=== PATIENT | female | born 1955 | race Caucasian/White ===

== ENCOUNTER 2018-07-09 02:36 | Inpatient (IN) | payer OTHER ==
[~2018-07-09] VITALS: Ht 167.6 cm; Wt 133.8 kg
[2018-07-09] VITALS (17 sets, daily range): BP systolic 134–181; BP diastolic 68–112
[2018-07-09] MEDS ORDERED: RT-ALBUTEROL SULF 2.5 MG/3 ML PRE-MIX VIAL ONE (02:48)
[2018-07-09] MEDS ORDERED: RT-ALBUTEROL SULF 2.5 MG/3 ML PRE-MIX VIAL INH STA (02:49)
[2018-07-09] MEDS ORDERED: RT-ALBUTEROL/IPRATROPIUM 3 ML (DUONEB) VIAL ONE (02:49)
[2018-07-09 02:53] LABS: BASOPHILS % (AUTO) 0 % (0-10); EOSINOPHILS % (AUTO) 0 % (0-10); HEMATOCRIT 58 % (35-52); HEMOGLOBIN 17.8 G/DL (11.5-16.0); LYMPHOCYTES # (AUTO) 1.2 X 10^3 (1.0-4.0); LYMPHOCYTES % (AUTO) 10 % (12-44); MEAN CORPUSCULAR HEMOGLOBIN 27 PG (25-34); MEAN CORPUSCULAR HGB CONC 31 G/DL (32-36); MEAN CORPUSCULAR VOLUME 87 FL (80-99); MEAN PLATELET VOLUME 11.2 FL (7.4-10.4); MONOCYTES # (AUTO) 0.6 X 10^3 (0.0-1.0); MONOCYTES % (AUTO) 5 % (0-12); NEUTROPHILS # (AUTO) 10.7 X 10^3 (1.8-7.8); NEUTROPHILS % (AUTO) 85 % (42-75); PLATELET COUNT 220 10^3/uL (130-400); RED CELL DISTRIBUTION WIDTH 18.7 % (10.0-14.5); WHITE BLOOD COUNT 12.6 10^3/uL (4.3-11.0)
[2018-07-09] MEDS ORDERED: RT-ALBUTEROL/IPRATROPIUM 3 ML (DUONEB) VIAL INH ONE (03:00)
[2018-07-09 03:15] LABS: ALANINE AMINOTRANSFERASE 22 U/L (0-55); ALBUMIN 4.2 GM/DL (3.2-4.5); ALKALINE PHOSPHATASE 71 U/L (40-136); BILIRUBIN,TOTAL 0.3 MG/DL (0.1-1.0); BUN/CREATININE RATIO 21; CALCIUM 9.4 MG/DL (8.5-10.1); CARBON DIOXIDE 26 MMOL/L (21-32); CHLORIDE 100 MMOL/L (98-107); CREATININE SERUM 0.72 MG/DL (0.60-1.30); GFR ESTIMATED > 60; GLUCOSE 191 MG/DL (70-105); POTASSIUM 4.5 MMOL/L (3.6-5.0); SODIUM 139 MMOL/L (135-145); TOTAL PROTEIN 7.9 GM/DL (6.4-8.2)
[2018-07-09] MEDS ORDERED: HOLD METFORMIN - RECEIVED CONTRAST 20 ML VIAL IV SCH (07:00)
[2018-07-09] MEDS ORDERED: IOHEXOL 350 MG/ML 150 ML (OMNIPAQUE 350) VIAL IV ONE (07:00)
--- NOTE | 2018-07-09 07:13 | Diagnostic Imaging Report ---
PATIENT HISTORY: Shortness of air. TECHNIQUE: Single frontal view of the chest COMPARISON: None FINDINGS: Lung volumes are mildly large. There is central vascular congestion with interstitial edema. The cardiac silhouette is mildly prominent. There is no pleural effusion or pneumothorax seen. IMPRESSION: 1. Central vascular congestion with mild interstitial edema. 2. Mild cardiomegaly. Dictated by: Dictated on workstation # [id number]
--- NOTE | 2018-07-09 07:24 | Diagnostic Imaging Report ---
PROCEDURE: CT angiography of the chest with contrast. TECHNIQUE: Multiple contiguous axial images were obtained through the chest after uneventful bolus administration of intravenous contrast. 2D reconstructed CTA MIP acquisitions were also performed. Auto Exposure Controls were utilized during the CT exam to meet ALARA standards for radiation dose reduction. INDICATION: Shortness of air COMPARISON: Chest x-ray from the same day FINDINGS: The pulmonary arteries are diagnostic to the proximal segmental level. No filling defects are seen to indicate a pulmonary embolus. The heart is mildly large. No pericardial effusion is seen. There is a small hiatal hernia. No significant mediastinal adenopathy is seen. There is a heterogeneous left thyroid nodule measuring approximately 3 cm in size. There are airspace opacities at the lung bases and dependent lungs bilaterally. No significant pleural effusion is seen. No acute osseous abnormality is seen. Imaged portions of the upper abdomen demonstrate no acute abnormality. There is a 2 cm right adrenal nodule which is suboptimally evaluated, but most likely represents an adenoma. IMPRESSION: 1. No pulmonary embolus seen. 2. Airspace opacities in the lower lobes bilaterally, most likely atelectasis with underlying infection not excluded. 3. Left thyroid nodule which is large enough to warrant nonemergent sonographic followup. 4. Small hiatal hernia. 5. Right adrenal nodule, most likely benign, but suboptimally evaluated on this exam. If clinically indicated, further evaluation could be performed with nonemergent MRI or pre-and postcontrast CT. Dictated by: Dictated on workstation # [id number]
[2018-07-09] MEDS ORDERED: cefTRIAXone FOR IV USE 1,000 MG in WATER (STERILE) FOR INJECTION 10 ML IV ONE (07:30)
--- NOTE | 2018-07-09 07:45 | NUR ---
1ST BLOOD CULTURE DRAWN FROM IV R HAND, UNABLE TO DRAW ABG AT THIS X RT NOTIFIED
--- NOTE | 2018-07-09 07:47 | ED Respiratory ---
General Chief Complaint: Respiratory Problems Stated Complaint: SOB Nursing Triage Note: PT ARRIVES VIA EMS, STATES THAT SHE BEGAN TO BECOME INCRESINGLY SOB AT WORK EARLIER IN THE DAY, THOUGHT SHE COULD REST AND IMPROVE, CONTACTED EMS AFTER SHE DID NOT IMPROVE Source: patient Exam Limitations: no limitations History of Present Illness Date Seen by Provider: Jul 09, 2018 Time Seen by Provider: 02:39 Initial Comments This 62-year-old woman presents to the emergency room via EMS after developing shortness of breath at work. EMS found her to be in respiratory distress with cyanosis and an oxygen saturation of 60 percent on room air. They administered Solu-Medrol 125 mg and placed her on BiPAP with a DuoNeb treatment. This resuscitated her oxygen saturations to the 90s. Patient denies any known history of COPD. However, she is a daily smoker. She has not been to a doctor in many years and claims no primary care provider. She denies any chest pain. Allergies and Home Medications Allergies Coded Allergies: No Known Drug Allergies (Unverified , 07/09/18) Patient Home Medication List Home Medication List Reviewed: Yes Review of Systems Review of Systems Constitutional: no symptoms reported EENTM: no symptoms reported Respiratory: see HPI Cardiovascular: no symptoms reported Gastrointestinal: no symptoms reported Genitourinary: no symptoms reported : No Musculoskeletal: no symptoms reported Skin: no symptoms reported Psychiatric/Neurological: No Symptoms Reported Hematologic/Lymphatic: No Symptoms Reported Immunological/Allergic: no symptoms reported Past Yduwzdy-Gnkoyv-Fhichg Hx Past Med/Social Hx: Reviewed and Corrections made Patient Social History Alcohol Use: Denies Use Recreational Drug Use: No Smoking Status: Current Everyday Smoker Type Used: Cigarettes Recent Foreign Travel: No Contact w/Someone Who Travel: No Recent Infectious Disease Expo: No Recent Hopitalizations: No Seasonal Allergies Seasonal Allergies: No Past Medical History Surgeries: Yes Section, Orthopedic, Tonsillectomy Respiratory: No Cardiac: Yes Hypertension Neurological: No : No Reproductive Disorders: Yes Female Reproductive Disorders: Endometriosis, Ovarian Cyst [employer] History: Menopausal Genitourinary: No Gastrointestinal: No Musculoskeletal: No Endocrine: No HEENT: No Cancer: No Psychosocial: No Integumentary: No Physical Exam Vital Signs - First Documented 07/09/18 07/09/18 02:36 03:30 Temp 97.7 Pulse 110 Resp 24 B/P (MAP) 169/89 (115) Pulse Ox 96 O2 Delivery Non Rebreather O2 Flow Rate 10.00 FiO2 100 Capillary Refill : Less Than 3 Seconds Height: 5'6.00" Weight: 292lbs. 1.0oz. 132.712316cm; BMI Method:Actual General Appearance: WD/WN, no apparent distress HEENT: normal ENT inspection Neck: normal inspection Respiratory: respiratory distress, decreased breath sounds; No crackles; wheezing Cardiovascular: regular rate, rhythm, no murmur Gastrointestinal: non tender, soft Extremities: pedal edema, swelling Neurologic/Psychiatric: load out supervisor II-XII nml as tested, no motor/sensory deficits, alert, normal mood/affect, oriented x 3 Skin: normal color, warm/dry Focused Exam Lactate Level 07/09/18 08:05: Lactic Acid Level 1.49 Lactic Acid Level Laboratory Tests Test 07/09/18 08:05 Lactic Acid Level 1.49 MMOL/L (0.50-2.00) Progress/Results/Core Measures Suspected Sepsis Recent Fever Within 48 Hours: No Infection Criteria Present: Suspected New Infection New/Unexplained Altered Menta: No Sepsis Screen: Possible Sepsis Risk SIRS Temperature:97.7 Pulse: 90 Respiratory Rate: 22 Laboratory Tests 07/09/18 02:40: White Blood Count 12.6H Blood Pressure 167 /89 Mean: 115 07/09/18 08:05: Lactic Acid Level 1.49 Laboratory Tests 07/09/18 02:40: Creatinine 0.72, Platelet Count 220, Total Bilirubin 0.3 Results/Orders Lab Results Laboratory Tests Test 07/09/18 02:40 07/09/18 08:05 07/09/18 08:15 Range/Units White Blood Count 12.6 H 4.3-11.0 10^3/uL Red Blood Count 6.61 H 4.35-5.85 10^6/uL Hemoglobin 17.8 H 11.5-16.0 G/DL Hematocrit 58 H 35-52 % Mean Corpuscular Volume 87 80-99 FL Mean Corpuscular Hemoglobin 27 25-34 PG Mean Corpuscular Hemoglobin Concent 31 L 32-36 G/DL Red Cell Distribution Width 18.7 H 10.0-14.5 % Platelet Count 220 130-400 10^3/uL Mean Platelet Volume 11.2 H 7.4-10.4 FL Neutrophils (%) (Auto) 85 H 42-75 % Lymphocytes (%) (Auto) 10 L 12-44 % Monocytes (%) (Auto) 5 0-12 % Eosinophils (%) (Auto) 0 0-10 % Basophils (%) (Auto) 0 0-10 % Neutrophils # (Auto) 10.7 H 1.8-7.8 X 10^3 Lymphocytes # (Auto) 1.2 1.0-4.0 X 10^3 Monocytes # (Auto) 0.6 0.0-1.0 X 10^3 Eosinophils # (Auto) 0.0 0.0-0.3 10^3/uL Basophils # (Auto) 0.0 0.0-0.1 10^3/uL D-Dimer 0.55 H 0.00-0.49 UG/ML Sodium Level 139 135-145 MMOL/L Potassium Level 4.5 3.6-5.0 MMOL/L Chloride Level 100 98-107 MMOL/L Carbon Dioxide Level 26 21-32 MMOL/L Anion Gap 13 5-14 MMOL/L Blood Urea Nitrogen 15 7-18 MG/DL Creatinine 0.72 0.60-1.30 MG/DL Estimat Glomerular Filtration Rate > 60 BUN/Creatinine Ratio 21 Glucose Level 191 H 70-105 MG/DL Calcium Level 9.4 8.5-10.1 MG/DL Corrected Calcium 9.2 8.5-10.1 MG/DL Magnesium Level 2.0 1.8-2.4 MG/DL Total Bilirubin 0.3 0.1-1.0 MG/DL Aspartate Amino Transf (AST/SGOT) 16 5-34 U/L Alanine Aminotransferase (ALT/SGPT) 22 0-55 U/L Alkaline Phosphatase 71 40-136 U/L Troponin I < 0.028 <0.028 NG/ML C-Reactive Protein High Sensitivity 2.48 H 0.00-0.50 MG/DL B-Type Natriuretic Peptide 45.1 <100.0 PG/ML Total Protein 7.9 6.4-8.2 GM/DL Albumin 4.2 3.2-4.5 GM/DL Lactic Acid Level 1.49 0.50-2.00 MMOL/L Blood Gas Puncture Site L RAD Blood Gas Patient Temperature 97.8 Arterial Blood pH 7.21 *L 7.37-7.43 Arterial Blood Partial Pressure CO2 77 *H 35-45 MMHG Arterial Blood Partial Pressure O2 92 79-93 MMHG Arterial Blood HCO3 30 H 23-27 MMOL/L Arterial Blood Total CO2 32.4 H 21.0-31.0 MMOL/L Arterial Blood Oxygen Saturation 96 94-100 % Arterial Blood Base Excess 2.8 H -2.5-2.5 MMOL/L Jaxson Test YES-POS Blood Gas Ventilator Setting NO Blood Gas Inspired Oxygen 80% Micro Results Microbiology 07/09/18 Influenza Types A,B Antigen (ANGUS) - Final, Complete My Orders Orders - ALLYN STEVENS MD BNP (07/09/18 02:45) Cbc With Automated Diff (07/09/18 02:45) Comprehensive Metabolic Panel (07/09/18 02:45) Hs C Reactive Protein (07/09/18 02:45) Fibrin Degradation Products (07/09/18 02:45) Magnesium (07/09/18 02:45) Troponin I (07/09/18 02:45) Influenza A And B Antigens (07/09/18 02:45) Chest 1 View, Ap/Pa Only (07/09/18 02:45) Ed Iv/Invasive Line Start (07/09/18 02:45) Ekg Tracing (07/09/18 02:45) Monitor-Rhythm Ecg Trace Only (07/09/18 02:45) Albuterol Pre-Mix Nebs (Rt) (Proventil (07/09/18 02:49) Albuterol/Ipra Inhalation Soln (Duoneb I (07/09/18 03:00) Svn Small Volume Nebulizer (07/09/18 02:49) Svn Small Volume Nebulizer (07/09/18 02:49) Albuterol Pre-Mix Nebs (Rt) (Proventil (07/09/18 02:48) Albuterol/Ipra Inhalation Soln (Duoneb I (07/09/18 02:49) Ct Angio Chest W (07/09/18 03:32) Iohexol Injection (Omnipaque 350 Mg/Ml 1 (07/09/18 07:00) Received Contrast (Hold Metformin- Contr (07/09/18 07:00) Arterial Blood Gas (07/09/18 08:15) Blood Culture (07/09/18 07:28) Lactic Acid Analyzer (4/30/19 07:28) Ceftriaxone For Iv Use (Rocephin For I (07/09/18 07:30) Medications Given in ED Current Medications Medications Dose Ordered Sig/Rhona Route Start Time Stop Time Status Last Admin Dose Admin Ceftriaxone Sodium 1000 mg/ Sterile Water 10 ml @ 200 mls/hr ONCE ONCE IV 07/09/18 07:30 07/09/18 07:32 DC 07/09/18 08:17 200 MLS/HR Iohexol 150 ml ONCE ONCE IV 07/09/18 07:00 07/09/18 07:01 DC 07/09/18 06:59 135 ML Vital Signs/I&O 07/09/18 07/09/18 07/09/18 07/09/18 02:36 02:45 03:30 08:31 Temp 97.7 Pulse 110 90 92 90 Resp 24 22 28 B/P (MAP) 169/89 (115) Pulse Ox 96 97 98 98 O2 Delivery Non Rebreather Vapotherm O2 Flow Rate 10.00 100.00 40.00 100.00 FiO2 100 Capillary Refill : Less Than 3 Seconds Blood Pressure Mean: 115 Progress Note #1: Time: 07:43 Progress Note Patient was transitioned from EMS CPAP to BiPAP briefly and then to Vapotherm. She did well with this therapy. An hour-long nebulizer treatment was administered. She received Solu-Medrol 125 mg by EMS. Initially labs were felt to be unimpressive. There is a mild WBC elevation. This was felt likely due to steroids as the CRP was not significantly elevated. Chest x-ray read by this provider was not felt to suggest pneumonia. Pulmonary congestion was thought to possibly be present. However, this did not correlate with BNP. D- dimer returned elevated which prompted a CT scan. On the CT scan there was question of pulmonary infection. Case was discussed with Dr. Sim who suggested starting Rocephin and azithromycin. He also suggested obtaining an ABG to help determine if the patient should be admitted to the fourth floor or to a stepdown bed in the ICU. The ABG study is pending. Blood cultures are being drawn prior to antibiotic administration. Presence of infection is rather questionable. Respiratory failures felt to be due to COPD exacerbation, not necessarily infection. Progress Note #2: Time: 08:36 Progress Note ABG revealed a significant hypercapnia with PCO2 of 77. PH was 7.21. Case was discussed again with Dr. Sim. Patient will be restarted on BiPAP therapy due to hypercarbia. Rocephin is being administered now after blood culture and lactic acid were drawn. ECG Initial ECG Impression Date: Jul 09, 2018 Initial ECG Impression Time: 03:10 Initial ECG Rate: 102 Initial ECG Rhythm: S.Tach Comment Sinus tachycardia with no ST elevation or depression. No abnormal intervals or axis deviation. Diagnostic Imaging Diagonstic Imaging: Xray Plain Films/CT/US/NM/MRI: chest Comments Chest x-ray viewed by me and report reviewed. See report below: NAME: [facility] HASSAN [facility] REC#: [id number] PT STATUS: REG ER : 1955 PHYSICIAN: ALLYN STEVENS MD ADMIT DATE: 07/09/18/ER Draft Date of Exam:07/09/18 CHEST 1 VIEW, AP/PA ONLY PATIENT HISTORY: Shortness of air. TECHNIQUE: Single frontal view of the chest COMPARISON: None FINDINGS: Lung volumes are mildly large. There is central vascular congestion with interstitial edema. The cardiac silhouette is mildly prominent. There is no pleural effusion or pneumothorax seen. IMPRESSION: 1. Central vascular congestion with mild interstitial edema. 2. Mild cardiomegaly. Dictated on workstation # [id number] Dict: 07/09/18 0711 Trans: 07/09/18 0712 [facility] [id number] Interpreted by: LONDON ALEXANDER MD Diagonstic Imaging: CT Plain Films/CT/US/NM/MRI: chest Comments CT angiogram of the chest was viewed by me and report reviewed. See report below: NAME: NORMA HASSAN [facility] REC#: [id number] PT STATUS: REG ER : 1955 PHYSICIAN: ALLYN STEVENS MD ADMIT DATE: 07/09/18/ER Draft Date of Exam:07/09/18 CHEST 1 VIEW, AP/PA ONLY PATIENT HISTORY: Shortness of air. TECHNIQUE: Single frontal view of the chest COMPARISON: None FINDINGS: Lung volumes are mildly large. There is central vascular congestion with interstitial edema. The cardiac silhouette is mildly prominent. There is no pleural effusion or pneumothorax seen. IMPRESSION: 1. Central vascular congestion with mild interstitial edema. 2. Mild cardiomegaly. Dictated on workstation # [id number] Dict: 07/09/18 0711 Trans: 07/09/18 0712 [facility] [id number] Interpreted by: LONDON ALEXANDER MD Departure Communication (Admissions) Time/Spoke to Admitting Phy: 05:50 Dr. Hogue Time/Spoke to Consulting Phy: 07:20 Dr. Sim Impression Primary Impression: Respiratory failure Qualified Codes: J96.01 - Acute respiratory failure with hypoxia; J96.02 - Acute respiratory failure with hypercapnia Additional Impressions: COPD exacerbation Pulmonary infiltrate Disposition: ADMITTED INPATIENT Condition: Improved Admissions Decision to Admit Reason: Admit from ER (General) Decision to Admit/Date: Jul 09, 2018 Time/Decision to Admit Time: 05:50 Departure-Patient Inst. Referrals: NO,LOCAL PHYSICIAN (PCP/Family) Primary Care Physician ALLYN STEVENS MD Jul 09, 2018 07:47
--- NOTE | 2018-07-09 08:18 | NUR ---
CURRENT V/S-97.8 TEMP,HR-95,B/P-149/84,SAT 95% VAPOTHERM
[2018-07-09 08:21] LABS: ABG BASE EXCESS 2.8 MMOL/L (-2.5-2.5); ABG OXYGEN SATURATION 96 % (94-100); ABG PO2 92 MMHG (79-93); ABG TCO2 32.4 MMOL/L (21.0-31.0)
[2018-07-09 08:23] LABS: ABG PH 7.21 (7.37-7.43)
[2018-07-09 08:24] LABS: ABG PCO2 77 MMHG (35-45); ALLENS TEST YES-POS; INSPIRED O2 80%; PATIENT TEMP 97.8; VENTILATOR NO
--- NOTE | 2018-07-09 08:28 | NUR ---
RT HERE TO PUT PT ON BIPAP
--- NOTE | 2018-07-09 09:26 | NUR ---
pt to be admitted.
[2018-07-09 10:09] LABS: ABG OXYGEN SATURATION 100 % (94-100); ABG PO2 294 MMHG (79-93); ABG TCO2 33.2 MMOL/L (21.0-31.0)
[2018-07-09 10:15] LABS: ABG PCO2 74 MMHG (35-45); ABG PH 7.24 (7.37-7.43)
--- NOTE | 2018-07-09 10:15 | NUR ---
DR KELLEY NOTIFIED OF LAB RESULTS ABG
[2018-07-09 10:16] LABS: ALLENS TEST YES-POS; PATIENT TEMP 98.1
[2018-07-09] MEDS ORDERED: NS IV 1000 ML 1,000 ML ONE (11:50)
--- NOTE | 2018-07-09 12:52 | Pulmonary Consultation ---
History of Present Illness History of Present Illness Date of Consultation 07/09/18 12:47 Time Seen by Provider: 12:47 Date of Admission History of Present Illness 62yo with hx of tobacco use presented to ED Via EMS after sudden worsening SOB. SP02 was 60% with EMS. PT is currently requiring noninvasive ventilation. Solumedrol was given 125mg IV X 1. She has not been diagnosed with COPD because she has not been to a doctor in years. Pt was admitted to ICU secondary to acute respiratory failure. I am consulted for pulmonary management. No prior hx like this in the past. Allergies and Home Medications Allergies Coded Allergies: No Known Drug Allergies (Unverified , 07/09/18) Past Ssnsbde-Mxgsbl-Rhhfgu Hx Past Med/Social Hx: Reviewed and Corrections made Patient Social History Alcohol Use: Denies Use Recreational Drug Use: No Smoking Status: Current Everyday Smoker Type Used: Cigarettes Recent Foreign Travel: No Contact w/Someone Who Travel: No Recent Infectious Disease Expo: No Recent Hopitalizations: No Seasonal Allergies Seasonal Allergies: No Past Medical History Surgeries: Yes Section, Orthopedic, Tonsillectomy Respiratory: No Cardiac: Yes Hypertension Neurological: No : No Reproductive Disorders: Yes Female Reproductive Disorders: Endometriosis, 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 Genitourinary: No Gastrointestinal: No Musculoskeletal: No Endocrine: No HEENT: No Cancer: No Psychosocial: No Integumentary: No Family Medical History Cardiovascular disease 19 FATHER 19 MOTHER Diabetes mellitus 19 FATHER Review of Systems Time Seen by Provider: 12:54 Constitutional: Sweats, Weakness, Malaise; No: Fever, Chills, Other Eyes: No: Pain, Vision change, Conjunctivae inflammation, Eyelid inflammation, Other, Redness ENT: Nose congestion; No: Ear pain, Ear discharge, Nose pain, Nose discharge, Mouth pain, Mouth swelling, Throat pain, Throat swelling, Other Respiratory: Cough, Dry, Shortness of breath, SOB with excertion, Wheezing; No : Hemoptysis Cardiovascular: Palpitations, Paroxysmal Noc. Dyspnea; No: Chest Pain, Orthopnea, Edema, Lt Headedness, Other Gastrointestinal: No: Nausea, Vomiting, Abdominal Pain, Diarrhea, Constipation , Melena, Hematochezia, Other Genitourinary: No Dysuria, No Frequency, No Incontinence, No Hematuria, No Retention, No Other Neurological: Weakness Sepsis Event Evaluation Height, Weight, BMI Height: 5'6.00" Weight: 292lbs. 4.0oz. 132.222888yh; 47.2 BMI Method:Actual Exam Exam Vital Signs Date Time Temp Pulse Resp B/P (MAP) Pulse Ox O2 Delivery O2 Flow Rate FiO2 07/09/18 12:11 92 07/09/18 11:50 97.1 07/09/18 11:50 96 NIV Bilevel 70 07/09/18 11:50 96.8 07/09/18 11:33 89 18 152/91 (111) 96 NIV Bilevel 07/09/18 08:31 92 28 98 100.00 07/09/18 03:30 98 Vapotherm 40.00 100 07/09/18 02:45 90 22 97 100.00 90 07/09/18 02:36 97.7 110 24 169/89 (115) 96 Non Rebreather 10.00 Height & Weight Height: 5'6.00" Weight: 292lbs. 4.0oz. 132.641816qp; 47.2 BMI Method:Actual General Appearance: Anxious, Chronically ill, Moderate Distress HEENT: PERRL/EOMI, Normal ENT Inspection, Pharynx Normal Neck: Normal Inspection, Non Tender, Supple Respiratory: Chest Non Tender, Accessory Muscle Use, Decreased Breath Sounds Cardiovascular: Regular Rate, Rhythm, No Edema, No Gallop Capillary Refill: Less Than 3 Seconds Gastrointestinal: non tender, soft Neurologic/Psychiatric: Alert Skin: Normal Color, Warm/Dry Results Lab Laboratory Tests 07/09/18 02:40 Assessment/Plan Assessment/Plan Acute respiratory failure -Noninvasive ventilation -Pt would benefit from vent to mask as out patient COPDAE -PT will probably need home 02 -Solumedrol -Duoneb Q 4 -Oxygen Secondary polycythemia - probably secondary to chronic hypoxia Atelectasis -IS -Monitor Leukocytosis - r/o PNA -Continue Rocephin and Azithromycin for now BRITTNEY KELLEY DO Jul 09, 2018 12:52
[2018-07-09] MEDS: NS IV 1000 ML 1,000 ML IV SCH ×2 (12:53→22:40)
[2018-07-09] MEDS: methylPREDNISolone 40 MG/ML (Solu-MEDROL) VIAL IV SCH ×2 (12:57→17:16)
--- NOTE | 2018-07-09 13:56 | NUR ---
PATIENT STATES SHE DOES NOT TAKE ANY MEDICATION CURRENTLY.
[2018-07-09] MEDS: AZITHROMYCIN INJECTION 500 MG in NS (IVPB) 250 ML IV SCH (14:12)
--- NOTE | 2018-07-09 15:57 | Progress Note-Hospitalist ---
Progress Note Progress Notes/Assess & Plan Date Seen 07/09/18 Time Seen by Provider: 15:56 Assessment & Plan The patient is a 62-year-old female who presented to the emergency room today with complaints of shortness of breath. She was found to be extremely hypoxic. She is a smoker and it is not at all clear how long she had had pulmonary problems as she had not seen a doctor in years. She is now deeply somnolent. Her vital signs are stable. She is not intubated but may be on the borderline. Focused Exam Lactate Level 07/09/18 08:05: Lactic Acid Level 1.49 VINNIE GRAY MD Jul 09, 2018 15:57
[2018-07-09] MEDS ORDERED: RT-ALBUTEROL/IPRATROPIUM 3 ML (DUONEB) VIAL INH PRN (16:15)
[2018-07-09] MEDS: RT-ALBUTEROL/IPRATROPIUM 3 ML (DUONEB) VIAL INH SCH ×2 (18:43→22:24)
[2018-07-09 19:59] LABS: ABG BASE EXCESS 5.3 MMOL/L (-2.5-2.5); ABG OXYGEN SATURATION 95 % (94-100); ABG PCO2 60 MMHG (35-45); ABG PO2 72 MMHG (79-93); ABG TCO2 32.9 MMOL/L (21.0-31.0)
[2018-07-09 20:02] LABS: ABG PH 7.33 (7.37-7.43); ALLENS TEST YES-POS; INSPIRED O2 55%BIPAP; PATIENT TEMP 97.4; VENTILATOR NO
[2018-07-10] VITALS (24 sets, daily range): BP systolic 118–223; BP diastolic 68–146
[2018-07-10] MEDS: methylPREDNISolone 40 MG/ML (Solu-MEDROL) VIAL IV SCH ×4 (01:23→16:46)
[2018-07-10] MEDS: RT-ALBUTEROL/IPRATROPIUM 3 ML (DUONEB) VIAL INH SCH ×6 (03:29→22:13)
[2018-07-10 04:03] LABS: BASOPHILS % (AUTO) 0 % (0-10); EOSINOPHILS % (AUTO) 0 % (0-10); HEMATOCRIT 56 % (35-52); HEMOGLOBIN 16.6 G/DL (11.5-16.0); LYMPHOCYTES # (AUTO) 0.4 X 10^3 (1.0-4.0); LYMPHOCYTES % (AUTO) 3 % (12-44); MEAN CORPUSCULAR HEMOGLOBIN 27 PG (25-34); MEAN CORPUSCULAR HGB CONC 30 G/DL (32-36); MEAN CORPUSCULAR VOLUME 91 FL (80-99); MEAN PLATELET VOLUME 11.7 FL (7.4-10.4); MONOCYTES # (AUTO) 0.6 X 10^3 (0.0-1.0); MONOCYTES % (AUTO) 5 % (0-12); NEUTROPHILS % (AUTO) 91 % (42-75); PLATELET COUNT 168 10^3/uL (130-400); RED CELL DISTRIBUTION WIDTH 18.5 % (10.0-14.5); WHITE BLOOD COUNT 10.9 10^3/uL (4.3-11.0)
[2018-07-10 04:13] LABS: ABG OXYGEN SATURATION 97 % (94-100); ABG PCO2 65 MMHG (35-45); ABG PO2 88 MMHG (79-93); ABG TCO2 33.4 MMOL/L (21.0-31.0)
[2018-07-10 04:17] LABS: ALLENS TEST YES-POS; INSPIRED O2 55% BIPAP
[2018-07-10 04:18] LABS: PATIENT TEMP 96.9; VENTILATOR NO
[2018-07-10 04:28] LABS: BUN/CREATININE RATIO 18; CALCIUM 9.4 MG/DL (8.5-10.1); CARBON DIOXIDE 25 MMOL/L (21-32); CHLORIDE 103 MMOL/L (98-107); CREATININE SERUM 0.67 MG/DL (0.60-1.30); GFR ESTIMATED > 60; GLUCOSE 135 MG/DL (70-105); MAGNESIUM 2.1 MG/DL (1.8-2.4); POTASSIUM 5.1 MMOL/L (3.6-5.0); SODIUM 139 MMOL/L (135-145)
[2018-07-10] MEDS: KCL 20 MEQ TAB (K-DUR) PO SCH (04:37)
[2018-07-10] MEDS: MAGNESIUM 1 GM/100 ML IVPB 100 ML IV SCH (04:37)
[2018-07-10] MEDS: POTASSIUM CL 10MEQ/50ML IVPB 50 ML IV SCH (04:37)
[2018-07-10 04:38] LABS: LYMPHOCYTES % (MANUAL) 7 %; MONOCYTES % (MANUAL) 8 %; NEUTROPHILS % (MANUAL) 85 %; RBC MORPH NORMAL
--- NOTE | 2018-07-10 05:53 | Pulmonary Progress Note ---
Subjective Time Seen by a Provider: 05:56 Subjective/Events-last exam Pt is still requiring vent to mask. Sepsis Event Evaluation Height, Weight, BMI Height: 5'6.00" Weight: 292lbs. 4.0oz. 132.893642yc; 47.2 BMI Method:Actual Focused Exam Lactate Level 07/09/18 08:05: Lactic Acid Level 1.49 Exam Exam Vital Signs Date Time Temp Pulse Resp B/P (MAP) Pulse Ox O2 Delivery O2 Flow Rate FiO2 07/10/18 05:00 86 17 95 NIV Bilevel 55.00 07/10/18 04:00 96 NIV Bilevel 55 07/10/18 04:00 96.9 07/10/18 04:00 73 14 97 NIV Bilevel 55.00 07/10/18 03:29 70 26 97 55.00 07/10/18 03:00 72 31 147/80 (102) 92 NIV Bilevel 55.00 07/10/18 02:00 86 13 128/73 (91) 96 NIV Bilevel 55.00 07/10/18 01:00 64 13 144/68 (93) 96 NIV Bilevel 55.00 07/10/18 01:00 94 07/10/18 00:47 98 15 96 55.00 07/10/18 00:00 97.3 07/10/18 00:00 97 16 144/68 (93) 95 NIV Bilevel 55.00 07/10/18 00:00 96 NIV Bilevel 55 07/09/18 23:00 95 15 137/74 (95) 94 NIV Bilevel 55.00 07/09/18 22:24 103 40 95 55.00 07/09/18 22:00 90 19 181/103 (129) 93 NIV Bilevel 55.00 07/09/18 21:00 96 17 147/76 (99) 93 Vapotherm 60.00 35.00 07/09/18 20:15 95 23 161/87 (111) 93 Vapotherm 60.00 35.00 07/09/18 20:13 93 Vapotherm 35.00 60 07/09/18 20:00 82 19 147/85 (105) 93 NIV Bilevel 55.00 07/09/18 20:00 97.4 07/09/18 20:00 95 NIV Bilevel 55 07/09/18 19:15 91 21 141/68 (92) 94 NIV Bilevel 55.00 07/09/18 19:00 95 07/09/18 19:00 95 21 95 NIV Bilevel 55.00 07/09/18 18:43 86 19 94 55.00 07/09/18 18:00 73 19 136/78 (97) 93 NIV Bilevel 55.00 07/09/18 17:00 81 17 139/81 (100) 94 NIV Bilevel 55.00 07/09/18 16:00 76 18 137/80 (99) 95 NIV Bilevel 55.00 07/09/18 16:00 NIV Bilevel 70 07/09/18 15:50 97.4 07/09/18 15:00 89 20 170/112 (131) 95 NIV Bilevel 55.00 07/09/18 14:00 80 19 134/75 (94) 95 NIV Bilevel 55.00 07/09/18 13:00 87 19 98 NIV Bilevel 70.00 07/09/18 12:11 92 07/09/18 12:00 89 23 147/84 (105) 97 NIV Bilevel 70.00 07/09/18 11:50 96 22 176/84 (114) 98 NIV Bilevel 70.00 07/09/18 11:50 97.1 07/09/18 11:50 96 NIV Bilevel 70 07/09/18 11:50 96.8 07/09/18 11:33 89 18 152/91 (111) 96 NIV Bilevel 07/09/18 08:31 92 28 98 100.00 I & O 07/10/18 07:00 Intake Total 1870 ml Output Total 900 ml Balance 970 ml Height & Weight Height: 5'6.00" Weight: 292lbs. 4.0oz. 132.591994pl; 47.2 BMI Method:Actual General Appearance: Anxious, Chronically ill, Moderate Distress HEENT: PERRL/EOMI, Normal ENT Inspection, Pharynx Normal Neck: Normal Inspection, Non Tender, Supple Respiratory: Chest Non Tender, Accessory Muscle Use, Decreased Breath Sounds Cardiovascular: Regular Rate, Rhythm, No Edema, No Gallop Capillary Refill: Less Than 3 Seconds Gastrointestinal: non tender, soft Neurologic/Psychiatric: Alert Skin: Normal Color, Warm/Dry Results Lab Laboratory Tests 07/09/18 02:40 07/10/18 03:20 Assessment/Plan Assessment/Plan Acute respiratory failure -Noninvasive ventilation -Pt would benefit from vent to mask as out patient -Pt is doing better with noninvasive ventilation COPDAE -PT will probably need home 02 -Solumedrol 40 Q 6 -Duoneb Q 4 -Oxygen Secondary polycythemia - probably secondary to chronic hypoxia -Will need PSG as out patient Thryoid nodule on CT scan -Will check free t3/T4 -Thyroid us Atelectasis -IS -Monitor Leukocytosis - r/o PNA -Continue Rocephin and Azithromycin for now Hyperkalemia -Will repeat later today. BRITTNEY KELLEY DO July 10, 2018 05:53
[2018-07-10 06:36] LABS: FREE T4 (FREE THYROXINE) 0.73 NG/DL (0.70-1.48)
--- NOTE | 2018-07-10 07:59 | Diagnostic Imaging Report ---
Indication: Cough and shortness of breath. Comparison made with prior examination from 07/09/2018. Findings: There is cardiomegaly. There is venous congestion. There are bibasal infiltrates. There is no pleural effusion or pneumothorax. The mediastinum is unremarkable. Impression: Bibasilar infiltrates right greater than left. Cardiomegaly and mild central pulmonary venous congestion. Dictated by: Dictated on workstation # [id number]
[2018-07-10] MEDS: cefTRIAXone FOR IV USE 1,000 MG in WATER (STERILE) FOR INJECTION 10 ML IV SCH (08:42)
[2018-07-10] MEDS: NS IV 1000 ML 1,000 ML IV SCH ×2 (08:45→16:49)
[2018-07-10] MEDS ORDERED: AZITHROMYCIN INJECTION 250 MG in NS (IVPB) 250 ML IV SCH (09:00)
[2018-07-10] MEDS: IBUPROFEN 600 MG (MOTRIN) TAB PO PRN ×3 (09:10→22:18)
--- NOTE | 2018-07-10 10:13 | NUR ---
this patient received their svn bt (Duoneb) at 0645 but it could not be scanned due to RT Angie could not log into the computer until she called IT after 1st rounds. By the time RT Angie was able to chart the SVN BT the RN had non-administered the Duoneb! RT explained to RN that she would need to undo the non-administer of the SVN BT Duoneb! RT went ahead and just charted a PRN SVN BT Duoneb instead
--- NOTE | 2018-07-10 10:30 | Diagnostic Imaging Report ---
CLINICAL INDICATION: Patient with thyroid nodule seen on CT. COMPARISONS: CT angiogram of the chest dated 07/09/2018. FINDINGS: THYROID NODULES: There is a 4.3 cm x 3.3 cm x 2.9 cm complex nodule in the mid portion of left thyroid gland which demonstrates mixed hypo-/iso echogenicity and curvilinear area of calcification within it. There is no significant central Doppler flow involving this nodule seen on the given images. THYROID GLAND: Besides the thyroid nodule, the thyroid gland has normal size, shape and echogenicity. The right lobe measures 4.4 cm x 1.6 cm x 1.0 cm and the left lobe measures 6.9 cm x 3.9 cm x 2.9 cm in their three dimensions. ISTHMUS: The isthmus is unremarkable and measures 4 mm in thickness. IMPRESSION: 1: There is a 4.3 cm heterogeneous and complex nodule in the left thyroid gland. Fine-needle aspiration is suggested for further evaluation. 2: Otherwise, the remainder of the thyroid gland is unremarkable. Dictated by: Dictated on workstation # [id number]
--- NOTE | 2018-07-10 10:54 | History & Physical-Hospitalist ---
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 Aggressive workup ensued revealing CT scan confirming bilateral pneumonia with respiratory failure. Patient was placed on BiPAP and now wheezing to Vapotherm along with IV steroid administration nebulized treatments oxygen supplementation and further workup. Appreciate Dr. Sim's expertise. Patient has significant polycythemia likely due to obstructive sleep apnea that has yet to be diagnosed. She also has elevated blood sugar I'm checking a hemoglobin A1c since I assume that we'll be very high also. She does have a thyroid nodule noted on CT scan and will need fine-needle aspirate at discharge. Overall patient feels much better and smoking cessation was counseled. Source: patient Exam Limitations: no limitations Date Seen 07/10/18 Time Seen by a Provider: 09:45 Attending Physician Fausto Hogue MD PCP No,Local Physician Referring Physician Date of Admission Jul 09, 2018 at 11:03 Home Medications & Allergies Home Medications Reviewed patient Home Medication Reconciliation performed by pharmacy medication reconciliations industrial hygiene technician and/or nursing. Patients Allergies have been reviewed. Allergies Allergies Coded Allergies No Known Drug Allergies (Unverified07/09/18) Past Nkmenxc-Serhbj-Alzizv Hx Past Med/Social Hx: Reviewed Nursing Past Med/Soc Hx, Reviewed and Corrections made Patient Social History Marrital Status: single Employed/Student: employed Alcohol Use: Denies Use Recreational Drug Use: No Smoking Status: Current Everyday Smoker Type Used: Cigarettes Recent Foreign Travel: No Contact w/other who traveled: No Recent Hopitalizations: No Recent Infectious Disease Expo: No Seasonal Allergies Seasonal Allergies: No Past Medical History Surgeries: Section, Orthopedic, Tonsillectomy Cardiac: Hypertension : No Reproductive: Yes Female Reproductive Disorders: Endometriosis, Ovarian Cyst Menopausal Family History Cardiovascular disease 19 FATHER 19 MOTHER Diabetes mellitus 19 FATHER Review of Systems Constitutional: see HPI, weakness EENTM: no symptoms reported Respiratory: cough, dyspnea on exertion, short of breath, wheezing Gastrointestinal: no symptoms reported Genitourinary: no symptoms reported Musculoskeletal: no symptoms reported Skin: no symptoms reported Psychiatric/Neurological: No Symptoms Reported All Other Systems Reviewed Negative Unless Noted: Yes Physical Exam Physical Exam Vital Signs Vital Signs - First Documented 07/09/18 07/09/18 02:36 03:30 Temp 97.7 Pulse 110 Resp 24 B/P (MAP) 169/89 (115) Pulse Ox 96 O2 Delivery Non Rebreather O2 Flow Rate 10.00 FiO2 100 Capillary Refill : Less Than 3 Seconds Height, Weight, BMI Height: 5'6.00" Weight: 292lbs. 4.0oz. 132.996033vo; 47.2 BMI Method:Actual General Appearance: WD/WN, Chronically ill, Mild Distress, Obese Eyes: Right Eye Normal Inspection, Right Eye PERRL HEENT: PERRL/EOMI, Normal ENT Inspection, Pharynx Normal, Moist Mucous Membranes Neck: Full Range of Motion, Normal Inspection, Non Tender Respiratory: Chest Non Tender, Accessory Muscle Use, Crackles, Decreased Breath Sounds, Respiratory Distress, Wheezing Cardiovascular: Regular Rate, Rhythm, No Edema, No Gallop, No JVD, No Murmur, Normal Peripheral Pulses Gastrointestinal: Normal Bowel Sounds, No Organomegaly, No Pulsatile Mass, Non Tender, Soft Back: Normal Inspection, No CVA Tenderness, No Vertebral Tenderness Extremity: Normal Capillary Refill, Normal Inspection, Normal Range of Motion, Non Tender, No Calf Tenderness, No Pedal Edema Neurologic/Psychiatric: Alert, Oriented x3, No Motor/Sensory Deficits, Normal Mood/Affect Skin: Normal Color, Warm/Dry Lymphatic: No Adenopathy Results Results/Procedures Labs Laboratory Tests 07/09/18 02:40 07/10/18 03:20 07/10/18 13:00 Patient resulted labs reviewed. Assessment/Plan Admission Diagnosis Assessment: (1) Respiratory failure s/p biPAP now on Vapotherm (2) Smoker cessation counseled (3) Obesity (4) COPD exacerbation (5) Pulmonary infiltrate (6) Hyperglycemia- suspect diabetes new dx checking hga1c (7) Polycythemia (8) KANU (obstructive sleep apnea) presumed needs formal testing (9) Leukocytosis (10) Thyroid mass left nodule need FNA as outpatient Plan: HGA1C Respiratory support Monitor closely Admission Status: Inpatient Order (span 2 midnights) Reason for Inpatient Admission: Respiratory failure will require 4 days Diagnosis/Problems Diagnosis/Problems (1) Respiratory failure Status: Acute Qualifiers: Chronicity: acute Respiratory failure complication: hypoxia and hypercapnia Qualified Codes: J96.01 - Acute respiratory failure with hypoxia; J96.02 - Acute respiratory failure with hypercapnia (2) Smoker Status: Chronic (3) Obesity Status: Chronic Qualifiers: Obesity type: due to excess calories Obesity classification: adult class 3 (BMI >= 40) Serious obesity comorbidity presence: with serious comorbidity Body mass index: BMI 45.0-49.9 Qualified Codes: E66.01 - Morbid (severe) obesity due to excess calories; Z68.42 - Body mass index (BMI) 45.0-49.9, adult (4) COPD exacerbation Status: Acute (5) Pulmonary infiltrate Status: Acute (6) Hyperglycemia Status: Acute (7) Polycythemia Status: Acute (8) KANU (obstructive sleep apnea) Status: Acute (9) Leukocytosis Status: Acute Qualifiers: Leukocytosis type: leukemoid reaction Qualified Codes: D72.823 - Leukemoid reaction (10) Thyroid mass Status: Acute Clinical Quality Measures DVT/VTE Risk/Contraindication: Risk Factor Score Per Nursin RFS Level Per Nursing on Admit: 4+=Very High MARIS SALDIVAR DO July 10, 2018 10:54
[2018-07-10 13:20] LABS: BUN/CREATININE RATIO 20; CALCIUM 9.2 MG/DL (8.5-10.1); CARBON DIOXIDE 23 MMOL/L (21-32); CHLORIDE 104 MMOL/L (98-107); CREATININE SERUM 0.69 MG/DL (0.60-1.30); GFR ESTIMATED > 60; GLUCOSE 202 MG/DL (70-105); MAGNESIUM 1.7 MG/DL (1.8-2.4); PHOSPHORUS 2.6 MG/DL (2.3-4.7); POTASSIUM 4.5 MMOL/L (3.6-5.0); SODIUM 137 MMOL/L (135-145)
[2018-07-10 13:42] LABS: ABG BASE EXCESS 3.6 MMOL/L (-2.5-2.5); ABG OXYGEN SATURATION 98 % (94-100); ABG PCO2 58 MMHG (35-45); ABG PO2 105 MMHG (79-93); ABG TCO2 31.3 MMOL/L (21.0-31.0)
[2018-07-10] MEDS: AZITHROMYCIN INJECTION 500 MG in NS (IVPB) 250 ML IV SCH (13:42)
[2018-07-10 13:43] LABS: ABG PH 7.32 (7.37-7.43); ALLENS TEST YES-POS; INSPIRED O2 60%; PATIENT TEMP 96.7; VENTILATOR NO
--- NOTE | 2018-07-10 15:10 | NUR ---
EMS at bedside to transfer pt at this time. [place] notified of pt's departure. No personal belongings with pt at this time. obtained all prior to transfer. Addendum: 07/15/18 at 0837 by MARVIN GARCIA RN Entered in error. Wrong pt.
--- NOTE | 2018-07-10 17:12 | NUR ---
RT has spoken to Patient different times today about needing to wear the Bipap; everytime Patient states she is going to eat first! Patient is non-compliant and is only worried about eating! RT explained to patient that she needs to go on the bipap when she is sleeping!
[2018-07-11] VITALS (27 sets, daily range): BP systolic 126–175; BP diastolic 76–130
[2018-07-11] MEDS: methylPREDNISolone 40 MG/ML (Solu-MEDROL) VIAL IV SCH ×4 (00:35→18:38)
[2018-07-11] MEDS: RT-ALBUTEROL/IPRATROPIUM 3 ML (DUONEB) VIAL INH SCH ×6 (02:28→22:40)
[2018-07-11 03:43] LABS: ABG BASE EXCESS 3.2 MMOL/L (-2.5-2.5); ABG OXYGEN SATURATION 97 % (94-100); ABG PCO2 59 MMHG (35-45); ABG PO2 90 MMHG (79-93); ABG TCO2 30.9 MMOL/L (21.0-31.0)
[2018-07-11 03:47] LABS: ABG PH 7.31 (7.37-7.43); ALLENS TEST YES-POS; INSPIRED O2 35% BIPAP; PATIENT TEMP 97.7; VENTILATOR NO
[2018-07-11 03:51] LABS: BASOPHILS % (AUTO) 0 % (0-10); EOSINOPHILS % (AUTO) 0 % (0-10); HEMATOCRIT 55 % (35-52); HEMOGLOBIN 16.1 G/DL (11.5-16.0); LYMPHOCYTES # (AUTO) 0.4 X 10^3 (1.0-4.0); LYMPHOCYTES % (AUTO) 4 % (12-44); MEAN CORPUSCULAR HEMOGLOBIN 26 PG (25-34); MEAN CORPUSCULAR HGB CONC 29 G/DL (32-36); MEAN CORPUSCULAR VOLUME 90 FL (80-99); MEAN PLATELET VOLUME 11.5 FL (7.4-10.4); MONOCYTES # (AUTO) 0.4 X 10^3 (0.0-1.0); MONOCYTES % (AUTO) 3 % (0-12); NEUTROPHILS # (AUTO) 9.9 X 10^3 (1.8-7.8); NEUTROPHILS % (AUTO) 93 % (42-75); PLATELET COUNT 179 10^3/uL (130-400); RED CELL DISTRIBUTION WIDTH 18.7 % (10.0-14.5); WHITE BLOOD COUNT 10.7 10^3/uL (4.3-11.0)
[2018-07-11 04:14] LABS: BUN/CREATININE RATIO 23; CALCIUM 9.4 MG/DL (8.5-10.1); CARBON DIOXIDE 25 MMOL/L (21-32); CHLORIDE 105 MMOL/L (98-107); CREATININE SERUM 0.62 MG/DL (0.60-1.30); GFR ESTIMATED > 60; GLUCOSE 139 MG/DL (70-105); PHOSPHORUS 2.5 MG/DL (2.3-4.7); POTASSIUM 5.1 MMOL/L (3.6-5.0); SODIUM 141 MMOL/L (135-145)
[2018-07-11] MEDS: MAGNESIUM 1 GM/100 ML IVPB 100 ML IV SCH (04:39)
[2018-07-11] MEDS: POTASSIUM CL 10MEQ/50ML IVPB 50 ML IV SCH (04:39)
[2018-07-11] MEDS: KCL 20 MEQ TAB (K-DUR) PO SCH (04:39)
[2018-07-11] MEDS: IBUPROFEN 600 MG (MOTRIN) TAB PO PRN ×3 (05:32→21:30)
[2018-07-11] MEDS: NS IV 1000 ML 1,000 ML IV SCH (05:44)
--- NOTE | 2018-07-11 06:56 | Diagnostic Imaging Report ---
Indication: Shortness of breath. Portable chest 3:28 AM Heart size and pulmonary vascularity are within normal limits. Lungs are clear. There are no effusions or pneumothoraces. Impression: No acute abnormalities in the chest. Dictated by: Dictated on workstation # [id number]
[2018-07-11] MEDS ORDERED: FUROSEMIDE 40 MG/4 ML INJ (LASIX) IVP NR (07:00)
--- NOTE | 2018-07-11 07:08 | Pulmonary Progress Note ---
Subjective Time Seen by a Provider: 07:07 Subjective/Events-last exam Pt still requiring vent to mask Sepsis Event Evaluation Height, Weight, BMI Height: 5'6.00" Weight: 295lbs. 5.0oz. 133.680089xc; 47.2 BMI Method:Actual Focused Exam Lactate Level 07/09/18 08:05: Lactic Acid Level 1.49 Exam Exam Vital Signs Date Time Temp Pulse Resp B/P (MAP) Pulse Ox O2 Delivery O2 Flow Rate FiO2 07/11/18 06:31 80 12 170/94 (119) 93 NIV Bilevel 35.00 07/11/18 06:08 87 20 96 NIV Bilevel 35.00 07/11/18 05:56 70 14 96 35.00 07/11/18 05:30 70 14 159/92 (114) 94 NIV Bilevel 35.00 07/11/18 04:15 71 17 160/83 (108) 94 NIV Bilevel 35.00 07/11/18 04:00 94 NIV Bilevel 35 07/11/18 04:00 97.3 07/11/18 03:00 71 14 158/94 (115) 92 NIV Bilevel 35.00 07/11/18 02:28 66 14 93 35.00 07/11/18 02:00 71 13 163/105 (124) 95 NIV Bilevel 35.00 07/11/18 01:00 86 15 160/98 (118) 93 NIV Bilevel 35.00 07/11/18 00:59 70 07/11/18 00:00 97.3 07/11/18 00:00 75 14 144/93 (110) 92 NIV Bilevel 35.00 07/11/18 00:00 94 NIV Bilevel 35 07/10/18 23:00 84 14 144/86 (105) 91 NIV Bilevel 35.00 07/10/18 22:17 168/93 (118) NIV Bilevel 35.00 07/10/18 22:17 85 25 92 35.00 07/10/18 22:00 86 16 94 Vapotherm 50.00 30.00 07/10/18 21:00 93 18 94 Vapotherm 50.00 30.00 07/10/18 20:00 96 Vapotherm 30.00 50 07/10/18 20:00 97.6 07/10/18 20:00 95 29 132/75 (94) 95 Vapotherm 50.00 30.00 07/10/18 19:00 97 07/10/18 19:00 87 27 180/118 (138) 94 Vapotherm 50.00 30.00 07/10/18 18:43 94 Vapotherm 30.00 50 07/10/18 18:00 91 15 99 Vapotherm 50.00 30.00 07/10/18 17:00 97 29 132/72 (92) 95 Vapotherm 50.00 30.00 07/10/18 16:00 96 Vapotherm 30.00 50 07/10/18 16:00 97.3 07/10/18 16:00 93 22 118/108 (111) 95 Vapotherm 50.00 30.00 07/10/18 15:30 Vapotherm 50.00 30.00 07/10/18 15:24 96 Vapotherm 35.00 60 07/10/18 15:00 90 28 149/93 (111) 96 Vapotherm 60.00 35.00 07/10/18 14:00 94 18 174/106 (128) 96 Vapotherm 60.00 35.00 07/10/18 13:04 98 07/10/18 13:00 91 18 96 Vapotherm 60.00 35.00 07/10/18 12:00 75 11 167/113 (131) 94 Vapotherm 60.00 35.00 07/10/18 12:00 96 NIV Bilevel 55 07/10/18 11:27 94 Vapotherm 35.00 60 07/10/18 11:00 93 43 145/91 (109) NIV Bilevel 45.00 07/10/18 11:00 97.6 07/10/18 10:00 93 30 140/77 (98) 94 NIV Bilevel 45.00 07/10/18 09:00 Vapotherm 35.00 60 07/10/18 09:00 81 21 137/75 (95) 96 NIV Bilevel 45.00 07/10/18 08:00 76 15 136/75 (95) 91 NIV Bilevel 45.00 07/10/18 08:00 96 NIV Bilevel 55 07/10/18 07:07 72 I & O 07/11/18 07:00 Intake Total 3610 ml Output Total 5300 ml Balance -1690 ml Height & Weight Height: 5'6.00" Weight: 295lbs. 5.0oz. 133.286797qg; 47.2 BMI Method:Actual General Appearance: Anxious, Chronically ill, Moderate Distress HEENT: PERRL/EOMI, Normal ENT Inspection, Pharynx Normal Neck: Normal Inspection, Non Tender, Supple Respiratory: Chest Non Tender, Accessory Muscle Use, Decreased Breath Sounds Cardiovascular: Regular Rate, Rhythm, No Edema, No Gallop Capillary Refill: Less Than 3 Seconds Gastrointestinal: non tender, soft Extremity: Normal Capillary Refill, Normal Inspection, Normal Range of Motion, Non Tender, No Calf Tenderness, No Pedal Edema Neurologic/Psychiatric: Alert Skin: Normal Color, Warm/Dry Lymphatic: No Adenopathy Results Lab Laboratory Tests 07/10/18 03:20 07/10/18 13:00 07/11/18 03:20 Assessment/Plan Assessment/Plan Acute respiratory failure with OHS -Noninvasive ventilation - Pt is still requiring -Will give Lasix 40mg IV x 1 -Pt would benefit from vent to mask as out patient -Will consult SW for possible home vent to mask -Pt is doing better with noninvasive ventilation COPDAE -Will titrate Fi02 for Sp02 88-90% to help improve acid base status. Pt has been chronically hypoxic probably even in the lower 80's. -PT will probably need home 02 -Solumedrol 40 Q 6 -Duoneb Q 4 -Oxygen Secondary polycythemia - secondary to chronic hypoxia -Will need home oxygen upon discharge Thryoid nodule on CT scan -Thyroid us-- is recommending thyroid needle bx -Pt needs to be more stable before this is done. Atelectasis -IS -Monitor Leukocytosis - r/o PNA -Continue Rocephin and Azithromycin for now Hyperkalemia -Will repeat later today. BRITTNEY KELLEY DO July 11, 2018 07:08
[2018-07-11] MEDS: RT-BUDESONIDE NEBS 0.5 MG/2ML (PULMICORT) AMP INH SCH ×2 (07:16→18:35)
[2018-07-11 08:04] LABS: ABG BASE EXCESS 4.7 MMOL/L (-2.5-2.5); ABG OXYGEN SATURATION 94 % (94-100); ABG PCO2 50 MMHG (35-45); ABG PH 7.39 (7.37-7.43); ABG PO2 65 MMHG (79-93); ABG TCO2 31.3 MMOL/L (21.0-31.0)
[2018-07-11 08:08] LABS: ALLENS TEST YES-POS; INSPIRED O2 30%; PATIENT TEMP 96.8; VENTILATOR NO
--- NOTE | 2018-07-11 08:49 | Physical Therapy Evaluation ---
PT Evaluation-General Medical Diagnosis Admission Date Jul 09, 2018 at 11:03 Medical Diagnosis: pneumonia Onset Date: Jul 09, 2018 Therapy Diagnosis Therapy Diagnosis: impaired mobility, strength, endurance Height/Weight Height (Feet): 5 Height (Inches): 6.00 Weight (Pounds): 295 Weight (Ounces): 5.0 Precautions Precautions/Isolations: Standard Precautions Referral Physician: Murray Sim DO Reason for Referral: Evaluation/Treatment Medical History Pertinent Medical History: COPD, HTN Additional Medical History endometriosis, ovarian cyst, surg (, orthopedic, tonsillectomy) Reviewed History: Yes Social History Home: Single Level Current Living Status: Other Family Entry Into Home: Stairs With Railing PT Steps Into Home: 6 Prior/Core FIM Prior Level of Function Therapy Code Descriptions/Definitions Functional [place] Measure: 0=Not Assessed/NA 4=Minimal Assistance 1=Total Assistance 5=Supervision or Setup 2=Maximal Assistance 6=Modified [place] 3=Moderate Assistance 7=Complete [place] Therapy Quality Codes: 6 Independent with activity with or without an assistive device 5 Patient requires set up or clean up by helper. Patient completes activity by themselves 4 Supervision or touching assist (CGA). Wallace provide cues , steadying assist 3 The helper provides less than half the effort to complete the activity 2 The helper provides more than half the effort to complete the activity 1 Dependent. The helper does all the effort to complete an activity 7 Patient refused to complete or attempt activity 9 The patient did not perform the activity before the current illness or injury 88 Not attempted due to Medical conditions or safety concerns Functional Abilities and Goals: Independent: Patient completed the activities by him/herself, with or without an assistive device, with no assistance from a helper. Needed Some Help: Patient needed partial assistance from another person to complete activities. Dependent: A helper completed the activities for the patient. Unknown: Not Applicable: Bed Mobility: 7 Transfers (B,C,W/C) (FIM): 7 Gait: 7 Stairs: 6 Indoor Mobility (Ambulation): Independent Stairs: Independent PT Evaluation-Current Subjective Patient in bed pre tx, agrees to PT, has pain of 5/10 in head and low back. Pt/Family Goals to be independent at home Objective Patient Orientation: Person, Place, Situation Attachments: IV vapotherm ROM/Strength ROM Lower Extremities limited slightly due to obesity Strength Lower Extremities right lower extremity (hip flexion 3/5, knee flexion 4/5, knee extension 4/5, dorsiflexion 5/5), left lower extremity (hip flexion 3/5, knee flexion 4/5, knee extension 4/5, dorsiflexion 5/5) Neuromuscular (Tone, Coordination, Reflexes) NT Sensory Vision: Wears Glasses Hearing: Functional Sensation Right Lower Extremit: Intact Sensation Left Lower Extremity: Intact Transfers Therapy Code Descriptions/Definitions Functional [place] Measure: 0=Not Assessed/NA 4=Minimal Assistance 1=Total Assistance 5=Supervision or Setup 2=Maximal Assistance 6=Modified [place] 3=Moderate Assistance 7=Complete [place] Transfers (B, C, W/C) (FIM): 5 Scootin Rollin Supine to/from Sit: 5 Sit to/from Stand: 5 Patient performs bed mobility and supine to sit and sit to stand with SBA. She has some difficulty with supine to sit but can do it without assist. Patient transfers to a recliner. Gait Mode of Locomotion: Walk Anticipated Mode of Locomotion: Walk Gait (FIM): 1 Distance: 5' Gait Level of Assist: 5 Gait Persons Needed: 1 Gait Assistive Device: None Comments/Gait Description Patient ambulates a few feet to a recliner without an assistive device with SBA. No LOB or unsteadiness. Balance Sitting Static: Normal Sitting Dynamic: Normal Standing Static: Good Standing Dynamic: Good Treatment seated bilateral lower extremity exercises x15 (AP, LAQ) Assessment/Needs Patient has impaired mobility, strength, endurance. She has good balance when ambulating and performing transfers. Rehab Potential: Fair PT Short Term Goals Short Term Goals Time Frame: July 18, 2018 Transfers (B,C,W/C) (FIM): 6 Gait (FIM): 2 Gait Distance Comment: 50' Gait Level of Assist: 5 Gait Assistive Device: None, FWW PT Plan Problem List Problem List: Activity Tolerance, Functional Strength, Safety, Balance, Gait, Transfer, Bed Mobility, ROM Treatment/Plan Treatment Plan: Continue Plan of Care Treatment Plan: Bed Mobility, Education, Functional Activity [place], Functional Strength, Gait, Safety, Therapeutic Exercise, Transfers Treatment Duration: July 18, 2018 Frequency: 6 times per week Estimated Hrs Per Day: .25 hour per day (15-30') Patient and/or Family Agrees t: Yes Safety Risks/Education Patient Education: Gait Training, Transfer Techniques, Correct Positioning, Safety Issues Teaching Recipient: Patient Teaching Methods: Demonstration, Discussion Response to Teaching: Reinforcement Needed Discharge Recommendations Plan Patient will perform bed mobility and transfer training, balance and endurance training, functional strengthening, stair training, gait training, and education , to improve functional mobility and independence at home. Therapy D/C Recommendations: Home w/ Family Support Time/GCodes Time In: 0825 Time Out: 0842 Total Billed Treatment Time: 17 Total Billed Treatment 1 visit ELMER HUFF PT July 11, 2018 08:49
[2018-07-11] MEDS ORDERED: amLODIPine 5 MG (NORVASC) TAB PO NR (10:15)
--- NOTE | 2018-07-11 10:22 | Progress Note-Hospitalist ---
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 Aggressive workup ensued revealing CT scan confirming bilateral pneumonia with respiratory failure. Patient was placed on BiPAP and now wheezing to Vapotherm along with IV steroid administration nebulized treatments oxygen supplementation and further workup. Appreciate Dr. Sim's expertise. Patient has significant polycythemia likely due to obstructive sleep apnea that has yet to be diagnosed. She also has elevated blood sugar I'm checking a hemoglobin A1c since I assume that we'll be very high also. She does have a thyroid nodule noted on CT scan and will need fine-needle aspirate at discharge. Overall patient feels much better and smoking cessation was counseled. Subjective/Events-last exam ABG not showing any progress We'll maintain on BiPAP throughout today and Vapotherm during meals Severe obstructive sleep apnea which has been untreated for many years has caused the profound respiratory decline Reviewed labs Reviewed meds Denies any pain Gas passed no bowel movement yet Overall stable Review of Systems General: Fatigue Pulmonary: Dyspnea Focused Exam Lactate Level 07/09/18 08:05: Lactic Acid Level 1.49 Objective Exam Vital Signs Vital Signs Date Time Temp Pulse Resp B/P (MAP) Pulse Ox O2 Delivery O2 Flow Rate FiO2 07/11/18 10:28 81 24 91 25.00 07/11/18 08:00 NIV Bilevel 07/11/18 08:00 35 07/11/18 04:00 97.3 Capillary Refill : Less Than 3 Seconds General Appearance: Anxious, Chronically ill, Mild Distress, Other (BiPAP mask on) HEENT: PERRL/EOMI, Normal ENT Inspection, Pharynx Normal Neck: Normal Inspection, Non Tender, Supple Respiratory: Normal Breath Sounds, No Accessory Muscle Use, No Respiratory Distress, Decreased Breath Sounds Cardiovascular: Regular Rate, Rhythm, No Edema, No Gallop Gastrointestinal: Normal Bowel Sounds, No Organomegaly, No Pulsatile Mass, Non Tender, Soft Back: Normal Inspection, No CVA Tenderness, No Vertebral Tenderness Extremity: Normal Capillary Refill, Normal Inspection, Normal Range of Motion, Non Tender, No Calf Tenderness, No Pedal Edema Neurologic/Psychiatric: Alert Skin: Normal Color, Warm/Dry Lymphatic: No Adenopathy Results/Procedures Lab Laboratory Tests 07/10/18 13:00 07/11/18 03:20 Patient resulted labs reviewed. Assessment/Plan Assessment and Plan Assess & Plan/Chief Complaint Assessment: (1) Respiratory failure on biPAP now with Vapotherm only during meals (2) Smoker cessation counseled (3) Obesity (4) COPD exacerbation (5) Pulmonary infiltrate (6) Hyperglycemia- suspect diabetes new dx checking hga1c- 08/13 so need counseling (7) Polycythemia (8) KANU (obstructive sleep apnea) presumed needs formal testing (9) Leukocytosis (10) Thyroid mass left nodule need FNA as outpatient Plan: HGA1C Respiratory support Monitor closely biPAP Slow progress Diagnosis/Problems Diagnosis/Problems (1) Respiratory failure Status: Acute Qualifiers: Chronicity: acute Respiratory failure complication: hypoxia and hypercapnia Qualified Codes: J96.01 - Acute respiratory failure with hypoxia; J96.02 - Acute respiratory failure with hypercapnia (2) Smoker Status: Chronic (3) Obesity Status: Chronic Qualifiers: Obesity type: due to excess calories Obesity classification: adult class 3 (BMI >= 40) Serious obesity comorbidity presence: with serious comorbidity Body mass index: BMI 45.0-49.9 Qualified Codes: E66.01 - Morbid (severe) obesity due to excess calories; Z68.42 - Body mass index (BMI) 45.0-49.9, adult (4) COPD exacerbation Status: Acute (5) Pulmonary infiltrate Status: Acute (6) Hyperglycemia Status: Acute (7) Polycythemia Status: Acute (8) KANU (obstructive sleep apnea) Status: Acute (9) Leukocytosis Status: Acute Qualifiers: Leukocytosis type: leukemoid reaction Qualified Codes: D72.823 - Leukemoid reaction (10) Thyroid mass Status: Acute Clinical Quality Measures DVT/VTE Risk/Contraindication: Risk Factor Score Per Nursin RFS Level Per Nursing on Admit: 4+=Very High MARIS SALDIVAR DO July 11, 2018 10:22
[2018-07-11] MEDS: cefTRIAXone FOR IV USE 1,000 MG in WATER (STERILE) FOR INJECTION 10 ML IV SCH (10:38)
[2018-07-11] MEDS: AZITHROMYCIN 250 MG TAB (ZITHROMAX) PO SCH (10:45)
--- NOTE | 2018-07-11 11:00 | NUR ---
Pastoral care visit.
--- NOTE | 2018-07-11 14:00 | Occupational Therapy Eval ---
OT Evaluation-General/PLF Medical Diagnosis Admission Date Jul 09, 2018 at 11:03 Medical Diagnosis: COPD exacerbation/acute respiratory failure Onset Date: Jul 09, 2018 Therapy Diagnosis Therapy Diagnosis: Weakness Height/Weight Height (Feet): 5 Height (Inches): 6.00 Weight (Pounds): 295 Weight (Ounces): 5.0 Precautions Precautions/Isolations: Standard Precautions Safety Interventions: None Weight Bear Status Weight Bearing Restriction: Weight Bearing/Tolerated Referral Physician: Murray Sim DO Referral Reason: Activity Tolerance, Self Care, Evaluation/Treatment, Strengthening/ROM Medical History Pertinent Medical History: COPD, HTN Additional Medical History Hysterectomy, Current History Pt. reports that she has not been to a physician in years because she has been healthy. Somewhat confused regarding her diagnosis. Came to ED with hypoxia and in ARF. Pt. encouraged to talk with Dr. Sim or Dr. Ahn. Reviewed History: Yes Social History Home: Single Level Current Living Status: Other Family Entry Into Home: Level Entry Pt. states that currently she lives with her son and a roommate in a home with no steps. However, states that she will be moving very soon to a home with multiple steps. ADL-Prior Level of Function Therapy Code Descriptions/Definitions Functional [place] Measure: 0=Not Assessed/NA 4=Minimal Assistance 1=Total Assistance 5=Supervision or Setup 2=Maximal Assistance 6=Modified [place] 3=Moderate Assistance 7=Complete [place] Therapy Quality Codes: 6 Independent with activity with or without an assistive device 5 Patient requires set up or clean up by helper. Patient completes activity by themselves 4 Supervision or touching assist (CGA). [place] provide cues , steadying assist 3 The helper provides less than half the effort to complete the activity 2 The helper provides more than half the effort to complete the activity 1 Dependent. The helper does all the effort to complete an activity 7 Patient refused to complete or attempt activity 9 The patient did not perform the activity before the current illness or injury 88 Not attempted due to Medical conditions or safety concerns Functional Abilities and Goals: Independent: Patient completed the activities by him/herself, with or without an assistive device, with no assistance from a helper. Needed Some Help: Patient needed partial assistance from another person to complete activities. Dependent: A helper completed the activities for the patient. 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 Self Care: Independent Functional Cognition: Independent DME/Equipment Comments Pt. states that she has a walker and a "hurry cane" because someone gave it to her. 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 does not report pain. States that she is feeling "a whole lot better." Pt. on vapotherm through nasal cannula when OT came into room. Nursing put on mask after treatment. Appearance Pt. alert and oriented. Mental Status/Objective Patient Orientation: Person, Place Attachments: IV, Oxygen Current Upper Extremity ROM WFL ADL-Treatment Therapy Code Descriptions/Definitions Functional [place] Measure: 0=Not Assessed/NA 4=Minimal Assistance 1=Total Assistance 5=Supervision or Setup 2=Maximal Assistance 6=Modified [place] 3=Moderate Assistance 7=Complete [place] Therapy Quality Codes: 6 Independent with activity with or without an assistive device 5 Patient requires set up or clean up by helper. Patient completes activity by themselves 4 Supervision or touching assist (CGA). [place] provide cues , steadying assist 3 The helper provides less than half the effort to complete the activity 2 The helper provides more than half the effort to complete the activity 1 Dependent. The helper does all the effort to complete an activity 7 Patient refused to complete or attempt activity 9 The patient did not perform the activity before the current illness or injury 88 Not attempted due to Medical conditions or safety concerns Grooming (FIM): 5 (Set up at bed level to brush teeth and wash face. ) Toileting (FIM): 5 (SBA due to multiple lines and tubes.) Transfers (B, C, W/C) (FIM): 5 Toilet/Commode Transfer (FIM): 5 Pt. states that she was able to wash her hair earlier with nursing assist. Declines sponge bath stating that she has been cleaning up each time she toilets , which is frequent due to taking lasix. Pt. agrees to groom at bed level, and then does transfer to side of bed with SBA. Transfers to toilet and able to toilet self with SBA, and then transfer back to bed. Pt. on vapotherm and has IV, oxygen, BP cuff at this time. This impedes independence with transfers. Pt. has questions regarding current diagnosis. Pt. is encouraged to speak with physician. Pt. is also encouraged to establish primary physician at discharge for continued medical health, as she states that she does not have one. Pt. is adamant however that she has quit smoking. Pt. is encouraged in this. All needs are met back in bed and nursing comes to put pt. on mask. Education OT Patient Education: Correct positioning, Modified ADL techniques, Progress toward Goal/Update tx plan, Purpose of tx/functional activities, Reviewed precautions, Rehab process, Transfer techniques Teaching Recipient: Patient Teaching Methods: Demonstration, Discussion Response to Teaching: Verbalize Understanding, Return Demonstration OT Short Term Goals Short Term Goals Transfers (B,C,W/C) (FIM): 6 1=Demonstrate adherence to instructed precautions during ADL tasks. 2=Patient will verbalize/demonstrate understanding of assistive devices/ modifications for ADL. 3=Patient will improve strength/tolerance for activity to enable patient to perform ADL's. OT Diesel Technician Mechanic Goals Longterm Goals Time Frame: July 18, 2018 Eating (FIM): 6 Grooming(FIM): 6 Bathing(FIM): 5 Upper Body Dressing(FIM): 6 Lower Body Dressing(FIM): 6 Toileting(FIM): 6 Transfers (B,C,W/C) (FIM): 6 Toilet/Commode Transfer(FIM): 6 Additional Goals: 1-Demonstrate ADL Tasks, 2-Verbalize Understanding, 3- ImproveStrength/[place] 1=Demonstrate adherence to instructed precautions during ADL tasks. 2=Patient will verbalize/demonstrate understanding of assistive devices/ modifications for ADL. 3=Patient will improve strength/tolerance for activity to enable patient to perform ADL's. OT Education/Plan Problem List/Assessment Assessment: Decreased Activ Tolerance, Impaired I ADL's, Impaired Self-Care Skills Discharge Recommendations Plan/Recommendations: Continue POC Therapy D/C Recommendations: Home w/ Family Support Comment Equipment needs to be determined. Treatment Plan/Plan of Care Treatment,Training & Education: Yes Patient would benefit from OT for education, treatment and training to promote independence in ADL's, mobility, safety and/or upper extremity function for ADL' s. Plan of Care: ADL Retraining, Functional Mobility, UE Funct Exercise/Act Treatment Duration: July 18, 2018 Frequency: 5 times per week Estimated Hrs Per Day: .25 hour per day Agreement: Yes Rehab Potential: Fair Time/GCodes Start Time: 13:05 Stop Time: 13:40 Total Time Billed (hr/min): 35 Billed Treatment Time 1, EVL x 15minutes, ADL x 20minutes LANNY CAI OT July 11, 2018 14:00
[2018-07-12] VITALS (17 sets, daily range): BP systolic 136–184; BP diastolic 79–110
[2018-07-12] MEDS: methylPREDNISolone 40 MG/ML (Solu-MEDROL) VIAL IV SCH ×3 (00:33→19:56)
[2018-07-12] MEDS: RT-ALBUTEROL/IPRATROPIUM 3 ML (DUONEB) VIAL INH SCH ×6 (02:03→22:16)
[2018-07-12 03:52] LABS: BASOPHILS % (AUTO) 0 % (0-10); EOSINOPHILS % (AUTO) 0 % (0-10); HEMATOCRIT 55 % (35-52); HEMOGLOBIN 16.5 G/DL (11.5-16.0); LYMPHOCYTES # (AUTO) 0.4 X 10^3 (1.0-4.0); LYMPHOCYTES % (AUTO) 4 % (12-44); MEAN CORPUSCULAR HEMOGLOBIN 27 PG (25-34); MEAN CORPUSCULAR HGB CONC 30 G/DL (32-36); MEAN CORPUSCULAR VOLUME 89 FL (80-99); MEAN PLATELET VOLUME 11.4 FL (7.4-10.4); MONOCYTES # (AUTO) 0.3 X 10^3 (0.0-1.0); MONOCYTES % (AUTO) 3 % (0-12); NEUTROPHILS # (AUTO) 9.2 X 10^3 (1.8-7.8); NEUTROPHILS % (AUTO) 93 % (42-75); PLATELET COUNT 161 10^3/uL (130-400); RED CELL DISTRIBUTION WIDTH 18.7 % (10.0-14.5); WHITE BLOOD COUNT 9.9 10^3/uL (4.3-11.0)
[2018-07-12 03:58] LABS: ABG BASE EXCESS 7.2 MMOL/L (-2.5-2.5); ABG OXYGEN SATURATION 96 % (94-100); ABG PCO2 56 MMHG (35-45); ABG PH 7.38 (7.37-7.43); ABG PO2 79 MMHG (79-93); ABG TCO2 34.2 MMOL/L (21.0-31.0)
[2018-07-12 04:00] LABS: ALLENS TEST YES-POS; INSPIRED O2 30% BIPAP; PATIENT TEMP 96.9; VENTILATOR NO
[2018-07-12 04:11] LABS: BUN/CREATININE RATIO 27; CALCIUM 9.2 MG/DL (8.5-10.1); CARBON DIOXIDE 25 MMOL/L (21-32); CHLORIDE 101 MMOL/L (98-107); CREATININE SERUM 0.71 MG/DL (0.60-1.30); GFR ESTIMATED > 60; GLUCOSE 147 MG/DL (70-105); MAGNESIUM 1.9 MG/DL (1.8-2.4); POTASSIUM 4.7 MMOL/L (3.6-5.0); SODIUM 138 MMOL/L (135-145)
[2018-07-12] MEDS: POTASSIUM CL 10MEQ/50ML IVPB 50 ML IV SCH (04:39)
[2018-07-12] MEDS: MAGNESIUM 1 GM/100 ML IVPB 100 ML IV SCH (04:39)
[2018-07-12] MEDS: KCL 20 MEQ TAB (K-DUR) PO SCH (04:39)
[2018-07-12] MEDS: IBUPROFEN 600 MG (MOTRIN) TAB PO PRN ×2 (04:41→22:07)
--- NOTE | 2018-07-12 06:05 | Pulmonary Progress Note ---
Subjective Time Seen by a Provider: 06:05 Subjective/Events-last exam Pt appears to be doing better. Sepsis Event Evaluation Height, Weight, BMI Height: 5'6.00" Weight: 295lbs. 5.0oz. 133.549714pv; 47.2 BMI Method:Actual Focused Exam Lactate Level 07/09/18 08:05: Lactic Acid Level 1.49 Exam Exam Vital Signs Date Time Temp Pulse Resp B/P (MAP) Pulse Ox O2 Delivery O2 Flow Rate FiO2 07/12/18 05:00 71 14 175/97 (123) 94 NIV Bilevel 30.00 07/12/18 04:00 78 20 152/99 (116) 93 NIV Bilevel 30.00 07/12/18 04:00 95 NIV Bilevel 30 07/12/18 03:00 95 14 166/106 (126) 91 NIV Bilevel 30.00 07/12/18 02:03 89 34 93 30.00 07/12/18 02:00 102 20 150/84 (106) 91 NIV Bilevel 30.00 07/12/18 01:00 76 07/12/18 01:00 76 14 161/93 (115) 91 NIV Bilevel 30.00 07/12/18 00:50 86 16 92 30.00 07/12/18 00:00 94 NIV Bilevel 30 07/12/18 00:00 91 13 161/102 (121) 92 NIV Bilevel 30.00 07/11/18 23:06 84 14 158/85 (109) 91 Vapotherm 50.00 30.00 07/11/18 22:40 91 32 92 30.00 07/11/18 22:00 94 25 160/89 (112) 92 Vapotherm 50.00 30.00 07/11/18 21:00 87 18 146/84 (104) 91 Vapotherm 50.00 30.00 07/11/18 20:00 97 26 137/83 (101) 92 Vapotherm 50.00 30.00 07/11/18 20:00 94 Vapotherm 07/11/18 20:00 98.4 07/11/18 19:18 106 07/11/18 19:00 98 39 139/76 (97) 93 Vapotherm 50.00 30.00 07/11/18 18:35 93 Vapotherm 30.00 50 07/11/18 18:35 93 Vapotherm 30.00 50 07/11/18 18:00 98 18 173/94 (120) 93 Vapotherm 50.00 30.00 07/11/18 17:00 108 40 161/98 (119) 97 Vapotherm 50.00 30.00 07/11/18 16:50 Vapotherm 50.00 30.00 07/11/18 16:45 94 NIV Bilevel 35 07/11/18 16:00 100 27 133/130 (131) 94 NIV Bilevel 35.00 07/11/18 16:00 97.4 07/11/18 15:00 79 17 157/94 (115) 93 NIV Bilevel 35.00 07/11/18 14:19 76 30 92 25.00 07/11/18 14:00 74 31 153/92 (112) 91 NIV Bilevel 35.00 07/11/18 13:08 94 07/11/18 13:00 89 23 126/82 (97) 94 NIV Bilevel 35.00 07/11/18 12:45 Vapotherm 50.00 30.00 07/11/18 12:00 94 NIV Bilevel 35 07/11/18 12:00 93 23 134/81 (98) NIV Bilevel 35.00 07/11/18 11:00 92 27 91 NIV Bilevel 35.00 07/11/18 10:28 81 24 91 25.00 07/11/18 10:00 99 23 175/101 (125) 91 NIV Bilevel 35.00 07/11/18 09:00 98 21 94 NIV Bilevel 35.00 07/11/18 08:00 83 18 90 NIV Bilevel 35.00 07/11/18 08:00 94 NIV Bilevel 35 07/11/18 07:19 86 07/11/18 07:18 82 24 92 25.00 07/11/18 07:00 84 11 163/98 (119) 93 NIV Bilevel 35.00 07/11/18 06:31 80 12 170/94 (119) 93 NIV Bilevel 35.00 07/11/18 06:08 87 20 96 NIV Bilevel 35.00 I & O 07/12/18 07:00 Intake Total 2160 ml Output Total 8960 ml Balance -6800 ml Height & Weight Height: 5'6.00" Weight: 295lbs. 5.0oz. 133.561561ro; 47.2 BMI Method:Actual General Appearance: Anxious, Chronically ill, Mild Distress, Other (BiPAP mask on) HEENT: PERRL/EOMI, Normal ENT Inspection, Pharynx Normal Neck: Normal Inspection, Non Tender, Supple Respiratory: Normal Breath Sounds, No Accessory Muscle Use, No Respiratory Distress, Decreased Breath Sounds Cardiovascular: Regular Rate, Rhythm, No Edema, No Gallop Capillary Refill: Less Than 3 Seconds Gastrointestinal: non tender, soft Extremity: Normal Capillary Refill, Normal Inspection, Normal Range of Motion, Non Tender, No Calf Tenderness, No Pedal Edema Neurologic/Psychiatric: Alert Skin: Normal Color, Warm/Dry Lymphatic: No Adenopathy Results Lab Laboratory Tests 07/10/18 13:00 07/11/18 03:20 07/12/18 03:15 Assessment/Plan Assessment/Plan Acute respiratory failure with OHS -Noninvasive ventilation - Pt is still requiring -Will give Lasix 40mg IV x 1 -Pt would benefit from vent to mask as out patient -Will consult SW for possible home vent to mask -Pt is doing better with noninvasive ventilation COPDAE -Will titrate Fi02 for Sp02 88-90% to help improve acid base status. Pt has been chronically hypoxic probably even in the lower 80's. -PT will probably need home 02 -Solumedrol 40 Q 6 -Duoneb Q 4 -Oxygen Secondary polycythemia - secondary to chronic hypoxia -Will need home oxygen upon discharge Thryoid nodule on CT scan -Thyroid us-- is recommending thyroid needle bx -Defer to IM Atelectasis -IS -Monitor Leukocytosis - r/o PNA -Continue Rocephin and Azithromycin for now BRITTNEY KELLEY DO July 12, 2018 06:05
[2018-07-12] MEDS: RT-BUDESONIDE NEBS 0.5 MG/2ML (PULMICORT) AMP INH SCH ×2 (06:31→19:13)
[2018-07-12] MEDS: meTOprolol TARTRATE 25 MG (LOPRESSOR) TABLET PO SCH ×2 (08:29→19:56)
[2018-07-12] MEDS: AZITHROMYCIN 250 MG TAB (ZITHROMAX) PO SCH (08:29)
[2018-07-12] MEDS: cefTRIAXone FOR IV USE 1,000 MG in WATER (STERILE) FOR INJECTION 10 ML IV SCH (08:29)
--- NOTE | 2018-07-12 11:00 | Physical Therapy Daily Note ---
PT Daily Note-Current Subjective Patient in bed pre tx, agrees to PT but doesn't want to get out of bed at this time because she just got back in after using the bedside commode. Patient agrees to LE exercises in bed. Patient states she has minor back pain. Appearance Patient in bed post tx with nurse call, phone, tray, all needs met. Mental Status Patient Orientation: Person, Place, Situation Attachments: Oxygen, IV vapotherm Transfers Therapy Code Descriptions/Definitions Functional [place] Measure: 0=Not Assessed/NA 4=Minimal Assistance 1=Total Assistance 5=Supervision or Setup 2=Maximal Assistance 6=Modified [place] 3=Moderate Assistance 7=Complete [place] Therapy Quality Codes: 6 Independent with activity with or without an assistive device 5 Patient requires set up or clean up by helper. Patient completes activity by themselves 4 Supervision or touching assist (CGA). [place] provide cues , steadying assist 3 The helper provides less than half the effort to complete the activity 2 The helper provides more than half the effort to complete the activity 1 Dependent. The helper does all the effort to complete an activity 7 Patient refused to complete or attempt activity 9 The patient did not perform the activity before the current illness or injury 88 Not attempted due to Medical conditions or safety concerns Exercises Supine Ex: Ankle pumps, Quad Set, Heel Slides, Short Arc Quads, Straight leg raise, Hip abd/add Supine Reps: 20 Treatments LE exercises Assessment Current Status: Fair Progress Patient did not get out of bed this morning but she has been going from supine to sit and transfers with SBA. PT Short Term Goals Short Term Goals Time Frame: July 18, 2018 Transfers (B,C,W/C) (FIM): 6 Gait (FIM): 2 Gait Distance Comment: 50' Gait Level of Assist: 5 Gait Assistive Device: None, FWW PT Plan Problem List Problem List: Activity Tolerance, Functional Strength, Safety, Balance, Gait, Transfer Treatment/Plan Treatment Plan: Continue Plan of Care Treatment Plan: Bed Mobility, Education, Functional Activity [place], Functional Strength, Gait, Safety, Therapeutic Exercise, Transfers Treatment Duration: July 18, 2018 Frequency: 6 times per week Estimated Hrs Per Day: .25 hour per day (15-30') Patient and/or Family Agrees t: Yes Safety Risks/Education Patient Education: Correct Positioning, Safety Issues Teaching Recipient: Patient Teaching Methods: Demonstration, Discussion Response to Teaching: Reinforcement Needed Time/GCodes Time In: 1042 Time Out: 1054 Total Billed Treatment Time: 12 Total Billed Treatment 1 visit EX ELMER MG PT July 12, 2018 11:00
--- NOTE | 2018-07-12 11:14 | NUR ---
PT TRANSFERRED TO ROOM 430 VIA W/ STAFF/PERSONAL BELONGINGS. REPORT GIVEN TO KAROL FIERRO, NO QUESTIONS/CONCERNS VOICED.
--- NOTE | 2018-07-12 12:00 | Diagnostic Imaging Report ---
Indication: Dyspnea COMPARISON: 07/11/2018 Compared with study one day prior. FINDINGS: There is background COPD chronic. Heart size upper limit stable. There is mild vascular congestion in the upper lobes. There is mild hazy pulmonary opacity raising the question of mild edema. IMPRESSION: Vascular congestion is stable. Heart is upper limits heart size. Probable mild pulmonary edema. Dictated by: Dictated on workstation # [id number]
--- NOTE | 2018-07-12 13:13 | Progress Note-Hospitalist ---
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 Aggressive workup ensued revealing CT scan confirming bilateral pneumonia with respiratory failure. Patient was placed on BiPAP and now wheezing to Vapotherm along with IV steroid administration nebulized treatments oxygen supplementation and further workup. Appreciate Dr. Sim's expertise. Patient has significant polycythemia likely due to obstructive sleep apnea that has yet to be diagnosed. She also has elevated blood sugar I'm checking a hemoglobin A1c since I assume that we'll be very high also. She does have a thyroid nodule noted on CT scan and will need fine-needle aspirate at discharge. Overall patient feels much better and smoking cessation was counseled. Subjective/Events-last exam Sitting up drinking a pop on O2 2 L by nasal cannula is very comfortable with good color. She has no specific complaints. She said she's breathing much better. Review of Systems Pulmonary: Dyspnea Objective Exam Vital Signs Vital Signs Date Time Temp Pulse Resp B/P (MAP) Pulse Ox O2 Delivery O2 Flow Rate FiO2 07/12/18 12:00 Nasal Cannula 6.00 07/12/18 11:00 73 22 136/84 (101) 95 07/12/18 10:11 35 07/12/18 08:43 97.6 Capillary Refill : Less Than 3 Seconds General Appearance: Anxious, Chronically ill, Mild Distress, Obese, Other ( BiPAP mask on) HEENT: PERRL/EOMI, Normal ENT Inspection, Pharynx Normal Neck: Normal Inspection, Non Tender, Supple Respiratory: Normal Breath Sounds, No Accessory Muscle Use, No Respiratory Distress, Decreased Breath Sounds Cardiovascular: Regular Rate, Rhythm, No Edema, No Gallop Gastrointestinal: Normal Bowel Sounds, No Organomegaly, No Pulsatile Mass, Non Tender, Soft Rectal: Deferred Back: Normal Inspection, No CVA Tenderness, No Vertebral Tenderness Extremity: Normal Capillary Refill, Normal Inspection, Normal Range of Motion, Non Tender, No Calf Tenderness, Pedal Edema, Other (Onychomycosis) Neurologic/Psychiatric: Alert, Oriented x3, No Motor/Sensory Deficits, Normal Mood/Affect Skin: Normal Color, Warm/Dry Lymphatic: No Adenopathy Results/Procedures Lab Laboratory Tests 07/12/18 03:15 Patient resulted labs reviewed. Imaging: Reviewed Imaging Report Assessment/Plan Assessment and Plan Assess & Plan/Chief Complaint 1. Acute on chronic respiratory failure improving with hypoventilation syndrome -on Zithromax and Rocephin 2. Hyperglycemia secondary to steroids or diabetes 3. Morbid obesity 4. Thyroid nodule with outpatient plan for sono guided biopsy 5. Fluid overload diuresing 6. Erythrocytosis presumed to be secondary to chronic hypoxia 7. Hypertension Discharge planning based on being able to acquire oxygen via mask to sleep with per Dr. Null's recommendations Clinical Quality Measures DVT/VTE Risk/Contraindication: Risk Factor Score Per Nursin RFS Level Per Nursing on Admit: 4+=Very High KATHY SALCEDO MD July 12, 2018 13:13
--- NOTE | 2018-07-12 14:33 | Occupational Ther Daily Note ---
OT Current Status-Daily Note Subjective Pt alert, sitting EOB. Pt agrees to therapy. No c/o pain. Mental Status/Objective Patient Orientation: Person, Place, Time, Situation Therapy Code Descriptions/Definitions Functional [place] Measure: 0=Not Assessed/NA 4=Minimal Assistance 1=Total Assistance 5=Supervision or Setup 2=Maximal Assistance 6=Modified [place] 3=Moderate Assistance 7=Complete [place] Attachments: IV, Oxygen (5 1/2 L) ADL-Treatment Pt ambulated without AD to bathroom. Transferred to toilet by self. Pt able to complete clothing manipulation and prefers not to complete hygiene. Transferred into shower by self and completed showering using shower bench, hand held shower and grabbars. Pt able to don/doff lower body clothing by self. Pt stated that she had completed oral care by self prior to therapy. Pt using hospital gown for upper body clothing. After therapy, pt sitting EOB with call light/phone in reach. All needs met in room. Bathing (FIM): 6 Bathing Location: L Arm, R Arm, L Upper Leg, R Upper Leg, L Lower Leg ( including foot), R Lower Leg (including foot), Chest, Abdomen, Buttocks, Perineal Area Lower Body Dressing (FIM): 6 Toileting (FIM): 6 Transfers (B, C, W/C) (FIM): 7 Toilet/Commode Transfer (FIM): 7 Shower Transfer(FIM): 6 Pt attempted to keep O2 off, sats dropped to 88%. When O2 on sats 95%. OT Short Term Goals Short Term Goals Transfers (B,C,W/C) (FIM): 6 1=Demonstrate adherence to instructed precautions during ADL tasks. 2=Patient will verbalize/demonstrate understanding of assistive devices/ modifications for ADL. 3=Patient will improve strength/tolerance for activity to enable patient to perform ADL's. OT Fdc Goals Ice Cutter Goals Time Frame: July 18, 2018 Eating (FIM): 6 Grooming(FIM): 6 Bathing(FIM): 5 Upper Body Dressing(FIM): 6 Lower Body Dressing(FIM): 6 Toileting(FIM): 6 Transfers (B,C,W/C) (FIM): 6 Toilet/Commode Transfer(FIM): 6 Additional Goals: 1-Demonstrate ADL Tasks, 2-Verbalize Understanding, 3- ImproveStrength/[place] 1=Demonstrate adherence to instructed precautions during ADL tasks. 2=Patient will verbalize/demonstrate understanding of assistive devices/ modifications for ADL. 3=Patient will improve strength/tolerance for activity to enable patient to perform ADL's. OT Education/Plan Problem List/Assessment Assessment: Decreased Activ Tolerance Discharge Recommendations Plan/Recommendations: Continue POC Treatment Plan/Plan of Care Patient would benefit from OT for education, treatment and training to promote independence in ADL's, mobility, safety and/or upper extremity function for ADL' s. Plan of Care: ADL Retraining, Functional Mobility, UE Funct Exercise/Act Treatment Duration: July 18, 2018 Frequency: 5 times per week Estimated Hrs Per Day: .25 hour per day Agreement: Yes Rehab Potential: Fair Time/GCodes Start Time: 13:40 Stop Time: 14:10 Total Time Billed (hr/min): 30 Billed Treatment Time 1 visit-ADL 2 (30 min) HIRAM PRO July 12, 2018 14:33
[2018-07-13] VITALS: BP 145/86
[2018-07-13] MEDS: RT-ALBUTEROL/IPRATROPIUM 3 ML (DUONEB) VIAL INH SCH ×6 (02:52→22:18)
[2018-07-13 04:00] VITALS: BP 148/81
[2018-07-13 05:46] LABS: BASOPHILS % (AUTO) 0 % (0-10); EOSINOPHILS % (AUTO) 0 % (0-10); HEMATOCRIT 54 % (35-52); HEMOGLOBIN 16.4 G/DL (11.5-16.0); LYMPHOCYTES # (AUTO) 0.7 X 10^3 (1.0-4.0); LYMPHOCYTES % (AUTO) 6 % (12-44); MEAN CORPUSCULAR HEMOGLOBIN 27 PG (25-34); MEAN CORPUSCULAR HGB CONC 30 G/DL (32-36); MEAN CORPUSCULAR VOLUME 88 FL (80-99); MEAN PLATELET VOLUME 11.5 FL (7.4-10.4); MONOCYTES # (AUTO) 0.7 X 10^3 (0.0-1.0); MONOCYTES % (AUTO) 6 % (0-12); NEUTROPHILS # (AUTO) 9.4 X 10^3 (1.8-7.8); NEUTROPHILS % (AUTO) 87 % (42-75); PLATELET COUNT 172 10^3/uL (130-400); RED CELL DISTRIBUTION WIDTH 18.7 % (10.0-14.5); WHITE BLOOD COUNT 10.7 10^3/uL (4.3-11.0)
[2018-07-13 06:02] LABS: BUN/CREATININE RATIO 38; CALCIUM 9.4 MG/DL (8.5-10.1); CARBON DIOXIDE 28 MMOL/L (21-32); CHLORIDE 101 MMOL/L (98-107); CREATININE SERUM 0.64 MG/DL (0.60-1.30); GFR ESTIMATED > 60; GLUCOSE 120 MG/DL (70-105); MAGNESIUM 2.1 MG/DL (1.8-2.4); PHOSPHORUS 3.9 MG/DL (2.3-4.7); SODIUM 139 MMOL/L (135-145)
[2018-07-13] MEDS: RT-BUDESONIDE NEBS 0.5 MG/2ML (PULMICORT) AMP INH SCH ×2 (07:11→18:50)
[2018-07-13 08:00] VITALS: BP 143/73
--- NOTE | 2018-07-13 08:20 | Diagnostic Imaging Report ---
Indication: Dyspnea. Time of exam: 4:50 AM Correlation made with prior study one day earlier. The heart size is stable. Central congestive changes appear to be slightly improved. There is some residual infiltrate or atelectasis in the left base. Right lung is clear. No significant effusion or pneumothorax is seen. Impression: Improvement in congestive changes although there does appear to be some infiltrate or atelectasis in the left base. Dictated by: Dictated on workstation # [id number]
[2018-07-13] MEDS: meTOprolol TARTRATE 25 MG (LOPRESSOR) TABLET PO SCH ×2 (09:22→19:59)
[2018-07-13] MEDS: methylPREDNISolone 40 MG/ML (Solu-MEDROL) VIAL IV SCH ×2 (09:22→19:59)
[2018-07-13] MEDS: AZITHROMYCIN 250 MG TAB (ZITHROMAX) PO SCH (09:22)
[2018-07-13] MEDS: cefTRIAXone FOR IV USE 1,000 MG in WATER (STERILE) FOR INJECTION 10 ML IV SCH (09:28)
--- NOTE | 2018-07-13 10:51 | NUR ---
SPOKE WITH PT RE NO BM SINCE 07/08. STATES SHE DOES NOT FEEL CONSTIPATED AND REFUSES ANY INTERVENTION.
[2018-07-13 12:00] VITALS: BP 142/88
--- NOTE | 2018-07-13 12:24 | Physical Therapy Daily Note ---
PT Daily Note-Current Subjective Pt reports doing much better, looking forward to PT and walking, has been walking self to and from the bathroom, brushed her hair and changed her clothes already this morning Pain Numeric Pain Scale: 0-No Pain Appearance Pt sitting up on EOB upon arrival, good balance At end of session, pt sitting up in recliner with call light, phone and bedside table within reach Mental Status Patient Orientation: Person, Place, Time, Eyes Open, Situation Attachments: Oxygen Transfers Therapy Code Descriptions/Definitions Functional [place] Measure: 0=Not Assessed/NA 4=Minimal Assistance 1=Total Assistance 5=Supervision or Setup 2=Maximal Assistance 6=Modified [place] 3=Moderate Assistance 7=Complete [place] Therapy Quality Codes: 6 Independent with activity with or without an assistive device 5 Patient requires set up or clean up by helper. Patient completes activity by themselves 4 Supervision or touching assist (CGA). [place] provide cues , steadying assist 3 The helper provides less than half the effort to complete the activity 2 The helper provides more than half the effort to complete the activity 1 Dependent. The helper does all the effort to complete an activity 7 Patient refused to complete or attempt activity 9 The patient did not perform the activity before the current illness or injury 88 Not attempted due to Medical conditions or safety concerns Transfers (B, C, W/C) (FIM): 6 Scootin Rollin Supine to/from Sit: 6 Sit to/from Stand: 6 Bed to/from Chair: 6 Gait Training Gait (FIM): 6 Distance (FIM): 3=150 ft Distance: 175 Gait Level of Assist: 6 Gait Persons Needed: 1 Gait Assistive Device: None slight trunk sway, good pace, slows at times with slight SOA, steady with no LOB. O2 sats remained 94-95% Treatments bed mobility, activity tolerance, energy conservation, transfer, gait, safety, functional mobility Assessment Current Status: Good Progress PT Short Term Goals Short Term Goals Time Frame: July 18, 2018 Transfers (B,C,W/C) (FIM): 6 Gait (FIM): 2 Gait Distance Comment: 50' Gait Level of Assist: 5 Gait Assistive Device: None, FWW PT Plan Treatment/Plan Treatment Plan: Continue Plan of Care Treatment Plan: Bed Mobility, Education, Functional Activity [place], Functional Strength, Gait, Safety, Therapeutic Exercise, Transfers Treatment Duration: July 18, 2018 Frequency: 6 times per week Estimated Hrs Per Day: .25 hour per day (15-30') Patient and/or Family Agrees t: Yes Safety Risks/Education Patient Education: Gait Training, Transfer Techniques, Safety Issues Teaching Recipient: Patient Teaching Methods: Discussion Response to Teaching: Verbalize Understanding, Return Demonstration Time/GCodes Time In: 950 Time Out: 1005 Total Billed Treatment Time: 15 Total Billed Treatment 1 visit, GT x 1 unit TRACE ALVAREZ PTA July 13, 2018 12:24
--- NOTE | 2018-07-13 12:52 | Progress Note-Hospitalist ---
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 Aggressive workup ensued revealing CT scan confirming bilateral pneumonia with respiratory failure. Patient was placed on BiPAP and now wheezing to Vapotherm along with IV steroid administration nebulized treatments oxygen supplementation and further workup. Appreciate Dr. Sim's expertise. Patient has significant polycythemia likely due to obstructive sleep apnea that has yet to be diagnosed. She also has elevated blood sugar I'm checking a hemoglobin A1c since I assume that we'll be very high also. She does have a thyroid nodule noted on CT scan and will need fine-needle aspirate at discharge. Overall patient feels much better and smoking cessation was counseled. Subjective/Events-last exam Patient is sitting up and is on 5 L nasal cannula. Oxygen saturations are running 98 percent. She is anxious to go home and is up walking around. We discussed weight loss but she says she's been heavy all her life and has been on multiple diets in the past. Dr. Sim has requested that we wait to have her be on BiPAP at night before discharge. Review of Systems Neurological: Weakness Objective Exam Vital Signs Vital Signs Date Time Temp Pulse Resp B/P (MAP) Pulse Ox O2 Delivery O2 Flow Rate FiO2 07/13/18 12:35 74 07/13/18 11:17 97 Nasal Cannula 5.00 07/13/18 08:00 97.8 20 143/73 (96) 07/12/18 10:11 35 Capillary Refill : Less Than 3 SecondsLess Than 3 Seconds General Appearance: Anxious, Chronically ill, Mild Distress, Obese, Other ( BiPAP mask on) HEENT: PERRL/EOMI, Normal ENT Inspection, Pharynx Normal Neck: Normal Inspection, Non Tender, Supple Respiratory: Normal Breath Sounds, No Accessory Muscle Use, No Respiratory Distress, Decreased Breath Sounds Cardiovascular: Regular Rate, Rhythm, No Edema, No Gallop Gastrointestinal: Normal Bowel Sounds, No Organomegaly, No Pulsatile Mass, Non Tender, Soft Rectal: Deferred Back: Normal Inspection, No CVA Tenderness, No Vertebral Tenderness Extremity: Normal Capillary Refill, Normal Inspection, Normal Range of Motion, Non Tender, No Calf Tenderness, Pedal Edema, Other (Onychomycosis) Neurologic/Psychiatric: Alert, Oriented x3, No Motor/Sensory Deficits, Normal Mood/Affect Skin: Normal Color, Warm/Dry Lymphatic: No Adenopathy Results/Procedures Lab Laboratory Tests 07/13/18 05:34 Patient resulted labs reviewed. Imaging: Reviewed Imaging Report Assessment/Plan Assessment and Plan Assess & Plan/Chief Complaint 1. Acute on chronic respiratory failure improving with hypoventilation syndrome -on Zithromax and Rocephin-left lower lobe infiltrate improving. 2. Hyperglycemia secondary to steroids or diabetes 3. Morbid obesity 4. Thyroid nodule with outpatient plan for sono guided biopsy 5. Fluid overload diuresing 6. Erythrocytosis presumed to be secondary to chronic hypoxia 7. Hypertension Discharge planning based on being able to acquire oxygen via mask to sleep with per Dr. Null's recommendations Clinical Quality Measures DVT/VTE Risk/Contraindication: Risk Factor Score Per Nursin RFS Level Per Nursing on Admit: 4+=Very High KATHY SALCEDO MD July 13, 2018 12:52
[2018-07-13 16:07] VITALS: BP 150/77
--- NOTE | 2018-07-13 18:21 | NUR ---
FRIEND/FAMILY WENT TO [employer] PER PT REQUEST AND BROUGHT PT DONUTS AND COOKIES. REINFORCED TO PT THAT SHE WAS A HEART HEALTHY DIET.
[2018-07-13 19:58] VITALS: BP 155/77
[2018-07-13] MEDS: IBUPROFEN 600 MG (MOTRIN) TAB PO PRN (22:03)
[2018-07-14 00:36] VITALS: BP 137/77
[2018-07-14] MEDS: RT-ALBUTEROL/IPRATROPIUM 3 ML (DUONEB) VIAL INH SCH ×6 (01:17→22:17)
[2018-07-14 04:00] VITALS: BP 148/89
[2018-07-14] MEDS: RT-BUDESONIDE NEBS 0.5 MG/2ML (PULMICORT) AMP INH SCH ×2 (06:31→18:45)
[2018-07-14 08:00] VITALS: BP 152/78
[2018-07-14] MEDS: methylPREDNISolone 40 MG/ML (Solu-MEDROL) VIAL IV SCH ×2 (08:53→19:49)
[2018-07-14] MEDS: meTOprolol TARTRATE 25 MG (LOPRESSOR) TABLET PO SCH ×2 (08:53→19:49)
[2018-07-14] MEDS: cefTRIAXone FOR IV USE 1,000 MG in WATER (STERILE) FOR INJECTION 10 ML IV SCH (08:55)
[2018-07-14 12:00] VITALS: BP 134/7
--- NOTE | 2018-07-14 13:33 | Progress Note-Hospitalist ---
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 Aggressive workup ensued revealing CT scan confirming bilateral pneumonia with respiratory failure. Patient was placed on BiPAP and now wheezing to Vapotherm along with IV steroid administration nebulized treatments oxygen supplementation and further workup. Appreciate Dr. Sim's expertise. Patient has significant polycythemia likely due to obstructive sleep apnea that has yet to be diagnosed. She also has elevated blood sugar I'm checking a hemoglobin A1c since I assume that we'll be very high also. She does have a thyroid nodule noted on CT scan and will need fine-needle aspirate at discharge. Overall patient feels much better and smoking cessation was counseled. Subjective/Events-last exam Patient is sitting up without complaint today. He is looking forward to going home and is still requiring oxygen. Review of Systems Neurological: Weakness Objective Exam Vital Signs Vital Signs Date Time Temp Pulse Resp B/P (MAP) Pulse Ox O2 Delivery O2 Flow Rate FiO2 07/14/18 13:00 75 07/14/18 10:32 95 Nasal Cannula 3.00 07/14/18 08:00 97.9 20 152/78 (102) 07/12/18 10:11 35 Capillary Refill : Less Than 3 SecondsLess Than 3 Seconds General Appearance: Anxious, Chronically ill, Mild Distress, Obese, Other ( BiPAP mask on) HEENT: PERRL/EOMI, Normal ENT Inspection, Pharynx Normal Neck: Normal Inspection, Non Tender, Supple Respiratory: Normal Breath Sounds, No Accessory Muscle Use, No Respiratory Distress, Decreased Breath Sounds Cardiovascular: Regular Rate, Rhythm, No Edema, No Gallop Gastrointestinal: Normal Bowel Sounds, No Organomegaly, No Pulsatile Mass, Non Tender, Soft Rectal: Deferred Back: Normal Inspection, No CVA Tenderness, No Vertebral Tenderness Extremity: Normal Capillary Refill, Normal Inspection, Normal Range of Motion, Non Tender, No Calf Tenderness, Pedal Edema, Other (Onychomycosis) Neurologic/Psychiatric: Alert, Oriented x3, No Motor/Sensory Deficits, Normal Mood/Affect Skin: Normal Color, Warm/Dry Lymphatic: No Adenopathy Results/Procedures Lab Patient resulted labs reviewed. Imaging: Reviewed Imaging Report Assessment/Plan Assessment and Plan Assess & Plan/Chief Complaint 1. Acute on chronic respiratory failure improving with hypoventilation syndrome -on Zithromax and Rocephin-left lower lobe infiltrate improving. Plan for discharge tomorrow 2. Hyperglycemia secondary to steroids or diabetes 3. Morbid obesity 4. Thyroid nodule with outpatient plan for sono guided biopsy 5. Fluid overload diuresing 6. Erythrocytosis presumed to be secondary to chronic hypoxia 7. Hypertension Discharge planning based on being able to acquire oxygen via mask to sleep with per Dr. Null's recommendations Clinical Quality Measures DVT/VTE Risk/Contraindication: Risk Factor Score Per Nursin RFS Level Per Nursing on Admit: 4+=Very High KATHY SALCEDO MD July 14, 2018 13:33
[2018-07-14 15:24] VITALS: BP 132/80
[2018-07-14 19:48] VITALS: BP 142/89
[2018-07-14] MEDS: IBUPROFEN 600 MG (MOTRIN) TAB PO PRN (22:20)
[2018-07-15] VITALS: BP 148/91
[2018-07-15] MEDS: RT-ALBUTEROL/IPRATROPIUM 3 ML (DUONEB) VIAL INH SCH ×6 (02:05→22:09)
[2018-07-15] MEDS: RT-BUDESONIDE NEBS 0.5 MG/2ML (PULMICORT) AMP INH SCH ×2 (06:43→19:17)
[2018-07-15 07:38] VITALS: BP 145/71
[2018-07-15] MEDS: methylPREDNISolone 40 MG/ML (Solu-MEDROL) VIAL IV SCH ×2 (09:04→21:02)
[2018-07-15] MEDS: meTOprolol TARTRATE 25 MG (LOPRESSOR) TABLET PO SCH ×2 (09:05→21:03)
[2018-07-15] MEDS: cefTRIAXone FOR IV USE 1,000 MG in WATER (STERILE) FOR INJECTION 10 ML IV SCH (09:05)
--- NOTE | 2018-07-15 10:08 | Physical Therapy Daily Note ---
PT Daily Note-Current Subjective Patient in bed pre tx, agrees to PT, no complaints of pain. Appearance Patient sitting EOB post tx with nurse call, phone, tray, all needs met. Mental Status Patient Orientation: Person, Place, Situation Attachments: Oxygen 3L of O2 nasal canula Transfers Therapy Code Descriptions/Definitions Functional [place] Measure: 0=Not Assessed/NA 4=Minimal Assistance 1=Total Assistance 5=Supervision or Setup 2=Maximal Assistance 6=Modified [place] 3=Moderate Assistance 7=Complete [place] Therapy Quality Codes: 6 Independent with activity with or without an assistive device 5 Patient requires set up or clean up by helper. Patient completes activity by themselves 4 Supervision or touching assist (CGA). [place] provide cues , steadying assist 3 The helper provides less than half the effort to complete the activity 2 The helper provides more than half the effort to complete the activity 1 Dependent. The helper does all the effort to complete an activity 7 Patient refused to complete or attempt activity 9 The patient did not perform the activity before the current illness or injury 88 Not attempted due to Medical conditions or safety concerns Transfers (B, C, W/C) (FIM): 7 Scootin Rollin Supine to/from Sit: 7 Sit to/from Stand: 7 Gait Training Gait (FIM): 7 Distance: 200'x2 Gait Level of Assist: 7 Gait Assistive Device: None No unsteadiness, O2 stayed at 94% during ambulation, slow ambulation Treatments ambulation Assessment Current Status: Fair Progress improving endurance PT Short Term Goals Short Term Goals Time Frame: July 18, 2018 Transfers (B,C,W/C) (FIM): 6 Gait (FIM): 2 Gait Distance Comment: 50' Gait Level of Assist: 5 Gait Assistive Device: None, FWW PT Plan Problem List Problem List: Activity Tolerance, Functional Strength, Safety, Balance, Gait, Transfer Treatment/Plan Treatment Plan: Continue Plan of Care Treatment Plan: Bed Mobility, Education, Functional Activity [place], Functional Strength, Gait, Safety, Therapeutic Exercise, Transfers Treatment Duration: July 18, 2018 Frequency: 6 times per week Estimated Hrs Per Day: .25 hour per day (15-30') Patient and/or Family Agrees t: Yes Safety Risks/Education Patient Education: Gait Training, Transfer Techniques, Correct Positioning, Safety Issues Teaching Recipient: Patient Teaching Methods: Demonstration, Discussion Response to Teaching: Reinforcement Needed Time/GCodes Time In: 0952 Time Out: 1005 Total Billed Treatment Time: 13 Total Billed Treatment 1 visit GT 13' ELMER THAO PT July 15, 2018 10:07
--- NOTE | 2018-07-15 11:57 | Occupational Ther Daily Note ---
OT Current Status-Daily Note Subjective Pt alert, in bathroom. Pt agrees to therapy. No c/o pain at this time. Mental Status/Objective Patient Orientation: Person, Place, Time, Situation Therapy Code Descriptions/Definitions Functional [place] Measure: 0=Not Assessed/NA 4=Minimal Assistance 1=Total Assistance 5=Supervision or Setup 2=Maximal Assistance 6=Modified [place] 3=Moderate Assistance 7=Complete [place] Attachments: Oxygen (3L) ADL-Treatment Pt in shower when PORTILLO entered room. Pt completes shower, toileting, grooming and dressing independently. No AE for dressing or AD for ambulation or transfers. Eating (FIM): 7 (Completes by self.) Grooming (FIM): 7 (Standing at sink, pt completes by self.) Bathing (FIM): 6 (Using grabbars, shower bench and hand held shower pt completes by self.) Bathing Location: L Arm, R Arm, L Upper Leg, R Upper Leg, L Lower Leg ( including foot), R Lower Leg (including foot), Chest, Abdomen, Buttocks, Perineal Area Upper Body (FIM): 6 Lower Body Dressing (FIM): 7 (Completes by self.) Toileting (FIM): 7 (Completes by self.) Transfers (B, C, W/C) (FIM): 7 Toilet/Commode Transfer (FIM): 7 Shower Transfer(FIM): 6 (Using shower bench and grabbars pt completes by self.) OT Short Term Goals Short Term Goals Transfers (B,C,W/C) (FIM): 6 1=Demonstrate adherence to instructed precautions during ADL tasks. 2=Patient will verbalize/demonstrate understanding of assistive devices/ modifications for ADL. 3=Patient will improve strength/tolerance for activity to enable patient to perform ADL's. OT [facility] Goals [facility] Goals Time Frame: July 18, 2018 Eating (FIM): 6 Grooming(FIM): 6 Bathing(FIM): 5 Upper Body Dressing(FIM): 6 Lower Body Dressing(FIM): 6 Toileting(FIM): 6 Transfers (B,C,W/C) (FIM): 6 Toilet/Commode Transfer(FIM): 6 Additional Goals: 1-Demonstrate ADL Tasks, 2-Verbalize Understanding, 3- ImproveStrength/[place] 1=Demonstrate adherence to instructed precautions during ADL tasks. 2=Patient will verbalize/demonstrate understanding of assistive devices/ modifications for ADL. 3=Patient will improve strength/tolerance for activity to enable patient to perform ADL's. OT Education/Plan Discharge Recommendations Plan/Recommendations: Continue POC Treatment Plan/Plan of Care Patient would benefit from OT for education, treatment and training to promote independence in ADL's, mobility, safety and/or upper extremity function for ADL' s. Plan of Care: ADL Retraining, Functional Mobility, UE Funct Exercise/Act Treatment Duration: July 18, 2018 Frequency: 5 times per week Estimated Hrs Per Day: .25 hour per day Agreement: Yes Rehab Potential: Fair Time/GCodes Start Time: 11:40 Stop Time: 12:05 Total Time Billed (hr/min): 25 Billed Treatment Time 1 visit-ADL 2 (25 min) HIRAM PRO July 15, 2018 11:57
--- NOTE | 2018-07-15 13:04 | NUR ---
CM/SS spoke with the patient and discussed the status of her getting the necessary paperwork (pay stubs / income tax) for her financial assistance with hospital to be considered a complete application. Provided her with the fax number, to try and have employer fax forms to her. She had requested an application for Medicaid and this was supplied to her.
--- NOTE | 2018-07-15 15:06 | Occ Therapy Progress Note ---
Therapy Progress Note Pt has met all OT goals. Discharge from OT, pt is completing ADLs and functional transfers independently. HIRAM PRO July 15, 2018 15:06
[2018-07-15 15:22] VITALS: BP 143/74
--- NOTE | 2018-07-15 17:14 | Progress Note-Hospitalist ---
Progress Note Progress Notes/Assess & Plan Date Seen 07/15/18 Time Seen by Provider: 17:11 Assessment & Plan The patient is slowly but clearly making progress. She is sitting up in bed and speaks in complete sentences. Plans are being made for future discharge. She reports that in recent years she smoked about 1-1/2-2 packs of cigarettes per day. She began smoking when she was 19 years old. She continues to maintain she had not really noticed any issues of shortness of breath until immediately prior to her trip to the ER and admission last week. Physical exam. She is markedly obese. Lungs show distant breath sounds. CV is regular. Extremities show no pedal edema. Impression: COPD. 2.recent near respiratory failure probably multi factorial. 3.morbid obesity. Plan: Advance activities. 2.home oxygen VINNIE Lopez MD July 15, 2018 17:14
[2018-07-15] MEDS: IBUPROFEN 600 MG (MOTRIN) TAB PO PRN (21:02)
[2018-07-15 23:27] VITALS: BP 129/79
[2018-07-16] MEDS: RT-ALBUTEROL/IPRATROPIUM 3 ML (DUONEB) VIAL INH SCH ×5 (02:38→21:47)
[2018-07-16] MEDS: RT-BUDESONIDE NEBS 0.5 MG/2ML (PULMICORT) AMP INH SCH ×3 (07:08→21:47)
[2018-07-16 08:29] VITALS: BP 135/71
[2018-07-16 08:39] VITALS: BP 135/71
[2018-07-16] MEDS: methylPREDNISolone 40 MG/ML (Solu-MEDROL) VIAL IV SCH ×2 (08:51→20:24)
[2018-07-16] MEDS: meTOprolol TARTRATE 25 MG (LOPRESSOR) TABLET PO SCH ×2 (08:51→20:24)
[2018-07-16] MEDS: cefTRIAXone FOR IV USE 1,000 MG in WATER (STERILE) FOR INJECTION 10 ML IV SCH (08:52)
--- NOTE | 2018-07-16 13:49 | NUR ---
CM/JUAN DANIEL met with the patient this day and she stated that she got her last three pay stubs and her income taxes faxed to Financial Services at the hospital, this should make her financial assistance application complete. Message was left with call back info for financial services. If patient approved for fianancial assistance with the hospital then her oxygen and bipap can be arranged with [facility].
--- NOTE | 2018-07-16 14:13 | Pulmonary Progress Note ---
Subjective Time Seen by a Provider: 14:12 Subjective/Events-last exam Pt appears to be doing better. Sepsis Event Evaluation Height, Weight, BMI Height: 5'6.00" Weight: 295lbs. 1.0oz. 133.105315cx; 47.2 BMI Method:Actual Exam Exam Vital Signs Date Time Temp Pulse Resp B/P (MAP) Pulse Ox O2 Delivery O2 Flow Rate FiO2 07/16/18 08:39 94 95 36 07/16/18 08:29 97.5 74 20 135/71 (92) 92 Nasal Cannula 2.00 07/16/18 08:00 Nasal Cannula 2.00 07/16/18 07:10 95 Nasal Cannula 3.00 07/16/18 07:09 95 Nasal Cannula 3.00 07/16/18 03:54 71 17 94 30.00 07/16/18 02:39 69 17 92 30.00 07/16/18 00:45 67 20 93 30.00 07/15/18 23:27 97.6 68 15 129/79 (96) 93 Nasal Cannula 2.00 07/15/18 22:09 76 22 96 30.00 07/15/18 20:00 Nasal Cannula 2.00 07/15/18 19:24 93 Nasal Cannula 3.00 07/15/18 19:18 93 Nasal Cannula 3.00 07/15/18 15:22 96.8 70 16 143/74 (97) 94 Room Air 07/15/18 15:03 93 Nasal Cannula 3.00 I & O 07/16/18 07:00 Intake Total 1670 ml Output Total 4500 ml Balance -2830 ml Height & Weight Height: 5'6.00" Weight: 295lbs. 1.0oz. 133.075040ts; 47.2 BMI Method:Actual General Appearance: Anxious, Chronically ill, Mild Distress, Obese, Other ( BiPAP mask on) HEENT: PERRL/EOMI, Normal ENT Inspection, Pharynx Normal Neck: Normal Inspection, Non Tender, Supple Respiratory: Normal Breath Sounds, No Accessory Muscle Use, No Respiratory Distress, Decreased Breath Sounds Cardiovascular: Regular Rate, Rhythm, No Edema, No Gallop Capillary Refill: Less Than 3 Seconds Gastrointestinal: non tender, soft Extremity: Normal Capillary Refill, Normal Inspection, Normal Range of Motion, Non Tender, No Calf Tenderness, Pedal Edema, Other (Onychomycosis) Neurologic/Psychiatric: Alert, Oriented x3, No Motor/Sensory Deficits, Normal Mood/Affect Skin: Normal Color, Warm/Dry Lymphatic: No Adenopathy Assessment/Plan Assessment/Plan Acute respiratory failure with OHS -Noninvasive ventilation - Pt is still requiring -Pt would benefit from vent to mask as out patient -Pt is doing better with noninvasive ventilation COPDAE -PT will probably need home 02 -Solumedrol 40 Q 6 -Duoneb Q 4 -Oxygen Secondary polycythemia - secondary to chronic hypoxia -Will need home oxygen upon discharge Thryoid nodule on CT scan -Thyroid us-- is recommending thyroid needle bx -Defer to IM Atelectasis -IS -Monitor Leukocytosis - r/o PNA - Rocephin and Azithromycin BRITTNEY KELLEY DO July 16, 2018 14:13
--- NOTE | 2018-07-16 14:41 | Physical Therapy Progress Note ---
Therapy Progress Note Patient reports just ambulating in the hallway a long distance just before PT arrives at her room. Will attempt PT treatment in the morning. ELMER THAO PT July 16, 2018 14:41
[2018-07-16 15:34] VITALS: BP 144/85
--- NOTE | 2018-07-16 15:39 | Progress Note-Hospitalist ---
Progress Note Progress Notes/Assess & Plan Date Seen 07/16/18 Time Seen by Provider: 15:35 Assessment & Plan the patient continues to improve.. She is eager to get home. She has been approved for assistance in acquiring equipment for pulmonary support. The arrangements will be confirmed in the morning. Physical exam: Lungs show distant breath sounds without wheezing or rhonchi. CV is regular. Abdomen is quite obese. Extremities show some bilateral symmetric pedal and lower leg edema. This is a pinkish red and is consistent with dependent edema. The patient was instructed to spend at least part of her time out of bed in the recliner with her feet up. Impression: COPD. 2.tobaccoism. 3.borderline respiratory failure secondary to numbers one and 2. New Plan: Discharge in a.m. after acquiring pulmonary equipment. VINNIE GRAY MD July 16, 2018 15:39
[2018-07-16] MEDS: IBUPROFEN 600 MG (MOTRIN) TAB PO PRN (20:25)
[2018-07-17] VITALS: BP 149/67
[2018-07-17] MEDS: RT-ALBUTEROL/IPRATROPIUM 3 ML (DUONEB) VIAL INH SCH ×2 (02:21→07:34)
--- NOTE | 2018-07-17 07:22 | Pulmonary Progress Note ---
Subjective Time Seen by a Provider: 09:37 Subjective/Events-last exam Pt wants to go home she will need home oxygen. Sepsis Event Evaluation Height, Weight, BMI Height: 5'6.00" Weight: 295lbs. 1.0oz. 133.443634is; 47.2 BMI Method:Actual Exam Exam Vital Signs Date Time Temp Pulse Resp B/P (MAP) Pulse Ox O2 Delivery O2 Flow Rate FiO2 07/17/18 02:21 68 14 94 30.00 07/17/18 00:00 97.6 80 16 149/67 (94) 94 Nasal Cannula 2.00 07/16/18 22:24 70 17 95 30.00 07/16/18 21:48 93 Nasal Cannula 3.00 07/16/18 20:00 Nasal Cannula 2.00 07/16/18 16:47 94 Nasal Cannula 3.00 07/16/18 15:34 98.2 69 16 144/85 (104) 90 Nasal Cannula 3.00 07/16/18 08:39 94 95 36 07/16/18 08:29 97.5 74 20 135/71 (92) 92 Nasal Cannula 2.00 07/16/18 08:00 Nasal Cannula 2.00 I & O 07/17/18 07:00 Intake Total 3430 ml Output Total 6000 ml Balance -2570 ml Height & Weight Height: 5'6.00" Weight: 295lbs. 1.0oz. 133.321974pq; 47.2 BMI Method:Actual General Appearance: Anxious, Chronically ill, Mild Distress, Other (BiPAP mask on) HEENT: PERRL/EOMI, Normal ENT Inspection, Pharynx Normal Neck: Normal Inspection, Non Tender, Supple Respiratory: Normal Breath Sounds, No Accessory Muscle Use, No Respiratory Distress, Decreased Breath Sounds Cardiovascular: Regular Rate, Rhythm, No Edema, No Gallop Capillary Refill: Less Than 3 Seconds Gastrointestinal: non tender, soft Extremity: Normal Capillary Refill, Normal Inspection, Normal Range of Motion, Non Tender, No Calf Tenderness, No Pedal Edema Neurologic/Psychiatric: Alert Skin: Normal Color, Warm/Dry Lymphatic: No Adenopathy Assessment/Plan Assessment/Plan Acute respiratory failure with OHS -Noninvasive ventilation - Pt is still requiring -Pt would benefit from vent to mask as out patient -Pt is doing better with noninvasive ventilation COPDAE --PT needs home oxygen with portable oxygen and nocturnal. -Solumedrol 40 Q 6 -Duoneb Q 4 -Oxygen -Pt will need repeat imaging as out patient and full PFT. I will f/u with her and order as out patient. Secondary polycythemia - secondary to chronic hypoxia -Will need home oxygen upon discharge Thryoid nodule on CT scan -Thyroid us-- is recommending thyroid needle bx -Defer to IM Atelectasis -IS -Monitor Leukocytosis - r/o PNA - Rocephin and Azithromycin BRITTNEY KELLEY DO July 17, 2018 07:21
[2018-07-17] MEDS: RT-BUDESONIDE NEBS 0.5 MG/2ML (PULMICORT) AMP INH SCH (07:34)
--- NOTE | 2018-07-17 07:54 | NUR ---
pt walked on room air and dropped down to spo2 81% pt returned to room and placed on 3 lpm nasal cannula and stabalized to 93% walked pt again and maintained spo2 above 88%, pt will require 3 lpm nasal cannula at all times.
[2018-07-17 08:00] VITALS: BP 134/60
[2018-07-17] MEDS: meTOprolol TARTRATE 25 MG (LOPRESSOR) TABLET PO SCH (09:04)
[2018-07-17] MEDS: cefTRIAXone FOR IV USE 1,000 MG in WATER (STERILE) FOR INJECTION 10 ML IV SCH (09:04)
[2018-07-17] MEDS: methylPREDNISolone 40 MG/ML (Solu-MEDROL) VIAL IV SCH (09:04)
[2018-07-17] MEDS ORDERED: PRD20T PO (10:33)
[2018-07-17] MEDS ORDERED: METO-333 PO (10:33)
--- NOTE | 2018-07-17 10:36 | Discharge Inst-Simple/Standard ---
Discharge Inst-Standard Patient Instructions/Follow Up Plan of Care/Instructions/FU: Home O2 to be used continuously. No smoking. Complete prednisone taper. Appointment in follow-up with Dr. Sim. Activity as Tolerated: Yes Discharge Diet: ADA Diet Planned Outpatient Orders/Ref. Pneu Vac Indicated: Yes VINNIE GRAY MD July 17, 2018 10:36
--- NOTE | 2018-07-17 11:13 | NUR ---
CM/SS sent necessary information for the home oxygen and bi-pap set up with [facility] as patient is on financial assistance with the hospital. Dr. Sim called in the bi-pap settings to [facility] at [facility]. Faxed the medicaid application as the patient had it mostly completed and asked if this repairer typewriter would fax it. DME will deliver the portable and make arrangements with her for home set up. RNing updated.
--- NOTE | 2018-07-17 11:19 | Physical Therapy Daily Note ---
PT Daily Note-Current Subjective Patient in recliner pre tx, agrees to PT, has no complaints of pain. Patient is set to discharged from this facility today and will be on 3L of O2. Appearance Patient in recliner post tx with nurse call, phone, tray, all needs met. Mental Status Patient Orientation: Person, Place, Situation Attachments: Oxygen Transfers Therapy Code Descriptions/Definitions Functional [place] Measure: 0=Not Assessed/NA 4=Minimal Assistance 1=Total Assistance 5=Supervision or Setup 2=Maximal Assistance 6=Modified [place] 3=Moderate Assistance 7=Complete [place] Therapy Quality Codes: 6 Independent with activity with or without an assistive device 5 Patient requires set up or clean up by helper. Patient completes activity by themselves 4 Supervision or touching assist (CGA). [place] provide cues , steadying assist 3 The helper provides less than half the effort to complete the activity 2 The helper provides more than half the effort to complete the activity 1 Dependent. The helper does all the effort to complete an activity 7 Patient refused to complete or attempt activity 9 The patient did not perform the activity before the current illness or injury 88 Not attempted due to Medical conditions or safety concerns Transfers (B, C, W/C) (FIM): 7 Sit to/from Stand: 7 Bed to/from Chair: 7 Gait Training Gait (FIM): 7 Distance: 500' Gait Assistive Device: None Brisk, steady ambulation with no assistive device. Treatments transfers, ambulation Assessment Current Status: Fair Progress Patient is independent with mobility PT Short Term Goals Short Term Goals Time Frame: July 18, 2018 Transfers (B,C,W/C) (FIM): 6 Gait (FIM): 2 Gait Distance Comment: 50' Gait Level of Assist: 5 Gait Assistive Device: None, FWW PT Plan Problem List Problem List: Activity Tolerance, Functional Strength, Safety, Balance, Gait Treatment/Plan Treatment Plan: Discontinue PT Treatment Plan: Bed Mobility, Education, Functional Activity [place], Functional Strength, Gait, Safety, Therapeutic Exercise, Transfers Treatment Duration: July 18, 2018 Frequency: 6 times per week Estimated Hrs Per Day: .25 hour per day (15-30') Patient and/or Family Agrees t: Yes Safety Risks/Education Patient Education: Gait Training, Transfer Techniques, Correct Positioning, Safety Issues Teaching Recipient: Patient Teaching Methods: Demonstration, Discussion Response to Teaching: Reinforcement Needed Time/GCodes Time In: 1105 Time Out: 1115 Total Billed Treatment Time: 10 Total Billed Treatment 1 visit GT 10' ELMER THAO PT July 17, 2018 11:18
[2018-07-17 12:36] VITALS: BP 134/60
--- NOTE | 2018-07-17 13:23 | Progress Note-Hospitalist ---
Progress Note Progress Notes/Assess & Plan Date Seen 07/17/18 Time Seen by Provider: 12:00 Assessment & Plan The patient reports she is improving and more comfortable. Plans had been maintained for her to be discharged today. Her oxygen and bowel showed that she required 3 L/m by nasal cannula. Orders have been placed. Physical exam: She is alert and oriented. She is sitting at the bedside. Lungs are distant but clear to auscultation. CV is regular. Impression: COPD. 2.tobaccoism. 3.respiratory distress at admission requiring pressure support. Plan: Discharge. SEE discharge sequence for medications and routines. VINNIE GRAY MD July 17, 2018 13:23
== END 2018-07-17 12:38 | disposition home or self-care (01) | DRG 189 ==
LOC: ER 02:39 → ICU 11:03 → 4TH 07-12 11:14
PROVIDERS: ADMIT Internal Medicine; ATTEND Internal Medicine
DX: J96.01 Acute respiratory failure with hypoxia (principal); J96.02 Acute respiratory failure with hypercapnia; J44.1 Chronic obstructive pulmonary disease with (acute) exacerbation; J98.11 Atelectasis; E66.2 Morbid (severe) obesity with alveolar hypoventilation; Z68.42 Body mass index [BMI] 45.0-49.9, adult; D75.1 Secondary polycythemia; I10 Essential (primary) hypertension; F17.210 Nicotine dependence, cigarettes, uncomplicated; R40.0 Somnolence; E04.1 Nontoxic single thyroid nodule; E87.5 Hyperkalemia; E87.70 Fluid overload, unspecified; R60.0 Localized edema; R73.9 Hyperglycemia, unspecified
CPT/HCPCS: 36415; 36600; 71045; 71275; 76536; 80048; 80053; 82805; 83036; 83605; 83735; 83880; 84100; 84439; 84443; 84481; 84484; 85007; 85025; 85027; 85379; 86141; 87040; 87081; 87804; 93005; 93041; 94640; 94660; 94664; 94760; 94761; 96365; 99291

== ENCOUNTER → 2018-08-02 | Outpatient (CLI) | payer OTHER ==
[~2018-08-02] MED LIST: METO-333 PO; PRD20T PO
[2018-08-02 10:51] LABS: BUN/CREATININE RATIO 23; CREATININE SERUM 0.65 MG/DL (0.60-1.30); GFR ESTIMATED > 60
--- NOTE | 2018-08-02 14:25 | Diagnostic Imaging Report ---
PROCEDURE: CT chest with contrast only. TECHNIQUE: Multiple contiguous axial images were obtained through the chest after administration of intravenous contrast. Auto Exposure Controls were utilized during the CT exam to meet ALARA standards for radiation dose reduction. INDICATION: Cough. COMPARISON: 07/09/2018. FINDINGS: The lungs are clear. There are only slight subsegmental atelectatic changes in the posterior sulcal right lung base. No pneumonia, edema, effusion, pneumothorax or mass. There is no thoracic lymphadenopathy. Probably calcified nodularity in the left thyroid lobe extends below the thoracic inlet. No hilar or mediastinal lymphadenopathy. The axilla is unremarkable. There is no pleural or pericardial effusion. Visualized upper abdomen shows decreased size of fat-containing benign right adrenal nodule and no acute upper abdominal abnormality. IMPRESSION: Unremarkable CT chest. Dictated by: Dictated on workstation # [id number]
== END ==
LOC: RAD 10:13
PROVIDERS: ATTEND Nurse Practitioner Family
DX: J44.9 Chronic obstructive pulmonary disease, unspecified (principal); J30.9 Allergic rhinitis, unspecified; J96.10 Chronic respiratory failure, unspecified whether with hypoxia or hypercapnia; Z72.0 Tobacco use
CPT/HCPCS: 36415; 71260; 82565; 84520

== ENCOUNTER 2018-10-07 07:48 | Outpatient (RCR) | payer OTHER ==
[~2018-10-07 07:48] MED LIST changes: -RT-ALBUTEROL SULF 2.5 MG/3 ML PRE-MIX VIAL INH ONE; -RT-ALBUTEROL SULF 2.5 MG/3 ML PRE-MIX VIAL ONE; -RT-ALBUTEROL/IPRATROPIUM 3 ML (DUONEB) VIAL INH ONE
[2018-10-15 08:00] VITALS: BP 100/60
[2018-10-15 09:00] VITALS: BP 100/70
[2018-10-17 08:00] VITALS: BP 120/60
[2018-10-17 09:00] VITALS: BP 120/70
[2018-10-22 08:00] VITALS: BP 130/80
[2018-10-22 09:15] VITALS: BP 130/87
[2018-10-24 08:00] VITALS: BP 130/60
[2018-10-29 08:00] VITALS: BP 130/70
[2018-10-29 08:55] VITALS: BP 123/80
[2018-10-31 08:00] VITALS: BP 110/70
[2018-10-31 09:00] VITALS: BP 130/74
[2018-10-31 09:02] VITALS: BP 108/70
[2018-11-05 09:05] VITALS: BP 130/80
[2018-11-07 08:00] VITALS: BP 120/60
[2018-11-07 09:30] VITALS: BP 120/60
[2018-11-14 07:58] VITALS: BP 130/60
[2018-11-19 08:00] VITALS: BP 125/50
[2018-11-19 09:15] VITALS: BP 120/70
[2018-11-21 08:02] VITALS: BP_SYST 120; BP_SYST 130; BP_DIAS 60
[2018-11-21 09:00] VITALS: BP 130/60
[2018-11-26 08:00] VITALS: BP 125/48
[2018-11-26 09:13] VITALS: BP 134/45
[2018-12-03 08:00] VITALS: BP 131/80
[2018-12-03 09:00] VITALS: BP 127/80
[2018-12-10 08:00] VITALS: BP 138/60
[2018-12-10 09:00] VITALS: BP 120/60
[2019-01-02 08:00] VITALS: BP 142/60
[2019-01-02 09:40] VITALS: BP 130/80
[2019-01-07 08:00] VITALS: BP 135/55
[2019-01-07 09:00] VITALS: BP 120/60
== END 2019-01-05 | disposition home or self-care (01) ==
LOC: PULM 07:48
PROVIDERS: ATTEND Family Medicine
DX: J44.9 Chronic obstructive pulmonary disease, unspecified (principal); Z99.81 Dependence on supplemental oxygen
CPT/HCPCS: 99211

== ENCOUNTER → 2018-10-07 | Outpatient (CLI) | payer OTHER ==
[~2018-10-07] MED LIST changes: +RT-ALBUTEROL SULF 2.5 MG/3 ML PRE-MIX VIAL INH ONE; +RT-ALBUTEROL SULF 2.5 MG/3 ML PRE-MIX VIAL ONE; +RT-ALBUTEROL/IPRATROPIUM 3 ML (DUONEB) VIAL INH ONE
== END ==
LOC: RT 07:46
PROVIDERS: ATTEND Nurse Practitioner Family
DX: J30.9 Allergic rhinitis, unspecified (principal); J44.9 Chronic obstructive pulmonary disease, unspecified; J96.10 Chronic respiratory failure, unspecified whether with hypoxia or hypercapnia; Z72.0 Tobacco use
CPT/HCPCS: 94060; 94726; 94729

== ENCOUNTER 2019-01-14 09:35 | Outpatient (RCR) | payer OTHER ==
[2019-01-14 08:00] VITALS: BP 105/55
[2019-01-14 09:30] VITALS: BP 101/50
[2019-01-23 08:00] VITALS: BP 132/58
[2019-01-23 09:00] VITALS: BP 130/62
[2019-01-28 08:00] VITALS: BP 132/70
[2019-01-28 08:55] VITALS: BP 130/82
[2019-02-04 08:00] VITALS: BP 130/70
[2019-02-04 08:45] VITALS: BP 112/62
[2019-02-11 08:00] VITALS: BP 130/70
[2019-02-11 09:05] VITALS: BP 108/62
[2019-02-13 08:00] VITALS: BP 120/60
[2019-02-13 09:31] VITALS: BP 150/60
[2019-02-18 08:00] VITALS: BP 152/52
[2019-02-18 09:00] VITALS: BP 130/50
== END 2019-04-14 | disposition home or self-care (01) ==
LOC: PULM 09:35
PROVIDERS: ATTEND Family Medicine
DX: Z13.83 Encounter for screening for respiratory disorder NEC (principal); J44.9 Chronic obstructive pulmonary disease, unspecified; Z99.81 Dependence on supplemental oxygen

== ENCOUNTER → 2019-09-01 | Outpatient (CLI) | payer OTHER ==
--- NOTE | 2019-09-01 10:05 | Diagnostic Imaging Report ---
Exam: MRI right foot without contrast. Date: September 01, 2019. Indication: 64-year-old female, lump of the volar aspect of the foot. Comparison: None. Technique: Multiple noncontrast MRI sequences of the right foot were obtained. Findings: There are limitations for evaluation of soft tissue masses in particular given lack of postcontrast imaging. In the volar aspect of the foot centered between the mid to distal diaphysis of the first and second metatarsals, there is a very superficially located subcutaneous mass measuring 14 x 13 x 15 mm in size. Mid dorsal margin of the mass does abut the plantar fascia although the mass is not clearly arising from the plantar fascia. The lesion is very mildly T2 hyperintense. Given that postcontrast imaging was not obtained, it cannot be assessed whether or not the mass is enhancing. There is uncovering of the lateral sesamoid. There is mild osteoarthritis of the first metatarsophalangeal joint. There is mild midfoot arthritis. There is no identified joint effusion. There is no acute fracture, bone contusion, or stress reaction. There is no concerning bone lesion. The Lisfranc ligament proper is grossly intact. Limited evaluation of the imaged tendons is unremarkable. Impression: 1. 13 x 14 x 15 mm volar subcutaneous mass centered at the level of the first and second metatarsals at the level of the mid to distal diaphysis with the dorsal margin of the mass abutting the plantar fascia. The mass is not definitely arising from the plantar fascia. There is limited evaluation for contrast enhancement of the lesion given lack of provided postcontrast imaging. Especially post contrast imaging is not obtained, biopsy and/or excision is needed for definitive diagnosis. Both benign and malignant etiologies are in the differential diagnosis for the lesion at the current time. Dictated by: Dictated on workstation # [id number]
== END ==
LOC: RAD 07:29
PROVIDERS: ATTEND Podiatrist Foot & Ankle Surgery
DX: M79.9 Soft tissue disorder, unspecified (principal)

== ENCOUNTER 2019-11-22 01:00 | Inpatient (IN) | payer OTHER ==
[~2019-11-22] VITALS: Ht 167 cm; Wt 150.2 kg
[2019-11-22] VITALS (7 sets, daily range): BP systolic 126–195; BP diastolic 66–96
[2019-11-22] MEDS ORDERED: ACETAMINOPHEN 500 MG TAB (TYLENOL) PO ONE (01:45)
[2019-11-22] MEDS ORDERED: IBUPROFEN 800 MG (MOTRIN) TAB PO ONE (01:45)
--- NOTE | 2019-11-22 02:00 | NUR ---
Late entry: Pt arrives by POV with c/o facial swelling centered around her eyes and nose and fever. Pt reports onset was around 1800 hours today upon waking from a nap. Pt also reports that she had a recent exposure to a Covid positive patient and has been tested twice for Covid. Once last and again yesterday; both were negative. Both tests were rapid 24 hour tests through [facility] lab. Pt is on 02 upon arrival via MS at 3lpm; she state she is on this 02/10. Pt has marked redness and oozing clear fluid from her nose. Periorbital swelling/edema and redness noted bilaterally. Pt is also c/o SEALS. Pt denies cough, increase in her chronic sob, and keeps repeating "I know I don't have Covid".
[2019-11-22 02:11] LABS: BASOPHILS % (AUTO) 0 % (0-10); EOSINOPHILS # (AUTO) 0.1 10^3/uL (0.0-0.3); EOSINOPHILS % (AUTO) 1 % (0-10); HEMATOCRIT 46 % (35-52); HEMOGLOBIN 13.9 G/DL (11.5-16.0); LYMPHOCYTES # (AUTO) 0.7 X 10^3 (1.0-4.0); LYMPHOCYTES % (AUTO) 6 % (12-44); MEAN CORPUSCULAR HEMOGLOBIN 29 PG (25-34); MEAN CORPUSCULAR HGB CONC 30 G/DL (32-36); MEAN CORPUSCULAR VOLUME 97 FL (80-99); MEAN PLATELET VOLUME 11.1 FL (7.4-10.4); MONOCYTES # (AUTO) 0.9 X 10^3 (0.0-1.0); MONOCYTES % (AUTO) 8 % (0-12); NEUTROPHILS # (AUTO) 9.8 X 10^3 (1.8-7.8); NEUTROPHILS % (AUTO) 85 % (42-75); PLATELET COUNT 174 10^3/uL (130-400); WHITE BLOOD COUNT 11.5 10^3/uL (4.3-11.0)
--- NOTE | 2019-11-22 02:12 | ED General ---
General Chief Complaint: Fever-Adult/Adol Stated Complaint: ALLERGIC RXN Nursing Triage Note: PT HERE WITH FEVER AND SWELLING TO HER EYES AND NOSE. PT REPORTS THIS CAME ON SUDDENLY TODAY AROUND 1800 HOURS. Nursing Sepsis Screen: Possible Sepsis Risk Source of Information: Patient (VERY ARGUMENTATIVE WITH ALL ASPECTS OF CARE) History of Present Illness Date Seen by Provider: Nov 22, 2019 Time Seen by Provider: 01:29 Initial Comments PT ARRIVES VIA POV FROM HOME C/O FEVER OF 102--NOTED ON WAKING THIS EVENING AROUND 1800 ALSO WOKE UP WITH SIGNIFICANT PAIN, REDNESS AND SWELLING AROUND EYES AND NOSE--END OF NOSE IS ESPECIALLY PAINFUL TOOK BENADRYL 100 MG JUST PRIOR TO ARRIVAL HAS NOT TAKEN ANYTHING FOR FEVER PT STATES SHE HAS COPD, AND IS O2 DEPENDENT PT CONTINUES TO SMOKE 2 PPD DENIES ANY INCREASE IN CHRONIC SHORTNESS OF BREATH AND CHRONIC COUGH NO CHEST PAIN NO GI SYMPTOMS NO RECENT COLD OR SINUS SYMPTOMS NO SORE THROAT OR LOSS OF TASTE/SMELL PT WORKS AT [employer], AND A CO-WORKED TESTED POSTIVE FOR COVID-19 LAST WEEK PT WAS TESTED LAST Sunday11/13/19 AND AGAIN THIS Sunday11/20/19--PT REPORTS BOTH TESTS WERE NEGATIVE--WERE DONE AT [facility]. PT IS ADAMANT AND REPEATS MULTIPLE TIMES THAT SHE DOES NOT HAVE COVID, "BECAUSE SHE DIDN'T START RUNNING FEVER UNTIL TONIGHT" PT STATES SHE IS NOT DIABETIC PCP: [facility] DR. LAM Allergies and Home Medications Allergies Coded Allergies: No Known Drug Allergies (Unverified , 07/09/18) Home Medications Metoprolol Tartrate 25 Mg Tablet, 25 MG PO BID Prescribed by: VINNIE GRAY on 07/17/18 1033 Prednisone 20 Mg Tab, 20 MG PO DAILY Take 3 tabs(60mg)daily, decrease by 1/2 tab(10mg)daily. Prescribed by: VINNIE GRAY on 07/17/18 1033 Patient Home Medication List Home Medication List Reviewed: Yes Review of Systems Review of Systems Constitutional: see HPI, fever EENTM: see HPI Respiratory: see HPI Cardiovascular: No chest pain, No edema Gastrointestinal: no symptoms reported Genitourinary: no symptoms reported Musculoskeletal: no symptoms reported Skin: see HPI Psychiatric/Neurological: No Symptoms Reported; Denies Headache Hematologic/Lymphatic: No Symptoms Reported Immunological/Allergic: no symptoms reported Past Vfjsjtt-Jsozft-Snialm Hx Past Med/Social Hx: Reviewed and Corrections made Patient Social History Recreational Drug Use: No Smoking Status: Current Everyday Smoker (2 PPD) Type Used: Cigarettes Recent Foreign Travel: No Contact w/Someone Who Travel: No Recent Infectious Disease Expo: Yes Recent Hopitalizations: No Seasonal Allergies Seasonal Allergies: No Past Medical History Surgeries: Yes ( X 1; LEFT KNEE SURGERY; TONSILLECTOMY) Section, Orthopedic, Tonsillectomy Respiratory: Yes (O2 DEPENDENT/CONTINUES TO SMOKE 2 PPD;RESP FAILURE 06/2018- BIPAP) COPD Cardiac: Yes Hypertension Neurological: No Reproductive Disorders: Yes Female Reproductive Disorders: Endometriosis, 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 6.0oz. 133.255519sv; 52.00 BMI Method:Actual General Appearance: No Apparent Distress, Obese (MORBIDLY OBESE) HEENT: PERRL/EOMI, Other (SWELLING AND MARKED ERYTHEMA, AND TENDERNESS TO NOSE--ESPECIALLY TIP OF NOSE, WITH SOME MILD SCABBING AND PEELING OF SKIN TO TIP OF NOSE, BUT NO OBVIOUS WOUND; BILATERAL PERIORBITAL AREAS AND FOREHEAD WITH SIGNFICANT ERYTHEMA, WARMTH, MODERATE TENDERNESS, WITH BOTH EYES NEARLY SWOLLEN SHUT--LEFT > RIGHT.) Neck: Normal Inspection Respiratory: Normal Breath Sounds, Other (MILDLY DYSPNEIC ON ARRIVAL, BUT TALKING NON-STOP) Cardiovascular: Tachycardia Gastrointestinal: Soft Extremity: No Pedal Edema Neurologic/Psychiatric: Alert, Oriented x3, No Motor/Sensory Deficits, 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 ) Focused Exam Lactate Level 11/22/19 02:06: Lactic Acid Level 1.34 Lactic Acid Level Laboratory Tests Test 11/22/19 02:06 Lactic Acid Level 1.34 MMOL/L (0.50-2.00) Progress/Results/Core Measures Suspected Sepsis Recent Fever Within 48 Hours: Yes Infection Criteria Present: Suspected New Infection New/Unexplained Altered Menta: No Sepsis Screen: Possible Sepsis Risk SIRS Temperature: Pulse: 105 Respiratory Rate: 20 Laboratory Tests 11/22/19 02:06: White Blood Count 11.5H Blood Pressure 180 /96 Mean: 124 11/22/19 02:06: Lactic Acid Level 1.34 Laboratory Tests 11/22/19 02:06: Creatinine 0.81, Platelet Count 174, Total Bilirubin 0.2 11/22/19 02:50: INR Comment 1.0 Results/Orders Lab Results Laboratory Tests Test 11/22/19 02:05 11/22/19 02:06 11/22/19 02:50 11/22/19 03:13 Range/Units Coronavirus 2019 (ROGE) Negative Negative White Blood Count 11.5 H 4.3-11.0 10^3/uL Red Blood Count 4.74 4.35-5.85 10^6/uL Hemoglobin 13.9 11.5-16.0 G/DL Hematocrit 46 35-52 % Mean Corpuscular Volume 97 80-99 FL Mean Corpuscular Hemoglobin 29 25-34 PG Mean Corpuscular Hemoglobin Concent 30 L 32-36 G/DL Red Cell Distribution Width 14.2 10.0-14.5 % Platelet Count 174 130-400 10^3/uL Mean Platelet Volume 11.1 H 7.4-10.4 FL Neutrophils (%) (Auto) 85 H 42-75 % Lymphocytes (%) (Auto) 6 L 12-44 % Monocytes (%) (Auto) 8 0-12 % Eosinophils (%) (Auto) 1 0-10 % Basophils (%) (Auto) 0 0-10 % Neutrophils # (Auto) 9.8 H 1.8-7.8 X 10^3 Lymphocytes # (Auto) 0.7 L 1.0-4.0 X 10^3 Monocytes # (Auto) 0.9 0.0-1.0 X 10^3 Eosinophils # (Auto) 0.1 0.0-0.3 10^3/uL Basophils # (Auto) 0.0 0.0-0.1 10^3/uL Erythrocyte Sedimentation Rate 24 0-30 MM/HR Sodium Level 140 135-145 MMOL/L Potassium Level 4.3 3.6-5.0 MMOL/L Chloride Level 100 98-107 MMOL/L Carbon Dioxide Level 30 21-32 MMOL/L Anion Gap 10 5-14 MMOL/L Blood Urea Nitrogen 21 H 7-18 MG/DL Creatinine 0.81 0.60-1.30 MG/DL Estimat Glomerular Filtration Rate > 60 BUN/Creatinine Ratio 26 Glucose Level 130 H 70-105 MG/DL Lactic Acid Level 1.34 0.50-2.00 MMOL/L Calcium Level 8.8 8.5-10.1 MG/DL Corrected Calcium 9.0 8.5-10.1 MG/DL Magnesium Level 1.8 1.6-2.4 MG/DL Total Bilirubin 0.2 0.1-1.0 MG/DL Aspartate Amino Transf (AST/SGOT) 16 5-34 U/L Alanine Aminotransferase (ALT/SGPT) 25 0-55 U/L Alkaline Phosphatase 70 40-136 U/L C-Reactive Protein High Sensitivity 8.20 H 0.00-0.50 MG/DL Total Protein 6.9 6.4-8.2 GM/DL Albumin 3.8 3.2-4.5 GM/DL Procalcitonin 0.07 <0.10 NG/ML Prothrombin Time 13.8 12.2-14.7 SEC INR Comment 1.0 0.8-1.4 Activated Partial Thromboplast Time 27 24-35 SEC Urine Color YELLOW Urine Clarity CLOUDY Urine pH 6.0 5-9 Urine Specific [place] 1.020 1.016-1.022 Urine Protein NEGATIVE NEGATIVE Urine Glucose (UA) NEGATIVE NEGATIVE Urine Ketones NEGATIVE NEGATIVE Urine Nitrite NEGATIVE NEGATIVE Urine Bilirubin NEGATIVE NEGATIVE Urine Urobilinogen 0.2 < = 1.0 MG/DL Urine Leukocyte Esterase TRACE H NEGATIVE Urine RBC (Auto) NEGATIVE NEGATIVE Urine RBC NONE /HPF Urine WBC 2-5 /HPF Urine Squamous Epithelial Cells 5-10 /HPF Urine Crystals NONE /LPF Urine Bacteria TRACE /HPF Urine Casts NONE /LPF Urine Mucus NEGATIVE /LPF Urine Culture Indicated NO Test 11/22/19 03:17 Range/Units My Orders Orders - CHINMAY JANSEN DO Ed Iv/Invasive Line Start (11/22/19 01:45) O2 (11/22/19 01:45) Monitor-Rhythm Ecg Trace Only (11/22/19 01:45) Cbc With Automated Diff (11/22/19 01:45) Comprehensive Metabolic Panel (11/22/19 01:45) Hs C Reactive Protein (11/22/19 01:45) Erythrocyte Sedimentation Rate (11/22/19 01:45) Lactic Acid Analyzer (11/22/19 01:45) Magnesium (11/22/19 01:45) Procalcitonin (Pct) (11/22/19 01:45) Protime With Inr (11/22/19 01:45) Partial Thromboplastin Time (11/22/19 01:45) Ua Culture If Indicated (11/22/19 01:45) Blood Culture (11/22/19 01:45) Chest 1 View, Ap/Pa Only (11/22/19 01:45) Coronavirus Sars-Cov-2 So 2018 (11/22/19 01:45) Covid 19 Inhouse Test (11/22/19 01:45) Acetaminophen Tablet (Tylenol Tablet) (11/22/19 01:45) Ibuprofen Tablet (Motrin Tablet) (11/22/19 01:45) Ct Maxillofacial Wo (11/22/19 02:20) Meropenem (Merrem 500 Mg) (11/22/19 03:00) Vancomycin Injection (Vancomycin Injecti (11/22/19 03:00) Medications Given in ED Current Medications Medications Dose Ordered Sig/Rhona Route Start Time Stop Time Status Last Admin Dose Admin Acetaminophen 1,000 mg ONCE ONCE PO 11/22/19 01:45 11/22/19 01:48 DC 11/22/19 02:08 1,000 MG Meropenem 500 mg/ Sodium Chloride 100 ml @ 200 mls/hr ONCE ONCE IV 11/22/19 03:00 11/22/19 03:29 DC 11/22/19 03:49 200 MLS/HR Vital Signs/I&O 11/22/19 11/22/19 11/22/19 01:37 02:00 04:16 Temp 38.9 Pulse 105 105 Resp 20 20 B/P (MAP) 180/96 (124) 146/84 Pulse Ox 98 98 97 O2 Delivery Nasal Cannula Nasal Cannula Nasal Cannula O2 Flow Rate 3.00 3.00 Capillary Refill : Less Than 3 Seconds Blood Pressure Mean: 124 Progress Note : Progress Note PT PLACED IN ISOLATION ROOM, PPE WORN AT ALL TIMES COVID TESTING PERFORMED PT ADVISED OF NEED FOR QUARANTINE GIVEN TYLENOL AND MOTRIN FOR FEVER--TEMP AND HEART RATE DOWN AT TIME OF ADMIT NO DETERIORATION IN PT'S CONDITION DURING ER STAY Diagnostic Imaging Comments CXR--BIBASILAR ATELECTASIS--SIMILAR TO PREVIOUS--PENDING RADIOLOGIST REVIEW CT MAXILLFACIALS--BILATERAL PRESEPTAL SOFT TISSUE SWELLING. NO FLUID COLLECTION OR ABSCESS. NO RETROPHARYNGEAL COLLECTIONS--PER [facility] VIA FAX AT [id number] Reviewed: Reviewed by Md Departure Communication (Admissions) 0340--SPOKE WITH DR. PRASAD, HOSPITALIST ON FOR [facility]. ACCEPTS PT FOR ADMIT Impression Primary Impression: Facial cellulitis Additional Impressions: Person under investigation for COVID-19 Exposure to COVID-19 virus COPD OXYGEN DEPENDENT Morbid obesity Sepsis HTN (hypertension) Disposition: ADMITTED INPATIENT Condition: Stable Admissions Decision to Admit Reason: Admit from ER (General) Decision to Admit/Date: Nov 22, 2019 Time/Decision to Admit Time: 03:40 Departure-Patient Inst. Referrals: [facility] (PCP/Family) Primary Care Physician CHINMAY JANSEN DO Nov 22, 2019 02:12
[2019-11-22 02:25] LABS: ALBUMIN 3.8 GM/DL (3.2-4.5); CHLORIDE 100 MMOL/L (98-107); POTASSIUM 4.3 MMOL/L (3.6-5.0); SODIUM 140 MMOL/L (135-145)
[2019-11-22 02:26] LABS: CALCIUM 8.8 MG/DL (8.5-10.1)
[2019-11-22 02:27] LABS: GLUCOSE 130 MG/DL (70-105); TOTAL PROTEIN 6.9 GM/DL (6.4-8.2)
[2019-11-22 02:28] LABS: CARBON DIOXIDE 30 MMOL/L (21-32)
[2019-11-22 02:29] LABS: BILIRUBIN,TOTAL 0.2 MG/DL (0.1-1.0)
[2019-11-22 02:31] LABS: ALKALINE PHOSPHATASE 70 U/L (40-136); CREATININE SERUM 0.81 MG/DL (0.60-1.30); GFR ESTIMATED > 60
[2019-11-22 02:32] LABS: BUN/CREATININE RATIO 26
[2019-11-22 02:34] LABS: ALANINE AMINOTRANSFERASE 25 U/L (0-55); MAGNESIUM 1.8 MG/DL (1.6-2.4)
--- NOTE | 2019-11-22 02:57 | NUR ---
Pt to CT
[2019-11-22] MEDS ORDERED: VANCOMYCIN INJECTION 1,000 MG in NS (IVPB) 250 ML IV SCH (03:00)
[2019-11-22] MEDS ORDERED: MEROPENEM 500 MG in NS (IVPB) 100 ML IV ONE (03:00)
[2019-11-22 03:05] LABS: PROTHROMBIN TIME PATIENT 13.8 SEC (12.2-14.7)
[2019-11-22 03:25] LABS: BILIRUBIN,URINE NEGATIVE (NEGATIVE); CLARITY,URINE CLOUDY; COLOR,URINE YELLOW; GLUCOSE, URINE (UA) NEGATIVE (NEGATIVE); KETONES,URINE NEGATIVE (NEGATIVE); LEUKOCYTE ESTERASE ,URINE TRACE (NEGATIVE); NITRITE,URINE NEGATIVE (NEGATIVE); PROTEIN,URINE NEGATIVE (NEGATIVE)
[2019-11-22 03:27] LABS: ERYTHROCYTE SEDIMENTATION RATE 24 MM/HR (0-30)
[2019-11-22 03:40] LABS: BACTERIA,URINE TRACE /HPF
--- NOTE | 2019-11-22 04:35 | NUR ---
Merrem infusing to the floor; 4th floor staff here for patient.
[2019-11-22] MEDS ORDERED: NS IV 1000 ML 1,000 ML ONE (04:51)
--- NOTE | 2019-11-22 05:00 | NUR ---
PT admitted to room 425-1, with an admitting diagnosis of FACIAL CELLULITIS, SEPSIS, COVID PUI, AND COPD, on 11/22/19 from ED via BED/CART, accompanied by STAFF. NORMA HASSAN introduced to surroundings, call light, bed controls, phone, TV, temperature control, lights, meal times, smoking policy, visitor policy, side rail policy, bathrooms and showers. Patient Rights given to patient in the handbook. NORMA HASSAN verbalizes understanding that [facility] is not responsible for the loss or damage to any personal effects or valuables that are kept in the patients possession during their hospitalization. NORMA HASSAN verbalizes understanding of Interdisciplinary Patient Education. Patient and/or family were informed about the Rapid Response Team and its purpose.
--- NOTE | 2019-11-22 06:28 | Diagnostic Imaging Report ---
Indication: Fever, swelling There is cardiomegaly. There is mild pulmonary vascular congestion. There are no infiltrates, effusions or pneumothoraces. IMPRESSION: Cardiomegaly with pulmonary venous hypertension Dictated by: Dictated on workstation # [id number]
--- NOTE | 2019-11-22 06:39 | Diagnostic Imaging Report ---
PROCEDURE: CT maxillofacial without contrast. TECHNIQUE: Multiple contiguous axial images were obtained through the facial bones without the use of intravenous contrast. Auto Exposure Controls were utilized during the CT exam to meet ALARA standards for radiation dose reduction. INDICATION: Fever and swelling in eyes, nose and face. Possible ALLERGIC reaction. COMPARISON: None. FINDINGS: Prominence of the soft tissues overlying the orbits. No preseptal edema or mass is identified. The paranasal sinuses and mastoids are clear. No maxillofacial fractures. The major salivary glands are negative on this noncontrast exam. The floor of the mouth, tongue base and epiglottis are unremarkable. Retropharyngeal course of the carotid arteries. Bilateral 1B cervical lymphadenopathy measuring up to 1.1 cm in short axis dimension on the right and 1.0 cm short axis dimension on the left. No high-grade narrowing of the airway. The visualized upper cervical spine is intact. Visualized intracranial contents are unremarkable. IMPRESSION: 1. Prominence of the soft tissues overlying the orbits. No post septal edema or fluid collections are identified. 2. Nonspecific bilateral level 1B cervical lymphadenopathy. Dictated by: Dictated on workstation # [id number]
--- NOTE | 2019-11-22 06:52 | NUR ---
PTD Vancomycin - Loading dose of 2gm given in ER, then start 1250mg every 8 hours. Trough ordered for 11/22 @ 1200.
[2019-11-22] MEDS: NS IV 1000 ML 1,000 ML IV SCH ×4 (07:06→22:29)
[2019-11-22] MEDS: MEROPENEM 500 MG/SWFI 10 ML IV PUSH IV SCH ×6 (08:58→21:16)
[2019-11-22] MEDS: ACETAMINOPHEN 500 MG TAB (TYLENOL) PO PRN (08:59)
[2019-11-22] MEDS: ENOXAPARIN 60 MG/0.6 ML (LOVENOX) SYR SC SCH ×2 (10:20→21:16)
[2019-11-22] MEDS: meTOprolol TARTRATE 25 MG (LOPRESSOR) TABLET PO SCH ×2 (10:20→21:16)
--- NOTE | 2019-11-22 11:45 | History & Physical-Hospitalist ---
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 on the 11th significant pain and swelling involving her nose and bilateral area orbital areas. She reported pain and denied any associated itching. By the time she got to the hospital her eyes were nearly swollen shut. She denies any past history of MRSA infection. She had been tested initially 10 days ago and then 3 days ago for COVID and was reportedly neg. This was done for possible exposure. She had felt well with no flulike sy or GI symptoms and preserved smell and taste se nsation Date Seen 11/22/19 Time Seen by a Provider: 07:30 Attending Physician Aline Prasad MD [facility] Referring Physician Date of Admission Nov 22, 2019 at 03:40 Home Medications & Allergies Home Medications Reviewed patient Home Medication Reconciliation performed by pharmacy medication reconciliations artificial breeding technician and/or nursing. Patients Allergies have been reviewed. Allergies Allergies Coded Allergies No Known Drug Allergies (Unverified07/09/18) Past Kagibgu-Abzenr-Xniefa Hx Past Med/Social Hx: Reviewed and Corrections made Patient Social History Alcohol Use: Occasionally Uses Recreational Drug Use: No Smoking Status: Former Smoker Type Used: Cigarettes Recent Foreign Travel: No Contact w/other who traveled: No Recent Hopitalizations: No Recent Infectious Disease Expo: No Seasonal Allergies Seasonal Allergies: No Past Medical History Surgeries: Section, Orthopedic, Tonsillectomy Cardiac: Hypertension Reproductive: Yes Female Reproductive Disorders: Endometriosis, Ovarian Cyst Menopausal History of Blood Disorders: No Family History Cardiovascular disease 19 FATHER 19 MOTHER Diabetes mellitus 19 FATHER Review of Systems ROS-Unable to Obtain: see history of present illness Constitutional: see HPI Physical Exam Physical Exam Vital Signs Vital Signs - First Documented 11/22/19 11/22/19 11/22/19 01:37 02:00 06:47 Temp 38.9 Pulse 105 Resp 20 B/P (MAP) 180/96 (124) Pulse Ox 98 O2 Delivery Nasal Cannula O2 Flow Rate 3.00 FiO2 32 Capillary Refill : Less Than 3 Seconds Height, Weight, BMI Height: 5'6.00" Weight: 297lbs. 6.0oz. 133.332150do; 53.85 BMI Method:Actual General Appearance: Moderate Distress HEENT: Other (nasal erythema is most prominent with erythema also involving both periorbital areas no crepitus noted on skin palpation there is pain noted. Patient reports decreased swelling compared to last night and pupils are equal round and reacti) Neck: Full Range of Motion, Normal Inspection, Non Tender Respiratory: Chest Non Tender, Lungs Clear, Normal Breath Sounds, No Accessory Muscle Use, No Respiratory Distress Cardiovascular: Regular Rate, Rhythm, No Edema, No Gallop, No JVD, No Murmur, Normal Peripheral Pulses Results Results/Procedures Labs Laboratory Tests 11/22/19 02:06 Patient resulted labs reviewed. Assessment/Plan Admission Diagnosis 1. Facial cellulitis involving the nose and periorbital area. If not done will swab nose for MRSA which is the most likely clinical scenario. Continue vancomycin and meropenem for now. Admission Status: Inpatient Order (span 2 midnights) Reason for Inpatient Admission: see admission diagnosis Clinical Quality Measures DVT/VTE Risk/Contraindication: Risk Factor Score Per Nursin RFS Level Per Nursing on Admit: 4+=Very High ALINE PRASAD MD Nov 22, 2019 11:45
[2019-11-22] MEDS: IBUPROFEN 800 MG (MOTRIN) TAB PO PRN ×2 (14:28→21:20)
[2019-11-22] MEDS: VANCOMYCIN 1250 MG/NS 250 ML IVPB IV SCH ×4 (14:28→21:42)
[2019-11-22] MEDS ORDERED: ENOXAPARIN 40 MG/0.4 ML (LOVENOX) SYR SC SCH (20:00)
[2019-11-22] MEDS: RT-ALBUTEROL INHALER HFA (VENTOLIN HFA) 18 GM IH PRN (21:46)
[2019-11-23] MEDS: NS IV 1000 ML 1,000 ML IV SCH ×2 (01:34→09:03)
[2019-11-23] MEDS: MEROPENEM 500 MG/SWFI 10 ML IV PUSH IV SCH ×8 (03:07→20:55)
[2019-11-23 04:00] VITALS: BP 127/68
[2019-11-23 05:21] LABS: BASOPHILS % (AUTO) 0 % (0-10); EOSINOPHILS # (AUTO) 0.1 10^3/uL (0.0-0.3); EOSINOPHILS % (AUTO) 1 % (0-10); HEMATOCRIT 43 % (35-52); HEMOGLOBIN 12.7 G/DL (11.5-16.0); LYMPHOCYTES # (AUTO) 1.1 X 10^3 (1.0-4.0); LYMPHOCYTES % (AUTO) 10 % (12-44); MEAN CORPUSCULAR HEMOGLOBIN 30 PG (25-34); MEAN CORPUSCULAR HGB CONC 30 G/DL (32-36); MEAN CORPUSCULAR VOLUME 99 FL (80-99); MEAN PLATELET VOLUME 10.8 FL (7.4-10.4); MONOCYTES # (AUTO) 0.8 X 10^3 (0.0-1.0); MONOCYTES % (AUTO) 8 % (0-12); NEUTROPHILS # (AUTO) 8.7 X 10^3 (1.8-7.8); NEUTROPHILS % (AUTO) 82 % (42-75); PLATELET COUNT 136 10^3/uL (130-400); WHITE BLOOD COUNT 10.6 10^3/uL (4.3-11.0)
[2019-11-23] MEDS: VANCOMYCIN 1250 MG/NS 250 ML IVPB IV SCH ×6 (05:38→22:37)
[2019-11-23 05:46] LABS: ALBUMIN 3.4 GM/DL (3.2-4.5)
[2019-11-23 05:47] LABS: CHLORIDE 106 MMOL/L (98-107); POTASSIUM 4.3 MMOL/L (3.6-5.0); SODIUM 141 MMOL/L (135-145)
[2019-11-23 05:48] LABS: CALCIUM 8.2 MG/DL (8.5-10.1)
[2019-11-23 05:49] LABS: GLUCOSE 117 MG/DL (70-105); TOTAL PROTEIN 6.6 GM/DL (6.4-8.2)
[2019-11-23 05:50] LABS: CARBON DIOXIDE 25 MMOL/L (21-32)
[2019-11-23 05:51] LABS: BILIRUBIN,TOTAL 0.2 MG/DL (0.1-1.0)
[2019-11-23 05:52] LABS: ALKALINE PHOSPHATASE 63 U/L (40-136)
[2019-11-23 05:53] LABS: CREATININE SERUM 0.65 MG/DL (0.60-1.30); GFR ESTIMATED > 60
[2019-11-23 05:54] LABS: BUN/CREATININE RATIO 22
[2019-11-23 05:55] LABS: ALANINE AMINOTRANSFERASE 27 U/L (0-55)
[2019-11-23 08:17] VITALS: BP_SYST 146; BP_SYST 169; BP_DIAS 73; BP_DIAS 90
[2019-11-23] MEDS: meTOprolol TARTRATE 25 MG (LOPRESSOR) TABLET PO SCH ×2 (09:02→20:56)
[2019-11-23] MEDS: IBUPROFEN 800 MG (MOTRIN) TAB PO PRN ×2 (09:02→20:56)
[2019-11-23] MEDS: ENOXAPARIN 60 MG/0.6 ML (LOVENOX) SYR SC SCH ×2 (09:02→20:56)
[2019-11-23] MEDS: RT-ALBUTEROL INHALER HFA (VENTOLIN HFA) 18 GM IH SCH ×2 (09:23→18:56)
[2019-11-23 11:27] VITALS: BP 122/62
[2019-11-23] MEDS ORDERED: TROUGH ORDER-PHARMACY XX NR (12:00)
--- NOTE | 2019-11-23 12:46 | Progress Note - Hospitalist ---
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 on the significant pain and swelling involving her nose and bilateral area orbital areas. She reported pain and denied any associated itching. By the time she got to the hospital her eyes were nearly swollen shut. She denies any past history of MRSA infection. She had been tested initially 10 days ago and then 3 days ago for COVID and was reportedly neg. This was done for possible exposure. She had felt well with no flulike sy or GI symptoms and preserved smell and taste sensation Subjective/Events-last exam patient reports some increased pain over the forehead and the base of the neck she is anxious and concerned that her infection is spreading. She denies night sweats chills or fever. Focused Exam Lactate Level 11/22/19 02:06: Lactic Acid Level 1.34 Objective Exam Vital Signs Vital Signs Date Time Temp Pulse Resp B/P (MAP) Pulse Ox O2 Delivery O2 Flow Rate FiO2 11/23/19 11:27 37.1 70 16 122/62 (82) 95 Nasal Cannula 3.00 11/22/19 06:47 32 Capillary Refill : Less Than 3 Seconds General Appearance: No Apparent Distress, Anxious HEENT: Other (facial edema unchanged there is no evidence for erythema extendi ng into the scalp and no evidence for erythema posteriorly involving the scalp edema of the face unchanged from yesterday still significant in the periorbital area no increased pain around the eyes noted. No reported change in vision) Respiratory: Chest Non Tender, Lungs Clear, Normal Breath Sounds, No Accessory Muscle Use, No Respiratory Distress Cardiovascular: Regular Rate, Rhythm, No Edema, No Gallop, No JVD, No Murmur, Normal Peripheral Pulses Results/Procedures Lab Laboratory Tests 11/23/19 05:10 Patient resulted labs reviewed. Assessment/Plan Assessment and Plan Assess & Plan/Chief Complaint 1. Facial cellulitis involving the nose and periorbital area. If not done will swab nose for MRSA which is the most likely clinical scenario. Continue vancomycin and meropenem for now patient reassured no evidence for spreading infection continue to monitor. Clinical Quality Measures DVT/VTE Risk/Contraindication: Risk Factor Score Per Nursin RFS Level Per Nursing on Admit: 4+=Very High ALINE PRASAD MD Nov 23, 2019 12:46
[2019-11-23 15:52] VITALS: BP 121/74
[2019-11-23] MEDS: RT-ALBUTEROL INHALER HFA (VENTOLIN HFA) 18 GM IH PRN (18:55)
[2019-11-23 20:12] VITALS: BP 165/95
[2019-11-24] VITALS (7 sets, daily range): BP systolic 131–167; BP diastolic 61–86
[2019-11-24] MEDS: MEROPENEM 500 MG/SWFI 10 ML IV PUSH IV SCH ×4 (03:40→10:28)
[2019-11-24] MEDS: VANCOMYCIN 1250 MG/NS 250 ML IVPB IV SCH ×2 (06:01)
[2019-11-24] MEDS: IBUPROFEN 800 MG (MOTRIN) TAB PO PRN ×3 (06:07→22:59)
[2019-11-24] MEDS: RT-ALBUTEROL INHALER HFA (VENTOLIN HFA) 18 GM IH SCH (07:29)
[2019-11-24] MEDS: ENOXAPARIN 60 MG/0.6 ML (LOVENOX) SYR SC SCH ×2 (10:28→20:23)
[2019-11-24] MEDS: meTOprolol TARTRATE 25 MG (LOPRESSOR) TABLET PO SCH ×2 (10:28→20:20)
[2019-11-24] MEDS ORDERED: DIPH25CA79 PO (11:31)
[2019-11-24] MEDS ORDERED: MAGN1TAB34 PO (11:31)
[2019-11-24] MEDS ORDERED: FLUT1DIS27 IH (11:31)
[2019-11-24] MEDS ORDERED: ALBU18HF2 INH (11:31)
[2019-11-24] MEDS ORDERED: IBUP-2185 PO (11:31)
[2019-11-24] MEDS ORDERED: METO-333 PO (11:31)
--- NOTE | 2019-11-24 11:38 | Progress Note ---
Subjective Subjective/Events-last exam Afebrile, improving, able to see better now, but pain is spreading throughout her scalp as well even though redness is improving. Focused Exam Lactate Level 11/22/19 02:06: Lactic Acid Level 1.34 Objective Exam Last Set of Vital Signs Vital Signs Date Time Temp Pulse Resp B/P (MAP) Pulse Ox O2 Delivery O2 Flow Rate FiO2 11/24/19 08:00 97 Nasal Cannula 3.00 11/24/19 08:00 37.1 69 22 131/62 (85) 11/22/19 06:47 32 Capillary Refill : Less Than 3 Seconds I&O Intake and Output 11/24/19 00:00 Intake Total 3170 ml Output Total 1350 ml Balance 1820 ml Intake Oral 2160 ml IV Total 1010 ml Output Urine Total 1350 ml # Voids 3 # Bowel Movements 1 General: Alert, No Acute Distress HEENT: PERRLA, EOMI Lungs: Clear to Auscultation, Normal Air Movement Heart: Regular Rate, No Murmurs Neuro: Normal Speech Psych/Mental Status: Mental Status NL Results/Procedures Lab Laboratory Tests 11/23/19 12:13: Vancomycin Level Trough 12.4 Microbiology 11/23/19 MRSA Screen - Final, Complete MRSA not isolated 11/22/19 Blood Culture - Preliminary, Resulted No growth Assessment/Plan Assessment/Plan (1) Facial cellulitis Status: Acute Assessment & Plan: Improving, on meropenem and vancomycin, blood culture no growth, nasal MRSA swab negative. D/C meropenem and vanc today and switch to oral clinda, observe for worsening. (2) Sepsis Status: Resolved Assessment & Plan: Suspect secondary to cellulitis, likely staph or strep, but MRSA nasal swab negative and blood culture no growth. Leukocytosis and fever resolved with antibiotic treatment. Qualifiers: Qualified Codes: A41.9 - Sepsis, unspecified organism (3) Exposure to COVID-19 virus Status: Acute Assessment & Plan: Testing negative this admission. (4) HTN (hypertension) Status: Chronic Assessment & Plan: High on admission, controlled currently, continue metoprolol. Qualifiers: Qualified Codes: I10 - Essential (primary) hypertension (5) COPD (chronic obstructive pulmonary disease) Status: Chronic Assessment & Plan: Supplemental oxygen dependent on 3 lpm baseline. No evidence of exacerbation. (6) Morbid obesity Status: Chronic (7) DVT prophylaxis Status: Acute Assessment & Plan: Enoxaparin Clinical Quality Measures DVT/VTE Risk/Contraindication: Risk Factor Score Per Nursin RFS Level Per Nursing on Admit: 4+=Very High STEPHANIE ÁLVAREZ MD Nov 24, 2019 11:38
[2019-11-24] MEDS: CLINDAMYCIN 150 MG (CLEOCIN) CAP PO SCH ×3 (11:47→22:58)
--- NOTE | 2019-11-24 12:18 | NUR ---
SPOKE WITH THE PT, WENT THRU THE EXT MED HISTORY AND CALLED [facility] TO COMPLETE THE MED REC ADVAIR 500/50MG LAST FILLED 01-06-2019 #1- PT SAYS SHE ONLY USES THIS PRN OTC MEDS: IBUPROFEN ANTACID BENADRYL
[2019-11-24] MEDS: RT-ALBUTEROL INHALER HFA (VENTOLIN HFA) 18 GM IH PRN (19:25)
[2019-11-24] MEDS: ACETAMINOPHEN 500 MG TAB (TYLENOL) PO PRN (20:22)
[2019-11-25 04:00] VITALS: BP 136/67
[2019-11-25] MEDS: IBUPROFEN 800 MG (MOTRIN) TAB PO PRN (05:36)
[2019-11-25] MEDS: CLINDAMYCIN 150 MG (CLEOCIN) CAP PO SCH (05:36)
[2019-11-25 06:05] LABS: CHLORIDE 102 MMOL/L (98-107); POTASSIUM 5.5 MMOL/L (3.6-5.0); SODIUM 139 MMOL/L (135-145)
[2019-11-25 06:06] LABS: CALCIUM 8.2 MG/DL (8.5-10.1); GLUCOSE 103 MG/DL (70-105)
[2019-11-25 06:08] LABS: CARBON DIOXIDE 27 MMOL/L (21-32)
[2019-11-25 06:10] LABS: CREATININE SERUM 0.65 MG/DL (0.60-1.30); GFR ESTIMATED > 60
[2019-11-25 06:11] LABS: BUN/CREATININE RATIO 32
[2019-11-25 06:39] LABS: BASOPHILS # (AUTO) 0.1 10^3/uL (0.0-0.1); BASOPHILS % (AUTO) 1 % (0-10); EOSINOPHILS # (AUTO) 0.3 10^3/uL (0.0-0.3); EOSINOPHILS % (AUTO) 4 % (0-10); HEMATOCRIT 40 % (35-52); HEMOGLOBIN 12.3 G/DL (11.5-16.0); LYMPHOCYTES # (AUTO) 1.3 X 10^3 (1.0-4.0); LYMPHOCYTES % (AUTO) 17 % (12-44); MEAN CORPUSCULAR HEMOGLOBIN 30 PG (25-34); MEAN CORPUSCULAR HGB CONC 31 G/DL (32-36); MEAN CORPUSCULAR VOLUME 96 FL (80-99); MEAN PLATELET VOLUME 10.9 FL (7.4-10.4); MONOCYTES # (AUTO) 0.8 X 10^3 (0.0-1.0); MONOCYTES % (AUTO) 11 % (0-12); NEUTROPHILS % (AUTO) 67 % (42-75); PLATELET COUNT 170 10^3/uL (130-400); WHITE BLOOD COUNT 7.3 10^3/uL (4.3-11.0)
[2019-11-25] MEDS: RT-ALBUTEROL INHALER HFA (VENTOLIN HFA) 18 GM IH SCH (07:32)
[2019-11-25 08:00] VITALS: BP 139/72
--- NOTE | 2019-11-25 08:25 | Discharge Summary ---
Discharge Summary Hospital Course Problems/Diagnosis: (1) Facial cellulitis Status: Acute Assessment & Plan: Improved, on meropenem and vancomycin, blood culture no growth, nasal MRSA swab negative. D/C meropenem and vanc and switched to oral clinda, continued to improve, so was discharged with 7 day further course of clindamycin. (2) Sepsis Status: Resolved Resolution Date/Time: 11/23/19 @ 11:35 Assessment & Plan: Suspect secondary to cellulitis, likely staph or strep, but MRSA nasal swab negative and blood culture no growth. Leukocytosis and fever resolved with antibiotic treatment. Qualifiers: Qualified Codes: A41.9 - Sepsis, unspecified organism (3) Exposure to COVID-19 virus Status: Acute Assessment & Plan: Testing negative this admission. (4) HTN (hypertension) Status: Chronic Assessment & Plan: High on admission, controlled currently, continue metoprolol. Qualifiers: Qualified Codes: I10 - Essential (primary) hypertension (5) COPD (chronic obstructive pulmonary disease) Status: Chronic Assessment & Plan: Supplemental oxygen dependent on 3 lpm baseline. No evidence of exacerbation. (6) Morbid obesity Status: Chronic Hospital Course Date of Admission: Nov 22, 2019 at 03:40 Admission Diagnosis : Family Physician/Provider[place] [place] Date of Discharge: 11/25/19 Discharge Diagnosis: See problem list Hospital Course: See problem list Labs and Pending Lab Test: Laboratory Tests 11/25/19 05:36: Sodium Level 139, Potassium Level 5.5H, Chloride Level 102, Carbon Dioxide Level 27, Anion Gap 10, Blood Urea Nitrogen 21H, Creatinine 0.65, Estimat Glomerular Filtration Rate > 60, BUN/Creatinine Ratio 32, Glucose Level 103, Calcium Level 8.2L 11/25/19 06:33: White Blood Count 7.3, Red Blood Count 4.13L, Hemoglobin 12.3, Hematocrit 40, Mean Corpuscular Volume 96, Mean Corpuscular Hemoglobin 30, Mean Corpuscular Hemoglobin Concent 31L, Red Cell Distribution Width 13.6, Platelet Count 170, Mean Platelet Volume 10.9H, Neutrophils (%) (Auto) 67, Lymphocytes (%) (Auto) 17, Monocytes (%) (Auto) 11, Eosinophils (%) (Auto) 4, Basophils (%) (Auto) 1, Neutrophils # (Auto) 5.0, Lymphocytes # (Auto) 1.3, Monocytes # (Auto) 0.8, Eosinophils # (Auto) 0.3, Basophils # (Auto) 0.1 Microbiology 11/23/19 MRSA Screen - Final, Complete MRSA not isolated 11/22/19 Blood Culture - Preliminary, Resulted No growth Home Meds Active Reported Benadryl (Diphenhydramine HCl) 25 Mg Capsule 25-50 Mg PO Q6H PRN Antacid Extra Strength Chw Tab (Magnesium Carbonate/Al Hydrox) 1 Each Tab.chew 1-2 Each PO PRN PRN Ibuprofen 200 Mg Capsule 400 Mg PO Q6H PRN Advair 500-50 Diskus (Fluticasone/Salmeterol) 1 Each Blst.w.dev 1 Each IH DAILY PRN Ventolin Hfa (Albuterol Sulfate) 18 Gm Hfa.aer.ad 2 Puff INH Q6H PRN Metoprolol Tartrate 25 Mg Tablet 25 Mg PO BID Assessment/Pt DC Instructions Follow up with Dr. Barba on 12/03 at 10 am. Discharge Diet: Regular Diet Activity as Tolerated: Yes Orders-Post D/C & Referrals Pneu Vac Indicated: Yes Discharge Physical Examination Allergies: Coded Allergies: No Known Drug Allergies (Unverified , 07/09/18) General Appearance: No Apparent Distress Respiratory: Lungs Clear, Normal Breath Sounds Cardiovascular: Regular Rate, Rhythm, No Murmur Skin: Other (facial erythema with peeling on cheeks and nose, decreased from prior, swelling significantly decreased) Copy Copies To 1: ELSY BARBA MD Clinical Quality Measures DVT/VTE Risk/Contraindication: Risk Factor Score Per Nursin RFS Level Per Nursing on Admit: 4+=Very High STEPHANIE ÁLVAREZ MD Nov 25, 2019 08:25
[2019-11-25] MEDS: meTOprolol TARTRATE 25 MG (LOPRESSOR) TABLET PO SCH (09:09)
[2019-11-25] MEDS: ENOXAPARIN 60 MG/0.6 ML (LOVENOX) SYR SC SCH (09:09)
[2019-11-25] MEDS: ACETAMINOPHEN 500 MG TAB (TYLENOL) PO PRN (09:13)
[2019-11-25] MEDS ORDERED: CLIN150C17 PO (09:24)
== END 2019-11-25 11:30 | disposition home or self-care (01) | DRG 872 ==
LOC: EDUNIT# 01:00 → ER 01:03 → 4TH 03:40
PROVIDERS: ADMIT Internal Medicine; ATTEND Family Medicine
DX: A41.9 Sepsis, unspecified organism (principal); L03.213 Periorbital cellulitis; Z68.43 Body mass index [BMI] 50.0-59.9, adult; J34.0 Abscess, furuncle and carbuncle of nose; J44.9 Chronic obstructive pulmonary disease, unspecified; I10 Essential (primary) hypertension; F17.210 Nicotine dependence, cigarettes, uncomplicated; E66.01 Morbid (severe) obesity due to excess calories; Z20.828 Contact with and (suspected) exposure to other viral communicable diseases; Z99.81 Dependence on supplemental oxygen
CPT/HCPCS: 36415; 70486; 71045; 80048; 80053; 80202; 81000; 83605; 83735; 84145; 85025; 85610; 85652; 85730; 86141; 87040; 87081; 87635; 94640; 94760

== ENCOUNTER → 2020-09-02 | Outpatient (CLI) | payer OTHER ==
[~2020-09-02] MED LIST changes: +ALBU18HF2 INH; +CLIN150C18 PO; +DIPH25CA79 PO; +FLUT1DIS27 IH; +IBUP-2185 PO; +MAGN1TAB34 PO; +RT-ALBUTEROL SULF 2.5 MG/3 ML PRE-MIX VIAL INH ONE
== END ==
LOC: RT 14:13
PROVIDERS: ATTEND Surgery
DX: Z02.71 Encounter for disability determination (principal)
CPT/HCPCS: 94060

== ENCOUNTER 2020-11-23 00:17 | Inpatient (IN) | payer MEDICARE, MEDICAID ==
[~2020-11-23] VITALS: Ht 167.7 cm; Wt 143.2 kg
[~2020-11-23 00:17] MED LIST changes: -RT-ALBUTEROL SULF 2.5 MG/3 ML PRE-MIX VIAL INH ONE
[2020-11-23] MEDS ORDERED: ONDANSETRON 4 MG/2 ML (SDV) Z0FRAN ONE (00:22)
[2020-11-23] MEDS ORDERED: RT-ALBUTEROL SULF 2.5 MG/3 ML PRE-MIX VIAL INH STA (00:29)
[2020-11-23] MEDS ORDERED: RT-ALBUTEROL/IPRATROPIUM 3 ML (DUONEB) VIAL INH ONE (00:30)
[2020-11-23] MEDS ORDERED: methylPREDNISolone 125 MG (Solu-MEDROL) VIAL IVP ONE (00:30)
[2020-11-23] MEDS ORDERED: ONDANSETRON 4 MG/2 ML (SDV) Z0FRAN IVP ONE (00:30)
[2020-11-23] MEDS ORDERED: RT-ALBUTEROL SULF 2.5 MG/3 ML PRE-MIX VIAL ONE (00:32)
[2020-11-23 00:48] VITALS: BP 168/120
[2020-11-23 00:49] LABS: BASOPHILS % (AUTO) 0 % (0-10); EOSINOPHILS # (AUTO) 0.1 10^3/uL (0.0-0.3); EOSINOPHILS % (AUTO) 1 % (0-10); HEMATOCRIT 50 % (35-52); HEMOGLOBIN 14.7 g/dL (11.5-16.0); LYMPHOCYTES % (AUTO) 11 % (12-44); MEAN CORPUSCULAR HEMOGLOBIN 29 pg (25-34); MEAN CORPUSCULAR HGB CONC 30 g/dL (32-36); MEAN CORPUSCULAR VOLUME 98 fL (80-99); MEAN PLATELET VOLUME 10.9 fL (9.0-12.2); MONOCYTES % (AUTO) 10 % (0-12); NEUTROPHILS # (AUTO) 7.5 10^3/uL (1.8-7.8); NEUTROPHILS % (AUTO) 78 % (42-75); PLATELET COUNT 219 10^3/uL (130-400); WHITE BLOOD COUNT 9.5 10^3/uL (4.3-11.0)
[2020-11-23 00:59] LABS: ALBUMIN 4.3 GM/DL (3.2-4.5); POTASSIUM 4.7 MMOL/L (3.6-5.0)
[2020-11-23 01:00] LABS: PROTHROMBIN TIME PATIENT 13.8 SEC (12.2-14.7)
[2020-11-23 01:01] LABS: CALCIUM 9.8 MG/DL (8.5-10.1)
[2020-11-23 01:02] LABS: TOTAL PROTEIN 8.1 GM/DL (6.4-8.2)
[2020-11-23 01:04] LABS: BILIRUBIN,TOTAL 0.3 MG/DL (0.1-1.0)
[2020-11-23 01:05] LABS: CREATININE SERUM 0.71 MG/DL (0.60-1.30)
[2020-11-23 01:10] LABS: ABG OXYGEN SATURATION 97 % (94-100); ABG PO2 100 MMHG (79-93); ABG TCO2 38.1 MMOL/L (21.0-31.0)
[2020-11-23 01:11] LABS: ALLENS TEST NO; INSPIRED O2 10 L; PATIENT TEMP 37; VENTILATOR NO
[2020-11-23 01:12] LABS: ABG PCO2 88 MMHG (35-45); ABG PH 7.23 (7.37-7.43)
--- NOTE | 2020-11-23 02:26 | ED General ---
General Chief Complaint: Respiratory Problems Stated Complaint: SOB Source of Information: Patient Exam Limitations: No Limitations History of Present Illness Date Seen by Provider: Nov 23, 2020 Time Seen by Provider: 00:19 Initial Comments This 65-year-old woman presents to the emergency room via EMS in respiratory distress. She has COPD and is dependent on oxygen supplementation at home, usually at 3 L/min. EMS notes that she dropped her saturations into the sixties when transitioning to the EMS cot. Oxygen saturation was resuscitated with high flow mask. Patient reports she has not been feeling well since November 18. She has had increasing shortness of breath had some cough. She denies any fever. She is not in any pain. She is quite nauseated on arrival reaching for an emesis basin. Air movement is quite poor on exam. Allergies and Home Medications Allergies Coded Allergies: No Known Drug Allergies (Unverified , 07/09/18) Patient Home Medication List Home Medication List Reviewed: Yes Albuterol Sulfate (Ventolin Hfa) 18 Gm Hfa.aer.ad, 2 PUFF INH Q6H PRN for SHORTNESS OF BREATH, (Reported) Entered as Reported by: JAYNA LARA on 11/24/19 1131 Clindamycin HCl (Clindamycin HCl) 150 Mg Capsule, 300 MG PO Q6HR Prescribed by: STEPHANIE ÁLVAREZ on 11/25/19 0924 Diphenhydramine HCl (Benadryl) 25 Mg Capsule, 25-50 MG PO Q6H PRN for ALLERGY SYMPTOMS, (Reported) Entered as Reported by: JAYNA LARA on 11/24/19 1131 Fluticasone/Salmeterol (Advair 500-50 Diskus) 1 Each Blst.w.dev, 1 EACH IH DAILY PRN for SHORTNESS OF BREATH, (Reported) Entered as Reported by: JAYNA LARA on 11/24/19 1131 Ibuprofen (Ibuprofen) 200 Mg Capsule, 400 MG PO Q6H PRN for PAIN-MILD (1-4), (Reported) Entered as Reported by: JAYNA LARA on 11/24/19 113 Magnesium Carbonate/Al Hydrox (Antacid Extra Strength Chw Tab) 1 Each Tab.chew, 1-2 EACH PO PRN PRN for HEARTBURN/INDIGESTION, (Reported) Entered as Reported by: JAYNA LARA on 11/24/19 1131 Metoprolol Tartrate (Metoprolol Tartrate) 25 Mg Tablet, 25 MG PO BID, (Reported) Entered as Reported by: JAYNA LARA on 11/24/19 1131 Review of Systems Review of Systems Constitutional: no symptoms reported; No fever EENTM: no symptoms reported Respiratory: see HPI Cardiovascular: no symptoms reported Gastrointestinal: see HPI Genitourinary: no symptoms reported : No Musculoskeletal: no symptoms reported Skin: no symptoms reported Psychiatric/Neurological: No Symptoms Reported Hematologic/Lymphatic: No Symptoms Reported Past Wggyvqh-Nphpnq-Nzglzs Hx Patient Social History Tobacco Use?: No Smoking Status: Former Smoker Substance use?: No Seasonal Allergies Seasonal Allergies: No Past Medical History Surgeries: Yes ( X 1; LEFT KNEE SURGERY; TONSILLECTOMY) Section, Orthopedic, Tonsillectomy Respiratory: Yes (O2 DEPENDENT at 3 L/min) COPD Cardiac: Yes Hypertension Neurological: No Reproductive Disorders: Yes Female Reproductive Disorders: Endometriosis, 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 6.0oz. 133.844096oz; 53.85 BMI Method:Actual General Appearance: WD/WN, Moderate Distress, Obese HEENT: PERRL/EOMI, Normal ENT Inspection Neck: Normal Inspection; No JVD Respiratory: Accessory Muscle Use, Decreased Breath Sounds (Very poor air movement), Respiratory Distress Cardiovascular: Regular Rate, Rhythm, No Edema, No Murmur Gastrointestinal: Soft; No Distended Extremity: Normal Inspection, No Pedal Edema Neurologic/Psychiatric: Alert, Oriented x3, No Motor/Sensory Deficits, Normal Mood/Affect Skin: warm/dry, cyanosis Focused Exam Lactate Level 11/23/20 00:38: Lactic Acid Level 1.20 Lactic Acid Level Progress/Results/Core Measures Suspected Sepsis SIRS Temperature: Pulse: 114 Respiratory Rate: 30 Laboratory Tests 11/23/20 00:38: White Blood Count 9.5 Blood Pressure 168 /120 Mean: 11/23/20 00:38: Lactic Acid Level 1.20 Laboratory Tests 11/23/20 00:38: Creatinine 0.71, INR Comment 1.0, Platelet Count 219, Total Bilirubin 0.3 Results/Orders Lab Results Laboratory Tests Test 11/23/20 00:30 11/23/20 00:38 11/23/20 01:02 11/23/20 04:13 Range/Units Influenza Type A (RT-PCR) Not Detected Not Detecte Influenza Type B (RT-PCR) Not Detected Not Detecte SARS-CoV-2 RNA (RT-PCR) Not Detected Not Detecte White Blood Count 9.5 4.3-11.0 10^3/uL Red Blood Count 5.11 3.80-5.11 10^6/uL Hemoglobin 14.7 11.5-16.0 g/dL Hematocrit 50 35-52 % Mean Corpuscular Volume 98 80-99 fL Mean Corpuscular Hemoglobin 29 25-34 pg Mean Corpuscular Hemoglobin Concent 30 L 32-36 g/dL Red Cell Distribution Width 13.3 10.0-14.5 % Platelet Count 219 130-400 10^3/uL Mean Platelet Volume 10.9 9.0-12.2 fL Immature Granulocyte % (Auto) 0 % Neutrophils (%) (Auto) 78 H 42-75 % Lymphocytes (%) (Auto) 11 L 12-44 % Monocytes (%) (Auto) 10 0-12 % Eosinophils (%) (Auto) 1 0-10 % Basophils (%) (Auto) 0 0-10 % Neutrophils # (Auto) 7.5 1.8-7.8 10^3/uL Lymphocytes # (Auto) 1.0 1.0-4.0 10^3/uL Monocytes # (Auto) 1.0 0.0-1.0 10^3/uL Eosinophils # (Auto) 0.1 0.0-0.3 10^3/uL Basophils # (Auto) 0.0 0.0-0.1 10^3/uL Immature Granulocyte # (Auto) 0.0 0.0-0.1 10^3/uL Prothrombin Time 13.8 12.2-14.7 SEC INR Comment 1.0 0.8-1.4 Activated Partial Thromboplast Time 28 24-35 SEC Sodium Level 139 135-145 MMOL/L Potassium Level 4.7 3.6-5.0 MMOL/L Chloride Level 96 L 98-107 MMOL/L Carbon Dioxide Level 33 H 21-32 MMOL/L Anion Gap 10 5-14 MMOL/L Blood Urea Nitrogen 11 7-18 MG/DL Creatinine 0.71 0.60-1.30 MG/DL Estimat Glomerular Filtration Rate 83 BUN/Creatinine Ratio 15 Glucose Level 149 H 70-105 MG/DL Lactic Acid Level 1.20 0.50-2.00 MMOL/L Calcium Level 9.8 8.5-10.1 MG/DL Corrected Calcium 9.6 8.5-10.1 MG/DL Total Bilirubin 0.3 0.1-1.0 MG/DL Aspartate Amino Transf (AST/SGOT) 24 5-34 U/L Alanine Aminotransferase (ALT/SGPT) 37 0-55 U/L Alkaline Phosphatase 60 40-136 U/L C-Reactive Protein High Sensitivity 4.34 H 0.00-0.50 MG/DL B-Type Natriuretic Peptide 32.9 <100.0 PG/ML Total Protein 8.1 6.4-8.2 GM/DL Albumin 4.3 3.2-4.5 GM/DL Procalcitonin 0.12 H <0.10 NG/ML Blood Gas Puncture Site R RADIAL RT RADIAL Blood Gas Patient Temperature 37 37.9 Arterial Blood pH 7.23 *L 7.21 *L 7.37-7.43 Arterial Blood Partial Pressure CO2 88 *H 91 *H 35-45 MMHG Arterial Blood Partial Pressure O2 100 H 173 H 79-93 MMHG Arterial Blood HCO3 35 H 35 H 23-27 MMOL/L Arterial Blood Total CO2 38.1 H 37.2 H 21.0-31.0 MMOL/L Arterial Blood Oxygen Saturation 97 99 94-100 % Arterial Blood Base Excess 8.0 H 7.2 H -2.5-2.5 MMOL/L Jaxson Test NO YES-POS Blood Gas Ventilator Setting NO NO Blood Gas Inspired Oxygen 10 L 70% BIPAP Test 11/23/20 05:00 Range/Units Urine Color YELLOW Urine Clarity CLEAR Urine pH 5.5 5-9 Urine Specific [place] >=1.030 1.016-1.022 Urine Protein 2+ H NEGATIVE Urine Glucose (UA) NEGATIVE NEGATIVE Urine Ketones NEGATIVE NEGATIVE Urine Nitrite NEGATIVE NEGATIVE Urine Bilirubin 2+ H NEGATIVE Urine Urobilinogen 1.0 < = 1.0 MG/DL Urine Leukocyte Esterase NEGATIVE NEGATIVE Urine RBC (Auto) TRACE-I NEGATIVE Urine RBC 0-2 /HPF Urine WBC 5-10 H /HPF Urine Squamous Epithelial Cells 2-5 /HPF Urine Crystals NONE /LPF Urine Bacteria MODERATE H /HPF Urine Casts PRESENT /LPF Urine Hyaline Casts 10-25 H /LPF Urine Mucus LARGE H /LPF Urine Culture Indicated CULTURE PENDING My Orders Orders - ALLYN STEVENS MD Ondansetron Injection (Zofran Injectio (11/23/20 00:22) Albuterol Pre-Mix Nebs (Rt) (Proventil (11/23/20 00:29) Albuterol/Ipra Inhalation Soln (Duoneb I (11/23/20 00:30) Svn Small Volume Nebulizer (11/23/20 00:29) Svn Small Volume Nebulizer (11/23/20 00:29) Ondansetron Injection (Zofran Injectio (11/23/20 00:30) Methylprednisolone Sod Succ (Solu-Medrol (11/23/20 00:30) Cbc With Automated Diff (11/23/20 00:33) Comprehensive Metabolic Panel (11/23/20 00:33) Blood Culture (11/23/20 00:33) Sputum Culture (11/23/20:33) Urinalysis (11/23/20:33) Urine Culture (11/23/20:33) Protime With Inr (11/23/20:33) Partial Thromboplastin Time (11/23/20:33) Chest 1 View, Ap/Pa Only (11/23/20:33) Ed Iv/Invasive Line Start (11/23/20 00:33) Ed Iv/Invasive Line Start (11/23/20 00:33) Vital Signs Adult Sepsis Patie Q15M (11/23/20 00:33) O2 (11/23/20 00:33) Remove Rings In Anticipation O (11/23/20 00:33) Lactic Acid Analyzer (11/23/20 00:33) Covid 19 Inhouse Test (11/23/20 00:33) Influenza A And B By Pcr (11/23/20 00:33) Albuterol Pre-Mix Nebs (Rt) (Proventil (11/23/20 00:32) Arterial Blood Gas (11/23/20 01:04) Hs C Reactive Protein (11/23/20 01:30) BNP (11/23/20 01:31) Procalcitonin (Pct) (11/23/20 02:19) Azithromycin Injection (Zithromax Inject (11/23/20 02:30) Arterial Blood Gas (11/23/20 02:27) Arterial Blood Draw (11/23/20 00:48) Medications Given in ED Current Medications Medications Dose Ordered Sig/Rhona Route Start Time Stop Time Status Last Admin Dose Admin Albuterol/ Ipratropium 3 ml ONCE ONCE INH 11/23/20 00:30 11/23/20 00:31 DC 11/23/20 00:55 3 ML Azithromycin 500 mg/Sodium Chloride 250 ml @ 250 mls/hr ONCE ONCE IV 11/23/20 02:30 11/23/20 03:29 DC 11/23/20 02:50 250 MLS/HR Methylprednisolone Sodium Succinate 125 mg ONCE ONCE IVP 11/23/20 00:30 11/23/20 00:31 DC 11/23/20 01:11 125 MG Ondansetron HCl 8 mg ONCE ONCE IVP 11/23/20 00:30 11/23/20 00:31 DC 11/23/20 00:22 8 MG Vital Signs/I&O 11/23/20 11/23/20 11/23/20 11/23/20 00:18 00:18 00:48 03:03 Temp 37.0 37.0 Pulse 124 114 105 Resp 28 30 20 B/P (MAP) 172/99 (123) 114/72 Pulse Ox 96 95 96 O2 Delivery Non Rebreather Non Rebreather NIV Bilevel O2 Flow Rate 15.00 15.00 70.00 70.00 11/23/20 11/23/20 11/23/20 11/23/20 03:40 03:46 03:47 03:53 Temp 37.9 Pulse 97 105 105 Resp 34 30 B/P (MAP) 108/62 Pulse Ox 98 95 O2 Delivery NIV Bilevel NIV Bilevel O2 Flow Rate 70.00 70.00 70.00 11/23/20 11/23/20 11/23/20 11/23/20 04:00 04:00 04:21 04:30 Temp 37.0 Pulse 99 124 96 Resp 23 17 B/P (MAP) 119/84 127/71 Pulse Ox 98 96 98 O2 Delivery NIV Bilevel NIV Bilevel NIV Bilevel O2 Flow Rate 70.00 70.00 FiO2 70 70 11/23/20 11/23/20 11/23/20 11/23/20 04:45 05:00 05:15 05:30 Pulse 101 95 101 76 Resp 29 29 B/P (MAP) 127/79 127/76 120/67 115/68 Pulse Ox 98 98 97 97 O2 Delivery NIV Bilevel NIV Bilevel NIV Bilevel NIV Bilevel O2 Flow Rate 70.00 70.00 70.00 70.00 11/23/20 11/23/20 05:45 06:00 Pulse 83 84 B/P (MAP) 112/65 120/68 Pulse Ox 97 97 O2 Delivery NIV Bilevel NIV Bilevel O2 Flow Rate 70.00 70.00 Capillary Refill : Progress Note : Progress Note Patient was seen and examined upon arrival. High flow mask was applied which resuscitated her oxygen saturations into the nineties. Solu-Medrol 125 mg was administered. BiPAP was initiated along with an hour-long nebulizer treatment. She demonstrated marked improvement with these measures. There was no clear infection identified but x-ray interpretation is difficult. A azithromycin is being administered as part of the COPD exacerbation therapy. ABG suggested respiratory acidosis. A repeat ABG will be obtained now that she has been on BiPAP for a while. Patient does report a full CODE STATUS. Covid and influenza screening were negative. Diagnostic Imaging Diagonstic Imaging: Xray Plain Films/CT/US/NM/MRI: chest Comments Chest x-ray viewed by me and compared with prior. There is questionable pulmonary vascular congestion similar to prior which was previously reported as pulmonary hypertension. Report not yet available. Departure Communication (Admissions) Time/Spoke to Admitting Phy: 02:20 Dr. Álvarez Impression Primary Impression: Respiratory failure with hypoxia and hypercapnia Qualified Codes: J96.21 - Acute and chronic respiratory failure with hypoxia; J96.22 - Acute and chronic respiratory failure with hypercapnia Additional Impression: COPD exacerbation Disposition: ADMITTED INPATIENT Condition: Improved Admissions Decision to Admit Reason: Admit from ER (General) Decision to Admit/Date: Nov 23, 2020 Time/Decision to Admit Time: 00:20 Departure-Patient Inst. Referrals: [facility] (PCP/Family) Primary Care Physician ALLYN STEVENS MD Nov 23, 2020 02:26
[2020-11-23] MEDS ORDERED: AZITHROMYCIN INJECTION 500 MG in NS (IVPB) 250 ML IV ONE (02:30)
--- NOTE | 2020-11-23 03:33 | Tele-ICU Consult ---
History of Present Illness History of Present Illness Date Seen by Provider: Nov 23, 2020 Time Seen by Provider: 03:20 Date of Admission This virtual visit was conducted using real time audio/video. Thank you for asking us to see this patient for respiratory insufficiency and distress due to hypoxic and hypercapnic AECOPD. HPC: Recent events: Seen in ER. Treated w nebs, medrol and BiPAP. PMH: COPD on home O2 3 LPM, HTN. SH: smoking history previously FH: Non-contributory ROS: limited by patient's clinical condition, but as in PC PE: VSS O2 sat 99% on 10 LPM. HEENT: No obvious masses, adenopathy or JVD. Chest: clear to auscultation. Greatly diminished. CV: RRR S1 S2 No murmur or added sounds. Abd: Non-tender. Bowel sounds Y. : Unremarkable. 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 No obvious focal findings. Extremities: No edema. Capillary refill < 3 seconds. Skin: unremarkable. Results: [id number] on 10LPM. CXR hyperinflated w prominent interstiti un. Covid neg. A/P: Respiratory insufficiency/distress due to AECOPD.: Available chart/ vitals / labs /images reviewed. Video assessment done using teleICU camera, rest of exam as per RN. Respiratory: Continue present management with Monitor for increasing oxygenation needs and/or need for intubation. Critical Care: critically ill patient. Cont BiPAP PRN, prednisone, duonebs, AZT. Discussed with SRI Waller. Asked RN to reach out to eICU if any questions or concerns later. Time spent with patient/family/coordination of care with other health professionals (mins): Allergies and Home Medications Allergies Coded Allergies: No Known Drug Allergies (Unverified , 07/09/18) Home Medications Albuterol Sulfate 18 Gm Hfa.aer.ad, 2 PUFF INH Q6H PRN for SHORTNESS OF BREATH, (Reported) Clindamycin HCl 150 Mg Capsule, 300 MG PO Q6HR Prescribed by: STEPHANIE ÁLVAREZ on 11/25/19 0924 Diphenhydramine HCl 25 Mg Capsule, 25-50 MG PO Q6H PRN for ALLERGY SYMPTOMS, (Reported) Fluticasone/Salmeterol 1 Each Blst.w.dev, 1 EACH IH DAILY PRN for SHORTNESS OF BREATH, (Reported) Ibuprofen 200 Mg Capsule, 400 MG PO Q6H PRN for PAIN-MILD (1-4), (Reported) Magnesium Carbonate/Al Hydrox 1 Each Tab.chew, 1-2 EACH PO PRN PRN for HEARTBURN/INDIGESTION, (Reported) Metoprolol Tartrate 25 Mg Tablet, 25 MG PO BID, (Reported) Past Medical/Social/Family Hx Patient Social History Tobacco Use?: No Smoking Status: Former Smoker Substance use?: No PAST HX Current Status Communicates: Verbally Primary Language: Armenian Preferred Spoken Language: Armenian Review of Systems Constitutional: no symptoms reported All Other Systems Reviewed Negative Unless Noted: Yes Sepsis Event Evaluation Height, Weight, BMI Height: 5'6.00" Weight: 297lbs. 6.0oz. 133.303885ps; 53.00 BMI Method:Actual Exam Exam Patient acknowledged, consented, and participated in this virtual visit which was conducted using real time audio/video Vital Signs Date Time Temp Pulse Resp B/P (MAP) Pulse Ox O2 Delivery O2 Flow Rate FiO2 11/23/20 03:03 37.0 105 20 114/72 96 NIV Bilevel 70.00 11/23/20 00:48 114 30 95 70.00 11/23/20 00:18 37.0 124 28 172/99 (123) 96 Non Rebreather 15.00 11/23/20 00:18 Non Rebreather 15.00 Height & Weight Height: 5'6.00" Weight: 297lbs. 6.0oz. 133.807831ln; 53.00 BMI Method:Actual General Appearance: WD/WN, Moderate Distress, Obese HEENT: PERRL/EOMI, Normal ENT Inspection Neck: Normal Inspection; No JVD Respiratory: Accessory Muscle Use, Decreased Breath Sounds (Very poor air movement), Respiratory Distress Cardiovascular: Regular Rate, Rhythm, No Edema, No Murmur Capillary Refill: Less Than 3 Seconds Peripheral Pulses: 1+ Dorsalis Pedis (R) (see free text), 1+ Left Dors-Pedis (L) Extremity: Normal Inspection, No Pedal Edema Neurologic/Psychiatric: Alert, Oriented x3, No Motor/Sensory Deficits, Normal Mood/Affect Results Lab Laboratory Tests 11/23/20 00:38 Assessment/Plan Assessment/Plan See free text. Critical Care: Critically Ill Patient ESTEFANIA HUFFMAN MD Nov 23, 2020 03:33
[2020-11-23] MEDS ORDERED: ONDANSETRON 4 MG/2 ML (SDV) Z0FRAN IVP PRN (03:45)
[2020-11-23 04:21] VITALS: BP 172/99
[2020-11-23 04:22] LABS: ABG BASE EXCESS 7.2 MMOL/L (-2.5-2.5); ABG OXYGEN SATURATION 99 % (94-100); ABG PO2 173 MMHG (79-93); ABG TCO2 37.2 MMOL/L (21.0-31.0)
[2020-11-23] MEDS: LACTATED RINGERS 1,000 ML IV SCH ×3 (04:23→17:15)
[2020-11-23 04:24] LABS: ALLENS TEST YES-POS; INSPIRED O2 70% BIPAP; VENTILATOR NO
[2020-11-23 04:25] LABS: PATIENT TEMP 37.9
[2020-11-23 04:30] LABS: ABG PCO2 91 MMHG (35-45); ABG PH 7.21 (7.37-7.43)
[2020-11-23] MEDS ORDERED: RT-ALBUTEROL/IPRATROPIUM 3 ML (DUONEB) VIAL INH PRN (04:30)
[2020-11-23 05:07] LABS: BILIRUBIN,URINE 2+ (NEGATIVE); CLARITY,URINE CLEAR; COLOR,URINE YELLOW; GLUCOSE, URINE (UA) NEGATIVE (NEGATIVE); KETONES,URINE NEGATIVE (NEGATIVE); LEUKOCYTE ESTERASE ,URINE NEGATIVE (NEGATIVE); NITRITE,URINE NEGATIVE (NEGATIVE); PH,URINE 5.5 (5-9); PROTEIN,URINE 2+ (NEGATIVE)
[2020-11-23 05:20] LABS: RBC,URINE 0-2 /HPF
[2020-11-23 05:21] LABS: BACTERIA,URINE MODERATE /HPF
[2020-11-23] MEDS: methylPREDNISolone 40 MG/ML (Solu-MEDROL) VIAL IV SCH ×4 (06:21→23:31)
--- NOTE | 2020-11-23 06:58 | Diagnostic Imaging Report ---
History: Shortness of air, cough and congestion COMPARISON: 11/22/2019 TECHNIQUE: Frontal view the chest FINDINGS: There is stable mild cardiomegaly and there appears to be mild central vascular congestion. Airspace opacities in the peripheral right lung appear increased since the prior exam. There is no significant pleural effusion or pneumothorax. IMPRESSION: 1. Increased airspace opacity in the peripheral right lung, may represent infection in the appropriate clinical setting. 2. Stable cardiomegaly with mild central vascular congestion. Dictated by: Dictated on workstation # [id number]
[2020-11-23] MEDS: RT-ALBUTEROL/IPRATROPIUM 3 ML (DUONEB) VIAL INH SCH ×4 (06:59→22:26)
[2020-11-23 07:03] VITALS: BP 143/93
[2020-11-23] MEDS: ENOXAPARIN 60 MG/0.6 ML (LOVENOX) SYR SC SCH ×2 (08:18→19:50)
[2020-11-23] MEDS: AZITHROMYCIN 250 MG/NS 250 ML IVPB IV SCH ×2 (08:50)
--- NOTE | 2020-11-23 09:04 | History & Physical ---
HPI History of Present Illness: 65 yo female with COPD normally on oxygen at home, presented to ER via ambulance due to worsening shortness of breath. Has had COPD exacerbations in past, but not this severe per her report. There has been concern for sleep apnea, but she couldn't get a sleep study previously due to no insurance, and currently has bee n limiting activities due to COVID. She is fully vaccinated per her report. Source: patient Exam Limitations: clinical condition Date seen by provider: Nov 23, 2020 Time Seen by Provider: 08:59 Attending Physician Stephanie Wagner MD [place] [place] Consult Date of Admission Nov 23, 2020 at 02:31 Home Medications Home Medications Reviewed patient Home Medication Reconciliation performed by pharmacy medication reconciliations surgical instrument technician and/or nursing. Patients Allergies have been reviewed. Allergies Coded Allergies: No Known Drug Allergies (Unverified , 07/09/18) [id number] Hx Patient Social History Smoking Status: Former Smoker Recent Hopitalizations: No Alcohol Use?: No Have you traveled recently?: No Past Medical History PMHx: COPD HTN SurgHx: Knee surgery Tonsillectomy Exlap for endometriosis Family Medical History Family History: Cardiovascular disease 19 FATHER 19 MOTHER Diabetes mellitus 19 FATHER Review of Systems ([facility]) Constitutional: No fever Respiratory: cough, short of breath Gastrointestinal: No abdominal pain, No constipation, No diarrhea, No nausea, No vomiting Skin: No rash Reviewed Test Results Reviewed Test Results Lab Laboratory Tests Test 11/23/20 00:30 11/23/20 00:38 11/23/20 01:02 11/23/20 04:13 Range/Units Influenza Type A (RT-PCR) Not Detected Not Detecte Influenza Type B (RT-PCR) Not Detected Not Detecte SARS-CoV-2 RNA (RT-PCR) Not Detected Not Detecte White Blood Count 9.5 4.3-11.0 10^3/uL Red Blood Count 5.11 3.80-5.11 10^6/uL Hemoglobin 14.7 11.5-16.0 g/dL Hematocrit 50 35-52 % Mean Corpuscular Volume 98 80-99 fL Mean Corpuscular Hemoglobin 29 25-34 pg Mean Corpuscular Hemoglobin Concent 30 L 32-36 g/dL Red Cell Distribution Width 13.3 10.0-14.5 % Platelet Count 219 130-400 10^3/uL Mean Platelet Volume 10.9 9.0-12.2 fL Immature Granulocyte % (Auto) 0 % Neutrophils (%) (Auto) 78 H 42-75 % Lymphocytes (%) (Auto) 11 L 12-44 % Monocytes (%) (Auto) 10 0-12 % Eosinophils (%) (Auto) 1 0-10 % Basophils (%) (Auto) 0 0-10 % Neutrophils # (Auto) 7.5 1.8-7.8 10^3/uL Lymphocytes # (Auto) 1.0 1.0-4.0 10^3/uL Monocytes # (Auto) 1.0 0.0-1.0 10^3/uL Eosinophils # (Auto) 0.1 0.0-0.3 10^3/uL Basophils # (Auto) 0.0 0.0-0.1 10^3/uL Immature Granulocyte # (Auto) 0.0 0.0-0.1 10^3/uL Prothrombin Time 13.8 12.2-14.7 SEC INR Comment 1.0 0.8-1.4 Activated Partial Thromboplast Time 28 24-35 SEC Sodium Level 139 135-145 MMOL/L Potassium Level 4.7 3.6-5.0 MMOL/L Chloride Level 96 L 98-107 MMOL/L Carbon Dioxide Level 33 H 21-32 MMOL/L Anion Gap 10 5-14 MMOL/L Blood Urea Nitrogen 11 7-18 MG/DL Creatinine 0.71 0.60-1.30 MG/DL Estimat Glomerular Filtration Rate 83 BUN/Creatinine Ratio 15 Glucose Level 149 H 70-105 MG/DL Lactic Acid Level 1.20 0.50-2.00 MMOL/L Calcium Level 9.8 8.5-10.1 MG/DL Corrected Calcium 9.6 8.5-10.1 MG/DL Total Bilirubin 0.3 0.1-1.0 MG/DL Aspartate Amino Transf (AST/SGOT) 24 5-34 U/L Alanine Aminotransferase (ALT/SGPT) 37 0-55 U/L Alkaline Phosphatase 60 40-136 U/L C-Reactive Protein High Sensitivity 4.34 H 0.00-0.50 MG/DL B-Type Natriuretic Peptide 32.9 <100.0 PG/ML Total Protein 8.1 6.4-8.2 GM/DL Albumin 4.3 3.2-4.5 GM/DL Procalcitonin 0.12 H <0.10 NG/ML Blood Gas Puncture Site R RADIAL RT RADIAL Blood Gas Patient Temperature 37 37.9 Arterial Blood pH 7.23 *L 7.21 *L 7.37-7.43 Arterial Blood Partial Pressure CO2 88 *H 91 *H 35-45 MMHG Arterial Blood Partial Pressure O2 100 H 173 H 79-93 MMHG Arterial Blood HCO3 35 H 35 H 23-27 MMOL/L Arterial Blood Total CO2 38.1 H 37.2 H 21.0-31.0 MMOL/L Arterial Blood Oxygen Saturation 97 99 94-100 % Arterial Blood Base Excess 8.0 H 7.2 H -2.5-2.5 MMOL/L Jaxson Test NO YES-POS Blood Gas Ventilator Setting NO NO Blood Gas Inspired Oxygen 10 L 70% BIPAP Test 11/23/20 05:00 Range/Units Urine Color YELLOW Urine Clarity CLEAR Urine pH 5.5 5-9 Urine Specific [place] >=1.030 1.016-1.022 Urine Protein 2+ H NEGATIVE Urine Glucose (UA) NEGATIVE NEGATIVE Urine Ketones NEGATIVE NEGATIVE Urine Nitrite NEGATIVE NEGATIVE Urine Bilirubin 2+ H NEGATIVE Urine Urobilinogen 1.0 < = 1.0 MG/DL Urine Leukocyte Esterase NEGATIVE NEGATIVE Urine RBC (Auto) TRACE-I NEGATIVE Urine RBC 0-2 /HPF Urine WBC 5-10 H /HPF Urine Squamous Epithelial Cells 2-5 /HPF Urine Crystals NONE /LPF Urine Bacteria MODERATE H /HPF Urine Casts PRESENT /LPF Urine Hyaline Casts 10-25 H /LPF Urine Mucus LARGE H /LPF Urine Culture Indicated CULTURE PENDING Radiology CXR 11/23: IMPRESSION: 1. Increased airspace opacity in the peripheral right lung, may represent infection in the appropriate clinical setting. 2. Stable cardiomegaly with mild central vascular congestion. Physical Exam-([facility]) Physical Exam Vital Signs VS - Last 72 Hours, by Label 11/23/20 11/23/20 11/23/20 11/23/20 00:18 00:18 00:48 03:03 Temp 37.0 37.0 Pulse 124 114 105 Resp 28 30 20 B/P (MAP) 172/99 (123) 114/72 Pulse Ox 96 95 96 O2 Delivery Non Rebreather Non Rebreather NIV Bilevel O2 Flow Rate 15.00 15.00 70.00 70.00 11/23/20 11/23/20 11/23/20 11/23/20 03:40 03:46 03:47 03:53 Temp 37.9 Pulse 97 105 105 Resp 34 30 B/P (MAP) 108/62 Pulse Ox 98 95 O2 Delivery NIV Bilevel NIV Bilevel O2 Flow Rate 70.00 70.00 70.00 11/23/20 11/23/20 11/23/20 11/23/20 04:00 04:00 04:21 04:30 Temp 37.0 Pulse 99 124 96 Resp 23 17 B/P (MAP) 119/84 127/71 Pulse Ox 98 96 98 O2 Delivery NIV Bilevel NIV Bilevel NIV Bilevel O2 Flow Rate 70.00 70.00 FiO2 70 70 11/23/20 11/23/20 11/23/20 11/23/20 04:45 05:00 05:15 05:30 Pulse 101 95 101 76 Resp 29 29 B/P (MAP) 127/79 127/76 120/67 115/68 Pulse Ox 98 98 97 97 O2 Delivery NIV Bilevel NIV Bilevel NIV Bilevel NIV Bilevel O2 Flow Rate 70.00 70.00 70.00 70.00 11/23/20 11/23/20 11/23/20 11/23/20 05:45 06:00 06:29 07:00 Pulse 83 84 82 97 B/P (MAP) 112/65 120/68 143/93 Pulse Ox 97 97 95 O2 Delivery NIV Bilevel NIV Bilevel NIV Bilevel O2 Flow Rate 70.00 70.00 70.00 11/23/20 11/23/20 11/23/20 11/23/20 07:03 08:00 08:00 08:21 Temp 36.3 Pulse 95 85 94 Resp 21 B/P (MAP) 115/76 Pulse Ox 96 97 O2 Delivery NIV Bilevel NIV Bilevel O2 Flow Rate 70.00 70.00 55.00 11/23/20 11/23/20 11/23/20 11/23/20 08:21 08:29 09:00 10:00 Pulse 86 86 B/P (MAP) 133/82 136/70 Pulse Ox 93 93 O2 Delivery NIV Bilevel NIV Bilevel NIV Bilevel NIV Bilevel O2 Flow Rate 55.00 55.00 55.00 FiO2 55 11/23/20 11/23/20 11:10 11:21 Pulse 70 Resp 24 Pulse Ox 97 O2 Delivery NIV Bilevel O2 Flow Rate 50.00 FiO2 55 Capillary Refill : Less Than 3 Seconds General Appearance: mild distress Respiratory: decreased breath sounds, wheezing (slight end expiratory wheeze left base, otherwise almost absent air movement), other (bipap in place) Cardiovascular: regular rate, rhythm, no murmur Gastrointestinal: normal bowel sounds, non tender, soft Extremities: pedal edema (1+ on left, dry flaking skin bilaterally) Neurologic/Psychiatric: alert, normal mood/affect Skin: warm/dry Assessment/Plan Assessment/Plan Admission Status: Inpatient Order (span 2 midnights) Reason for Inpatient Admission: Severe COPD exacerbation with respiratory failure. (1) COPD exacerbation Status: Acute Assessment & Plan: COVID, flu neg. CXR with increased density right periphery, not clear pneumonia. Procalcitonin slightly elevated. Solumedrol, azithromycin, breathing treatments, bipap as noted below. (2) Respiratory failure with hypoxia and hypercapnia Status: Acute Assessment & Plan: Requiring bipap Qualifiers: Qualified Codes: J96.21 - Acute and chronic respiratory failure with hypox ia; J96.22 - Acute and chronic respiratory failure with hypercapnia (3) Respiratory acidosis Status: Acute Assessment & Plan: Worsening this morning even on bipap, with PCO2 in the 90s. Appreciate Critical care recommendations. (4) COPD (chronic obstructive pulmonary disease) Status: Chronic (5) Morbid obesity Status: Chronic (6) Hypertension Status: Chronic Assessment & Plan: Resume home metoprolol Qualifiers: Qualified Codes: I10 - Essential (primary) hypertension (7) DVT prophylaxis Status: Acute Assessment & Plan: Enoxaparin STEPHANIE WAGNER MD Nov 23, 2020 09:04
--- NOTE | 2020-11-23 09:14 | Tele-ICU Progress Note ---
Subjective Date Seen by a Provider: Nov 23, 2020 Time Seen by a Provider: 09:14 Sepsis Event Evaluation Height, Weight, BMI Height: 5'6.00" Weight: 297lbs. 6.0oz. 133.438772gr; 53.40 BMI Method:Actual Focused Exam Lactate Level 11/23/20 00:38: Lactic Acid Level 1.20 Exam Exam Patient acknowledged, consented, and participated in this virtual visit which was conducted using real time audio/video Vital Signs Date Time Temp Pulse Resp B/P (MAP) Pulse Ox O2 Delivery O2 Flow Rate FiO2 11/23/20 08:29 NIV Bilevel 55 11/23/20 08:21 NIV Bilevel 55.00 11/23/20 08:21 NIV Bilevel 55.00 11/23/20 08:00 36.3 11/23/20 08:00 85 115/76 97 NIV Bilevel 70.00 11/23/20 07:03 95 21 96 70.00 94 11/23/20 07:00 97 143/93 95 NIV Bilevel 70.00 11/23/20 06:29 82 11/23/20 06:00 84 120/68 97 NIV Bilevel 70.00 11/23/20 05:45 83 112/65 97 NIV Bilevel 70.00 11/23/20 05:30 76 115/68 97 NIV Bilevel 70.00 11/23/20 05:15 101 120/67 97 NIV Bilevel 70.00 11/23/20 05:00 95 29 127/76 98 NIV Bilevel 70.00 11/23/20 04:45 101 29 127/79 98 NIV Bilevel 70.00 11/23/20 04:30 96 17 127/71 98 NIV Bilevel 70.00 11/23/20 04:21 37.0 124 96 70 11/23/20 04:00 99 23 119/84 98 NIV Bilevel 70.00 11/23/20 04:00 NIV Bilevel 70 11/23/20 03:53 105 30 95 70.00 11/23/20 03:47 105 34 108/62 98 NIV Bilevel 70.00 11/23/20 03:46 37.9 NIV Bilevel 70.00 11/23/20 03:40 97 11/23/20 03:03 37.0 105 20 114/72 96 NIV Bilevel 70.00 11/23/20 00:48 114 30 95 70.00 11/23/20 00:18 37.0 124 28 172/99 (123) 96 Non Rebreather 15.00 11/23/20 00:18 Non Rebreather 15.00 Height & Weight Height: 5'6.00" Weight: 297lbs. 6.0oz. 133.620146is; 53.40 BMI Method:Actual General Appearance: WD/WN, Moderate Distress, Obese HEENT: PERRL/EOMI, Normal ENT Inspection Neck: Normal Inspection; No JVD Respiratory: Accessory Muscle Use, Decreased Breath Sounds (Very poor air movement), Respiratory Distress Cardiovascular: Regular Rate, Rhythm, No Edema, No Murmur Capillary Refill: Less Than 3 Seconds Peripheral Pulses: 1+ Dorsalis Pedis (R) (see free text), 1+ Left Dors-Pedis (L) Extremity: Normal Inspection, No Pedal Edema Neurologic/Psychiatric: Alert, Oriented x3, No Motor/Sensory Deficits, Normal Mood/Affect Results Lab Laboratory Tests 11/23/20 00:38 Assessment/Plan Assessment/Plan (Tele-ICU Physician , Progress Note ) Available chart/ vitals / labs / Images reviewed Video assessment done using teleICU camera, rest of exam as per RN Discussed with RN , EXAM PER RN Events overnight : FEBRILE 37 .8 I/O = Drips: LR 125 Pressors: , hemodynamically stable Consultants: Hospital course: 11/22 - to ER ARF , COVID , 7.23.88.100 on 10LPM. 914 - ICU - BIPAP 16/8 rr 22 TV 350 , 55% , MV 7L A/P AHRF - BIPAP 16/8 rr 22 TV 350 , 55% , MV 7L - follow closely with abg , will need to be on NIPPV overnight - BNP olnly 32 AECOPD - steroids IV - nebs Chronic hypoxix and hypercarbic resp failure due to COPD -on home O2 3 LPM Suspected superimposed bact PNA - flu and covid neg -empiric abx started on 11/23 with mildly elev PCT -Cx sputum pending Obesity , BMI close f/up BS on steroids consider possible pulm HTN - decrease IVF Lines : periph (Central Line Necessity Reviewed) Goldberg: + OG: Nutrition: Po Analgesia: Anxiety/ delirium VTE Prophylaxis: lovenox 60 bid Stress Ulcer Prophylaxis: PO intake Glycemic Control: Plans in collaboration with bedside consultants and IM MDs. Discussed with RN to reach out if any questions or concerns A total of 36 minutes of critical care time was devoted to this patient today, required to treat and/or prevent further deterioration of critical care condition ( as above) . ALEX WIGGINS MD Nov 23, 2020 09:14
[2020-11-23] MEDS: MICONAZOLE 2% POWDER (DESENEX AF) 90 GM TOP SCH ×2 (10:06→19:50)
[2020-11-23] MEDS: meTOprolol TARTRATE 25 MG (LOPRESSOR) TABLET PO SCH ×2 (10:06→19:50)
[2020-11-23 11:21] VITALS: BP 130/82
[2020-11-23] MEDS: RT--FLUTICASONE/SALMETEROL 232-14 (AIRDUO RespiCLICK) IH SCH ×2 (11:24→19:04)
--- NOTE | 2020-11-23 11:58 | Progress Note ---
TRIPP KING MED STUDENT 11/23/20 1158: Subjective Date Seen by a Provider: Nov 23, 2020 Time Seen by a Provider: 07:45 Subjective/Events-last exam Reports feeling much better. Tolerating BIPAP at 16/8 and 70%. Denies chest pain, fevers, nausea, headache, and reports minimal SOB. Has no further questions/concerns. Review of Systems General: No Chills HEENT: No Head Aches, No Visual Changes Pulmonary: Dyspnea, Cough Cardiovascular: No: Chest Pain, Palpitations Gastrointestinal: No: Nausea, Vomiting Genitourinary: No Dysuria, No Frequency Musculoskeletal: No: neck pain, back pain Neurological: No: Weakness, Numbness Focused Exam Lactate Level 11/23/20 00:38: Lactic Acid Level 1.20 Objective Exam Last Set of Vital Signs Vital Signs Date Time Temp Pulse Resp B/P (MAP) Pulse Ox O2 Delivery O2 Flow Rate FiO2 11/23/20 11:21 70 24 97 50.00 11/23/20 11:10 NIV Bilevel 55 11/23/20 10:00 136/70 11/23/20 08:00 36.3 Capillary Refill : Less Than 3 Seconds General: Alert, Oriented X3, Cooperative, Mild Distress (Elderly morbidly obese female appearing older than stated age) HEENT: Atraumatic, PERRLA, EOMI Neck: Supple, No LAD Lungs: Other (Very diminished throughout all maynard. No wheezes. No accessory muscle use. ) Heart: Regular Rate, No Murmurs Abdomen: Normal Bowel Sounds, Soft, No Tenderness, Other (Obese. BS normoactive x 4 quadrants. ) Extremities: No Clubbing, No Cyanosis, Normal Pulses Skin: No Rashes, No Breakdown, No Significant Lesion Neuro: Normal Tone, Sensation Intact, Cranial Nerves 3-12 NL Psych/Mental Status: Mental Status NL, Mood NL Results Lab Laboratory Tests 11/23/20 00:30: Influenza Type A (RT-PCR) Not Detected, Influenza Type B (RT-PCR) Not Detected, SARS-CoV-2 RNA (RT-PCR) Not Detected 11/23/20 00:38: White Blood Count 9.5, Red Blood Count 5.11, Hemoglobin 14.7, Hematocrit 50, Mean Corpuscular Volume 98, Mean Corpuscular Hemoglobin 29, Mean Corpuscular Hemoglobin Concent 30L, Red Cell Distribution Width 13.3, Platelet Count 219, Mean Platelet Volume 10.9, Immature Granulocyte % (Auto) 0, Neutrophils (%) (Auto) 78H, Lymphocytes (%) (Auto) 11L, Monocytes (%) (Auto) 10, Eosinophils (%) (Auto) 1, Basophils (%) (Auto) 0, Neutrophils # (Auto) 7.5, Lymphocytes # (Auto) 1.0, Monocytes # (Auto) 1.0, Eosinophils # (Auto) 0.1, Basophils # (Auto) 0.0, Immature Granulocyte # (Auto) 0.0, Prothrombin Time 13.8, INR Comment 1.0, Activated Partial Thromboplast Time 28, Sodium Level 139, Potassium Level 4.7, Chloride Level 96L, Carbon Dioxide Level 33H, Anion Gap 10, Blood Urea Nitrogen 11, Creatinine 0.71, Estimat Glomerular Filtration Rate 83, BUN/Creatinine Ratio 15, Glucose Level 149H, Lactic Acid Level 1.20, Calcium Level 9.8, Corrected Calcium 9.6, Total Bilirubin 0.3, Aspartate Amino Transf (AST/SGOT) 24, Alanine Aminotransferase (ALT/SGPT) 37, Alkaline Phosphatase 60, C-Reactive Protein High Sensitivity 4.34H, B-Type Natriuretic Peptide 32.9, Total Protein 8.1, Albumin 4.3, Procalcitonin 0.12H 11/23/20 01:02: Blood Gas Puncture Site R RADIAL, Blood Gas Patient Temperature 37, Arterial Blood pH 7.23*L, Arterial Blood Partial Pressure CO2 88*H, Arterial Blood Partial Pressure O2 100H, Arterial Blood HCO3 35H, Arterial Blood Total CO2 38.1H, Arterial Blood Oxygen Saturation 97, Arterial Blood Base Excess 8.0H, Jaxson Test NO, Blood Gas Ventilator Setting NO, Blood Gas Inspired Oxygen 10 L 11/23/20 04:13: Blood Gas Puncture Site RT RADIAL, Blood Gas Patient Temperature 37.9, Arterial Blood pH 7.21*L, Arterial Blood Partial Pressure CO2 91*H, Arterial Blood Partial Pressure O2 173H, Arterial Blood HCO3 35H, Arterial Blood Total CO2 37.2H, Arterial Blood Oxygen Saturation 99, Arterial Blood Base Excess 7.2H, Jaxson Test YES-POS, Blood Gas Ventilator Setting NO, Blood Gas Inspired Oxygen 70% BIPAP 11/23/20 05:00: Urine Color YELLOW, Urine Clarity CLEAR, Urine pH 5.5, Urine Specific [place] >=1.030, Urine Protein 2+H, Urine Glucose (UA) NEGATIVE, Urine Ketones NEGATIVE, Urine Nitrite NEGATIVE, Urine Bilirubin 2+H, Urine Urobilinogen 1.0, Urine Leukocyte Esterase NEGATIVE, Urine RBC (Auto) TRACE-I, Urine RBC 0-2, Urine WBC 5-10H, Urine Squamous Epithelial Cells 2-5, Urine Crystals NONE, Urine Bacteria MODERATEH, Urine Casts PRESENT, Urine Hyaline Casts 10-25H, Urine Mucus LARGEH, Urine Culture Indicated CULTURE PENDING Assessment/Plan Assessment/Plan Assess & Plan/Chief Complaint Acute on chronic hypoxic respiratory failure w hypercapnia -BIPAP 16/8 and 70%, wean as tolerated -given resp acidosis, patient to stay on BIPAP as much as tolerated -titrate to keep sats 90-92%, may have sips of water -flu and covid negative COPD exacerbation -solumedrol 40mg q6hrs -albuterol -airduo BID -azithromycin -obtain sputum culture -decrease fluids to 75ml/hr DVT ppx -lovenox Morbid obesity HTN -restart home antihypertensives TONYA SALDIVAR DO 11/24/20 0545: Supervisory-Addendum Brief Verification & Attestation Participated in pt care: history, MDM, physical Personally performed: exam, history, MDM, supervision of care Care discussed with: Medical Student Procedures: n/a Results interpretation: Verified all documentation Verification and Attestation of Medical Student E/M Service A medical student performed and documented this service in my presence. I reviewed and verified all information documented by the medical student and made modifications to such information, when appropriate. I personally performed the physical exam and medical decision making. Tonya Saldivar, Nov 24, 2020,05:45 [employer] STUDENT Nov 23, 2020 11:58 TONYA SALDIVAR DO Nov 24, 2020 05:45
[2020-11-23] MEDS ORDERED: FLUT1DIS26 IH (12:25)
[2020-11-23 13:07] LABS: ABG BASE EXCESS 6.3 MMOL/L (-2.5-2.5); ABG OXYGEN SATURATION 98 % (94-100); ABG PO2 95 MMHG (79-93); ABG TCO2 35.7 MMOL/L (21.0-31.0)
[2020-11-23 13:12] LABS: ABG PCO2 76 MMHG (35-45); ABG PH 7.26 (7.37-7.43); ALLENS TEST POSITIVE; INSPIRED O2 50% BIPAP; PATIENT TEMP 36.2; VENTILATOR NO
[2020-11-23] MEDS: inSUlin ASPART (NovoLOG) 1 UNIT/0.01 ML (CHARGE PER UNIT) SQ SCH ×2 (17:24→23:35)
[2020-11-23] MEDS: ACETAMINOPHEN 500 MG TAB (TYLENOL) PO PRN (18:03)
[2020-11-23 22:26] VITALS: BP 134/78
[2020-11-24] MEDS: RT-ALBUTEROL/IPRATROPIUM 3 ML (DUONEB) VIAL INH SCH ×6 (02:19→21:52)
[2020-11-24 02:20] VITALS: BP 163/93
[2020-11-24 04:59] LABS: BASOPHILS % (AUTO) 0 % (0-10); EOSINOPHILS % (AUTO) 0 % (0-10); HEMATOCRIT 48 % (35-52); HEMOGLOBIN 13.4 g/dL (11.5-16.0); LYMPHOCYTES # (AUTO) 0.5 10^3/uL (1.0-4.0); LYMPHOCYTES % (AUTO) 8 % (12-44); MEAN CORPUSCULAR HEMOGLOBIN 28 pg (25-34); MEAN CORPUSCULAR HGB CONC 28 g/dL (32-36); MEAN CORPUSCULAR VOLUME 100 fL (80-99); MEAN PLATELET VOLUME 10.9 fL (9.0-12.2); MONOCYTES # (AUTO) 0.6 10^3/uL (0.0-1.0); MONOCYTES % (AUTO) 9 % (0-12); NEUTROPHILS # (AUTO) 5.3 10^3/uL (1.8-7.8); NEUTROPHILS % (AUTO) 82 % (42-75); PLATELET COUNT 187 10^3/uL (130-400); WHITE BLOOD COUNT 6.5 10^3/uL (4.3-11.0)
[2020-11-24 05:12] LABS: POTASSIUM 5.2 MMOL/L (3.6-5.0)
[2020-11-24 05:13] LABS: CALCIUM 9.5 MG/DL (8.5-10.1)
[2020-11-24 05:18] LABS: CREATININE SERUM 0.65 MG/DL (0.60-1.30); PHOSPHORUS 3.3 MG/DL (2.3-4.7)
[2020-11-24 05:20] LABS: MAGNESIUM 2.4 MG/DL (1.6-2.4)
[2020-11-24] MEDS: MAGNESIUM 1 GM/100 ML IVPB 100 ML IV SCH (05:43)
[2020-11-24] MEDS: KCL 20 MEQ TAB (K-DUR) PO SCH (05:43)
[2020-11-24] MEDS: POTASSIUM CL 10MEQ/50ML IVPB 50 ML IV SCH (05:43)
[2020-11-24] MEDS: inSUlin ASPART (NovoLOG) 1 UNIT/0.01 ML (CHARGE PER UNIT) SQ SCH ×4 (05:44→23:43)
[2020-11-24] MEDS: methylPREDNISolone 40 MG/ML (Solu-MEDROL) VIAL IV SCH ×4 (06:07→23:42)
[2020-11-24 06:41] LABS: ABG BASE EXCESS 11.6 MMOL/L (-2.5-2.5); ABG OXYGEN SATURATION 97 % (94-100); ABG PO2 88 MMHG (79-93)
[2020-11-24] MEDS: RT--FLUTICASONE/SALMETEROL 232-14 (AIRDUO RespiCLICK) IH SCH ×2 (06:46→18:51)
[2020-11-24 06:48] LABS: ABG PCO2 86 MMHG (35-45); ABG PH 7.27 (7.37-7.43)
[2020-11-24 06:49] LABS: ABG TCO2 41.3 MMOL/L (21.0-31.0); INSPIRED O2 40% BIPAP; PATIENT TEMP 36.7; VENTILATOR NO
[2020-11-24] MEDS: ENOXAPARIN 60 MG/0.6 ML (LOVENOX) SYR SC SCH ×2 (08:20→20:08)
[2020-11-24] MEDS: AZITHROMYCIN 250 MG/NS 250 ML IVPB IV SCH ×2 (08:20)
[2020-11-24] MEDS: LACTATED RINGERS 1,000 ML IV SCH (08:20)
[2020-11-24] MEDS: meTOprolol TARTRATE 25 MG (LOPRESSOR) TABLET PO SCH ×2 (08:20→20:08)
--- NOTE | 2020-11-24 09:29 | Progress Note ---
TRIPP [employer] MED STUDENT 11/24/20 0929: Subjective Date Seen by a Provider: Nov 24, 2020 Time Seen by a Provider: 07:15 Subjective/Events-last exam Awake and alert and oriented x 4. Reports cough with clear sputum. Denies SOB, chest pain, fevers, chills, headache, and vomiting. Tolerated the BIPAP on most of the night. States she's feeling better. Tolerating clears without difficulty. Switched off BIPAP to NC this am at 10L. Review of Systems General: No Chills, No Night Sweats HEENT: Head Aches; No Visual Changes Pulmonary: No Dyspnea; Cough Cardiovascular: No: Chest Pain, Palpitations Gastrointestinal: No: Nausea, Vomiting Genitourinary: No Dysuria, No Frequency; Other (reynoso catheter) Musculoskeletal: No: neck pain, back pain Neurological: No: Weakness, Numbness, Confusion Focused Exam Lactate Level 11/23/20 00:38: Lactic Acid Level 1.20 Objective Exam Last Set of Vital Signs Vital Signs Date Time Temp Pulse Resp B/P (MAP) Pulse Ox O2 Delivery O2 Flow Rate FiO2 11/24/20 08:50 91 NIV Bilevel 45.00 11/24/20 08:27 36.7 11/24/20 06:34 75 11/24/20 06:00 19 11/24/20 04:25 45 Capillary Refill : Less Than 3 Seconds I&O Intake and Output 11/24/20 00:00 Intake Total 3550 ml Output Total 2025 ml Balance 1525 ml Intake Oral 2300 ml IV Total 1250 ml Output Urine Total 2025 ml General: Alert, Oriented X3, Cooperative, No Acute Distress HEENT: Atraumatic, PERRLA, EOMI, Mucous Memb Moist/[place] Neck: Supple, No LAD Lungs: Clear to Auscultation (Diminished bibasilar), Other (No accessory muscle use. No retractions. No crackles, wheezes heard. ) Heart: Regular Rate, No Murmurs Abdomen: Normal Bowel Sounds, Soft, No Tenderness, Other (Obese) Extremities: No Clubbing, No Cyanosis, Normal Pulses Skin: No Rashes, No Breakdown Neuro: Normal Speech, Normal Tone, Sensation Intact, Cranial Nerves 3-12 NL Psych/Mental Status: Mental Status NL, Mood NL Results Lab Laboratory Tests 11/23/20 12:50: Blood Gas Puncture Site LEFT RADIAL, Blood Gas Patient Temperature 36.2, Arterial Blood pH 7.26*L, Arterial Blood Partial Pressure CO2 76*H, Arterial Blood Partial Pressure O2 95H, Arterial Blood HCO3 33H, Arterial Blood Total CO2 35.7H, Arterial Blood Oxygen Saturation 98, Arterial Blood Base Excess 6.3H, Jaxson Test POSITIVE, Blood Gas Ventilator Setting NO, Blood Gas Inspired Oxygen 50% BIPAP 11/23/20 17:24: Glucometer 137H 11/23/20 23:34: Glucometer 154H 11/24/20 04:40: White Blood Count 6.5, Red Blood Count 4.75, Hemoglobin 13.4, Hematocrit 48, Mean Corpuscular Volume 100H, Mean Corpuscular Hemoglobin 28, Mean Corpuscular Hemoglobin Concent 28L, Red Cell Distribution Width 13.3, Platelet Count 187, Mean Platelet Volume 10.9, Immature Granulocyte % (Auto) 1, Neutrophils (%) (Auto) 82H, Lymphocytes (%) (Auto) 8L, Monocytes (%) (Auto) 9, Eosinophils (%) (Auto) 0, Basophils (%) (Auto) 0, Neutrophils # (Auto) 5.3, Lymphocytes # (Auto) 0.5L, Monocytes # (Auto) 0.6, Eosinophils # (Auto) 0.0, Basophils # (Auto) 0.0, Immature Granulocyte # (Auto) 0.0, Sodium Level 138, Potassium Level 5.2H, Chloride Level 97L, Carbon Dioxide Level 33H, Anion Gap 8, Blood Urea Nitrogen 15, Creatinine 0.65, Estimat Glomerular Filtration Rate 91, BUN/Creatinine Ratio 23, Glucose Level 139H, Calcium Level 9.5, Phosphorus Level 3.3, Magnesium Level 2.4, C-Reactive Protein High Sensitivity 2.82H 11/24/20 06:25: Blood Gas Puncture Site R RAD, Blood Gas Patient Temperature 36.7, Arterial Blood pH 7.27*L, Arterial Blood Partial Pressure CO2 86*H, Arterial Blood Partial Pressure O2 88, Arterial Blood HCO3 39H, Arterial Blood Total CO2 41.3*H , Arterial Blood Oxygen Saturation 97, Arterial Blood Base Excess 11.6H, Jaxson Test NA, Blood Gas Ventilator Setting NO, Blood Gas Inspired Oxygen 40% BIPAP Microbiology 11/23/20 Gram Stain - Final, Resulted 11/23/20 Sputum Culture, Resulted Pending 11/23/20 Blood Culture - Preliminary, Resulted No growth Assessment/Plan Assessment/Plan Assess & Plan/Chief Complaint Acute on chronic hypoxic respiratory failure w hypercapnia -abg still with acidosis and hypercapnia -tolerated BIPAP overnight well, wear as much as tolerated -IS q2hr [place] -flu and covid negative COPD exacerbation -solumedrol 40mg q6hrs -albuterol -airduo BID -azithromycin -obtain sputum culture -KVO IVF's DVT ppx -lovenox Morbid obesity HTN -restart home antihypertensives TONYA SALDIVAR DO 11/25/20 0524: Supervisory-Addendum Brief Verification & Attestation Participated in pt care: history, MDM, physical Personally performed: exam, history, MDM, supervision of care Care discussed with: Medical Student Procedures: n/a Results interpretation: Verified all documentation Verification and Attestation of Medical Student E/M Service A medical student performed and documented this service in my presence. I reviewed and verified all information documented by the medical student and made modifications to such information, when appropriate. I personally performed the physical exam and medical decision making. Tonya Saldivar, Nov 25, 2020,05:24 [employer] ST[employer] Nov 24, 2020 09:29 TONYA SALDIVAR DO Nov 25, 2020 05:24
--- NOTE | 2020-11-24 09:58 | Tele-ICU Progress Note ---
Subjective Date Seen by a Provider: Nov 24, 2020 Time Seen by a Provider: 09:57 Sepsis Event Evaluation Height, Weight, BMI Height: 5'6.00" Weight: 297lbs. 6.0oz. [id number]; 53.40 BMI Method:Actual Focused Exam Lactate Level 11/23/20 00:38: Lactic Acid Level 1.20 Exam Exam Patient acknowledged, consented, and participated in this virtual visit which was conducted using real time audio/video Vital Signs Date Time Temp Pulse Resp B/P (MAP) Pulse Ox O2 Delivery O2 Flow Rate FiO2 11/24/20 08:50 91 NIV Bilevel 45.00 11/24/20 08:27 36.7 11/24/20 08:20 High Flow N/C 10.00 11/24/20 06:54 80 11/24/20 06:46 97 High Flow N/C 10.00 11/24/20 06:34 75 95 High Flow N/C 10.00 11/24/20 06:00 66 19 153/88 94 NIV Bilevel 45.00 11/24/20 05:00 62 19 153/86 92 NIV Bilevel 45.00 11/24/20 04:25 36.2 NIV Bilevel 45.00 11/24/20 04:25 NIV Bilevel 45 11/24/20 04:00 63 16 148/88 94 NIV Bilevel 40.00 11/24/20 03:00 65 19 152/88 93 NIV Bilevel 40.00 11/24/20 02:20 66 22 91 45.00 11/24/20 02:00 66 18 160/88 91 NIV Bilevel 40.00 11/24/20 01:00 63 11/24/20 01:00 63 17 149/88 98 NIV Bilevel 40.00 11/24/20 00:00 70 17 155/89 98 NIV Bilevel 40.00 11/23/20 23:38 NIV Bilevel 40 11/23/20 23:37 36.2 NIV Bilevel 40.00 11/23/20 23:00 68 16 130/83 94 NIV Bilevel 50.00 11/23/20 22:26 61 23 100 50.00 11/23/20 22:00 62 16 124/78 100 NIV Bilevel 50.00 11/23/20 21:00 70 16 133/81 100 NIV Bilevel 50.00 11/23/20 20:10 NIV Bilevel 50.00 11/23/20 20:00 92 22 130/83 100 High Flow N/C 10.00 11/23/20 19:58 High Flow N/C 10.00 11/23/20 19:48 36.8 High Flow N/C 10.00 11/23/20 19:30 102 28 114/86 97 High Flow N/C 10.00 11/23/20 19:04 100 High Flow N/C 10.00 11/23/20 19:00 91 11/23/20 18:00 76 20 138/75 100 High Flow N/C 10.00 11/23/20 17:25 High Flow N/C 10.00 11/23/20 17:00 77 129/71 100 NIV Bilevel 50.00 11/23/20 16:00 132/74 100 NIV Bilevel 50.00 11/23/20 15:53 37.2 11/23/20 15:42 NIV Bilevel 55 11/23/20 15:12 NIV Bilevel 50.00 11/23/20 15:11 NIV Bilevel 50.00 11/23/20 15:00 86 136/75 99 High Flow N/C 5.00 11/23/20 14:48 93 High Flow N/C 10.00 11/23/20 14:00 79 137/77 96 High Flow N/C 5.00 11/23/20 13:54 High Flow N/C 5.00 11/23/20 13:00 75 11/23/20 13:00 86 131/81 93 NIV Bilevel 50.00 11/23/20 12:47 36.2 11/23/20 12:30 NIV Bilevel 50.00 11/23/20 12:00 36.2 11/23/20 12:00 71 122/69 94 NIV Bilevel 55.00 11/23/20 11:21 70 24 97 50.00 11/23/20 11:10 NIV Bilevel 55 11/23/20 11:00 71 129/81 93 NIV Bilevel 55.00 11/23/20 10:00 86 136/70 93 NIV Bilevel 55.00 I & O 11/24/20 07:00 Intake Total 3950 ml Output Total 2925 ml Balance 1025 ml Height & Weight Height: 5'6.00" Weight: 297lbs. 6.0oz. [id number]; 53.40 BMI Method:Actual General Appearance: WD/WN, Moderate Distress, Obese HEENT: PERRL/EOMI, Normal ENT Inspection Neck: Normal Inspection; No JVD Respiratory: Accessory Muscle Use, Decreased Breath Sounds (Very poor air movement), Respiratory Distress Cardiovascular: Regular Rate, Rhythm, No Edema, No Murmur Capillary Refill: Less Than 3 Seconds Peripheral Pulses: 1+ Dorsalis Pedis (R) (see free text), 1+ Left Dors-Pedis (L) Gastrointestinal: normal bowel sounds, non tender, soft Extremity: Normal Inspection, No Pedal Edema Neurologic/Psychiatric: Alert, Oriented x3, No Motor/Sensory Deficits, Normal Mood/Affect Results Lab Laboratory Tests 11/23/20 00:38 11/24/20 04:40 Assessment/Plan Assessment/Plan (Tele-ICU Physician , Progress Note ) Available chart/ vitals / labs / Images reviewed Video assessment done using teleICU camera, rest of exam as per RN Discussed with RN , EXAM PER RN Events overnight : FEBRILE 37 .8 I/O = pos 1500 Drips: LR 75 Pressors: , hemodynamically stable Consultants: Hospital course: 11/22 - to ER ARF , COVID , [id number] on 10LPM. 914 - ICU - BIPAP 16/ rr 22 TV 350 , 55% , MV 7L 11/24 - 18 rr 22 TV 500 , 35% , MV >10L A/P AHRF - BIPAP 27/10 rr 22 TV 500 , 35% , MV >10L = abg not improved despite increase MV - will adjust Bipap - follow closely with abg , - will need to be on NIPPV overnight - stop IVF , repat cxr am AECOPD - steroids IV to cont today with no improvement with abg and reported wheezing - nebs Chronic hypoxic and hypercarbic resp failure due to COPD -on home O2 3 LPM - ? NEED SLEEP STUDY as outpt Suspected superimposed bact PNA - flu and covid neg -empiric abx started on 11/23 with mildly elev PCT , fever 37.2 on - continue -Cx sputum pending - blodd cx 11/23 - most likely contaminant Obesity , BMI close f/up BS on steroids consider possible pulm HTN - decrease IVF Lines : periph (Central Line Necessity Reviewed) Goldberg: + OG: Nutrition: Po Analgesia: Anxiety/ delirium na VTE Prophylaxis: lovenox 60 bid Stress Ulcer Prophylaxis: PO intake Glycemic Control: Plans in collaboration with bedside consultants and IM MDs. Discussed with RN to reach out if any questions or concerns A total of 36 minutes of critical care time was devoted to this patient today, required to treat and/or prevent further deterioration of critical care condition ( as above) . ALEX WIGGINS MD Nov 24, 2020 09:58
[2020-11-24] MEDS: MICONAZOLE 2% POWDER (DESENEX AF) 90 GM TOP SCH ×2 (11:34→20:08)
[2020-11-24] MEDS: ACETAMINOPHEN 500 MG TAB (TYLENOL) PO PRN (11:45)
--- NOTE | 2020-11-24 11:47 | Progress Note ---
Subjective Subjective/Events-last exam Afebrile, states she is feeling a lot better. Still using bipap a lot, hoping to get off for longer periods today. She says if she is off too long, she does start to feel dizzy so she knows she needs it again. Focused Exam Lactate Level 11/23/20 00:38: Lactic Acid Level 1.20 Objective Exam Last Set of Vital Signs Vital Signs Date Time Temp Pulse Resp B/P (MAP) Pulse Ox O2 Delivery O2 Flow Rate FiO2 11/24/20 10:00 73 29 117/65 90 NIV Bilevel 45.00 11/24/20 08:27 36.7 11/24/20 04:25 45 Capillary Refill : Less Than 3 Seconds I&O Intake and Output 11/24/20 00:00 Intake Total 3550 ml Output Total 2025 ml Balance 1525 ml Intake Oral 2300 ml IV Total 1250 ml Output Urine Total 2025 ml General: Alert, No Acute Distress Lungs: Other (decreased air movement at bases) Heart: Regular Rate, No Murmurs Abdomen: Normal Bowel Sounds, Soft Neuro: Normal Speech Psych/Mental Status: Mood NL Results/Procedures Lab Laboratory Tests 11/23/20 12:50: Blood Gas Puncture Site LEFT RADIAL, Blood Gas Patient Temperature 36.2, Arterial Blood pH 7.26*L, Arterial Blood Partial Pressure CO2 76*H, Arterial Blood Partial Pressure O2 95H, Arterial Blood HCO3 33H, Arterial Blood Total CO2 35.7H, Arterial Blood Oxygen Saturation 98, Arterial Blood Base Excess 6.3H, Jaxson Test POSITIVE, Blood Gas Ventilator Setting NO, Blood Gas Inspired Oxygen 50% BIPAP 11/23/20 17:24: Glucometer 137H 11/23/20 23:34: Glucometer 154H 11/24/20 04:40: White Blood Count 6.5, Red Blood Count 4.75, Hemoglobin 13.4, Hematocrit 48, Mean Corpuscular Volume 100H, Mean Corpuscular Hemoglobin 28, Mean Corpuscular Hemoglobin Concent 28L, Red Cell Distribution Width 13.3, Platelet Count 187, Mean Platelet Volume 10.9, Immature Granulocyte % (Auto) 1, Neutrophils (%) (Auto) 82H, Lymphocytes (%) (Auto) 8L, Monocytes (%) (Auto) 9, Eosinophils (%) (Auto) 0, Basophils (%) (Auto) 0, Neutrophils # (Auto) 5.3, Lymphocytes # (Auto) 0.5L, Monocytes # (Auto) 0.6, Eosinophils # (Auto) 0.0, Basophils # (Auto) 0.0, Immature Granulocyte # (Auto) 0.0, Sodium Level 138, Potassium Level 5.2H, Chloride Level 97L, Carbon Dioxide Level 33H, Anion Gap 8, Blood Urea Nitrogen 15, Creatinine 0.65, Estimat Glomerular Filtration Rate 91, BUN/Creatinine Ratio 23, Glucose Level 139H, Calcium Level 9.5, Phosphorus Level 3.3, Magnesium Level 2.4, C-Reactive Protein High Sensitivity 2.82H 11/24/20 06:25: Blood Gas Puncture Site R RAD, Blood Gas Patient Temperature 36.7, Arterial Blood pH 7.27*L, Arterial Blood Partial Pressure CO2 86*H, Arterial Blood Partial Pressure O2 88, Arterial Blood HCO3 39H, Arterial Blood Total CO2 41.3*H , Arterial Blood Oxygen Saturation 97, Arterial Blood Base Excess 11.6H, Jaxson Test NA, Blood Gas Ventilator Setting NO, Blood Gas Inspired Oxygen 40% BIPAP 11/24/20 11:33: Glucometer 114H Microbiology 11/23/20 Gram Stain - Final, Resulted 11/23/20 Sputum Culture, Resulted Pending 11/23/20 Blood Culture - Preliminary, Resulted No growth Radiology CXR 11/23: IMPRESSION: 1. Increased airspace opacity in the peripheral right lung, may represent infection in the appropriate clinical setting. 2. Stable cardiomegaly with mild central vascular congestion. Assessment/Plan Assessment/Plan (1) COPD exacerbation Status: Acute Assessment & Plan: COVID, flu neg. CXR with increased density right periphery, not clear pneumonia. Procalcitonin slightly elevated. Solumedrol, azithromycin, breathing treatments, bipap as noted below. (2) Respiratory failure with hypoxia and hypercapnia Status: Acute Assessment & Plan: Requiring bipap, slight improvement overnight but still with fairly marked hypercapnia, continue bipap today. Qualifiers: Qualified Codes: J96.21 - Acute and chronic respiratory failure with hypoxia; J96.22 - Acute and chronic respiratory failure with hypercapnia (3) Respiratory acidosis Status: Acute Assessment & Plan: Worsening this morning even on bipap, with PCO2 in the 90s. Appreciate Critical care recommendations. 11/24 slight improvement, but persistent, continuing bipap. (4) COPD (chronic obstructive pulmonary disease) Status: Chronic (5) Morbid obesity Status: Chronic (6) Hypertension Status: Chronic Assessment & Plan: Resume home metoprolol Qualifiers: Qualified Codes: I10 - Essential (primary) hypertension (7) DVT prophylaxis Status: Acute Assessment & Plan: Enoxaparin STEPHANIE ÁLVAREZ MD Nov 24, 2020 11:47
[2020-11-24 15:31] VITALS: BP 137/77
[2020-11-24] MEDS ORDERED: NON-FORMULARY MEDICATION 1 EA EA (Ibuprofen 400 MG) PO PRN (18:45)
[2020-11-24] MEDS ORDERED: IBUPROFEN TABLET 200 MG TAB PO PRN (19:00)
[2020-11-24 21:52] VITALS: BP 116/75
[2020-11-25 03:15] VITALS: BP 143/85
[2020-11-25] MEDS: RT-ALBUTEROL/IPRATROPIUM 3 ML (DUONEB) VIAL INH SCH ×6 (03:15→21:59)
[2020-11-25] MEDS: methylPREDNISolone 40 MG/ML (Solu-MEDROL) VIAL IV SCH ×3 (05:21→17:58)
[2020-11-25 05:43] LABS: BASOPHILS % (AUTO) 0 % (0-10); EOSINOPHILS % (AUTO) 0 % (0-10); HEMATOCRIT 45 % (35-52); LYMPHOCYTES # (AUTO) 0.8 10^3/uL (1.0-4.0); LYMPHOCYTES % (AUTO) 12 % (12-44); MEAN CORPUSCULAR HEMOGLOBIN 28 pg (25-34); MEAN CORPUSCULAR HGB CONC 29 g/dL (32-36); MEAN CORPUSCULAR VOLUME 99 fL (80-99); MONOCYTES # (AUTO) 0.4 10^3/uL (0.0-1.0); MONOCYTES % (AUTO) 6 % (0-12); NEUTROPHILS % (AUTO) 81 % (42-75); PLATELET COUNT 176 10^3/uL (130-400); WHITE BLOOD COUNT 6.1 10^3/uL (4.3-11.0)
[2020-11-25 05:58] LABS: ALBUMIN 3.7 GM/DL (3.2-4.5); POTASSIUM 4.9 MMOL/L (3.6-5.0)
[2020-11-25 05:59] LABS: CALCIUM 9.5 MG/DL (8.5-10.1)
[2020-11-25 06:01] LABS: TOTAL PROTEIN 6.8 GM/DL (6.4-8.2)
[2020-11-25 06:02] LABS: BILIRUBIN,TOTAL 0.2 MG/DL (0.1-1.0)
[2020-11-25 06:04] LABS: CREATININE SERUM 0.64 MG/DL (0.60-1.30); PHOSPHORUS 2.7 MG/DL (2.3-4.7)
[2020-11-25] MEDS: inSUlin ASPART (NovoLOG) 1 UNIT/0.01 ML (CHARGE PER UNIT) SQ SCH ×3 (06:05→20:45)
[2020-11-25 06:07] LABS: MAGNESIUM 2.2 MG/DL (1.6-2.4)
[2020-11-25] MEDS: POTASSIUM CL 10MEQ/50ML IVPB 50 ML IV SCH (06:09)
[2020-11-25] MEDS: MAGNESIUM 1 GM/100 ML IVPB 100 ML IV SCH (06:09)
[2020-11-25] MEDS: KCL 20 MEQ TAB (K-DUR) PO SCH (06:09)
[2020-11-25] MEDS: RT--FLUTICASONE/SALMETEROL 232-14 (AIRDUO RespiCLICK) IH SCH ×2 (06:56→20:25)
[2020-11-25] MEDS: meTOprolol TARTRATE 25 MG (LOPRESSOR) TABLET PO SCH ×2 (07:37→18:53)
[2020-11-25] MEDS: AZITHROMYCIN 250 MG/NS 250 ML IVPB IV SCH ×2 (07:46)
[2020-11-25] MEDS: ENOXAPARIN 60 MG/0.6 ML (LOVENOX) SYR SC SCH ×2 (07:46→20:26)
--- NOTE | 2020-11-25 07:59 | Diagnostic Imaging Report ---
CHEST 1 VIEW, AP/PA ONLY Indication: Hypoxia Comparison: 11/23/2020 Findings: Stable lung volumes. Hazy opacities over the lungs are at least in part due to patient's large body habitus and portable technique. No pleural effusion or pneumothorax. Stable enlargement of cardiac silhouette. Impression: 1. No substantial change in hazy pulmonary opacities, that are at least in part due to summation shadow patient's large body habitus and portable technique. 2. No adverse development. Dictated by: Dictated on workstation # [id number]
[2020-11-25 08:11] LABS: ABG OXYGEN SATURATION 95 % (94-100); ABG PH 7.36 (7.37-7.43); ABG PO2 72 MMHG (79-93)
[2020-11-25 08:15] LABS: ABG PCO2 72 MMHG (35-45)
[2020-11-25 08:16] LABS: ABG TCO2 42.3 MMOL/L (21.0-31.0); INSPIRED O2 45%; PATIENT TEMP 36.7; VENTILATOR NO
--- NOTE | 2020-11-25 08:36 | Progress Note ---
[employer] [employer] STUDENT 11/25/20 0836: Subjective Date Seen by a Provider: Nov 25, 2020 Time Seen by a Provider: 07:30 Subjective/Events-last exam Patient awake and alert and oriented x 4. Denies SOB, chest pain, fevers, headache, and diarrhea. Reports productive cough of sputum. Tolerated the BIPAP overnight well without complaints. States the "radiology techs are very rude here and is mad about that." Review of Systems General: No Chills, No Night Sweats HEENT: No Head Aches, No Visual Changes Pulmonary: No Dyspnea; Cough Cardiovascular: No: Chest Pain, Palpitations Gastrointestinal: No: Nausea, Vomiting Genitourinary: No Dysuria, No Frequency Musculoskeletal: No: neck pain, back pain Neurological: No: Weakness, Numbness Focused Exam Lactate Level 11/23/20 00:38: Lactic Acid Level 1.20 Objective Exam Last Set of Vital Signs Vital Signs Date Time Temp Pulse Resp B/P (MAP) Pulse Ox O2 Delivery O2 Flow Rate FiO2 11/25/20 08:00 36.4 11/25/20 07:05 High Flow N/C 6.00 11/25/20 06:57 94 11/25/20 06:53 70 11/25/20 06:00 20 153/87 11/24/20 04:25 45 Capillary Refill : Less Than 3 Seconds I&O Intake and Output 11/25/20 00:00 Intake Total 2450 ml Output Total 4450 ml Balance -2000 ml Intake Oral 2450 ml Output Urine Total 4450 ml General: Alert, Oriented X3, Cooperative, No Acute Distress HEENT: Atraumatic, PERRLA, EOMI, Mucous Memb Moist/[place] Neck: Supple, No LAD Lungs: Clear to Auscultation (Diminished. No wheezes or crackles. No retractions or accessory muscle use. ) Heart: Regular Rate, No Murmurs Abdomen: Normal Bowel Sounds, Soft, No Tenderness, Other (Obese) Extremities: No Clubbing, No Cyanosis, No Edema, Normal Pulses Skin: No Rashes, No Significant Lesion, Other (Bilat feet dry and scaly. Nails thickened and discolored. ) Neuro: Normal Speech, Strength at 5/5 X4 Ext, Normal Tone, Sensation Intact, Cranial Nerves 3-12 NL Psych/Mental Status: Mental Status NL, Mood NL Results Lab Laboratory Tests 11/24/20 11:33: Glucometer 114H 11/24/20 17:55: Glucometer 183H 11/24/20 23:43: Glucometer 120H 11/25/20 05:20: White Blood Count 6.1, Red Blood Count 4.59, Hemoglobin 13.0, Hematocrit 45, Mean Corpuscular Volume 99, Mean Corpuscular Hemoglobin 28, Mean Corpuscular Hemoglobin Concent 29L, Red Cell Distribution Width 13.2, Platelet Count 176, Mean Platelet Volume 11.0, Immature Granulocyte % (Auto) 0, Neutrophils (%) (Auto) 81H, Lymphocytes (%) (Auto) 12, Monocytes (%) (Auto) 6, Eosinophils (%) (Auto) 0, Basophils (%) (Auto) 0, Neutrophils # (Auto) 5.0, Lymphocytes # (Auto) 0.8L, Monocytes # (Auto) 0.4, Eosinophils # (Auto) 0.0, Basophils # (Auto) 0.0, Immature Granulocyte # (Auto) 0.0, Sodium Level 140, Potassium Level 4.9, Chloride Level 96L, Carbon Dioxide Level 37H, Anion Gap 7, Blood Urea Nitrogen 16, Creatinine 0.64, Estimat Glomerular Filtration Rate 93, BUN/Creatinine Ratio 25, Glucose Level 130H, Calcium Level 9.5, Corrected Calcium 9.7, Phosphorus Level 2.7, Magnesium Level 2.2, Total Bilirubin 0.2, Aspartate Amino Transf (AST/SGOT) 26, Alanine Aminotransferase (ALT/SGPT) 62H, Alkaline Phosphatase 45, Total Protein 6.8, Albumin 3.7 11/25/20 08:00: Blood Gas Puncture Site RT RAD, Blood Gas Patient Temperature 36.7, Arterial Blood pH 7.36L, Arterial Blood Partial Pressure CO2 72*H, Arterial Blood Partial Pressure O2 72L, Arterial Blood HCO3 40H, Arterial Blood Total CO2 42.3*H, Arterial Blood Oxygen Saturation 95, Arterial Blood Base Excess 14.0H, Jaxson Test NA, Blood Gas Ventilator Setting NO, Blood Gas Inspired Oxygen 45% Microbiology 11/23/20 Gram Stain - Final, Resulted 11/23/20 Sputum Culture - Preliminary, Resulted Usual upper respiratory monica 11/23/20 Urine Culture - Preliminary, Resulted Slight Growth Present 11/23/20 Blood Culture - Preliminary, Resulted No growth Assessment/Plan Assessment/Plan Assess & Plan/Chief Complaint Acute on chronic hypoxic respiratory failure w hypercapnia -tolerated BIPAP overnight well, wear as much as tolerated -IS q2hr WA -flu and covid negative COPD exacerbation -solumedrol 40mg q6hrs to 40mg q8 today -albuterol -airduo BID -azithromycin -sputum culture with usual upper respiratory monica -DC IVF's -advance diet to diabetic diet today DVT ppx -lovenox Morbid obesity HTN -restart home antihypertensives TONYA SALDIVAR DO 11/26/20 1144: Supervisory-Addendum Brief Verification & Attestation Participated in pt care: history, MDM, physical Personally performed: exam, history, MDM, supervision of care Care discussed with: Medical Student Procedures: n/a Results interpretation: Verified all documentation Verification and Attestation of Medical Student E/M Service A medical student performed and documented this service in my presence. I reviewed and verified all information documented by the medical student and made modifications to such information, when appropriate. I personally performed the physical exam and medical decision making. Tonya Saldivar, Nov 26, 2020,11:44 [facility] [employer] STUD[employer] Nov 25, 2020 08:36 TONYA SALDIVAR DO Nov 26, 2020 11:44
--- NOTE | 2020-11-25 08:52 | Tele-ICU Progress Note ---
Subjective Date Seen by a Provider: Nov 25, 2020 Time Seen by a Provider: 08:52 Sepsis Event Evaluation Height, Weight, BMI Height: 5'6.00" Weight: 297lbs. 6.0oz. 133.764559pw; 53.40 BMI Method:Actual Focused Exam Lactate Level 11/23/20 00:38: Lactic Acid Level 1.20 Exam Exam Patient acknowledged, consented, and participated in this virtual visit which was conducted using real time audio/video Vital Signs Date Time Temp Pulse Resp B/P (MAP) Pulse Ox O2 Delivery O2 Flow Rate FiO2 11/25/20 08:00 92 High Flow N/C 6.00 11/25/20 08:00 36.4 11/25/20 07:05 High Flow N/C 6.00 11/25/20 06:57 94 High Flow N/C 6.00 11/25/20 06:53 70 11/25/20 06:00 73 20 153/87 97 NIV Bilevel 45.00 11/25/20 05:00 72 20 155/91 97 NIV Bilevel 45.00 11/25/20 04:00 NIV Bilevel 45.00 11/25/20 04:00 68 19 120/68 96 NIV Bilevel 45.00 11/25/20 03:15 80 26 95 45.00 11/25/20 03:00 75 19 143/85 96 NIV Bilevel 45.00 11/25/20 02:58 36.6 11/25/20 02:00 65 22 113/72 95 NIV Bilevel 45.00 11/25/20 01:00 67 11/25/20 01:00 67 18 123/70 94 NIV Bilevel 45.00 11/25/20 00:00 80 22 142/79 93 NIV Bilevel 45.00 11/24/20 23:49 NIV Bilevel 45.00 11/24/20 23:49 36.7 NIV Bilevel 45.00 11/24/20 23:00 73 20 142/80 94 High Flow N/C 5.00 11/24/20 22:00 66 22 142/79 95 High Flow N/C 5.00 11/24/20 21:52 75 21 95 45.00 11/24/20 21:00 77 25 116/75 95 High Flow N/C 5.00 11/24/20 20:15 High Flow N/C 5.00 11/24/20 20:00 36.7 11/24/20 20:00 91 26 138/69 92 High Flow N/C 5.00 11/24/20 19:00 High Flow N/C 5.00 11/24/20 19:00 81 20 154/72 90 High Flow N/C 5.00 11/24/20 19:00 81 11/24/20 18:43 92 High Flow N/C 5.00 11/24/20 18:08 92 High Flow N/C 5.00 11/24/20 18:02 92 High Flow N/C 7.00 11/24/20 18:00 91 22 161/89 94 High Flow N/C 10.00 11/24/20 17:00 95 22 132/75 92 High Flow N/C 10.00 11/24/20 16:00 72 15 130/77 94 High Flow N/C 10.00 11/24/20 16:00 NIV Bilevel 45.00 11/24/20 16:00 37.0 11/24/20 15:31 66 21 94 45.00 68 11/24/20 15:00 72 22 137/77 94 High Flow N/C 10.00 11/24/20 14:09 NIV Bilevel 45.00 11/24/20 14:09 36.0 11/24/20 14:00 75 21 148/81 95 High Flow N/C 10.00 11/24/20 13:03 66 11/24/20 13:00 66 26 138/97 98 High Flow N/C 10.00 11/24/20 12:00 78 13 130/99 94 High Flow N/C 10.00 11/24/20 11:45 High Flow N/C 10.00 11/24/20 11:45 93 High Flow N/C 10.00 11/24/20 11:44 95 High Flow N/C 10.00 11/24/20 10:00 73 29 117/65 90 NIV Bilevel 45.00 11/24/20 09:00 86 22 166/76 93 NIV Bilevel 45.00 I & O 11/25/20 07:00 Intake Total 2350 ml Output Total 4050 ml Balance -1700 ml Height & Weight Height: 5'6.00" Weight: 297lbs. 6.0oz. 133.293216vi; 53.40 BMI Method:Actual General Appearance: WD/WN, Moderate Distress, Obese HEENT: PERRL/EOMI, Normal ENT Inspection Neck: Normal Inspection; No JVD Respiratory: Accessory Muscle Use, Decreased Breath Sounds (Very poor air movement), Respiratory Distress Cardiovascular: Regular Rate, Rhythm, No Edema, No Murmur Capillary Refill: Less Than 3 Seconds Peripheral Pulses: 1+ Dorsalis Pedis (R) (see free text), 1+ Left Dors-Pedis (L) Gastrointestinal: normal bowel sounds, non tender, soft Extremity: Normal Inspection, No Pedal Edema Neurologic/Psychiatric: Alert, Oriented x3, No Motor/Sensory Deficits, Normal Mood/Affect Results Lab Laboratory Tests 11/24/20 04:40 11/25/20 05:20 Assessment/Plan Assessment/Plan (Tele-ICU Physician , Progress Note ) Available chart/ vitals / labs / Images reviewed Video assessment done using teleICU camera, rest of exam as per RN Discussed with RN , EXAM PER RN Events overnight : AFEBRILE I/O = neg 1999 Drips: LR 75 Pressors: , hemodynamically stable Consultants: Hospital course: 11/22 - to ER ARF , COVID , [id number] on 10LPM. 914 - ICU - BIPAP 25/10 rr 22 TV 350 , 55% , MV 7L 11/24 - 27/10 rr 22 TV 500 , 35% , MV >10L 11/25 - 6 L nc A/P AHRF - BIPAP to cont at night , day time can be on NS with IS and increased activity - will need to be on NIPPV overnight - stop IVF AECOPD - steroids IV - TAPER STARTING 11/25 - improvement with abg and reported wheezing - nebs Chronic hypoxic and hypercarbic resp failure due to COPD -on home O2 3 LPM - ? NEED SLEEP STUDY as outpt Suspected superimposed bact PNA - flu and covid neg -empiric abx started on 11/23 with mildly elev PCT , sputum cx : nl monica , BUT fever 37.2 on - continue at least 5 days course - blodd cx 11/23 - most likely contaminant Obesity , BMI close f/up BS on steroids consider possible pulm HTN - decrease IVF Lines : periph (Central Line Necessity Reviewed) Goldberg: + OG: Nutrition: Po Analgesia: Anxiety/ delirium na VTE Prophylaxis: lovenox 60 bid Stress Ulcer Prophylaxis: PO intake Glycemic Control: Plans in collaboration with bedside consultants and IM MDs. Discussed with RN to reach out if any questions or concerns A total of 36 minutes of critical care time was devoted to this patient today, required to treat and/or prevent further deterioration of critical care condition ( as above) . ALEX WIGGINS MD Nov 25, 2020 08:52
[2020-11-25] MEDS: MICONAZOLE 2% POWDER (DESENEX AF) 90 GM TOP SCH ×2 (10:07→20:27)
--- NOTE | 2020-11-25 15:21 | Progress Note ---
Subjective Subjective/Events-last exam Afebrile, feeling better. Able to be off of bipap for longer periods yesterday, just using when sleeping now. ABG improved. Focused Exam Lactate Level 11/23/20 00:38: Lactic Acid Level 1.20 Objective Exam Last Set of Vital Signs Vital Signs Date Time Temp Pulse Resp B/P (MAP) Pulse Ox O2 Delivery O2 Flow Rate FiO2 11/25/20 14:35 94 High Flow N/C 3.00 11/25/20 12:59 90 11/25/20 12:38 36.2 11/25/20 12:00 24 156/77 11/24/20 04:25 45 Capillary Refill : Less Than 3 Seconds I&O Intake and Output 11/25/20 00:00 Intake Total 2450 ml Output Total 4450 ml Balance -2000 ml Intake Oral 2450 ml Output Urine Total 4450 ml General: Alert, No Acute Distress Lungs: Other (decreased air movement throughout, better movement on left, wheezing on right) Heart: Regular Rate, No Murmurs Neuro: Normal Speech Psych/Mental Status: Mental Status NL Results/Procedures Lab Laboratory Tests 11/24/20 17:55: Glucometer 183H 11/24/20 23:43: Glucometer 120H 11/25/20 05:20: White Blood Count 6.1, Red Blood Count 4.59, Hemoglobin 13.0, Hematocrit 45, Mean Corpuscular Volume 99, Mean Corpuscular Hemoglobin 28, Mean Corpuscular Hemoglobin Concent 29L, Red Cell Distribution Width 13.2, Platelet Count 176, Mean Platelet Volume 11.0, Immature Granulocyte % (Auto) 0, Neutrophils (%) (Auto) 81H, Lymphocytes (%) (Auto) 12, Monocytes (%) (Auto) 6, Eosinophils (%) (Auto) 0, Basophils (%) (Auto) 0, Neutrophils # (Auto) 5.0, Lymphocytes # (Auto) 0.8L, Monocytes # (Auto) 0.4, Eosinophils # (Auto) 0.0, Basophils # (Auto) 0.0, Immature Granulocyte # (Auto) 0.0, Sodium Level 140, Potassium Level 4.9, Chloride Level 96L, Carbon Dioxide Level 37H, Anion Gap 7, Blood Urea Nitrogen 16, Creatinine 0.64, Estimat Glomerular Filtration Rate 93, BUN/Creatinine Ratio 25, Glucose Level 130H, Calcium Level 9.5, Corrected Calcium 9.7, Phosphorus Level 2.7, Magnesium Level 2.2, Total Bilirubin 0.2, Aspartate Amino Transf (AST/SGOT) 26, Alanine Aminotransferase (ALT/SGPT) 62H, Alkaline Phosphatase 45, Total Protein 6.8, Albumin 3.7 11/25/20 08:00: Blood Gas Puncture Site RT RAD, Blood Gas Patient Temperature 36.7, Arterial Blood pH 7.36L, Arterial Blood Partial Pressure CO2 72*H, Arterial Blood Partial Pressure O2 72L, Arterial Blood HCO3 40H, Arterial Blood Total CO2 42.3*H, Shanika rial Blood Oxygen Saturation 95, Arterial Blood Base Excess 14.0H, Jaxson Test NA, Blood Gas Ventilator Setting NO, Blood Gas Inspired Oxygen 45% 11/25/20 12:24: Glucometer 153H Microbiology 11/23/20 Gram Stain - Final, Resulted 11/23/20 Sputum Culture - Preliminary, Resulted Usual upper respiratory monica 11/23/20 Urine Culture - Preliminary, Resulted Slight Growth Present 11/23/20 Blood Culture - Preliminary, Resulted No growth Radiology CXR 11/23: IMPRESSION: 1. Increased airspace opacity in the peripheral right lung, may represent infection in the appropriate clinical setting. 2. Stable cardiomegaly with mild central vascular congestion. Assessment/Plan Assessment/Plan (1) COPD exacerbation Status: Acute Assessment & Plan: COVID, flu neg. CXR with increased density right periphery, not clear pneumonia. Procalcitonin slightly elevated. Solumedrol, azithromycin, breathing treatments, bipap as noted below. 11/25- taper solumedrol dose (2) Respiratory failure with hypoxia and hypercapnia Status: Acute Assessment & Plan: Requiring bipap, slight improvement overnight but still with fairly marked hypercapnia, continue bipap today. Qualifiers: Qualified Codes: J96.21 - Acute and chronic respiratory failure with hypoxia; J96.22 - Acute and chronic respiratory failure with hypercapnia (3) Respiratory acidosis Status: Acute Assessment & Plan: Worsening this morning even on bipap, with PCO2 in the 90s. Appreciate Critical care recommendations. 11/24 slight improvement, but persistent, continuing bipap. 11/25- pH up to 7.36, PCO2 down to 72, bipap while sleeping (4) COPD (chronic obstructive pulmonary disease) Status: Chronic (5) Morbid obesity Status: Chronic (6) Hypertension Status: Chronic Assessment & Plan: Resume home metoprolol Qualifiers: Qualified Codes: I10 - Essential (primary) hypertension (7) DVT prophylaxis Status: Acute Assessment & Plan: Enoxaparin STEPHANIE ÁLVAREZ MD Nov 25, 2020 15:21
[2020-11-25] MEDS: LACTATED RINGERS 1,000 ML IV SCH (16:41)
[2020-11-25] MEDS ORDERED: ADVAIR HFA 115/21 MCG INHALER 8 GM IH SCH (21:00)
[2020-11-25 21:59] VITALS: BP 143/85
[2020-11-26] MEDS: methylPREDNISolone 40 MG/ML (Solu-MEDROL) VIAL IV SCH ×2 (00:34→08:38)
[2020-11-26 02:35] VITALS: BP 143/85
[2020-11-26] MEDS: RT-ALBUTEROL/IPRATROPIUM 3 ML (DUONEB) VIAL INH SCH ×6 (02:35→22:15)
[2020-11-26] MEDS: inSUlin ASPART (NovoLOG) 1 UNIT/0.01 ML (CHARGE PER UNIT) SQ SCH ×4 (05:44→22:05)
[2020-11-26 06:20] LABS: BASOPHILS % (AUTO) 0 % (0-10); EOSINOPHILS % (AUTO) 0 % (0-10); HEMATOCRIT 43 % (35-52); HEMOGLOBIN 12.7 g/dL (11.5-16.0); LYMPHOCYTES # (AUTO) 0.9 10^3/uL (1.0-4.0); LYMPHOCYTES % (AUTO) 14 % (12-44); MEAN CORPUSCULAR HEMOGLOBIN 28 pg (25-34); MEAN CORPUSCULAR HGB CONC 30 g/dL (32-36); MEAN CORPUSCULAR VOLUME 96 fL (80-99); MEAN PLATELET VOLUME 11.5 fL (9.0-12.2); MONOCYTES # (AUTO) 0.4 10^3/uL (0.0-1.0); MONOCYTES % (AUTO) 6 % (0-12); NEUTROPHILS # (AUTO) 4.9 10^3/uL (1.8-7.8); NEUTROPHILS % (AUTO) 79 % (42-75); PLATELET COUNT 176 10^3/uL (130-400); WHITE BLOOD COUNT 6.2 10^3/uL (4.3-11.0)
[2020-11-26 06:39] LABS: ALBUMIN 3.6 GM/DL (3.2-4.5); POTASSIUM 4.7 MMOL/L (3.6-5.0)
[2020-11-26 06:40] LABS: CALCIUM 9.2 MG/DL (8.5-10.1)
[2020-11-26 06:41] LABS: TOTAL PROTEIN 6.6 GM/DL (6.4-8.2)
[2020-11-26] MEDS: RT--FLUTICASONE/SALMETEROL 232-14 (AIRDUO RespiCLICK) IH SCH ×2 (06:41→18:16)
[2020-11-26 06:43] LABS: BILIRUBIN,TOTAL 0.2 MG/DL (0.1-1.0)
[2020-11-26 06:44] LABS: PHOSPHORUS 2.9 MG/DL (2.3-4.7)
[2020-11-26 06:45] LABS: CREATININE SERUM 0.61 MG/DL (0.60-1.30)
[2020-11-26 06:48] LABS: MAGNESIUM 2.2 MG/DL (1.6-2.4)
[2020-11-26] MEDS: meTOprolol TARTRATE 25 MG (LOPRESSOR) TABLET PO SCH ×2 (08:38→18:24)
[2020-11-26] MEDS: ENOXAPARIN 60 MG/0.6 ML (LOVENOX) SYR SC SCH ×2 (08:38→22:06)
[2020-11-26] MEDS: MICONAZOLE 2% POWDER (DESENEX AF) 90 GM TOP SCH ×2 (08:39→22:05)
[2020-11-26] MEDS: AZITHROMYCIN 250 MG TAB (ZITHROMAX) PO SCH (08:39)
[2020-11-26] MEDS: ACETAMINOPHEN 500 MG TAB (TYLENOL) PO PRN (08:41)
--- NOTE | 2020-11-26 14:00 | Progress Note ---
Subjective Subjective/Events-last exam Feeling better again today compared to yesterday. Still requiring high flow nasal cannula, but is able to get around a little more without becoming as breathless. Objective Exam Last Set of Vital Signs Vital Signs Date Time Temp Pulse Resp B/P (MAP) Pulse Ox O2 Delivery O2 Flow Rate FiO2 11/26/20 13:00 80 11/26/20 12:00 36.0 20 149/78 92 High Flow N/C 3.00 11/24/20 04:25 45 Capillary Refill : Less Than 3 Seconds I&O Intake and Output 11/26/20 00:00 Intake Total 3080 ml Output Total 4450 ml Balance -1370 ml Intake Oral 2830 ml IV Total 250 ml Output Urine Total 4450 ml General: Alert, No Acute Distress Lungs: Other (decreased air movement throughout, wheezing on right) Heart: Regular Rate, No Murmurs Abdomen: Normal Bowel Sounds, Soft Extremities: Other (left leg with non-pitting edema, greater than right leg, mildly erythematous with some peeling) Neuro: Normal Speech Results/Procedures Lab Laboratory Tests 11/25/20 16:28: Glucometer 122H 11/25/20 20:44: Glucometer 126H 11/26/20 05:39: White Blood Count 6.2, Red Blood Count 4.47, Hemoglobin 12.7, Hematocrit 43, Mean Corpuscular Volume 96, Mean Corpuscular Hemoglobin 28, Mean Corpuscular Hemoglobin Concent 30L, Red Cell Distribution Width 13.3, Platelet Count 176, Mean Platelet Volume 11.5, Immature Granulocyte % (Auto) 1, Neutrophils (%) (Auto) 79H, Lymphocytes (%) (Auto) 14, Monocytes (%) (Auto) 6, Eosinophils (%) (Auto) 0, Basophils (%) (Auto) 0, Neutrophils # (Auto) 4.9, Lymphocytes # (Auto) 0.9L, Monocytes # (Auto) 0.4, Eosinophils # (Auto) 0.0, Basophils # (Auto) 0.0, Immature Granulocyte # (Auto) 0.0, Sodium Level 136, Potassium Level 4.7, Chloride Level 93L, Carbon Dioxide Level 35H, Anion Gap 8, Blood Urea Nitrogen 18, Creatinine 0.61, Estimat Glomerular Filtration Rate 98, BUN/Creatinine Ratio 30, Glucose Level 142H, Calcium Level 9.2, Corrected Calcium 9.5, Phosphorus Level 2.9, Magnesium Level 2.2, Total Bilirubin 0.2, Aspartate Amino Transf (AST/SGOT) 27, Alanine Aminotransferase (ALT/SGPT) 79H, Alkaline Phosphatase 43, Total Protein 6.6, Albumin 3.6 11/26/20 05:43: Glucometer 143H 11/26/20 11:05: Glucometer 144H Microbiology 11/23/20 Gram Stain - Final, Complete 11/23/20 Sputum Culture - Final, Complete Usual upper respiratory monica 11/23/20 Urine Culture - Preliminary, Resulted Slight Growth Present 11/23/20 Blood Culture - Preliminary, Resulted No growth Radiology CXR 11/23: IMPRESSION: 1. Increased airspace opacity in the peripheral right lung, may represent infection in the appropriate clinical setting. 2. Stable cardiomegaly with mild central vascular congestion. Assessment/Plan Assessment/Plan (1) COPD exacerbation Status: Acute Assessment & Plan: COVID, flu neg. CXR with increased density right periphery, not clear pneumonia. Procalcitonin slightly elevated. Solumedrol, azithromycin, breathing treatments, bipap as noted below. 11/25- taper solumedrol dose 11/26 change to po prednisone (2) Respiratory failure with hypoxia and hypercapnia Status: Acute Assessment & Plan: Requiring bipap, slight improvement overnight but still with fairly marked hypercapnia, continue bipap today. 11/26 using bipap with sleeping, needs bipap for home. Qualifiers: Qualified Codes: J96.21 - Acute and chronic respiratory failure with hypoxia; J96.22 - Acute and chronic respiratory failure with hypercapnia (3) Respiratory acidosis Status: Acute Assessment & Plan: Worsening this morning even on bipap, with PCO2 in the 90s. Appreciate Critical care recommendations. 11/24 slight improvement, but persistent, continuing bipap. 11/25- pH up to 7.36, PCO2 down to 72, bipap while sleeping (4) COPD (chronic obstructive pulmonary disease) Status: Chronic (5) Morbid obesity Status: Chronic (6) Hypertension Status: Chronic Assessment & Plan: Resume home metoprolol Qualifiers: Qualified Codes: I10 - Essential (primary) hypertension (7) DVT prophylaxis Status: Acute Assessment & Plan: Enoxaparin STEPHANIE ÁLVAREZ MD Nov 26, 2020 14:00
--- NOTE | 2020-11-26 14:57 | Diagnostic Imaging Report ---
INDICATION: Left leg pain TECHNIQUE: Multiple real-time grayscale images were obtained over the left lower extremity in various projections, bilaterally. Additional duplex Doppler and color Doppler images were also obtained. CORRELATION STUDY: None FINDINGS: Assessment is limited given patient's reported underlying body habitus. Color and grayscale sonographic images demonstrate no intraluminal defect within the visualized portion of the common femoral, superficial femoral and/or popliteal veins to suggest thrombus formation. These vessels demonstrate normal response to compression and augmentation. No soft tissue fluid collection. IMPRESSION: 1. Negative for deep venous thrombosis of the left leg. Dictated by: Dictated on workstation # [id number]
[2020-11-27] MEDS: RT-ALBUTEROL/IPRATROPIUM 3 ML (DUONEB) VIAL INH SCH ×6 (01:42→21:29)
[2020-11-27] MEDS: ACETAMINOPHEN 500 MG TAB (TYLENOL) PO PRN (04:55)
[2020-11-27] MEDS: MAG CARB/AL HYDROX EXTRA STRENGTH TAB (GAVISCON ES) PO PRN (04:55)
[2020-11-27] MEDS: RT--FLUTICASONE/SALMETEROL 232-14 (AIRDUO RespiCLICK) IH SCH ×2 (06:32→21:25)
[2020-11-27] MEDS ORDERED: predniSONE 20 MG TAB PO SCH (07:00)
[2020-11-27] MEDS: inSUlin ASPART (NovoLOG) 1 UNIT/0.01 ML (CHARGE PER UNIT) SQ SCH ×5 (07:01→21:03)
[2020-11-27 07:22] LABS: BASOPHILS % (AUTO) 0 % (0-10); EOSINOPHILS # (AUTO) 0.1 10^3/uL (0.0-0.3); EOSINOPHILS % (AUTO) 1 % (0-10); HEMATOCRIT 43 % (35-52); HEMOGLOBIN 12.7 g/dL (11.5-16.0); LYMPHOCYTES # (AUTO) 2.8 10^3/uL (1.0-4.0); LYMPHOCYTES % (AUTO) 32 % (12-44); MEAN CORPUSCULAR HEMOGLOBIN 29 pg (25-34); MEAN CORPUSCULAR HGB CONC 30 g/dL (32-36); MEAN CORPUSCULAR VOLUME 97 fL (80-99); MEAN PLATELET VOLUME 11.7 fL (9.0-12.2); MONOCYTES # (AUTO) 0.7 10^3/uL (0.0-1.0); MONOCYTES % (AUTO) 8 % (0-12); NEUTROPHILS % (AUTO) 58 % (42-75); PLATELET COUNT 179 10^3/uL (130-400); WHITE BLOOD COUNT 8.7 10^3/uL (4.3-11.0)
[2020-11-27 07:31] LABS: ALBUMIN 3.4 GM/DL (3.2-4.5)
[2020-11-27 07:33] LABS: CALCIUM 9.2 MG/DL (8.5-10.1)
[2020-11-27 07:34] LABS: TOTAL PROTEIN 6.1 GM/DL (6.4-8.2)
[2020-11-27 07:36] LABS: BILIRUBIN,TOTAL 0.3 MG/DL (0.1-1.0)
[2020-11-27 07:37] LABS: PHOSPHORUS 3.1 MG/DL (2.3-4.7)
[2020-11-27 07:38] LABS: CREATININE SERUM 0.62 MG/DL (0.60-1.30)
[2020-11-27 07:40] LABS: MAGNESIUM 2.1 MG/DL (1.6-2.4)
--- NOTE | 2020-11-27 08:10 | Progress Note - Hospitalist ---
Subjective HPI/CC On Admission Date Seen by Provider: Nov 27, 2020 Time Seen by Provider: 08:07 Subjective/Events-last exam Patient reports a hold to get around more easily with less shortness of breath. Decreasing cough as well no chest pain noted. Objective Exam Vital Signs Vital Signs Date Time Temp Pulse Resp B/P (MAP) Pulse Ox O2 Delivery O2 Flow Rate FiO2 11/27/20 07:37 36.2 86 18 128/65 92 High Flow N/C 3.00 11/24/20 04:25 45 Capillary Refill : Less Than 3 Seconds General Appearance: No Apparent Distress, Obese Respiratory: No Accessory Muscle Use, No Respiratory Distress, Other (Mild bilateral expiratory wheezing significantly diminished breath sounds posteriorly but breath sounds are equal bilaterally) Cardiovascular: Regular Rate, Rhythm, No Murmur Results/Procedures Lab Laboratory Tests 11/27/20 06:00 Patient resulted labs reviewed. Assessment/Plan Assessment and Plan Assess & Plan/Chief Complaint Assessment/Plan Assessment/Plan (1) COPD exacerbation Status: Acute Assessment & Plan: COVID, flu neg. CXR with increased density right periphery, not clear pneumonia. Procalcitonin slightly elevated. Solumedrol, azithromycin, breathing treatments, bipap as noted below. 11/25- taper solumedrol dose 11/26 change to po prednisone 11/27 continued improvement having received 50 mg of prednisone today will decrease to 40 mg tomorrow DC telemetry. (2) Respiratory failure with hypoxia and hypercapnia Status: Acute Assessment & Plan: Requiring bipap, slight improvement overnight but still with fairly marked hypercapnia, continue bipap today. 11/26 using bipap with sleeping, needs bipap for home. Qualifiers: Qualified Codes: J96.21 - Acute and chronic respiratory failure with hypoxia; J96.22 - Acute and chronic respiratory failure with hypercapnia (3) Respiratory acidosis Status: Acute Assessment & Plan: Worsening this morning even on bipap, with PCO2 in the 90s. Appreciate Critical care recommendations. 11/24 slight improvement, but persistent, continuing bipap. 11/25- pH up to 7.36, PCO2 down to 72, bipap while sleeping (4) COPD (chronic obstructive pulmonary disease) Status: Chronic (5) Morbid obesity Status: Chronic (6) Hypertension Status: Chronic Assessment & Plan: Resume home metoprolol Qualifiers: Qualified Codes: I10 - Essential (primary) hypertension (7) DVT prophylaxis Status: Acute Assessment & Plan: Enoxaparin Critical Care Critically Ill Patient ALINE PRASAD MD Nov 27, 2020 08:10
[2020-11-27] MEDS: MICONAZOLE 2% POWDER (DESENEX AF) 90 GM TOP SCH ×2 (09:23→21:04)
[2020-11-27] MEDS: meTOprolol TARTRATE 25 MG (LOPRESSOR) TABLET PO SCH ×2 (09:23→17:36)
[2020-11-27] MEDS: AZITHROMYCIN 250 MG TAB (ZITHROMAX) PO SCH (09:23)
[2020-11-27] MEDS: ENOXAPARIN 60 MG/0.6 ML (LOVENOX) SYR SC SCH ×2 (09:23→21:03)
[2020-11-28] MEDS: RT-ALBUTEROL/IPRATROPIUM 3 ML (DUONEB) VIAL INH SCH ×6 (02:24→21:33)
[2020-11-28] MEDS: MAG CARB/AL HYDROX EXTRA STRENGTH TAB (GAVISCON ES) PO PRN ×3 (04:04→20:29)
[2020-11-28 04:45] LABS: BASOPHILS % (AUTO) 0 % (0-10); EOSINOPHILS # (AUTO) 0.2 10^3/uL (0.0-0.3); EOSINOPHILS % (AUTO) 2 % (0-10); HEMATOCRIT 42 % (35-52); HEMOGLOBIN 12.8 g/dL (11.5-16.0); LYMPHOCYTES # (AUTO) 3.4 10^3/uL (1.0-4.0); LYMPHOCYTES % (AUTO) 35 % (12-44); MEAN CORPUSCULAR HEMOGLOBIN 29 pg (25-34); MEAN CORPUSCULAR HGB CONC 30 g/dL (32-36); MEAN CORPUSCULAR VOLUME 95 fL (80-99); MONOCYTES # (AUTO) 0.6 10^3/uL (0.0-1.0); MONOCYTES % (AUTO) 7 % (0-12); NEUTROPHILS # (AUTO) 5.2 10^3/uL (1.8-7.8); NEUTROPHILS % (AUTO) 55 % (42-75); PLATELET COUNT 191 10^3/uL (130-400); WHITE BLOOD COUNT 9.6 10^3/uL (4.3-11.0)
[2020-11-28 04:59] LABS: ALBUMIN 3.4 GM/DL (3.2-4.5); POTASSIUM 4.1 MMOL/L (3.6-5.0)
[2020-11-28 05:01] LABS: CALCIUM 9.4 MG/DL (8.5-10.1)
[2020-11-28 05:02] LABS: TOTAL PROTEIN 6.1 GM/DL (6.4-8.2)
[2020-11-28 05:04] LABS: BILIRUBIN,TOTAL 0.3 MG/DL (0.1-1.0)
[2020-11-28 05:06] LABS: CREATININE SERUM 0.64 MG/DL (0.60-1.30)
[2020-11-28 05:09] LABS: MAGNESIUM 2.1 MG/DL (1.6-2.4)
[2020-11-28] MEDS: inSUlin ASPART (NovoLOG) 1 UNIT/0.01 ML (CHARGE PER UNIT) SQ SCH ×4 (05:13→20:23)
[2020-11-28] MEDS ORDERED: predniSONE 20 MG TAB PO SCH (07:00)
[2020-11-28] MEDS: RT--FLUTICASONE/SALMETEROL 232-14 (AIRDUO RespiCLICK) IH SCH ×2 (07:04→18:37)
[2020-11-28] MEDS: AZITHROMYCIN 250 MG TAB (ZITHROMAX) PO SCH (09:38)
[2020-11-28] MEDS: ENOXAPARIN 60 MG/0.6 ML (LOVENOX) SYR SC SCH ×2 (09:38→20:23)
[2020-11-28] MEDS: meTOprolol TARTRATE 25 MG (LOPRESSOR) TABLET PO SCH ×2 (09:38→17:55)
[2020-11-28] MEDS: MICONAZOLE 2% POWDER (DESENEX AF) 90 GM TOP SCH ×2 (09:39→20:23)
--- NOTE | 2020-11-28 11:03 | Progress Note - Hospitalist ---
Subjective HPI/CC On Admission Date Seen by Provider: Nov 28, 2020 Time Seen by Provider: 09:45 Subjective/Events-last exam Patient continues to feel better decreased shortness of breath increase exercise tolerance. Objective Exam Vital Signs Vital Signs Date Time Temp Pulse Resp B/P (MAP) Pulse Ox O2 Delivery O2 Flow Rate FiO2 11/28/20 09:00 High Flow N/C 3.00 11/28/20 07:43 36.3 88 20 129/55 90 11/24/20 04:25 45 Capillary Refill : Less Than 3 Seconds General Appearance: No Apparent Distress, Obese Respiratory: Chest Non Tender, Lungs Clear, Normal Breath Sounds, No Accessory Muscle Use, No Respiratory Distress, Other Cardiovascular: Regular Rate, Rhythm, No Edema, No Gallop, No JVD, No Murmur, Normal Peripheral Pulses Extremity: Other (Diminished breath sounds posteriorly unchanged transfer text 1+ edema left lower extremity none on the right no erythema no pain) Results/Procedures Lab Laboratory Tests 11/28/20 04:20 Patient resulted labs reviewed. Assessment/Plan Assessment and Plan Assess & Plan/Chief Complaint Assessment/Plan Assessment/Plan (1) COPD exacerbation Status: Acute Assessment & Plan: COVID, flu neg. CXR with increased density right periphery, not clear pneumonia. Procalcitonin slightly elevated. Solumedrol, azithromycin, breathing treatments, bipap as noted below. 11/25- taper solumedrol dose 11/26 change to po prednisone 11/27 continued improvement having received 50 mg of prednisone today will decrease to 40 mg tomorrow DC telemetry. 11/28 continued improvement will decrease prednisone to 30 mg in the morning and DC Goldberg catheter. Consider discharge in the morning. (2) Respiratory failure with hypoxia and hypercapnia Status: Acute Assessment & Plan: Requiring bipap, slight improvement overnight but still with fairly marked hypercapnia, continue bipap today. 11/26 using bipap with sleeping, needs bipap for home. Qualifiers: Qualified Codes: J96.21 - Acute and chronic respiratory failure with hypoxia; J96.22 - Acute and chronic respiratory failure with hypercapnia (3) Respiratory acidosis Status: Acute Assessment & Plan: Worsening this morning even on bipap, with PCO2 in the 90s. Appreciate Critical care recommendations. 11/24 slight improvement, but persistent, continuing bipap. 11/25- pH up to 7.36, PCO2 down to 72, bipap while sleeping (4) COPD (chronic obstructive pulmonary disease) Status: Chronic (5) Morbid obesity Status: Chronic (6) Hypertension Status: Chronic Assessment & Plan: Resume home metoprolol Qualifiers: Qualified Codes: I10 - Essential (primary) hypertension (7) DVT prophylaxis Status: Acute Assessment & Plan: Enoxaparin ALINE PRASAD MD Nov 28, 2020 11:03
[2020-11-29] MEDS: RT-ALBUTEROL/IPRATROPIUM 3 ML (DUONEB) VIAL INH SCH ×5 (02:12→21:38)
[2020-11-29 04:40] LABS: BASOPHILS % (AUTO) 0 % (0-10); EOSINOPHILS # (AUTO) 0.4 10^3/uL (0.0-0.3); EOSINOPHILS % (AUTO) 3 % (0-10); HEMATOCRIT 42 % (35-52); HEMOGLOBIN 12.8 g/dL (11.5-16.0); LYMPHOCYTES # (AUTO) 3.6 10^3/uL (1.0-4.0); LYMPHOCYTES % (AUTO) 33 % (12-44); MEAN CORPUSCULAR HEMOGLOBIN 29 pg (25-34); MEAN CORPUSCULAR HGB CONC 31 g/dL (32-36); MEAN CORPUSCULAR VOLUME 95 fL (80-99); MEAN PLATELET VOLUME 10.7 fL (9.0-12.2); MONOCYTES # (AUTO) 0.7 10^3/uL (0.0-1.0); MONOCYTES % (AUTO) 6 % (0-12); NEUTROPHILS # (AUTO) 6.1 10^3/uL (1.8-7.8); NEUTROPHILS % (AUTO) 56 % (42-75); PLATELET COUNT 190 10^3/uL (130-400)
[2020-11-29 04:55] LABS: ALBUMIN 3.3 GM/DL (3.2-4.5); POTASSIUM 4.3 MMOL/L (3.6-5.0)
[2020-11-29 04:56] LABS: CALCIUM 9.1 MG/DL (8.5-10.1)
[2020-11-29 04:59] LABS: BILIRUBIN,TOTAL 0.3 MG/DL (0.1-1.0)
[2020-11-29 05:00] LABS: PHOSPHORUS 3.9 MG/DL (2.3-4.7)
[2020-11-29 05:01] LABS: CREATININE SERUM 0.67 MG/DL (0.60-1.30)
[2020-11-29 05:04] LABS: MAGNESIUM 2.1 MG/DL (1.6-2.4)
[2020-11-29] MEDS: predniSONE 10 MG TAB PO SCH (06:06)
[2020-11-29] MEDS: inSUlin ASPART (NovoLOG) 1 UNIT/0.01 ML (CHARGE PER UNIT) SQ SCH ×4 (06:06→20:38)
[2020-11-29] MEDS: RT--FLUTICASONE/SALMETEROL 232-14 (AIRDUO RespiCLICK) IH SCH ×2 (07:10→18:39)
[2020-11-29] MEDS: meTOprolol TARTRATE 25 MG (LOPRESSOR) TABLET PO SCH ×2 (08:58→17:49)
[2020-11-29] MEDS: MICONAZOLE 2% POWDER (DESENEX AF) 90 GM TOP SCH ×2 (08:59→20:38)
[2020-11-29] MEDS: ENOXAPARIN 60 MG/0.6 ML (LOVENOX) SYR SC SCH ×2 (08:59→20:37)
[2020-11-29] MEDS ORDERED: MICO90PO TOP (10:55)
[2020-11-29] MEDS ORDERED: PRED10TA22 PO (10:55)
--- NOTE | 2020-11-29 10:55 | Discharge Summary ---
Discharge Summary Hospital Course Was the Problem List Reviewed?: Yes Problems/Dx: (1) COPD exacerbation Status: Acute (2) Respiratory failure with hypoxia and hypercapnia Status: Acute Qualifiers: Qualified Codes: J96.21 - Acute and chronic respiratory failure with hypoxia; J96.22 - Acute and chronic respiratory failure with hypercapnia (3) Morbid obesity Status: Chronic Hospital Course Date of Admission: Nov 23, 2020 at 02:31 Admission Diagnosis : [facility] [place] Date of Discharge: 11/29/20 Discharge Diagnosis: Acute on chronic respiratory failure, exacerbation of COPD, presumed KANU untreated, morbid obesity Hospital Course: Pt doing okay No other concerns right now On three liters of oxygen PT and OT were ordered and they recommend Pt staying another day because she has stairs and needs help with those Pulmonary consult will be performed [facility] prescription sent Patient had an uneventful hospital course when she was admitted for exacerbation of COPD placed on aggressive care with oxygen supplementation she was deemed stable for discharge but PT wanted to lay in 1 day to work with stairs she will have close follow-up with pulmonology clinic Labs and Pending Lab Test: Laboratory Tests 11/28/20 15:57: Glucometer 131H 11/28/20 20:23: Glucometer 118H 11/29/20 04:30: White Blood Count 11.0, Red Blood Count 4.41, Hemoglobin 12.8, Hematocrit 42, Mean Corpuscular Volume 95, Mean Corpuscular Hemoglobin 29, Mean Corpuscular Hemoglobin Concent 31L, Red Cell Distribution Width 14.1, Platelet Count 190, Mean Platelet Volume 10.7, Immature Granulocyte % (Auto) 2, Neutrophils (%) (Auto) 56, Lymphocytes (%) (Auto) 33, Monocytes (%) (Auto) 6, Eosinophils (%) (Auto) 3, Basophils (%) (Auto) 0, Neutrophils # (Auto) 6.1, Lymphocytes # (Auto) 3.6, Monocytes # (Auto) 0.7, Eosinophils # (Auto) 0.4H, Basophils # (Auto) 0.0, Immature Granulocyte # (Auto) 0.2H, Sodium Level 141, Potassium Level 4.3, Chloride Level 100, Carbon Dioxide Level 30, Anion Gap 11, Blood Urea Nitrogen 23H, Creatinine 0.67, Estimat Glomerular Filtration Rate 88, BUN/Creatinine Ratio 34, Glucose Level 90, Calcium Level 9.1, Corrected Calcium 9.7, Phosphorus Level 3.9, Magnesium Level 2.1, Total Bilirubin 0.3, Aspartate Amino Transf (AST/SGOT) 28, Alanine Aminotransferase (ALT/SGPT) 80H, Alkaline Phosphatase 36L , Total Protein 6.0L, Albumin 3.3 11/29/20 05:24: Glucometer 89 11/29/20 10:46: Glucometer 113H Microbiology 11/25/20 Gram Stain - Final, Complete 11/25/20 Sputum Culture - Final, Complete Usual upper respiratory monica 11/23/20 Urine Culture - Final, Complete See Comments 11/23/20 Blood Culture - Final, Complete No growth Home Meds Active Prednisone 10 Mg Tab.ds.pk 10 Mg PO DAILY Take 4 tabs(40mg)daily,decrease by 1 tab(10MG)daily. Lotrimin AF (Miconazole Nitrate) 90 Gm Powder 0 Gm TOP BID Reported Advair 250-50 Diskus (Fluticasone/Salmeterol) 1 Each Blst.w.dev 1 Each IH BID PRN Antacid Extra Strength Chw Tab (Magnesium Carbonate/Al Hydrox) 1 Each Tab.chew 1-2 Each PO PRN PRN Ibuprofen 200 Mg Capsule 400 Mg PO Q6H PRN Ventolin Hfa (Albuterol Sulfate) 18 Gm Hfa.aer.ad 2 Puff INH Q6H PRN Metoprolol Tartrate 25 Mg Tablet 25 Mg PO BID WITH MEALS Assessment/Pt Instructions [facility] in 1 week Discharge Planning: <30 minutes discharge planning Discharge Instructions Discharge Diet: No Restrictions Discharge Physical Examination Vital Signs Vital Signs Date Time Temp Pulse Resp B/P (MAP) Pulse Ox O2 Delivery O2 Flow Rate FiO2 11/29/20 09:00 High Flow N/C 3.00 11/29/20 08:00 36.7 86 16 119/56 90 11/24/20 04:25 45 General Appearance: No Apparent Distress, WD/WN, Chronically ill, Obese Respiratory: Normal Breath Sounds, No Accessory Muscle Use Cardiovascular: Regular Rate, Rhythm Neurologic/Psychiatric: Alert, Oriented x3 Allergies: Coded Allergies: No Known Drug Allergies (Unverified , 07/09/18) Discharge Summary Date of Admission Nov 23, 2020 at 02:31 Date of Discharge Discharge Date: Nov 29, 2020 MARIS SALDIVAR DO Nov 29, 2020 10:55
--- NOTE | 2020-11-29 11:44 | Physical Therapy Evaluation ---
PT Evaluation-General Medical Diagnosis Admission Date Nov 23, 2020 at 02:31 Medical Diagnosis: COPD Exacerbation, Respiratory Failure Onset Date: Nov 28, 2020 Therapy Diagnosis Therapy Diagnosis: Gait deficit, strength deficit Height/Weight Height (Feet): 5 Height (Inches): 6.00 Weight (Pounds): 297 Weight (Ounces): 6.0 Precautions Precautions/Isolations: Fall Prevention, Standard Precautions Referral Physician: Dr. Ahn Reason for Referral: Evaluation/Treatment Medical History Pertinent Medical History: COPD, HTN Social History Home: Single Level Current Living Status: Children Entry Into Home: Stairs With Railing PT Steps Into Home: 8 Prior Prior Level of Function SCALE: Activities may be completed with or without assistive devices. 6-Lbjoeralvj-uqlzhog completes the activity by him/herself with no assistance from a helper. 5-Set-up or Clean-up Assistance-helper sets up or cleans up; patient completes activity. Woodruff assists only prior to or following the activity. 4-Supervision or Touching Assistance-helper provides verbal cues and/or touching/steadying and/or contact guard assistance as patient completes activity. Assistance may be provided throughout the activity or intermittently. 3-Partial/Moderate Assistance-helper does LESS THAN HALF the effort. Woodruff l ifts, holds or supports trunk or limbs, but provides less than half the effort. 2-Substantial/Maximal Assistance-helper does MORE THAN HALF the effort. Woodruff lifts or holds trunk or limbs and provides more than half the effort. 5-Auhfadvrh-lcwdfq does ALL the effort. Patient does none of the effort to complete the activity. Or, the assistance of 2 or more helpers is required for t he patient to complete the activity. If activity was not attempted, code reason: 7-Patient Refused. 9-Not Applicable-not attempted and the patient did not perform the activity before the current illness, exacerbation or injury. 10-Not Attempted due to Environmental Limitations-(lack of equipment, weather restraints, etc.). 88-Not Attempted due to Medical Conditions or Safety Concerns. Bed Mobility: 6 Transfers (B,C,W/C): 6 Gait: 6 Stairs: 6 Indoor Mobility (Ambulation): Independent Stairs: Independent Prior Devices Use: None PT Evaluation-Current Subjective Patient sitting in chair upon PT arrival with Legs elevated, currently rates pain at 0/10 but notes she has a heel spur in her left foot that is very painful when lying supine. Patient reports she is on 3 L O2 at baseline at home. Reports she is only able to ambulate a few feet at a time at home. Objective Patient Orientation: Person, Place, Time, Situation Attachments: Oxygen ROM/Strength ROM Lower Extremities WFLs all planes bilaterally Strength Lower Extremities 3/5 bilaterally in all available planes Transfers Sit to Stand (QC): 4 Chair/Ges-hk-Jxtfa Xfer(QC): 4 Gait Does the Patient Walk?: Yes Mode of Locomotion: Walk Anticipated Mode of Locomotion: Walk Walk 10 feet (QC): 4 Gait Assistive Device: FWW Balance Sitting Static: Good Sitting Dynamic: Good Standing Static: Fair Standing Dynamic: Fair Assessment/Needs Patient tolerated treatment fair. She requires CGA for all observed transfers. Patient reports no use of FWW at home, however with gait today demonstrates improved gait ability and distance using the FWW than what she describes at home. Patient will benefit from use of FWW at home. Patient will also need to practice steps prior to D/C as she has 8 steps to enter her home, however does not have the endurance to safely practice them at this time. Patient in chair post treatment with all needs met, nursing notified, and call light in reach. Nurse notified that patient would benefit from use of FWW at home. Rehab Potential: Fair Equipment Needs FWW PT Buck Swamper Goals Buck Swamper Goals PT Detention Goals Time Frame: Dec 13, 2020 Roll Left & Right (QC): 6 Sit to Lying (QC): 6 Lying-Sitting on Side/Bed(QC): 6 Sit to Stand (QC): 6 Chair/Mlt-fi-Itnkj Xfer(QC): 6 Toilet Transfer (QC): 6 Does the Patient Walk: Yes Walk 10 feet (QC): 6 Walk 50ft with 2 Turns (QC): 6 1 Step (curb) (QC): 4 4 Steps (QC): 4 12 Steps (QC): 4 PT Plan Problem List Problem List: Activity Tolerance, Functional Strength, Safety, Balance, Gait, Transfer, Bed Mobility, ROM Treatment/Plan Treatment Plan: Continue Plan of Care Treatment Plan: Bed Mobility, Education, Functional Activity Estevan, Functional Strength, Group Therapy, Gait, Safety, Therapeutic Exercise, Transfers Treatment Duration: Jan 03, 2021 Frequency: 6 times per week Estimated Hrs Per Day: .25 hour per day Safety Risks/Education Patient Education: Gait Training, Transfer Techniques Teaching Recipient: Patient Teaching Methods: Demonstration, Discussion Response to Teaching: Verbalize Understanding, Return Demonstration Time/GCodes Time In: 1100 Time Out: 1130 Total Billed Treatment Time: 30 Total Billed Treatment Visit, Jonathan Cooper JOHN A PT Nov 29, 2020 11:44
--- NOTE | 2020-11-29 14:31 | Occupational Therapy Eval ---
OT Evaluation-General/PLF Medical Diagnosis Admission Date Nov 23, 2020 at 02:31 Medical Diagnosis: COPD Exacerbation, Respiratory Failure Onset Date: Nov 28, 2020 Therapy Diagnosis Therapy Diagnosis: decreased ADL status Height/Weight Height (Feet): 5 Height (Inches): 6.00 Weight (Pounds): 297 Weight (Ounces): 6.0 Precautions Precautions/Isolations: Fall Prevention, Standard Precautions Referral Physician: Dr. Ahn Referral Reason: Evaluation/Treatment Medical History Pertinent Medical History: COPD, HTN Additional Medical History COPD, HTN, , Knee surgery, Tonsillectomy, Exlap for endometriosis Current History ED via EMS due to SOB. Social History Home: Single Level Current Living Status: Children Entry Into Home: Stairs With Railing Steps Into Home: 8 ADL-Prior Level of Function SCALE: Activities may be completed with or without assistive devices. 4-Pgjudsjmqw-lygsumo completes the activity by him/herself with no assistance from a helper. 5-Set-up or Clean-up Assistance-helper sets up or cleans up; patient completes activity. [place] assists only prior to or following the activity. 4-Supervision or Touching Assistance-helper provides verbal cues and/or touching/steadying and/or contact guard assistance as patient completes activit y. Assistance may be provided throughout the activity or intermittently. 3-Partial/Moderate Assistance-helper does LESS THAN HALF the effort. [place] lifts, holds or supports trunk or limbs, but provides less than half the effort. 2-Substantial/Maximal Assistance-helper does MORE THAN HALF the effort. [place] lifts or holds trunk or limbs and provides more than half the effort. 5-Sozvuzwru-ridcmg does ALL the effort. Patient does none of the effort to complete the activity. Or, the assistance of 2 or more helpers is required for the patient to complete the activity. If activity was not attempted, code reason: 7-Patient Refused. 9-Not Applicable-not attempted and the patient did not perform the activity before the current illness, exacerbation or injury. 10-Not Attempted due to Environmental Limitations-(lack of equipment, weather restraints, etc.). 88-Not Attempted due to Medical Conditions or Safety Concerns. ADL PLOF Comments Pt reports being independent with most ADLs and functional mobility at OF. She has assistance 17 hours a week to help with cooking, cleaning, and they assist pt in/out of bathtub. Once pt is in the tub seated on SC, she is able to complete her shower, pt reports IND with dressing and toileting (using AE). Self Care: Needed Some Help Functional Cognition: Independent DME/Equipment: Bath Chair, Tub/Shower OT Current Status Subjective Pt seated in recliner, states she feels ready to discharge tomorrow. Mental Status/Objective Patient Orientation: Person, Place, Time, Situation Attachments: Oxygen Current Glasses/Contacts: Yes Upper Extremity ROM WFL Upper Extremity Coordination WFL Upper Extremity Strength grossly 3+/5 MMT ADL-Treatment Eating (QC): 6 (per pt report, IND with lunch) Oral Hygiene (QC): 5 (per clincial judgment) Toileting Hygiene (QC): 6 (IND per pt report.) Other Treatments Pt seated in recliner, agreeable to OT evaluation. OT educated pt on purpose and benefit of OT, she verbalized understanding. Pt provided information about PLOF and home set up, and participated in UE screen. Pt reports she has been going to the bathroom IND, declines toileting right now as she just returned from the bathroom. Pt states she has no concerns with her ability to complete ADLs at this time, as she is at her PLOF. OT educated pt on UE exercises in order to increase BUE strength, activity tolerance, and pulmonary function, pt completed x10 reps each for shoulder flexion and horizontal abduction. Pt verbalized understanding, states she has theraband and dumbbells at home, OT encouraged pt to continue exercises at discharge. Pt declined out of chair activities on this date. Per PT evaluation, pt requires CGA with ambulation/transfers. Post tx, pt seated in recliner, call light in reach and all needs met. Education OT Patient Education: Correct positioning, Energy conservation, Exercise program, Home exercise program, Modified ADL techniques, Progress toward Goal/Update tx plan, Purpose of tx/functional activities, Rehab process Teaching Recipient: Patient Teaching Methods: Discussion Response to Teaching: Verbalize Understanding OT Senior Living Goals Insurance Specialist Goals 1=Demonstrate adherence to instructed precautions during ADL tasks. 2=Patient will verbalize/demonstrate understanding of assistive devices/modifications for ADL. 3=Patient will improve strength/tolerance for activity to enable patient to perform ADL's. OT Education/Plan Problem List/Assessment Assessment: No Skilled OT Needs ID'd Pt indicates she is at her PLOF and independent with ADLs at this time. She has no concerns with her ability to complete ADLs at discharge. D/C from OT. Discharge Recommendations Plan/Recommendations: Discharge/Goals Met Treatment Plan/Plan of Care Patient would benefit from OT for education, treatment and training to promote independence in ADL's, mobility, safety and/or upper extremity function for ADL's. Plan of Care: ADL Retraining, Functional Mobility, UE Funct Exercise/Act Treatment Duration: Nov 29, 2020 Frequency: 1 time per week (eval only) Rehab Potential: Fair Time/GCodes Start Time: 14:10 Stop Time: 14:23 Total Time Billed (hr/min): 13 Billed Treatment Time 1, GOYO ULLOA OT Nov 29, 2020 14:31
--- NOTE | 2020-11-29 15:03 | Progress Note - Hospitalist ---
GHANSHYAMESTEBAN Jaret 11/29/20 1503: Subjective HPI/CC On Admission Date Seen by Provider: Nov 29, 2020 Time Seen by Provider: 10:15 Evelyn Rodriguez is 65yo female with a PMH of COPD who was admitted 11/23 for COPD exacerbation. Subjective/Events-last exam Today Ms. Rodriguez reports that she is feeling close to baseline. At home she requires 3L NC. Reports improved activity tolerance. Is happy with her current l evel of care. Has no questions nor concerns. Denies fevers, chills. Denies chest pain, palpitations. Denies diarrhea, constipation. Objective Exam Vital Signs Vital Signs Date Time Temp Pulse Resp B/P (MAP) Pulse Ox O2 Delivery O2 Flow Rate FiO2 11/29/20 13:30 92 High Flow N/C 3.00 11/29/20 12:00 36.0 71 18 123/58 11/24/20 04:25 45 Capillary Refill : Less Than 3 Seconds General Appearance: No Apparent Distress, WD/WN Respiratory: Chest Non Tender, Lungs Clear, Normal Breath Sounds, No Accessory Muscle Use, No Respiratory Distress Cardiovascular: Regular Rate, Rhythm, No Edema, No Murmur, Normal Peripheral Pulses Gastrointestinal: Normal Bowel Sounds Extremity: Normal Capillary Refill Neurologic/Psychiatric: Alert, Oriented x3, No Motor/Sensory Deficits Results/Procedures Lab Laboratory Tests 11/29/20 04:30 Patient resulted labs reviewed. Assessment/Plan Assessment and Plan Assess & Plan/Chief Complaint Evelyn Rodriguez is 65yo female with a PMH of COPD who was admitted 11/23 for COPD exacerbation. Current problems are the following: COPD exacerbation Acute respiratory failure -11/23: On admission required 6L NC. Chest xray not consistent with pna -11/29: Back to 3L NC Plan: -Continue PT/OT -Continue to monitor oxygen -Continue nebulizer treatment. -Continue steroid taper. 30 mg today. TONYA SALDIVAR DO 11/30/20 0538: Supervisory-Addendum Brief Verification & Attestation Participated in pt care: history, MDM, physical Personally performed: exam, history, MDM, supervision of care Care discussed with: Medical Student Procedures: n/a Results interpretation: Verified all documentation Verification and Attestation of Medical Student E/M Service A medical student performed and documented this service in my presence. I reviewed and verified all information documented by the medical student and made modifications to such information, when appropriate. I personally performed the physical exam and medical decision making. Tonya Saldivar, Nov 30, 2020,05:38 ESTEBAN MORRISSEY Nov 29, 2020 15:03 TONYA SALDIVAR DO Nov 30, 2020 05:38
[2020-11-29] MEDS: MAG CARB/AL HYDROX EXTRA STRENGTH TAB (GAVISCON ES) PO PRN ×2 (15:33→22:26)
[2020-11-30] MEDS: RT-ALBUTEROL/IPRATROPIUM 3 ML (DUONEB) VIAL INH SCH ×3 (02:11→10:36)
[2020-11-30] MEDS: inSUlin ASPART (NovoLOG) 1 UNIT/0.01 ML (CHARGE PER UNIT) SQ SCH ×2 (05:32→11:01)
[2020-11-30] MEDS: predniSONE 10 MG TAB PO SCH (06:19)
[2020-11-30] MEDS: RT--FLUTICASONE/SALMETEROL 232-14 (AIRDUO RespiCLICK) IH SCH (06:35)
[2020-11-30 07:17] LABS: BASOPHILS % (AUTO) 0 % (0-10); EOSINOPHILS # (AUTO) 0.3 10^3/uL (0.0-0.3); EOSINOPHILS % (AUTO) 3 % (0-10); HEMATOCRIT 41 % (35-52); HEMOGLOBIN 12.6 g/dL (11.5-16.0); LYMPHOCYTES # (AUTO) 3.3 10^3/uL (1.0-4.0); LYMPHOCYTES % (AUTO) 31 % (12-44); MEAN CORPUSCULAR HEMOGLOBIN 29 pg (25-34); MEAN CORPUSCULAR HGB CONC 31 g/dL (32-36); MEAN CORPUSCULAR VOLUME 95 fL (80-99); MONOCYTES # (AUTO) 0.7 10^3/uL (0.0-1.0); MONOCYTES % (AUTO) 6 % (0-12); NEUTROPHILS % (AUTO) 57 % (42-75); PLATELET COUNT 195 10^3/uL (130-400); WHITE BLOOD COUNT 10.5 10^3/uL (4.3-11.0)
[2020-11-30 07:27] LABS: ALBUMIN 3.4 GM/DL (3.2-4.5); POTASSIUM 4.2 MMOL/L (3.6-5.0)
[2020-11-30 07:29] LABS: CALCIUM 9.3 MG/DL (8.5-10.1)
[2020-11-30 07:30] LABS: TOTAL PROTEIN 5.9 GM/DL (6.4-8.2)
[2020-11-30 07:31] LABS: BILIRUBIN,TOTAL 0.4 MG/DL (0.1-1.0)
[2020-11-30 07:33] LABS: CREATININE SERUM 0.66 MG/DL (0.60-1.30); PHOSPHORUS 3.9 MG/DL (2.3-4.7)
[2020-11-30] MEDS: ENOXAPARIN 60 MG/0.6 ML (LOVENOX) SYR SC SCH (08:06)
[2020-11-30] MEDS: meTOprolol TARTRATE 25 MG (LOPRESSOR) TABLET PO SCH (08:06)
[2020-11-30] MEDS: MICONAZOLE 2% POWDER (DESENEX AF) 90 GM TOP SCH (08:07)
--- NOTE | 2020-11-30 09:31 | Discharge Summary ---
Discharge Summary Hospital Course Was the Problem List Reviewed?: Yes Problems/Dx: (1) COPD exacerbation Status: Acute (2) Respiratory failure with hypoxia and hypercapnia Status: Acute Qualifiers: Qualified Codes: J96.21 - Acute and chronic respiratory failure with hypoxia; J96.22 - Acute and chronic respiratory failure with hypercapnia (3) Morbid obesity Status: Chronic Hospital Course Date of Admission: Nov 23, 2020 at 02:31 Admission Diagnosis : Family Physician/Provider[place] [facility] [place] Date of Discharge: 11/30/20 Discharge Diagnosis: Acute hypoxic respiratory failure superimposed on chronic respiratory failure, exacerbation of COPD, Morbid obesity Hospital Course: Hospital course: Pt had a delay of discharge, she was admitted for exacerbation of COPD, respiratory failure, she underwent aggressive treatment but had a delay of discharge because PT wanted to work with her on stairs and Pt was deemed stable for discharge. Labs and Pending Lab Test: Laboratory Tests 11/29/20 10:46: Glucometer 113H 11/29/20 15:57: Glucometer 134H 11/29/20 20:11: Glucometer 114H 11/30/20 05:28: Glucometer 86 11/30/20 07:05: White Blood Count 10.5, Red Blood Count 4.36, Hemoglobin 12.6, Hematocrit 41, Mean Corpuscular Volume 95, Mean Corpuscular Hemoglobin 29, Mean Corpuscular Hemoglobin Concent 31L, Red Cell Distribution Width 14.0, Platelet Count 195, Mean Platelet Volume 11.0, Immature Granulocyte % (Auto) 2, Neutrophils (%) (Auto) 57, Lymphocytes (%) (Auto) 31, Monocytes (%) (Auto) 6, Eosinophils (%) (Auto) 3, Basophils (%) (Auto) 0, Neutrophils # (Auto) 6.0, Lymphocytes # (Auto) 3.3, Monocytes # (Auto) 0.7, Eosinophils # (Auto) 0.3, Basophils # (Auto) 0.0, Immature Granulocyte # (Auto) 0.2H, Sodium Level 139, Potassium Level 4.2, Chloride Level 98, Carbon Dioxide Level 30, Anion Gap 11, Blood Urea Nitrogen 17, Creatinine 0.66, Estimat Glomerular Filtration Rate 90, BUN/Creatinine Ratio 26, Glucose Level 88, Calcium Level 9.3, Corrected Calcium 9.8, Phosphorus Level 3.9, Magnesium Level 2.0, Total Bilirubin 0.4, Aspartate Amino Transf (AST/SGOT) 24, Alanine Aminotransferase (ALT/SGPT) 77H, Alkaline Phosphatase 36L, Total Protein 5.9L, Albumin 3.4 Microbiology 11/25/20 Gram Stain - Final, Complete 11/25/20 Sputum Culture - Final, Complete Usual upper respiratory monica 11/23/20 Urine Culture - Final, Complete See Comments 11/23/20 Blood Culture - Final, Complete No growth Home Meds Active Prednisone 10 Mg Tab.ds.pk 10 Mg PO DAILY Take 4 tabs(40mg)daily,decrease by 1 tab(10MG)daily. Lotrimin AF (Miconazole Nitrate) 90 Gm Powder 0 Gm TOP BID Reported Advair 250-50 Diskus (Fluticasone/Salmeterol) 1 Each Blst.w.dev 1 Each IH BID PRN Antacid Extra Strength Chw Tab (Magnesium Carbonate/Al Hydrox) 1 Each Tab.chew 1-2 Each PO PRN PRN Ibuprofen 200 Mg Capsule 400 Mg PO Q6H PRN Ventolin Hfa (Albuterol Sulfate) 18 Gm Hfa.aer.ad 2 Puff INH Q6H PRN Metoprolol Tartrate 25 Mg Tablet 25 Mg PO BID WITH MEALS Assessment/Pt Instructions [facility] in 1 week Discharge Planning: <30 minutes discharge planning Discharge Instructions Discharge Diet: No Restrictions Discharge Physical Examination Vital Signs Vital Signs Date Time Temp Pulse Resp B/P (MAP) Pulse Ox O2 Delivery O2 Flow Rate FiO2 11/30/20 08:00 High Flow N/C 3.00 11/30/20 07:40 36.1 77 22 109/61 90 11/24/20 04:25 45 General Appearance: No Apparent Distress, WD/WN, Chronically ill, Obese Allergies: Coded Allergies: No Known Drug Allergies (Unverified , 07/09/18) Discharge Summary Date of Admission Nov 23, 2020 at 02:31 Date of Discharge Discharge Date: Nov 29, 2020 Discharge Diagnosis (1) COPD exacerbation Status: Acute (2) Respiratory failure with hypoxia and hypercapnia Status: Acute Qualifiers: Qualified Codes: J96.21 - Acute and chronic respiratory failure with hypoxia; J96.22 - Acute and chronic respiratory failure with hypercapnia (3) Morbid obesity Status: Chronic MARIS SALDIVAR DO Nov 30, 2020 09:31
--- NOTE | 2020-11-30 11:44 | Physical Therapy Progress Note ---
Therapy Progress Note Patient refused to attempt steps stating, "I feel strong enough and I know I can do it. I've be up to the bathroom by myself and I'm going home." PT to dismiss patient from services at this time. 1 visit ARSALAN MANCILLA PT Nov 30, 2020 11:44
[2020-11-30 12:42] VITALS: BP 109/61
--- NOTE | 2020-11-30 14:50 | Progress Note ---
Progress Note Evelyn Rodriguez is a 65yo female with a past medical history of COPD and possible KANU who was admitted 11/23 for COPD exacerbation and acute on chronic hypoxic respiratory failure. At baseline patient requires 3L nasal canula. However, on 11/23 patient experienced severe worsening of dyspnea and was admitted to [facility] via EMS. On admission patient required increased supplemental oxygen via NIV bilevel. ABG was consistent with hypercapnic respiratory acidosis. She was started on solumedrol, azithromycin and breathing treatments. By 11/25 patient was transitioned to high flow nasal canula. By 11/26 she was transitioned to normal nasal canula. On 11/27 patient was transitioned to oral prednisone taper, starting at 50mg. By 11/29 patient was requiring 3l per nasal canula, which is her baseline. Patient was medically stable and satisfied with her care. She was discharged on 11/30 and will continue oral prednisone taper. All questions and concerns were answered. ESTEBAN MORRISSEY Nov 30, 2020 14:50
== END 2020-11-30 12:42 | disposition home or self-care (01) | DRG 189 ==
LOC: EDUNIT# 00:17 → ER 00:19 → ICU 02:31 → 4TH 11-25 16:24
PROVIDERS: ADMIT Family Medicine; ATTEND Internal Medicine
PROC: 5A09557 Assistance with Respiratory Ventilation, Greater than 96 Consecutive Hours, Continuous Positive Airway Pressure (ICD-10-PCS; principal; 2020-11-23)
PROC: 5A0955A Assistance with Respiratory Ventilation, Greater than 96 Consecutive Hours, High Flow/Velocity Cannula (ICD-10-PCS; 2020-11-23)
DX: J96.21 Acute and chronic respiratory failure with hypoxia (principal); J44.1 Chronic obstructive pulmonary disease with (acute) exacerbation; E87.2 Acidosis; Z68.43 Body mass index [BMI] 50.0-59.9, adult; J96.22 Acute and chronic respiratory failure with hypercapnia; E66.01 Morbid (severe) obesity due to excess calories; I10 Essential (primary) hypertension; G47.33 Obstructive sleep apnea (adult) (pediatric); Z87.891 Personal history of nicotine dependence; Z20.822 Contact with and (suspected) exposure to COVID-19; Z99.81 Dependence on supplemental oxygen
CPT/HCPCS: 36415; 36600; 71045; 80048; 80053; 81000; 82805; 82947; 83605; 83735; 83880; 84100; 84145; 85025; 85610; 85730; 86141; 87040; 87070; 87081; 87088; 87205; 87636; 94640; 94660; 94664; 94760; 96365; 96375; 99291

== ENCOUNTER → 2021-01-24 | Outpatient (CLI) | payer MEDICARE, MEDICAID ==
[~2021-01-24] MED LIST changes: -CLIN150C18 PO; +CLIN150C20 PO; +FLUT1DIS26 IH; +MICO90PO TOP; +PRED10TA22 PO
--- NOTE | 2021-01-24 20:14 | Diagnostic Imaging Report ---
CT Lung Screening INDICATION: Screening for lung cancer, 30 pack year history of smoking, quit smoking 2-1/2 years prior, COPD TECHNIQUE: Noncontrast, low-dose CT imaging performed according to the lung cancer screening protocol. Auto Exposure Controls were utilize during the CT exam to meet ALARA standards for radiation dose reduction. COMPARISON:08/02/2018 FINDINGS:The left lobe of the thyroid gland is enlarged with a peripherally calcified 1.9 cm hypodense nodule within the left thyroid lobe, not significantly changed since the prior examination. No significant adenopathy within the chest. Mild scattered vascular calcifications without aneurysmal dilatation of the thoracic aorta. The heart is within normal limits in size. No pericardial effusion. No pleural effusion. Tiny hiatal hernia. The trachea is patent. No pneumothorax. 0.3 cm left upper lobe pulmonary nodule, series 2, image 103, appears unchanged from the prior examination. Minimal scarring and/or atelectasis within the right middle lobe. The lungs are otherwise clear. The minimally visualized upper abdomen is unremarkable. Mild scattered osseous degenerative changes without acute osseous abnormality. IMPRESSION: No new or suspicious pulmonary nodule or mass. Stable peripherally calcified left thyroid nodule with associated left thyroid enlargement. Additional stable findings as above. LUNG-RADS CATEGORY:2: Benign appearance or behavior FOLLOW-UP: Continued annual low-dose CT of the chest in 12 months. Dictated by: Dictated on workstation # [id number]
== END ==
LOC: RAD 17:32
PROVIDERS: ATTEND Family Medicine
DX: Z12.2 Encounter for screening for malignant neoplasm of respiratory organs (principal); E04.1 Nontoxic single thyroid nodule; J44.9 Chronic obstructive pulmonary disease, unspecified; R91.1 Solitary pulmonary nodule; Z87.891 Personal history of nicotine dependence
CPT/HCPCS: 71271

== ENCOUNTER → 2021-01-31 | Outpatient (CLI) | payer MEDICARE, MEDICAID | LOC: LABNPT 06:06 | PROVIDERS: ATTEND Nurse Practitioner Family | DX: Z01.89 Encounter for other specified special examinations (principal); Z20.822 Contact with and (suspected) exposure to COVID-19 | CPT/HCPCS: 87635 ==

== ENCOUNTER 2021-03-04 14:28 | Inpatient (IN) | payer MEDICARE, MEDICAID ==
[~2021-03-04] VITALS: Ht 167.7 cm; Wt 149.8 kg
[2021-03-04] MEDS ORDERED: ONDANSETRON 4 MG/2 ML (SDV) Z0FRAN IVP ONE (14:45)
[2021-03-04] MEDS ORDERED: IBUPROFEN 800 MG (MOTRIN) TAB PO ONE (14:45)
[2021-03-04 14:58] LABS: ABG BASE EXCESS 8.3 MMOL/L (-2.5-2.5); ABG OXYGEN SATURATION 98 % (94-100); ABG PCO2 60 MMHG (35-45); ABG PH 7.37 (7.37-7.43); ABG PO2 106 MMHG (79-93); ABG TCO2 34.7 MMOL/L (21.0-31.0)
--- NOTE | 2021-03-04 14:58 | ED Dyspnea ---
General Stated Complaint: SOA Source of Information: Patient, EMS Exam Limitations: No Limitations History of Present Illness Date Seen by Provider: Mar 04, 2021 Time Seen by Provider: 14:55 Initial Comments To ER by EMS from home with reports of shortness of breath x2 days. EMS found her to be febrile at a temperature of 102 degrees. She has had a Covid vaccine. She has a history of COPD and is oxygen dependent at 2 L per nasal cannula. EMS increase that to 3 L and gave a DuoNeb in route. Timing/Duration: Other (2 days) Severity: Moderate Prior Episodes/Possible Cause: No Prior Episodes Associated Symptoms: Cough Allergies and Home Medications Allergies Coded Allergies: No Known Drug Allergies (Unverified , 07/09/18) Patient Home Medication List Home Medication List Reviewed: Yes Albuterol Sulfate (Ventolin Hfa) 18 Gm Hfa.aer.ad, 2 PUFF INH Q6H PRN for SHORTNESS OF BREATH, (Reported) Entered as Reported by: JAYNA LARA on 11/24/19 1131 Fluticasone/Salmeterol (Advair 250-50 Diskus) 1 Each Blst.w.dev, 1 EACH IH BID PRN for SHORTNESS OF BREATH, (Reported) Entered as Reported by: JAYNA LARA on 11/23/20 1225 Ibuprofen (Ibuprofen) 200 Mg Capsule, 400 MG PO Q6H PRN for PAIN-MILD (1-4), (Reported) Entered as Reported by: JAYNA LARA on 11/24/19 1131 Magnesium Carbonate/Al Hydrox (Antacid Extra Strength Chw Tab) 1 Each Tab.chew, 1-2 EACH PO PRN PRN for HEARTBURN/INDIGESTION, (Reported) Entered as Reported by: JAYNA LARA on 11/24/19 1131 Metoprolol Tartrate (Metoprolol Tartrate) 25 Mg Tablet, 25 MG PO BID WITH MEALS, (Reported) Entered as Reported by: JAYNA LARA on 11/24/19 1131 Miconazole Nitrate (Lotrimin AF) 90 Gm Powder, 0 GM TOP BID Prescribed by: MARIS SALDIVAR on 11/29/20 1055 Prednisone (Prednisone) 10 Mg Tab.ds.pk, 10 MG PO DAILY Prescribed by: MARIS SALDIVAR on 11/29/20 1055 Review of Systems Review of Systems Constitutional: see HPI EENTM: see HPI Respiratory: see HPI, cough, short of breath Genitourinary: no symptoms reported Musculoskeletal: no symptoms reported Skin: no symptoms reported Psychiatric/Neurological: No Symptoms Reported Endocrine: No Symptoms Reported Past Hdpyagz-Sgecyl-Gzdard Hx Seasonal Allergies Seasonal Allergies: No Past Medical History Surgeries: Yes ( X 1; LEFT KNEE SURGERY; TONSILLECTOMY) Section, Orthopedic, Tonsillectomy Respiratory: Yes (O2 DEPENDENT at 3 L/min) COPD Cardiac: Yes Hypertension Neurological: No Reproductive Disorders: Yes Female Reproductive Disorders: Endometriosis, Ovarian Cyst [employer]CH[employer] History: Menopausal Genitourinary: No Gastrointestinal: No Musculoskeletal: Yes (LEFT KNEE SURGERY) Endocrine: Yes (MORBIDLY OBESE) HEENT: No Cancer: No Psychosocial: No Integumentary: No Blood Disorders: No Family Medical History Cardiovascular disease 19 FATHER 19 MOTHER Diabetes mellitus 19 FATHER Physical Exam Vital Signs Vital Signs - First Documented 03/04/21 14:55 Temp 39.6 Capillary Refill : Height, Weight, BMI Height: 5'6.00" Weight: 297lbs. 6.0oz. 133.784640tg; 53.40 BMI Method:Actual General Appearance: WD/WN, Moderate Distress, Obese, Other (She is febrile at 103, she is lethargic, tremors bilateral upper extremities.) HEENT: PERRL/EOMI, TMs Normal Neck: Full Range of Motion, Normal Inspection Respiratory: Accessory Muscle Use, Decreased Breath Sounds, Respiratory Distress, Wheezing (Oxygen saturation during breathing treatment on oxygen at 10 L is 90%. Switched over to BiPAP at 16/8 50% FiO2 and she is tolerating this well with resultant increase up to 97% SPO2.) Cardiovascular: Regular Rate, Rhythm, Normal Peripheral Pulses Gastrointestinal: Non Tender, Soft Neurologic/Psychiatric: Alert, Oriented x3 Skin: Normal Color, Warm/Dry Focused Exam Lactate Level 03/04/21 14:40: Lactic Acid Level 2.60*H Lactic Acid Level Laboratory Tests Test 03/04/21 14:40 Lactic Acid Level 2.60 MMOL/L (0.50-2.00) *H Progress/Results/Core Measures Results/Orders Lab Results Laboratory Tests Test 03/04/21 14:40 03/04/21 14:49 03/04/21 14:50 Range/Units White Blood Count 17.0 H 4.3-11.0 10^3/uL Red Blood Count 4.97 3.80-5.11 10^6/uL Hemoglobin 14.4 11.5-16.0 g/dL Hematocrit 48 35-52 % Mean Corpuscular Volume 97 80-99 fL Mean Corpuscular Hemoglobin 29 25-34 pg Mean Corpuscular Hemoglobin Concent 30 L 32-36 g/dL Red Cell Distribution Width 12.8 10.0-14.5 % Platelet Count 198 130-400 10^3/uL Mean Platelet Volume 10.7 9.0-12.2 fL Immature Granulocyte % (Auto) 1 % Neutrophils (%) (Auto) 93 H 42-75 % Lymphocytes (%) (Auto) 2 L 12-44 % Monocytes (%) (Auto) 3 0-12 % Eosinophils (%) (Auto) 1 0-10 % Basophils (%) (Auto) 0 0-10 % Neutrophils # (Auto) 15.9 H 1.8-7.8 10^3/uL Lymphocytes # (Auto) 0.4 L 1.0-4.0 10^3/uL Monocytes # (Auto) 0.6 0.0-1.0 10^3/uL Eosinophils # (Auto) 0.1 0.0-0.3 10^3/uL Basophils # (Auto) 0.0 0.0-0.1 10^3/uL Immature Granulocyte # (Auto) 0.1 0.0-0.1 10^3/uL Neutrophils % (Manual) 86 % Lymphocytes % (Manual) 7 % Monocytes % (Manual) 3 % Band Neutrophils 4 % Blood Morphology Comment NORMAL Prothrombin Time 13.8 12.2-14.7 SEC INR Comment 1.0 0.8-1.4 Activated Partial Thromboplast Time 25 24-35 SEC D-Dimer 0.78 H 0.00-0.49 UG/ML Sodium Level 137 135-145 MMOL/L Potassium Level 4.4 3.6-5.0 MMOL/L Chloride Level 95 L 98-107 MMOL/L Carbon Dioxide Level 31 21-32 MMOL/L Anion Gap 11 5-14 MMOL/L Blood Urea Nitrogen 14 7-18 MG/DL Creatinine 0.68 0.60-1.30 MG/DL Estimat Glomerular Filtration Rate 87 BUN/Creatinine Ratio 21 Glucose Level 135 H 70-105 MG/DL Lactic Acid Level 2.60 *H 0.50-2.00 MMOL/L Calcium Level 9.2 8.5-10.1 MG/DL Corrected Calcium 9.3 8.5-10.1 MG/DL Total Bilirubin 0.5 0.1-1.0 MG/DL Aspartate Amino Transf (AST/SGOT) 16 5-34 U/L Alanine Aminotransferase (ALT/SGPT) 17 0-55 U/L Alkaline Phosphatase 52 40-136 U/L Total Protein 7.4 6.4-8.2 GM/DL Albumin 3.9 3.2-4.5 GM/DL Procalcitonin 0.87 H <0.10 NG/ML Influenza Type A (RT-PCR) Not Detected Not Detecte Influenza Type B (RT-PCR) Not Detected Not Detecte SARS-CoV-2 RNA (RT-PCR) Not Detected Not Detecte Blood Gas Puncture Site UNK Blood Gas Patient Temperature 103.2 Arterial Blood pH 7.37 7.37-7.43 Arterial Blood Partial Pressure CO2 60 H 35-45 MMHG Arterial Blood Partial Pressure O2 106 H 79-93 MMHG Arterial Blood HCO3 33 H 23-27 MMOL/L Arterial Blood Total CO2 34.7 H 21.0-31.0 MMOL/L Arterial Blood Oxygen Saturation 98 94-100 % Arterial Blood Base Excess 8.3 H -2.5-2.5 MMOL/L Jaxson Test UNK Blood Gas Ventilator Setting NA Blood Gas Inspired Oxygen UNK My Orders Orders - DREA ELLISON APRN Arterial Blood Gas (03/04/21 14:32) Covid 19 Inhouse Test (03/04/21 14:32) Influenza A And B By Pcr (03/04/21 14:32) Cbc With Automated Diff (03/04/21 14:32) Comprehensive Metabolic Panel (03/04/21 14:32) Blood Culture (03/04/21 14:32) Sputum Culture (03/04/21 14:32) Urinalysis (03/04/21 14:32) Urine Culture (03/04/21 14:32) Protime With Inr (03/04/21 14:32) Partial Thromboplastin Time (03/04/21 14:32) Chest 1 View, Ap/Pa Only (03/04/21 14:32) Ed Iv/Invasive Line Start (03/04/21 14:32) Ed Iv/Invasive Line Start (03/04/21 14:32) Vital Signs Adult Sepsis Patie Q15M (03/04/21 14:32) O2 (03/04/21 14:32) Remove Rings In Anticipation O (03/04/21 14:32) Lactic Acid Analyzer (03/04/21 14:32) Procalcitonin (Pct) (03/04/21 14:32) Ibuprofen Tablet (Motrin Tablet) (03/04/21 14:45) Ondansetron Injection (Zofran Injectio (03/04/21 14:45) Fibrin Degradation Products (03/04/21 15:10) Manual Differential (03/04/21 14:40) Ct Angio Chest W (03/04/21 15:33) Methylprednisolone Sod Succ (Solu-Medrol (03/04/21 15:45) Cefepime Injection (Maxipime Injection) (03/04/21 15:45) Iohexol Injection (Omnipaque 350 Mg/Ml 1 (03/04/21 16:00) Received Contrast (Hold Metformin- Contr (03/04/21 16:00) Ns (Ivpb) (Sodium Chloride 0.9% Ivpb Bag (03/04/21 16:00) Ed Admission (Communication) (03/04/21 16:55) Medications Given in ED Current Medications Medications Dose Ordered Sig/Rhona Route Start Time Stop Time Status Last Admin Dose Admin Cefepime HCl 1000 mg/Sodium Chloride 50 ml @ 100 mls/hr ONCE ONCE IV 03/04/21 15:45 03/04/21 16:14 DC 03/04/21 16:02 100 MLS/HR Ibuprofen 800 mg ONCE ONCE PO 03/04/21 14:45 03/04/21 14:46 DC 03/04/21 14:55 800 MG Iohexol 100 ml ONCE ONCE IV 03/04/21 16:00 03/04/21 16:02 DC 03/04/21 16:19 88 ML Methylprednisolone Sodium Succinate 125 mg ONCE ONCE IVP 03/04/21 15:45 03/04/21 15:46 DC 03/04/21 16:05 125 MG Ondansetron HCl 4 mg ONCE ONCE IVP 03/04/21 14:45 03/04/21 14:46 DC 03/04/21 14:54 4 MG Sodium Chloride 100 ml ONCE ONCE IV 03/04/21 16:00 03/04/21 16:02 DC 03/04/21 16:19 80 ML Vital Signs/I&O 03/04/21 14:55 Temp 39.6 Departure Communication (Admissions) NAME: NORMA HASSAN REC#: [id number] PT STATUS: REG ER : 1955 PHYSICIAN: DREA ELLISON APRN ADMIT DATE: 03/04/21/ER Signed Date of Exam:03/04/21 CT ANGIO CHEST W PROCEDURE: CT angiography of the chest with contrast. TECHNIQUE: Multiple contiguous axial images were obtained through the chest after uneventful bolus administration of intravenous contrast. 3D reconstructed CTA MIP acquisitions were also performed. Auto Exposure Controls were utilized during the CT exam to meet ALARA standards for radiation dose reduction. INDICATION: Shortness of breath with hypoxia. EXAMINATION: CTA chest 03/04/2021 COMPARISON: 01/24/2021 FINDINGS: As previously noted there is a partially calcified mass or nodule within the left lobe of the thyroid gland stable from recent imaging. Scattered minimally prominent lymph nodes seen within the mediastinum. There is a mildly prominent lymph node within the right hilum. There is atherosclerotic disease. There are no central or proximal segmental pulmonary emboli. No nodules or masses seen in the lungs with bibasilar atelectasis or scarring noted. There are no pericardial or pleural effusions. There is a small hiatal hernia. Visualized upper abdomen demonstrates suspected cholelithiasis. There is hepatic steatosis. There is a lesion in the right adrenal gland nonspecific. This could be better characterized using adrenal protocol CT on a nonemergent basis. The osseous structures unremarkable for acute abnormality. IMPRESSION: 1. No central or proximal segmental pulmonary embolus. 2. Persistent stable mass partially calcified left lobe of the thyroid. 3. Nonspecific lesion in the right adrenal gland; see above discussion and recommendations. Other incidental findings as discussed above. Dictated by: Dictated on workstation # [id number] Dict: 03/04/21 1642 Trans: 03/04/21 165 KURTIS [id number] Interpreted by: DOMINGO SMITH MD Electronically signed by: DOMINGO SMITH MD 03/04/211652 Impression Primary Impression: Respiratory failure with hypoxia and hypercapnia Additional Impression: COPD exacerbation Disposition: ADMITTED INPATIENT Condition: Stable Admissions Decision to Admit Reason: Admit from ER (General) Decision to Admit/Date: Mar 04, 2021 Time/Decision to Admit Time: 14:58 Departure-Patient Inst. Referrals: [facility] (PCP/Family) Primary Care Physician DREA ELLISON APRN Mar 04, 2021 14:58
[2021-03-04 14:59] LABS: BASOPHILS % (AUTO) 0 % (0-10); EOSINOPHILS # (AUTO) 0.1 10^3/uL (0.0-0.3); EOSINOPHILS % (AUTO) 1 % (0-10); HEMATOCRIT 48 % (35-52); HEMOGLOBIN 14.4 g/dL (11.5-16.0); LYMPHOCYTES # (AUTO) 0.4 10^3/uL (1.0-4.0); LYMPHOCYTES % (AUTO) 2 % (12-44); MEAN CORPUSCULAR HEMOGLOBIN 29 pg (25-34); MEAN CORPUSCULAR HGB CONC 30 g/dL (32-36); MEAN CORPUSCULAR VOLUME 97 fL (80-99); MEAN PLATELET VOLUME 10.7 fL (9.0-12.2); MONOCYTES # (AUTO) 0.6 10^3/uL (0.0-1.0); MONOCYTES % (AUTO) 3 % (0-12); NEUTROPHILS # (AUTO) 15.9 10^3/uL (1.8-7.8); NEUTROPHILS % (AUTO) 93 % (42-75); PLATELET COUNT 198 10^3/uL (130-400)
[2021-03-04 15:00] LABS: PATIENT TEMP 103.2
[2021-03-04 15:05] LABS: ALBUMIN 3.9 GM/DL (3.2-4.5); POTASSIUM 4.4 MMOL/L (3.6-5.0)
[2021-03-04 15:06] LABS: CALCIUM 9.2 MG/DL (8.5-10.1)
[2021-03-04 15:07] LABS: TOTAL PROTEIN 7.4 GM/DL (6.4-8.2)
[2021-03-04 15:09] LABS: BILIRUBIN,TOTAL 0.5 MG/DL (0.1-1.0)
[2021-03-04 15:11] LABS: CREATININE SERUM 0.68 MG/DL (0.60-1.30)
[2021-03-04 15:17] LABS: PROTHROMBIN TIME PATIENT 13.8 SEC (12.2-14.7)
[2021-03-04] MEDS ORDERED: methylPREDNISolone 125 MG (Solu-MEDROL) VIAL IVP ONE (15:45)
[2021-03-04] MEDS ORDERED: CEFEPIME INJECTION 1,000 MG in NS (IVPB) 50 ML IV ONE (15:45)
[2021-03-04] MEDS ORDERED: HOLD METFORMIN - RECEIVED CONTRAST 20 ML VIAL IV SCH (16:00)
[2021-03-04] MEDS ORDERED: NS 100 ML (IVPB) BAG IV ONE (16:00)
[2021-03-04] MEDS ORDERED: IOHEXOL 350 MG/ML 100 ML (OMNIPAQUE 350) VIAL IV ONE (16:00)
[2021-03-04 16:15] LABS: BAND NEUTROPHILS 4 %; LYMPHOCYTES % (MANUAL) 7 %; MONOCYTES % (MANUAL) 3 %; NEUTROPHILS % (MANUAL) 86 %; RBC MORPH NORMAL
--- NOTE | 2021-03-04 16:28 | Diagnostic Imaging Report ---
EXAMINATION: Portable chest is compared to prior study from November 25, 2020. INDICATION: Shortness of breath. FINDINGS: Examination is limited by patient rotation. It accentuates the right heart border. There does appear to be cardiomegaly as well as some prominence of the central pulmonary vascularity. The diaphragms appear to be in part obscured by overlying soft tissues. There is no convincing evidence of new dense consolidation. IMPRESSION: Large cardiac silhouette with prominent central pulmonary vascularity. No convincing evidence of dense alveolar consolidation. Assessment is somewhat limited by rotation and also apparent large body habitus. Dictated by: Dictated on workstation # [id number]
--- NOTE | 2021-03-04 16:52 | Diagnostic Imaging Report ---
PROCEDURE: CT angiography of the chest with contrast. TECHNIQUE: Multiple contiguous axial images were obtained through the chest after uneventful bolus administration of intravenous contrast. 3D reconstructed CTA MIP acquisitions were also performed. Auto Exposure Controls were utilized during the CT exam to meet ALARA standards for radiation dose reduction. INDICATION: Shortness of breath with hypoxia. EXAMINATION: CTA chest 03/04/2021 COMPARISON: 01/24/2021 FINDINGS: As previously noted there is a partially calcified mass or nodule within the left lobe of the thyroid gland stable from recent imaging. Scattered minimally prominent lymph nodes seen within the mediastinum. There is a mildly prominent lymph node within the right hilum. There is atherosclerotic disease. There are no central or proximal segmental pulmonary emboli. No nodules or masses seen in the lungs with bibasilar atelectasis or scarring noted. There are no pericardial or pleural effusions. There is a small hiatal hernia. Visualized upper abdomen demonstrates suspected cholelithiasis. There is hepatic steatosis. There is a lesion in the right adrenal gland nonspecific. This could be better characterized using adrenal protocol CT on a nonemergent basis. The osseous structures unremarkable for acute abnormality. IMPRESSION: 1. No central or proximal segmental pulmonary embolus. 2. Persistent stable mass partially calcified left lobe of the thyroid. 3. Nonspecific lesion in the right adrenal gland; see above discussion and recommendations. Other incidental findings as discussed above. Dictated by: Dictated on workstation # [id number]
[2021-03-04] MEDS ORDERED: ALPRAZolam 0.25 MG (XANAX) TAB PO PRN (17:45)
[2021-03-04] MEDS ORDERED: MILK OF MAGNESIA 400 MG/5 ML 30 ML UDC PO PRN (17:45)
[2021-03-04] MEDS ORDERED: ONDANSETRON 4 MG (ZOFRAN) ORAL DISSOLVE TAB PO PRN (17:45)
[2021-03-04] MEDS ORDERED: diphenhydrAMINE 50 MG/ML INJ (BENADRYL) IVP PRN (17:45)
[2021-03-04] MEDS ORDERED: LOPERAMIDE 2 MG (IMODIUM) TABLET PO PRN (17:45)
[2021-03-04] MEDS ORDERED: diphenhydrAMINE 25 MG TAB (BENADRYL) PO PRN (17:45)
[2021-03-04] MEDS ORDERED: NALOXONE 0.4 MG/ML 1 ML (NARCAN) VIAL IV PRN (17:45)
[2021-03-04] MEDS ORDERED: LACTULOSE SYRUP 10GM/15ML (ENULOSE) 30ML UDC PO PRN (17:45)
[2021-03-04] MEDS ORDERED: polyethylene glycoL POWDER 17 GM (MIRALAX) PACK PO PRN (17:45)
[2021-03-04] MEDS ORDERED: ONDANSETRON 4 MG/2 ML (SDV) Z0FRAN IV PRN (17:45)
[2021-03-04] MEDS ORDERED: guaiFENesin/CODEINE (ROBITUSSIN AC) 10ML UDC PO PRN (17:45)
[2021-03-04] MEDS ORDERED: ANTACID SUSP 30 ML UDC (MYLANTA) PO PRN (17:45)
[2021-03-04] MEDS ORDERED: MELATONIN 3 MG TABLET PO PRN (17:45)
[2021-03-04] MEDS ORDERED: CALCIUM CARBONATE 500 MG (TUMS) TAB.CHEW PO PRN (17:45)
[2021-03-04] MEDS ORDERED: BISACODYL 10 MG SUPP (DULCOLAX) PR PRN ×2 (17:45)
[2021-03-04] MEDS ORDERED: morphine INJ 4 MG/ML 1 ML (VIAL/SYRINGE) IV PRN (17:45)
[2021-03-04] MEDS ORDERED: ENOXAPARIN 40 MG/0.4 ML (LOVENOX) SYR SC SCH (18:00)
[2021-03-04] MEDS ORDERED: methylPREDNISolone 125 MG (Solu-MEDROL) VIAL IVP SCH (18:00)
[2021-03-04] MEDS ORDERED: methylPREDNISolone 40 MG/ML (Solu-MEDROL) VIAL IV SCH (18:00)
--- NOTE | 2021-03-04 18:31 | Tele-ICU Consult ---
History of Present Illness History of Present Illness Date Seen by Provider: Mar 04, 2021 Time Seen by Provider: 18:30 Date of Admission Allergies and Home Medications Allergies Coded Allergies: No Known Drug Allergies (Unverified , 07/09/18) Home Medications Albuterol Sulfate 18 Gm Hfa.aer.ad, 2 PUFF INH Q6H PRN for SHORTNESS OF BREATH, (Reported) Fluticasone/Salmeterol 1 Each Blst.w.dev, 1 EACH IH BID PRN for SHORTNESS OF BREATH, (Reported) Ibuprofen 200 Mg Capsule, 400 MG PO Q6H PRN for PAIN-MILD (1-4), (Reported) Magnesium Carbonate/Al Hydrox 1 Each Tab.chew, 1-2 EACH PO PRN PRN for HEARTBURN/INDIGESTION, (Reported) Metoprolol Tartrate 25 Mg Tablet, 25 MG PO BID WITH MEALS, (Reported) Miconazole Nitrate 90 Gm Powder, 0 GM TOP BID Prescribed by: MARIS SALDIVAR on 11/29/20 1055 Prednisone 10 Mg Tab.ds.pk, 10 MG PO DAILY Take 4 tabs(40mg)daily,decrease by 1 tab(10MG)daily. Prescribed by: MARIS SALDIVAR on 11/29/20 1055 Past Medical/Social/Family Hx Patient Social History Tobacco Use?: No Substance use?: No Alcohol Use?: No Pt stated abuse/neglect: No Immunizations Up To Date Influenza Vaccine Up-to-Date: No; Not Current First/Initial COVID19 Vaccinat: spring 2020- Second COVID19 Vaccination Jairon: spring 2020- Tetanus Booster (TDap): Unknown Hepatitis A: Yes Hepatitis B: Yes Current Status Advance Directives: Yes Advance Directive Location: Home Communicates: Verbally Primary Language: Gibraltarian Preferred Spoken Language: Gibraltarian Is interpretation needed?: No Sensory deficits: Vision impairment Implanted or Applied Medical D: CPAP Past Medical History PMHx: COPD HTN SurgHx: Knee surgery Tonsillectomy Exlap for endometriosis Review of Systems Constitutional: see HPI Focused Exam Lactate Level 03/04/21 14:40: Lactic Acid Level 2.60*H 03/04/21 18:16: Height, Weight, BMI Height: 5'6.00" Weight: 297lbs. 6.0oz. 133.154814pn; 50.91 BMI Method:Actual Lactic Acid Level Laboratory Tests Test 03/04/21 14:40 03/04/21 18:16 Lactic Acid Level 2.60 MMOL/L (0.50-2.00) *H Exam Exam Patient acknowledged, consented, and participated in this virtual visit which was conducted using real time audio/video Vital Signs Date Time Temp Pulse Resp B/P (MAP) Pulse Ox O2 Delivery O2 Flow Rate FiO2 03/04/21 18:15 99 30 119/74 94 OxyMask 10.00 03/04/21 18:10 36.4 OxyMask 10.00 03/04/21 18:08 109 03/04/21 14:55 39.6 Height & Weight Height: 5'6.00" Weight: 297lbs. 6.0oz. 133.332472bk; 50.91 BMI Method:Actual General Appearance: No Apparent Distress, WD/WN, Moderate Distress, Obese, Other (She is febrile at 103, she is lethargic, tremors bilateral upper extremities.) HEENT: PERRL/EOMI, TMs Normal Neck: Full Range of Motion, Normal Inspection Respiratory: Accessory Muscle Use, Decreased Breath Sounds, Respiratory Distress, Wheezing (Oxygen saturation during breathing treatment on oxygen at 10 L is 90%. Switched over to BiPAP at 16/8 50% FiO2 and she is tolerating this well with resultant increase up to 97% SPO2.) Cardiovascular: Regular Rate, Rhythm, Normal Peripheral Pulses Neurologic/Psychiatric: Alert, Oriented x3 Skin: Normal Color, Warm/Dry Results Lab Laboratory Tests 03/04/21 14:40 Assessment/Plan Assessment/Plan (Tele-ICU Physician , consultation) Available chart/ vitals / labs / Images reviewed H&P is from ER notes Patient's information available about PMH, Shx, Fhx allergy reviewed in EMR. ROS as per chart and RN report Now in ICU, hemodynamically stable Video assessment done using teleICU camera, rest of exam as per RN Discussed with RN. Consultants: Hospital course: 03/04 - ARF , AECOPD A/P Ac resp failure, no PE or PNA on CTchest ( with chronic resp failure ) - improved with bipap , on NC now - to cont her home settings NIPPV ( hopefully patient can provide , nothing on EMR AECOPD - steroids , nebs Elv PCT and fever ( - neg for covid , flu -UA pending - cont abx elev lact acid , mild - with WOB , hypoxia Lines : periph (Central Line Necessity Reviewed) Goldberg: OG: Nutrition: Analgesia: Anxiety/ delirium VTE Prophylaxis: katie Stress Ulcer Prophylaxis: Glycemic Control: Plans in collaboration with bedside consultants and IM MDs. Discussed with RN to reach out if any questions or concerns A total of 33 minutes of critical care time was devoted to this patient today, required to treat and/or prevent further deterioration of critical care condition ( as above ) ALEX WIGGINS MD Mar 04, 2021 18:31
[2021-03-04] MEDS ORDERED: RT-ALBUTEROL/IPRATROPIUM 3 ML (DUONEB) VIAL ONE (20:09)
[2021-03-04] MEDS ORDERED: NS IV 1000 ML 1,000 ML ONE (20:11)
[2021-03-04] MEDS: NS IV 1000 ML 1,000 ML IV SCH (20:14)
[2021-03-04 20:15] VITALS: BP 119/74
[2021-03-04] MEDS: RT-ALBUTEROL/IPRATROPIUM 3 ML (DUONEB) VIAL INH SCH (20:16)
[2021-03-04] MEDS ORDERED: CEFEPIME INJECTION 1,000 MG in NS (IVPB) 50 ML IV SCH ×4 (21:00)
[2021-03-04 22:23] LABS: ABG BASE EXCESS 6.9 MMOL/L (-2.5-2.5); ABG OXYGEN SATURATION 95 % (94-100); ABG PCO2 66 MMHG (35-45); ABG PO2 79 MMHG (79-93); ABG TCO2 34.9 MMOL/L (21.0-31.0)
[2021-03-04 22:29] LABS: ABG PH 7.32 (7.37-7.43)
[2021-03-04 22:30] LABS: ALLENS TEST YES-POS; INSPIRED O2 10L; PATIENT TEMP 36.6; VENTILATOR NO
[2021-03-04] MEDS: SENNOSIDES 8.6 MG (SENOKOT) TAB PO SCH (23:01)
[2021-03-04] MEDS: DOCUSATE SODIUM 100 MG (COLACE) CAP PO SCH (23:01)
[2021-03-04] MEDS: inSUlin ASPART (NovoLOG) 1 UNIT/0.01 ML (CHARGE PER UNIT) SC SCH ×2 (23:04→23:11)
[2021-03-04] MEDS: FAMOTIDINE 20 MG (PEPCID) TABLET PO SCH (23:04)
[2021-03-04] MEDS: ENOXAPARIN 60 MG/0.6 ML (LOVENOX) SYR SC SCH (23:04)
[2021-03-04] MEDS: CEFEPIME INJECTION 1,000 MG in NS (IVPB) 50 ML IV SCH (23:04)
[2021-03-05] MEDS: RT-ALBUTEROL/IPRATROPIUM 3 ML (DUONEB) VIAL INH SCH ×8 (01:50→22:50)
[2021-03-05] MEDS: ACETAMINOPHEN 325 MG TABLET PO PRN (03:51)
[2021-03-05 05:29] LABS: BASOPHILS # (AUTO) 0.1 10^3/uL (0.0-0.1); BASOPHILS % (AUTO) 0 % (0-10); EOSINOPHILS % (AUTO) 0 % (0-10); HEMATOCRIT 41 % (35-52); HEMOGLOBIN 12.5 g/dL (11.5-16.0); LYMPHOCYTES # (AUTO) 0.3 10^3/uL (1.0-4.0); LYMPHOCYTES % (AUTO) 1 % (12-44); MEAN CORPUSCULAR HEMOGLOBIN 29 pg (25-34); MEAN CORPUSCULAR HGB CONC 31 g/dL (32-36); MEAN CORPUSCULAR VOLUME 95 fL (80-99); MEAN PLATELET VOLUME 10.8 fL (9.0-12.2); MONOCYTES # (AUTO) 0.7 10^3/uL (0.0-1.0); MONOCYTES % (AUTO) 2 % (0-12); NEUTROPHILS # (AUTO) 26.7 10^3/uL (1.8-7.8); NEUTROPHILS % (AUTO) 95 % (42-75); PLATELET COUNT 181 10^3/uL (130-400)
[2021-03-05 06:00] LABS: ALBUMIN 3.4 GM/DL (3.2-4.5); POTASSIUM 4.3 MMOL/L (3.6-5.0)
[2021-03-05] MEDS ORDERED: POTASSIUM CL 10MEQ/50ML IVPB 50 ML IV SCH (06:00)
[2021-03-05] MEDS ORDERED: KCL 20 MEQ TAB (K-DUR) PO SCH (06:00)
[2021-03-05] MEDS ORDERED: MAGNESIUM 1 GM/100 ML IVPB 100 ML IV SCH (06:00)
[2021-03-05 06:03] LABS: TOTAL PROTEIN 6.6 GM/DL (6.4-8.2)
[2021-03-05 06:04] LABS: BILIRUBIN,TOTAL 0.3 MG/DL (0.1-1.0)
[2021-03-05 06:06] LABS: CREATININE SERUM 0.71 MG/DL (0.60-1.30); PHOSPHORUS 3.3 MG/DL (2.3-4.7)
--- NOTE | 2021-03-05 06:07 | History & Physical-Hospitalist ---
History of Present Illness HPI/Chief Complaint Chief complaint: Acute on chronic hypoxic hypercapnic respiratory failure History of present illness: This is a 65-year-old white female who has a past medical history of super morbid obesity with BMI 51 and obesity hypoventilation syndrome who presented to the ER with shortness of breath and altered mental status. Patient was on the verge of intubation but stabilized and was on BiPAP and now is currently on nasal cannula oxygen. Bacterial bronchitis is being treated due to high risk for Pseudomonas with cefepime. Patient is stable enough to go to the floor. Source: patient, RN/MD, old records Exam Limitations: no limitations Date Seen 03/05/21 Time Seen by a Provider: 09:30 Attending Physician Tonya Ahn DO [facility] Referring Physician Date of Admission Mar 04, 2021 at 16:56 Home Medications & Allergies Home Medications Reviewed patient Home Medication Reconciliation performed by pharmacy medication reconciliations forensic science technician and/or nursing. Patients Allergies have been reviewed. Allergies Allergies Coded Allergies No Known Drug Allergies (Unverified07/09/18) Past Mouhgto-Zpsdoa-Sclgdq Hx Patient Social History Marrital Status: single Employed/Student: retired Tobacco Use?: No Smoking Status: Never a Smoker Use of E-Cig and/or Vaping dev: No Substance use?: No Alcohol Use?: No Pt feels they are or have been: No Immunizations Up To Date First/Initial COVID19 Vaccinat: spring 2020- Second COVID19 Vaccination Jairon: spring 2020- Tetanus Booster (TDap): Unknown Hepatitis A: Yes Hepatitis B: Yes Seasonal Allergies Seasonal Allergies: No Current Status Advance Directives: Yes Advance Directive Location: Home Communicates: Verbally Primary Language: Italian Preferred Spoken Language: Italian Is interpretation needed?: No Sensory deficits: Vision impairment Implanted or Applied Medical D: CPAP Past Medical History Surgeries: Section, Orthopedic, Tonsillectomy Sleep Apnea, COPD Currently Using CPAP: No Currently Using BIPAP: No 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 Blood Disorders: No PMHx: COPD HTN SurgHx: Knee surgery Tonsillectomy Exlap for endometriosis Family Medical History Cardiovascular disease 19 FATHER 19 MOTHER Diabetes mellitus 19 FATHER Review of Systems Constitutional: see HPI, malaise, weakness EENTM: no symptoms reported Respiratory: dyspnea on exertion, short of breath Cardiovascular: no symptoms reported Gastrointestinal: no symptoms reported Genitourinary: no symptoms reported Musculoskeletal: no symptoms reported Skin: no symptoms reported Psychiatric/Neurological: No Symptoms Reported All Other Systems Reviewed Negative Unless Noted: Yes Physical Exam Physical Exam Vital Signs Vital Signs - First Documented 03/04/21 14:30 Temp 39.6 Pulse 122 Resp 28 B/P (MAP) 190/87 (121) Pulse Ox 94 O2 Delivery Nasal Cannula O2 Flow Rate 3.00 Capillary Refill : Less Than 3 Seconds Height, Weight, BMI Height: 5'6.00" Weight: 297lbs. 6.0oz. 133.611031aw; 50.91 BMI Method:Actual General Appearance: No Apparent Distress, Chronically ill, Obese Eyes: Right Eye Normal Inspection, Right Eye PERRL HEENT: PERRL/EOMI, Normal ENT Inspection, Pharynx Normal, Moist Mucous Membranes Neck: Full Range of Motion, Normal Inspection, Non Tender Respiratory: Chest Non Tender, Lungs Clear, No Accessory Muscle Use, No Respiratory Distress, Decreased Breath Sounds Cardiovascular: Regular Rate, Rhythm, No Edema, No Gallop, No JVD, No Murmur, Normal Peripheral Pulses Gastrointestinal: Normal Bowel Sounds, No Organomegaly, No Pulsatile Mass, Non Tender, Soft Back: Normal Inspection, No CVA Tenderness, No Vertebral Tenderness Extremity: Normal Capillary Refill, Normal Inspection, Normal Range of Motion, Non Tender, No Calf Tenderness, No Pedal Edema Neurologic/Psychiatric: Alert, Oriented x3, No Motor/Sensory Deficits, Normal Mood/Affect Skin: Normal Color, Warm/Dry Lymphatic: No Adenopathy Results Results/Procedures Labs Laboratory Tests 03/04/21 14:40 03/05/21 05:17 Patient resulted labs reviewed. Assessment/Plan Admission Diagnosis Assessment: Acute on chronic hypoxic hypercapnic respiratory failure Obesity hypoventilation syndrome Super morbid obesity BMI 51 Hypertension COPD Plan: Transfer to floor Needs BiPAP long-term Restart home meds Admission Status: Inpatient Order (span 2 midnights) Reason for Inpatient Admission: Respiratory failure Diagnosis/Problems Diagnosis/Problems (1) Obesity hypoventilation syndrome (2) Respiratory failure with hypoxia and hypercapnia Status: Acute (3) COPD exacerbation Status: Acute (4) Respiratory acidosis Status: Acute (5) COPD (chronic obstructive pulmonary disease) Status: Chronic (6) Morbid obesity Status: Chronic (7) KANU (obstructive sleep apnea) Status: Chronic TONYA AHN DO Mar 05, 2021 06:07
[2021-03-05 06:09] LABS: MAGNESIUM 1.7 MG/DL (1.6-2.4)
[2021-03-05] MEDS: inSUlin ASPART (NovoLOG) 1 UNIT/0.01 ML (CHARGE PER UNIT) SC SCH ×3 (06:13→18:34)
[2021-03-05] MEDS: methylPREDNISolone 40 MG/ML (Solu-MEDROL) VIAL IV SCH ×3 (06:43→21:36)
[2021-03-05] MEDS: CEFEPIME INJECTION 1,000 MG in NS (IVPB) 50 ML IV SCH ×3 (06:43→18:18)
[2021-03-05] MEDS: MAGNESIUM 1 GM/100 ML IVPB 100 ML IV SCH ×2 (06:44→10:08)
--- NOTE | 2021-03-05 07:14 | Diagnostic Imaging Report ---
INDICATION: Dyspnea COMPARISON: 03/04/2021 TECHNIQUE: Single frontal radiograph of the chest dated 03/05/2021. FINDINGS: Examination slightly limited secondary to patient rotation. The cardiac silhouette appears enlarged, though similar to the prior exam. Minimal central pulmonary vascular congestion. The lungs are clear of focal pulmonary opacity. No large-volume pleural effusion. No pneumothorax. No acute osseous abnormality. IMPRESSION: Cardiomegaly with minimal central pulmonary vascular congestion. Dictated by: Dictated on workstation # [id number]
[2021-03-05] MEDS ORDERED: FLU QUAD HIGH DOSE 240 MCG/0.7 ML 2021-22 (FLUZONE) IM ONE (07:15)
[2021-03-05] MEDS: FAMOTIDINE 20 MG (PEPCID) TABLET PO SCH ×2 (08:39→21:36)
[2021-03-05] MEDS: ENOXAPARIN 60 MG/0.6 ML (LOVENOX) SYR SC SCH ×2 (08:39→21:36)
[2021-03-05] MEDS: NS IV 1000 ML 1,000 ML IV SCH (08:40)
[2021-03-05] MEDS: SENNOSIDES 8.6 MG (SENOKOT) TAB PO SCH ×2 (08:40→21:31)
[2021-03-05] MEDS: DOCUSATE SODIUM 100 MG (COLACE) CAP PO SCH ×2 (08:40→21:31)
--- NOTE | 2021-03-05 10:09 | Tele-ICU Progress Note ---
Subjective Date Seen by a Provider: Mar 05, 2021 Time Seen by a Provider: 10:09 Sepsis Event Evaluation Height, Weight, BMI Height: 5'6.00" Weight: 297lbs. 6.0oz. 133.667503ud; 50.91 BMI Method:Actual Focused Exam Lactate Level 03/04/21 18:16: Lactic Acid Level 3.13*H 03/04/21 20:15: Lactic Acid Level 2.58*H 03/04/21 22:10: Lactic Acid Level 1.89 Exam Exam Patient acknowledged, consented, and participated in this virtual visit which was conducted using real time audio/video Vital Signs Date Time Temp Pulse Resp B/P (MAP) Pulse Ox O2 Delivery O2 Flow Rate FiO2 03/05/21 09:00 98 134/70 95 OxyMask 10.00 03/05/21 08:47 93 High Flow N/C 15.00 03/05/21 08:00 108 121/58 96 OxyMask 10.00 03/05/21 08:00 36.4 03/05/21 07:00 104 113/55 95 OxyMask 10.00 03/05/21 07:00 102 03/05/21 06:00 101 22 107/56 93 OxyMask 10.00 03/05/21 05:55 93 High Flow N/C 15.00 03/05/21 05:00 108 19 114/61 94 OxyMask 10.00 03/05/21 04:14 37.3 03/05/21 04:00 93 High Flow N/C 15.00 03/05/21 04:00 109 20 132/67 91 OxyMask 10.00 03/05/21 03:00 102 128/59 93 OxyMask 10.00 03/05/21 02:18 92 High Flow N/C 10.00 03/05/21 02:00 96 117/68 93 OxyMask 10.00 03/05/21 01:00 90 03/05/21 01:00 93 22 120/88 94 OxyMask 10.00 03/05/21 00:00 92 22 117/64 93 OxyMask 10.00 03/05/21 00:00 37.0 03/05/21 00:00 93 High Flow N/C 15.00 03/04/21 23:00 98 22 100/60 92 OxyMask 10.00 03/04/21 22:00 89 25 117/81 93 OxyMask 10.00 03/04/21 21:00 91 25 111/67 91 OxyMask 10.00 03/04/21 20:16 94 High Flow N/C 10.00 03/04/21 20:15 38.6 99 94 03/04/21 20:02 35.8 03/04/21 20:00 93 High Flow N/C 15.00 03/04/21 20:00 96 26 102/52 96 OxyMask 10.00 03/04/21 19:00 104 03/04/21 19:00 98 22 107/54 93 OxyMask 10.00 03/04/21 18:15 99 30 119/74 94 OxyMask 10.00 03/04/21 18:10 36.4 OxyMask 10.00 03/04/21 18:08 109 03/04/21 17:50 38.6 116 26 100/55 91 NIV Bilevel 50.00 03/04/21 14:55 39.6 03/04/21 14:30 39.6 122 28 190/87 (121) 94 Nasal Cannula 3.00 03/04/21 14:30 Nasal Cannula 3.00 I & O 03/05/21 07:00 Intake Total 1200 ml Output Total 300 ml Balance 900 ml Height & Weight Height: 5'6.00" Weight: 297lbs. 6.0oz. 133.741919zb; 50.91 BMI Method:Actual General Appearance: No Apparent Distress, WD/WN, Moderate Distress, Obese, Other HEENT: PERRL/EOMI, TMs Normal Neck: Full Range of Motion, Normal Inspection Respiratory: Accessory Muscle Use, Decreased Breath Sounds, Respiratory Distress, Wheezing Cardiovascular: Regular Rate, Rhythm, Normal Peripheral Pulses Capillary Refill: Less Than 3 Seconds Neurologic/Psychiatric: Alert, Oriented x3 Skin: Normal Color, Warm/Dry Results Lab Laboratory Tests 03/04/21 14:40 03/05/21 05:17 Assessment/Plan Assessment/Plan (Tele-ICU Physician , Progress Note ) Available chart/ vitals / labs / Images reviewed Video assessment done using teleICU camera, rest of exam as per RN Discussed with RN , EXAM PER RN Events overnight : on 15 l o2 Afebrile FiO2 - I/O = + Drips: Pressors: , hemodynamically stable Consultants: Hospital course: Consultants: Hospital course: 03/04 - ARF , AECOPD A/P Ac resp failure, no PE or PNA on CTchest ( with chronic resp failure ) - improved with bipap , on NC now 10 L - to cont her home settings NIPPV ( hopefully patient can provide , nothing on EMR - NEED MORE INFO - stop IVF to prevent VO/right heart failure AECOPD - steroids same dose tofday , IS , nebs Elv PCT and fever ( - neg for covid , flu -UA pending - cont abx for now elev lact acid , mild - with WOB , hypoxia + blood cx 1 out of 2 - GPC chains - follow , possible contraminant LIYA - chronic as per patient report to RN = ? lymphedema vs edema ( ? chronic nocturnal hypoxia Lines : periph (Central Line Necessity Reviewed) Goldberg: OG: Nutrition: po Analgesia: Anxiety/ delirium VTE Prophylaxis: katie Stress Ulcer Prophylaxis: Glycemic Control: Plans in collaboration with bedside consultants and IM MDs. Discussed with RN to reach out if any questions or concerns A total of 33 minutes of critical care time was devoted to this patient today, required to treat and/or prevent further deterioration of critical care condition ( as above ) ALEX WIGGINS MD Mar 05, 2021 10:09
[2021-03-06] MEDS: CEFEPIME INJECTION 1,000 MG in NS (IVPB) 50 ML IV SCH ×4 (00:15→18:01)
[2021-03-06] MEDS: inSUlin ASPART (NovoLOG) 1 UNIT/0.01 ML (CHARGE PER UNIT) SC SCH ×5 (00:16→22:10)
[2021-03-06] MEDS: RT-ALBUTEROL/IPRATROPIUM 3 ML (DUONEB) VIAL INH SCH ×5 (02:54→19:58)
[2021-03-06 05:56] LABS: BASOPHILS # (AUTO) 0.1 10^3/uL (0.0-0.1); BASOPHILS % (AUTO) 0 % (0-10); EOSINOPHILS % (AUTO) 0 % (0-10); HEMATOCRIT 38 % (35-52); HEMOGLOBIN 11.5 g/dL (11.5-16.0); LYMPHOCYTES # (AUTO) 0.3 10^3/uL (1.0-4.0); LYMPHOCYTES % (AUTO) 2 % (12-44); MEAN CORPUSCULAR HEMOGLOBIN 30 pg (25-34); MEAN CORPUSCULAR HGB CONC 31 g/dL (32-36); MEAN CORPUSCULAR VOLUME 98 fL (80-99); MEAN PLATELET VOLUME 11.7 fL (9.0-12.2); MONOCYTES % (AUTO) 5 % (0-12); NEUTROPHILS # (AUTO) 19.1 10^3/uL (1.8-7.8); NEUTROPHILS % (AUTO) 93 % (42-75); PLATELET COUNT 189 10^3/uL (130-400); WHITE BLOOD COUNT 20.5 10^3/uL (4.3-11.0)
[2021-03-06] MEDS: methylPREDNISolone 40 MG/ML (Solu-MEDROL) VIAL IV SCH ×3 (06:29→22:12)
[2021-03-06 06:54] LABS: ALBUMIN 3.2 GM/DL (3.2-4.5)
[2021-03-06 06:55] LABS: POTASSIUM 5.3 MMOL/L (3.6-5.0)
[2021-03-06 06:56] LABS: CALCIUM 8.4 MG/DL (8.5-10.1)
[2021-03-06 06:57] LABS: TOTAL PROTEIN 5.8 GM/DL (6.4-8.2)
--- NOTE | 2021-03-06 06:58 | Progress Note - Hospitalist ---
Subjective HPI/CC On Admission Date Seen by Provider: Mar 06, 2021 Time Seen by Provider: 11:00 Chief complaint: Acute on chronic hypoxic hypercapnic respiratory failure History of present illness: This is a 65-year-old white female who has a past medical history of super morbid obesity with BMI 51 and obesity hypoventilation syndrome who presented to the ER with shortness of breath and altered mental status. Patient was on the verge of intubation but stabilized and was on BiPAP and now is currently on nasal cannula oxygen. Bacterial bronchitis is being treated due to high risk for Pseudomonas with cefepime. Patient is stable enough to go to the floor. Subjective/Events-last exam Patient doing a lot better Left leg cellulitis noted and it is worse I will add vancomycin to the cefepime that she is on for bacterial bronchitis Needs nebulizer machine at home at discharge Nystatin cream and triamcinolone cream placed on left leg and wrapped with Elroy wrap Review of Systems General: Fatigue Focused Exam Lactate Level 03/04/21 18:16: Lactic Acid Level 3.13*H 03/04/21 20:15: Lactic Acid Level 2.58*H 03/04/21 22:10: Lactic Acid Level 1.89 Objective Exam Vital Signs Vital Signs Date Time Temp Pulse Resp B/P (MAP) Pulse Ox O2 Delivery O2 Flow Rate FiO2 03/06/21 15:45 36.4 96 20 135/77 (96) 92 High Flow N/C 03/06/21 12:35 4.00 Capillary Refill : Less Than 3 Seconds General Appearance: No Apparent Distress, WD/WN, Chronically ill Respiratory: Lungs Clear, Normal Breath Sounds Cardiovascular: Regular Rate, Rhythm (Low) Neurologic/Psychiatric: Alert, Oriented x3, No Motor/Sensory Deficits, Normal Mood/Affect Skin: Rash (Left leg erythematous) Results/Procedures Lab Laboratory Tests 03/06/21 05:30 Patient resulted labs reviewed. Assessment/Plan Assessment and Plan Assess & Plan/Chief Complaint Assessment: Acute on chronic hypoxic hypercapnic respiratory failure Obesity hypoventilation syndrome Super morbid obesity BMI 51 Hypertension COPD Left leg cellulitis complicated with lymphedema Plan: Transfer to floor Needs BiPAP long-term Restart home meds 03/06/2021: Add vancomycin Maintain cefepime Obtain left lower extremity ultrasound tomorrow Diagnosis/Problems Diagnosis/Problems (1) Obesity hypoventilation syndrome (2) Respiratory failure with hypoxia and hypercapnia Status: Acute (3) COPD exacerbation Status: Acute (4) Respiratory acidosis Status: Acute (5) COPD (chronic obstructive pulmonary disease) Status: Chronic (6) Morbid obesity Status: Chronic (7) KANU (obstructive sleep apnea) Status: Chronic MARIS SALDIVAR DO Mar 06, 2021 06:58
[2021-03-06 06:59] LABS: BILIRUBIN,TOTAL 0.2 MG/DL (0.1-1.0)
[2021-03-06 07:01] LABS: CREATININE SERUM 0.64 MG/DL (0.60-1.30)
[2021-03-06 07:04] LABS: MAGNESIUM 2.3 MG/DL (1.6-2.4)
[2021-03-06] MEDS: DOCUSATE SODIUM 100 MG (COLACE) CAP PO SCH ×2 (07:48→22:11)
[2021-03-06] MEDS: SENNOSIDES 8.6 MG (SENOKOT) TAB PO SCH ×2 (07:49→22:11)
[2021-03-06] MEDS: ENOXAPARIN 60 MG/0.6 ML (LOVENOX) SYR SC SCH ×2 (09:35→22:11)
[2021-03-06] MEDS: FAMOTIDINE 20 MG (PEPCID) TABLET PO SCH ×2 (09:35→22:11)
[2021-03-06] MEDS ORDERED: VANCOMYCIN INJECTION 0.1 MG in NS (IVPB) 250 ML IV SCH (13:15)
[2021-03-06] MEDS ORDERED: VANCOMYCIN 2000 MG/NS 500 ML IVPB IV NR ×2 (13:30)
[2021-03-06] MEDS: TRIAMCINOLONE 0.1% CR (KENALOG) 15 GM TUBE TOP SCH ×2 (14:57→22:10)
[2021-03-06] MEDS: NYSTATIN CREAM (MYCOSTATIN) 30 GM TUBE TP SCH ×2 (14:57→22:10)
[2021-03-06 15:45] VITALS: BP 135/77
[2021-03-06 20:17] VITALS: BP 145/80
[2021-03-06 21:04] VITALS: BP 135/77
[2021-03-06] MEDS ORDERED: NS (IVPB) 250 ML ONE (21:40)
[2021-03-06] MEDS: VANCOMYCIN 1250 MG/NS 250 ML IVPB IV SCH ×2 (22:12)
[2021-03-07] VITALS (7 sets, daily range): BP systolic 127–165; BP diastolic 70–85
[2021-03-07] MEDS: ACETAMINOPHEN 325 MG TABLET PO PRN (01:25)
[2021-03-07] MEDS: CEFEPIME INJECTION 1,000 MG in NS (IVPB) 50 ML IV SCH ×5 (01:25→23:38)
[2021-03-07 06:14] LABS: BASOPHILS % (AUTO) 0 % (0-10); EOSINOPHILS % (AUTO) 0 % (0-10); HEMATOCRIT 41 % (35-52); HEMOGLOBIN 12.5 g/dL (11.5-16.0); LYMPHOCYTES # (AUTO) 0.4 10^3/uL (1.0-4.0); LYMPHOCYTES % (AUTO) 2 % (12-44); MEAN CORPUSCULAR HEMOGLOBIN 29 pg (25-34); MEAN CORPUSCULAR HGB CONC 30 g/dL (32-36); MEAN CORPUSCULAR VOLUME 96 fL (80-99); MEAN PLATELET VOLUME 11.5 fL (9.0-12.2); MONOCYTES # (AUTO) 0.6 10^3/uL (0.0-1.0); MONOCYTES % (AUTO) 4 % (0-12); NEUTROPHILS # (AUTO) 16.8 10^3/uL (1.8-7.8); NEUTROPHILS % (AUTO) 93 % (42-75); PLATELET COUNT 180 10^3/uL (130-400)
[2021-03-07] MEDS: methylPREDNISolone 40 MG/ML (Solu-MEDROL) VIAL IV SCH ×3 (06:17→23:40)
[2021-03-07] MEDS: inSUlin ASPART (NovoLOG) 1 UNIT/0.01 ML (CHARGE PER UNIT) SC SCH ×4 (06:19→21:07)
[2021-03-07] MEDS: VANCOMYCIN 1250 MG/NS 250 ML IVPB IV SCH ×6 (06:19→21:00)
[2021-03-07 06:48] LABS: ALBUMIN 3.4 GM/DL (3.2-4.5); BILIRUBIN,TOTAL 0.2 MG/DL (0.1-1.0); CALCIUM 9.6 MG/DL (8.5-10.1); CREATININE SERUM 0.62 MG/DL (0.60-1.30); MAGNESIUM 2.2 MG/DL (1.6-2.4); POTASSIUM 4.9 MMOL/L (3.6-5.0)
--- NOTE | 2021-03-07 08:17 | Diagnostic Imaging Report ---
PROCEDURE: US left lower extremity venous. TECHNIQUE: Multiple real-time grayscale images were obtained over the left lower extremity in various projections. Additional duplex Doppler and color Doppler images were also obtained. INDICATION: Edema. The left lower extremity femoropopliteal and deep venous system showed normal color flow, normal compressibility and normal waveforms. No deep vein thrombus and no visualized superficial thrombus. No fluid collection demonstrated. IMPRESSION: Normal negative unilateral left lower extremity venous Doppler and ultrasound exam. Dictated by: Dictated on workstation # [id number]
[2021-03-07] MEDS: RT-ALBUTEROL/IPRATROPIUM 3 ML (DUONEB) VIAL INH SCH ×3 (08:48→21:47)
--- NOTE | 2021-03-07 08:51 | Occupational Therapy Eval ---
OT Evaluation-General/PLF Medical Diagnosis Admission Date Mar 04, 2021 at 16:56 Medical Diagnosis: bronchitis, hypercapnia Onset Date: Mar 04, 2021 Therapy Diagnosis Therapy Diagnosis: n/a Height/Weight Height (Feet): 5 Height (Inches): 6.00 Weight (Pounds): 297 Weight (Ounces): 6.0 Precautions Precautions/Isolations: Fall Prevention, Standard Precautions Referral Physician: Jimy Referral Reason: Evaluation/Treatment Medical History Pertinent Medical History: COPD, HTN Additional Medical History obesity Current History ED due to SOB, AMS. She was on the verge of intubation but stabilized on BiPAP. Social History Home: Single Level Current Living Status: Children ADL-Prior Level of Function SCALE: Activities may be completed with or without assistive devices. 8-Igmnxckkfw-xknnqca completes the activity by him/herself with no assistance from a helper. 5-Set-up or Clean-up Assistance-helper sets up or cleans up; patient completes activity. Fox assists only prior to or following the activity. 4-Supervision or Touching Assistance-helper provides verbal cues and/or touching/steadying and/or contact guard assistance as patient completes activity. Assistance may be provided throughout the activity or intermittently. 3-Partial/Moderate Assistance-helper does LESS THAN HALF the effort. Fox lifts, holds or supports trunk or limbs, but provides less than half the effort. 2-Substantial/Maximal Assistance-helper does MORE THAN HALF the effort. Fox lifts or holds trunk or limbs and provides more than half the effort. 9-Ssvdfdsqy-smglta does ALL the effort. Patient does none of the effort to complete the activity. Or, the assistance of 2 or more helpers is required for the patient to complete the activity. If activity was not attempted, code reason: 7-Patient Refused. 9-Not Applicable-not attempted and the patient did not perform the activity before the current illness, exacerbation or injury. 10-Not Attempted due to Environmental Limitations-(lack of equipment, weather restraints, etc.). 88-Not Attempted due to Medical Conditions or Safety Concerns. ADL PLOF Comments Pt reports she lives with her son and has assistance with I/ADLs at [facility]. She has a home health aide who comes 17.25 hours a week. She is able to complete UE/LE dressing but requires assistance with footwear. She has assistance getting in/out of the shower, assistance with cooking and cleaning. Pt indicates she doesn't have to travel far within her home, and only walks short distances at a time, no AD. Pt is able to use AE to wipe post BM. Self Care: Needed Some Help Functional Cognition: Independent DME/Equipment: Tub/Shower OT Current Status Subjective Pt up in recliner, agreeable to OT Tx. Mental Status/Objective Patient Orientation: Person, Place, Time, Situation Attachments: IV, Oxygen Current Upper Extremity ROM WFL Upper Extremity Coordination WFL Upper Extremity Sensation WFL Upper Extremity Strength WFL ADL-Treatment Eating (QC): 6 (IND with breakfast.) Oral Hygiene (QC): 5 (per clinical judgment.) Toileting Hygiene (QC): 3 (Per clincial judgment, pt requires assistance with hygiene. Pt has device at home to allow independence with task.) Other Treatments Pt up in recliner, agreeable to OT Tx. Pt provides information about PLOF and home set up. Pt transferred from recliner to EOB, then supine, required a little assistance with LEs. Pt states her bed at home is lower and she typically doesn't need help with it, and believes she will do fine at home. Pt's weight obtained through the bed for nursing staff, then pt transferred to EOB independently. Pt transferred back to recliner, no AD, independently, able to manage O2 and IV lines. Pt states she feels like she is at baseline, and doesn't need further OT services. Post tx, pt up in recliner, call light in reach and all needs met. Education OT Patient Education: Correct positioning, Modified ADL techniques, Progress toward Goal/Update tx plan, Purpose of tx/functional activities, Rehab process Teaching Recipient: Patient Teaching Methods: Discussion Response to Teaching: Verbalize Understanding OT Half-Way Goals Half-Way Goals 1=Demonstrate adherence to instructed precautions during ADL tasks. 2=Patient will verbalize/demonstrate understanding of assistive devices/modifications for ADL. 3=Patient will improve strength/tolerance for activity to enable patient to perform ADL's. OT Education/Plan Problem List/Assessment Assessment: No Skilled OT Needs ID'd Pt indicates she is at her baseline with ADL function and functional mobility, she has home health aides to assist throughout the week. No skilled OT services indicated at this time, as pt is at [facility], and doesn't wish to have further OT txs. Discharge Recommendations Plan/Recommendations: Discharge/Goals Met Treatment Plan/Plan of Care Patient would benefit from OT for education, treatment and training to promote independence in ADL's, mobility, safety and/or upper extremity function for ADL's. Plan of Care: ADL Retraining, Functional Mobility Treatment Duration: Mar 07, 2021 Frequency: 1 time per week (eval only) Rehab Potential: Fair Time/GCodes Start Time: 08:25 Stop Time: 08:33 Total Time Billed (hr/min): 8 Billed Treatment Time 1, GOYO ULLOA OT Mar 07, 2021 08:51
[2021-03-07] MEDS: FAMOTIDINE 20 MG (PEPCID) TABLET PO SCH ×2 (09:38→21:06)
[2021-03-07] MEDS: SENNOSIDES 8.6 MG (SENOKOT) TAB PO SCH ×3 (09:38→21:06)
[2021-03-07] MEDS: DOCUSATE SODIUM 100 MG (COLACE) CAP PO SCH ×3 (09:38→21:06)
[2021-03-07] MEDS: ENOXAPARIN 60 MG/0.6 ML (LOVENOX) SYR SC SCH ×2 (09:38→21:05)
[2021-03-07] MEDS: TRIAMCINOLONE 0.1% CR (KENALOG) 15 GM TUBE TOP SCH ×2 (09:39→21:08)
[2021-03-07] MEDS: NYSTATIN CREAM (MYCOSTATIN) 30 GM TUBE TP SCH ×2 (09:39→21:08)
[2021-03-07] MEDS ORDERED: CETI10TA17 PO (10:19)
[2021-03-07] MEDS ORDERED: UMEC62.5 IH (10:21)
--- NOTE | 2021-03-07 11:21 | Physical Therapy Evaluation ---
PT Evaluation-General Medical Diagnosis Admission Date Mar 04, 2021 at 16:56 Medical Diagnosis: bronchitis, hypercapnia Onset Date: Mar 04, 2021 Therapy Diagnosis Therapy Diagnosis: debility/weakness Height/Weight Height (Feet): 5 Height (Inches): 6.00 Weight (Pounds): 297 Weight (Ounces): 6.0 Precautions Precautions/Isolations: Fall Prevention, Standard Precautions Referral Physician: Jimy Reason for Referral: Evaluation/Treatment Medical History Pertinent Medical History: COPD, HTN Additional Medical History super obesity Current History EMS secondary to SOA Reviewed History: Yes Social History Home: Single Level Current Living Status: Children Prior Prior Level of Function SCALE: Activities may be completed with or without assistive devices. 1-Oyszfkcdgb-okjtqmz completes the activity by him/herself with no assistance from a helper. 5-Set-up or Clean-up Assistance-helper sets up or cleans up; patient completes activity. Marion assists only prior to or following the activity. 4-Supervision or Touching Assistance-helper provides verbal cues and/or touching/steadying and/or contact guard assistance as patient completes activit y. Assistance may be provided throughout the activity or intermittently. 3-Partial/Moderate Assistance-helper does LESS THAN HALF the effort. Marion lifts, holds or supports trunk or limbs, but provides less than half the effort. 2-Substantial/Maximal Assistance-helper does MORE THAN HALF the effort. Marion lifts or holds trunk or limbs and provides more than half the effort. 6-Iogvvwmgz-yzvyow does ALL the effort. Patient does none of the effort to complete the activity. Or, the assistance of 2 or more helpers is required for the patient to complete the activity. If activity was not attempted, code reason: 7-Patient Refused. 9-Not Applicable-not attempted and the patient did not perform the activity before the current illness, exacerbation or injury. 10-Not Attempted due to Environmental Limitations-(lack of equipment, weather restraints, etc.). 88-Not Attempted due to Medical Conditions or Safety Concerns. Bed Mobility: 6 Transfers (B,C,W/C): 6 Gait: 6 Stairs: 6 Indoor Mobility (Ambulation): Independent Stairs: Independent Prior Devices Use: None PT Evaluation-Current Subjective Patient states, "I don't need PT but I will do it anyway." Objective Patient Orientation: Normal For Age Attachments: Oxygen, IV ROM/Strength ROM Lower Extremities bilateral WFL Strength Lower Extremities 4-/5 grossly bilateral LE Integumentary/Posture Integumentary left LE cellulitis Bowel Incontinence: No Bladder Incontinence: No Posture WFL Neuromuscular (Tone, Coordination, Reflexes) grossly intact Sensory Vision: Functional Hearing: Functional Transfers Sit to Stand (QC): 6 patient reports she sleeps in chair at home and doesn't want to perform bed mobility Gait Does the Patient Walk?: Yes Mode of Locomotion: Walk Anticipated Mode of Locomotion: Walk Walk 10 feet (QC): 6 Walk 50 ft with 2 Turns(QC): 6 Walk 150 ft (QC): 7 Distance: 50 in room Gait Assistive Device: None Comments/Gait Description safe and functional with no deviation Balance Sitting Static: Normal Sitting Dynamic: Normal Standing Static: Normal Standing Dynamic: Normal Assessment/Needs 65 y.o. female, is currently at [facility] with gross motor skills and does not require skilled PT intervention Rehab Potential: Fair PT Plan Treatment/Plan Treatment Plan: Discontinue PT, goals met Treatment Duration: Mar 07, 2021 Frequency: 1 time per week Estimated Hrs Per Day: .25 hour per day Patient and/or Family Agrees t: Yes Time/GCodes Time In: 1020 Time Out: 1032 Total Billed Treatment Time: 12 Total Billed Treatment 1 visit EVMod 12 min ARSALAN MANCILLA PT Mar 07, 2021 11:21
--- NOTE | 2021-03-07 12:47 | Progress Note - Hospitalist ---
INA BUTT 03/07/21 1247: Subjective HPI/CC On Admission Date Seen by Provider: Mar 07, 2021 Time Seen by Provider: 08:50 Chief complaint: Acute on chronic hypoxic hypercapnic respiratory failure History of present illness: This is a 65-year-old white female who has a past medical history of super morbid obesity with BMI 51 and obesity hypoventilation syndrome who presented to the ER with shortness of breath and altered mental status. Patient was on the verge of intubation but stabilized and was on BiPAP and now is currently on nasal cannula oxygen. Bacterial bronchitis is being treated due to high risk for Pseudomonas with cefepime. Patient is stable enough to go to the floor. Subjective/Events-last exam Patient is feeling much better today. Doesn't feel short of breath today. Told PT that she feels very close to her baseline function, but still feels a little wobbly when she stands. She is on 4L of O2 currently and is on 3L at home. Patient has erythema up to her knee on her left leg, which patient states is worse than yesterday. States she has had cellulitis in this leg before. Patient did have a doppler this morning that was negative. Review of Systems Gastrointestinal: No: Nausea, Vomiting, Constipation Genitourinary: No Dysuria Focused Exam Lactate Level 03/04/21 18:16: Lactic Acid Level 3.13*H 03/04/21 20:15: Lactic Acid Level 2.58*H 03/04/21 22:10: Lactic Acid Level 1.89 Objective Exam Vital Signs Vital Signs Date Time Temp Pulse Resp B/P (MAP) Pulse Ox O2 Delivery O2 Flow Rate FiO2 03/07/21 12:00 36.0 93 18 129/70 (89) 90 High Flow N/C 4.00 Capillary Refill : Less Than 3 Seconds General Appearance: No Apparent Distress, Obese Respiratory: Lungs Clear, No Accessory Muscle Use, No Respiratory Distress, Decreased Breath Sounds Cardiovascular: Regular Rate, Rhythm, Normal Peripheral Pulses Rectal: Deferred Extremity: Inflammation (L leg up to knee), Pedal Edema Neurologic/Psychiatric: Alert, Oriented x3 Results/Procedures Lab Laboratory Tests 03/07/21 05:40 Patient resulted labs reviewed. Assessment/Plan Assessment and Plan Assess & Plan/Chief Complaint Assessment: Acute on chronic hypoxic hypercapnic respiratory failure Obesity hypoventilation syndrome Super morbid obesity BMI 51 Hypertension COPD Left leg cellulitis complicated with lymphedema Plan: Transfer to floor Needs BiPAP long-term Restart home meds 03/06/2021: Add vancomycin Maintain cefepime Obtain left lower extremity ultrasound tomorrow 03/07/2021: Continue Abx Continue nystatin/triamcinolone cream to L lower extremity Monitor closely PT and OT TONYA SALDIVAR DO 03/08/21 0522: Subjective Subjective/Events-last exam Pt doing a lot better Left leg still red but Vancomycin and Cefepime maintained along with Nystatin and Triamcinolone cream Venous doppler was negative for DVT Overall doing very well Review of Systems General: Fatigue, Malaise Objective Exam General Appearance: No Apparent Distress, WD/WN, Chronically ill, Obese Respiratory: Lungs Clear, Normal Breath Sounds Extremity: Pedal Edema Neurologic/Psychiatric: Alert, Oriented x3 Skin: Rash (Left leg) Assessment/Plan Assessment and Plan Assess & Plan/Chief Complaint Continue IV antibiotics Supervisory-Addendum Brief Verification & Attestation Participated in pt care: history, MDM, physical Personally performed: exam, history, MDM, supervision of care Care discussed with: Medical Student Procedures: n/a Results interpretation: Verified all documentation Verification and Attestation of Medical Student E/M Service A medical student performed and documented this service in my presence. I reviewed and verified all information documented by the medical student and made modifications to such information, when appropriate. I personally performed the physical exam and medical decision making. Tonya Saldivar, Mar 08, 2021,05:21 INA BUTT Mar 07, 2021 12:47 TONYA SALDIVAR DO Mar 08, 2021 05:22
[2021-03-07] MEDS ORDERED: TROUGH ORDER-PHARMACY XX NR (13:00)
[2021-03-07] MEDS ORDERED: NS (IVPB) 250 ML ONE (20:53)
[2021-03-08 04:15] VITALS: BP 176/50
[2021-03-08 05:51] LABS: BASOPHILS % (AUTO) 0 % (0-10); EOSINOPHILS % (AUTO) 0 % (0-10); HEMATOCRIT 37 % (35-52); HEMOGLOBIN 11.4 g/dL (11.5-16.0); LYMPHOCYTES # (AUTO) 0.8 10^3/uL (1.0-4.0); LYMPHOCYTES % (AUTO) 6 % (12-44); MEAN CORPUSCULAR HEMOGLOBIN 29 pg (25-34); MEAN CORPUSCULAR HGB CONC 31 g/dL (32-36); MEAN CORPUSCULAR VOLUME 94 fL (80-99); MEAN PLATELET VOLUME 10.8 fL (9.0-12.2); MONOCYTES # (AUTO) 0.6 10^3/uL (0.0-1.0); MONOCYTES % (AUTO) 5 % (0-12); NEUTROPHILS # (AUTO) 12.3 10^3/uL (1.8-7.8); NEUTROPHILS % (AUTO) 88 % (42-75); PLATELET COUNT 212 10^3/uL (130-400)
[2021-03-08] MEDS: methylPREDNISolone 40 MG/ML (Solu-MEDROL) VIAL IV SCH ×3 (05:56→21:03)
[2021-03-08] MEDS: CEFEPIME INJECTION 1,000 MG in NS (IVPB) 50 ML IV SCH ×3 (05:56→17:29)
[2021-03-08] MEDS: VANCOMYCIN 1250 MG/NS 250 ML IVPB IV SCH ×6 (05:56→21:03)
[2021-03-08 06:05] LABS: ALBUMIN 3.2 GM/DL (3.2-4.5)
[2021-03-08 06:06] LABS: POTASSIUM 4.5 MMOL/L (3.6-5.0)
[2021-03-08 06:07] LABS: CALCIUM 9.2 MG/DL (8.5-10.1)
[2021-03-08 06:08] LABS: TOTAL PROTEIN 6.4 GM/DL (6.4-8.2)
[2021-03-08 06:10] LABS: BILIRUBIN,TOTAL 0.2 MG/DL (0.1-1.0)
[2021-03-08 06:12] LABS: CREATININE SERUM 0.58 MG/DL (0.60-1.30)
[2021-03-08 06:14] LABS: MAGNESIUM 2.2 MG/DL (1.6-2.4)
[2021-03-08] MEDS: inSUlin ASPART (NovoLOG) 1 UNIT/0.01 ML (CHARGE PER UNIT) SC SCH ×4 (06:33→21:05)
[2021-03-08 08:00] VITALS: BP 167/85
[2021-03-08] MEDS: RT-ALBUTEROL/IPRATROPIUM 3 ML (DUONEB) VIAL INH SCH ×3 (08:10→21:51)
[2021-03-08] MEDS: SENNOSIDES 8.6 MG (SENOKOT) TAB PO SCH ×2 (09:16→21:04)
[2021-03-08] MEDS: DOCUSATE SODIUM 100 MG (COLACE) CAP PO SCH ×2 (09:16→21:04)
[2021-03-08] MEDS: ENOXAPARIN 60 MG/0.6 ML (LOVENOX) SYR SC SCH ×2 (09:16→21:04)
[2021-03-08] MEDS: FAMOTIDINE 20 MG (PEPCID) TABLET PO SCH ×2 (09:16→21:04)
[2021-03-08] MEDS: NYSTATIN CREAM (MYCOSTATIN) 30 GM TUBE TP SCH ×2 (09:16→21:04)
[2021-03-08] MEDS: TRIAMCINOLONE 0.1% CR (KENALOG) 15 GM TUBE TOP SCH ×2 (09:17→21:05)
[2021-03-08] MEDS ORDERED: amLODIPine 5 MG (NORVASC) TAB PO ONE (10:15)
[2021-03-08] MEDS ORDERED: IBUPROFEN TABLET 200 MG TAB PO PRN (10:15)
[2021-03-08] MEDS ORDERED: LORATADINE (CLARITIN) 10 MG TAB PO PRN (10:15)
--- NOTE | 2021-03-08 13:37 | Progress Note - Hospitalist ---
INA BUTT 03/08/21 1337: Subjective HPI/CC On Admission Date Seen by Provider: Mar 08, 2021 Time Seen by Provider: 08:30 Chief complaint: Acute on chronic hypoxic hypercapnic respiratory failure History of present illness: This is a 65-year-old white female who has a past medical history of super morbid obesity with BMI 51 and obesity hypoventilation syndrome who presented to the ER with shortness of breath and altered mental status. Patient was on the verge of intubation but stabilized and was on BiPAP and now is currently on nasal cannula oxygen. Bacterial bronchitis is being treated due to high risk for Pseudomonas with cefepime. Patient is stable enough to go to the floor. Subjective/Events-last exam Patient states she feels okay today. Feels like she is breathing better and really likes the breathing treatments we have been giving her. States she does still get SOB when getting up to go to the bedside commode. Her blood pressure has been running high and was 176/50 when I was in the room. Patient does state she can tell when it gets high, because starts to feel "almost light-headed". States she does take metoprolol at home. Patient did lose IV access overnight, so a PICC line was placed. Her legs both look more swollen today, but her left leg has less erythema and does not feel warm. Patient's oxygen is up to 5L NC O2 as opposed to 4 yesterday. Review of Systems General: No Chills, No Night Sweats HEENT: Other (Reports "almost light headed" when BP gets high) Pulmonary: Dyspnea (on exertion); No Cough Cardiovascular: No: Chest Pain, Palpitations Gastrointestinal: No: Nausea, Vomiting Objective Exam Vital Signs Vital Signs Date Time Temp Pulse Resp B/P (MAP) Pulse Ox O2 Delivery O2 Flow Rate FiO2 03/08/21 08:10 92 High Flow N/C 4.00 03/08/21 08:00 36.0 86 21 167/85 (112) Capillary Refill : Less Than 3 Seconds General Appearance: No Apparent Distress, Obese Respiratory: Chest Non Tender, Lungs Clear, No Accessory Muscle Use, No Respiratory Distress, Decreased Breath Sounds (very diminished in lower lobes) Cardiovascular: Regular Rate, Rhythm, Normal Peripheral Pulses Rectal: Deferred Extremity: Inflammation, Pedal Edema Neurologic/Psychiatric: Alert, Oriented x3, Normal Mood/Affect Results/Procedures Lab Laboratory Tests 12/28/21 05:28 Patient resulted labs reviewed. Assessment/Plan Assessment and Plan Assess & Plan/Chief Complaint Assessment: Acute on chronic hypoxic hypercapnic respiratory failure Obesity hypoventilation syndrome Super morbid obesity BMI 51 Hypertension COPD Left leg cellulitis complicated with lymphedema Plan: Transfer to floor Needs BiPAP long-term Restart home meds 03/06/2021: Add vancomycin Maintain cefepime Obtain left lower extremity ultrasound tomorrow 03/07/2021: Continue Abx Continue nystatin/triamcinolone cream to L lower extremity Monitor closely PT and OT 03/08/2021: Restart home meds Continue abx and nystatin/triamcinolone for L lower extremity Monitor BP Continue breathing treatments PT and OT TONYA SALDIVAR DO 03/09/21 0609: Subjective Subjective/Events-last exam Pt doing pretty well Elevated BP prompting Norvasc of 5 in addition of Metoprolol home meds Left leg much improved Vancomycin and Cefepime maintained Lungs are better Nebulizer treatments are really helpful Review of Systems General: Fatigue, Malaise Musculoskeletal: leg pain Objective Exam General Appearance: No Apparent Distress, WD/WN, Chronically ill, Obese Respiratory: No Accessory Muscle Use, No Respiratory Distress, Decreased Breath Sounds (very diminished in lower lobes) Cardiovascular: Regular Rate, Rhythm Assessment/Plan Assessment and Plan Assess & Plan/Chief Complaint IV antibiotics Blood pressure management Supervisory-Addendum Brief Verification & Attestation Participated in pt care: history, MDM, physical Personally performed: exam, history, MDM, supervision of care Care discussed with: Medical Student Procedures: n/a Results interpretation: Verified all documentation Verification and Attestation of Medical Student E/M Service A medical student performed and documented this service in my presence. I reviewed and verified all information documented by the medical student and made modifications to such information, when appropriate. I personally performed the physical exam and medical decision making. Tonya Saldivar Mar 09, 2021,06:08 INA BUTT Mar 08, 2021 13:37 TONYA SALDIVAR DO Mar 09, 2021 06:09
[2021-03-08] MEDS: ACETAMINOPHEN 325 MG TABLET PO PRN (14:58)
[2021-03-08 15:00] VITALS: BP 142/69
[2021-03-08 17:27] VITALS: BP 135/70
[2021-03-08] MEDS: meTOprolol TARTRATE 25 MG (LOPRESSOR) TABLET PO SCH (17:30)
[2021-03-08 20:30] VITALS: BP 137/70
[2021-03-09 00:20] VITALS: BP 160/72
[2021-03-09] MEDS ORDERED: NS (IVPB) 250 ML ONE (04:13)
[2021-03-09 04:45] VITALS: BP 147/74
[2021-03-09] MEDS: methylPREDNISolone 40 MG/ML (Solu-MEDROL) VIAL IV SCH ×3 (05:12→20:34)
[2021-03-09] MEDS: CEFEPIME INJECTION 1,000 MG in NS (IVPB) 50 ML IV SCH ×4 (05:14→12:04)
[2021-03-09] MEDS: VANCOMYCIN 1250 MG/NS 250 ML IVPB IV SCH ×2 (05:17)
[2021-03-09] MEDS: inSUlin ASPART (NovoLOG) 1 UNIT/0.01 ML (CHARGE PER UNIT) SC SCH ×4 (06:00→20:52)
[2021-03-09 06:15] LABS: BASOPHILS # (AUTO) 0.1 10^3/uL (0.0-0.1); BASOPHILS % (AUTO) 1 % (0-10); EOSINOPHILS % (AUTO) 0 % (0-10); HEMATOCRIT 41 % (35-52); HEMOGLOBIN 12.5 g/dL (11.5-16.0); LYMPHOCYTES % (AUTO) 9 % (12-44); MEAN CORPUSCULAR HEMOGLOBIN 29 pg (25-34); MEAN CORPUSCULAR HGB CONC 31 g/dL (32-36); MEAN CORPUSCULAR VOLUME 94 fL (80-99); MEAN PLATELET VOLUME 11.1 fL (9.0-12.2); MONOCYTES # (AUTO) 0.7 10^3/uL (0.0-1.0); MONOCYTES % (AUTO) 6 % (0-12); NEUTROPHILS # (AUTO) 8.4 10^3/uL (1.8-7.8); NEUTROPHILS % (AUTO) 79 % (42-75); PLATELET COUNT 203 10^3/uL (130-400); WHITE BLOOD COUNT 10.6 10^3/uL (4.3-11.0)
[2021-03-09 06:27] LABS: ALBUMIN 3.3 GM/DL (3.2-4.5); POTASSIUM 4.5 MMOL/L (3.6-5.0)
[2021-03-09 06:30] LABS: TOTAL PROTEIN 6.5 GM/DL (6.4-8.2)
[2021-03-09 06:32] LABS: BILIRUBIN,TOTAL 0.2 MG/DL (0.1-1.0)
[2021-03-09 06:33] LABS: CREATININE SERUM 0.62 MG/DL (0.60-1.30)
[2021-03-09 06:36] LABS: MAGNESIUM 2.3 MG/DL (1.6-2.4)
[2021-03-09 08:00] VITALS: BP 134/68
[2021-03-09] MEDS: RT-ALBUTEROL/IPRATROPIUM 3 ML (DUONEB) VIAL INH SCH ×3 (09:27→21:27)
[2021-03-09] MEDS: UMECLIDINIUM BROMIDE (INCRUSE ELLIPTA) 7'S IH SCH (09:28)
[2021-03-09] MEDS: ENOXAPARIN 60 MG/0.6 ML (LOVENOX) SYR SC SCH ×2 (09:38→20:34)
[2021-03-09] MEDS: FAMOTIDINE 20 MG (PEPCID) TABLET PO SCH ×2 (09:38→20:34)
[2021-03-09] MEDS: amLODIPine 5 MG (NORVASC) TAB PO SCH (09:38)
[2021-03-09] MEDS: SENNOSIDES 8.6 MG (SENOKOT) TAB PO SCH ×2 (09:39→20:34)
[2021-03-09] MEDS: TRIAMCINOLONE 0.1% CR (KENALOG) 15 GM TUBE TOP SCH ×2 (09:39→20:35)
[2021-03-09] MEDS: meTOprolol TARTRATE 25 MG (LOPRESSOR) TABLET PO SCH ×2 (09:39→17:08)
[2021-03-09] MEDS: DOCUSATE SODIUM 100 MG (COLACE) CAP PO SCH ×2 (09:39→20:34)
[2021-03-09] MEDS: NYSTATIN CREAM (MYCOSTATIN) 30 GM TUBE TP SCH ×2 (09:39→20:36)
[2021-03-09 12:00] VITALS: BP 139/79
--- NOTE | 2021-03-09 12:51 | Progress Note - Hospitalist ---
INA BUTT 03/09/21 1251: Subjective HPI/CC On Admission Date Seen by Provider: Mar 09, 2021 Time Seen by Provider: 08:40 Chief complaint: Acute on chronic hypoxic hypercapnic respiratory failure History of present illness: This is a 65-year-old white female who has a past medical history of super morbid obesity with BMI 51 and obesity hypoventilation syndrome who presented to the ER with shortness of breath and altered mental status. Patient was on the verge of intubation but stabilized and was on BiPAP and now is currently on nasal cannula oxygen. Bacterial bronchitis is being treated due to high risk for Pseudomonas with cefepime. Patient is stable enough to go to the floor. Subjective/Events-last exam Patient is awake and sitting up in chair eating breakfast. Leg looks better, swelling is the same but the erythema seems to have gone down today. Patient states her blood pressure medication helped with her light-headedness yesterday. States she has exertional dyspnea, but otherwise doesn't feel short of breath. States she likes her breathing treatments and they help a lot. Feels good and wants to go home once her leg gets better. Review of Systems General: No Chills, No Night Sweats HEENT: Head Aches Pulmonary: Dyspnea (exertional); No Cough Cardiovascular: No: Chest Pain, Palpitations Gastrointestinal: No: Nausea, Vomiting Genitourinary: No Dysuria, No Frequency Objective Exam Vital Signs Vital Signs Date Time Temp Pulse Resp B/P (MAP) Pulse Ox O2 Delivery O2 Flow Rate FiO2 03/09/21 09:28 94 High Flow N/C 3.00 03/09/21 08:00 36.1 77 22 134/68 (90) Capillary Refill : Less Than 3 Seconds General Appearance: No Apparent Distress, Obese Respiratory: Chest Non Tender, Lungs Clear, No Accessory Muscle Use, No Respiratory Distress, Decreased Breath Sounds Cardiovascular: Regular Rate, Rhythm, Normal Peripheral Pulses Rectal: Deferred Extremity: Inflammation, Pedal Edema Neurologic/Psychiatric: Alert, Oriented x3, Normal Mood/Affect Results/Procedures Lab Laboratory Tests 03/09/21 05:42 Patient resulted labs reviewed. Assessment/Plan Assessment and Plan Assess & Plan/Chief Complaint Assessment: Acute on chronic hypoxic hypercapnic respiratory failure Obesity hypoventilation syndrome Super morbid obesity BMI 51 Hypertension COPD Left leg cellulitis complicated with lymphedema Plan: Transfer to floor Needs BiPAP long-term Restart home meds 03/06/2021: Add vancomycin Maintain cefepime Obtain left lower extremity ultrasound tomorrow 03/07/2021: Continue Abx Continue nystatin/triamcinolone cream to L lower extremity Monitor closely PT and OT 03/08/2021: Restart home meds Continue abx and nystatin/triamcinolone for L lower extremity Monitor BP Continue breathing treatments PT and OT 03/09/2021: Abx and nystatin/triamcinolone for L lower extremity Continue BP meds Monitor BP Breathing treatments PT and OT TONYA SALDIVAR DO 03/10/21 0557: Subjective Subjective/Events-last exam Pt doing a lot better Right leg is much improved IV antibiotics maintained Respiratory status is about the same Review of Systems General: Fatigue, Malaise Objective Exam General Appearance: No Apparent Distress, WD/WN, Chronically ill, Obese Respiratory: No Accessory Muscle Use, No Respiratory Distress, Decreased Breath Sounds Cardiovascular: Regular Rate, Rhythm Neurologic/Psychiatric: Alert, Oriented x3 Assessment/Plan Assessment and Plan Assess & Plan/Chief Complaint IV antibiotics Blood pressure management Oxygen Supervisory-Addendum Brief Verification & Attestation Participated in pt care: history, MDM, physical Personally performed: exam, history, MDM, supervision of care Care discussed with: Medical Student Procedures: n/a Results interpretation: Verified all documentation Verification and Attestation of Medical Student E/M Service A medical student performed and documented this service in my presence. I reviewed and verified all information documented by the medical student and made modifications to such information, when appropriate. I personally performed the physical exam and medical decision making. Tonya Saldivar Mar 10, 2021,05:56 INA BUTT Mar 09, 2021 12:51 TONYA SALDIVAR DO Mar 10, 2021 05:57
[2021-03-09] MEDS ORDERED: TROUGH ORDER-PHARMACY XX ONE (13:00)
[2021-03-09] MEDS ORDERED: VANCOMYCIN INJECTION 1,000 MG in NS (IVPB) 250 ML IV SCH (14:00)
[2021-03-09] MEDS: VANCOMYCIN INJECTION 1,000 MG in NS (IVPB) 250 ML IV SCH (15:31)
[2021-03-09 16:17] VITALS: BP 131/60
[2021-03-09 20:25] VITALS: BP 136/68
[2021-03-10] VITALS (9 sets, daily range): BP systolic 134–164; BP diastolic 66–81
[2021-03-10] MEDS: VANCOMYCIN INJECTION 1,000 MG in NS (IVPB) 250 ML IV SCH ×4 (00:44→22:15)
[2021-03-10 04:39] LABS: BASOPHILS # (AUTO) 0.1 10^3/uL (0.0-0.1); BASOPHILS % (AUTO) 1 % (0-10); EOSINOPHILS % (AUTO) 0 % (0-10); HEMATOCRIT 40 % (35-52); HEMOGLOBIN 12.5 g/dL (11.5-16.0); LYMPHOCYTES # (AUTO) 1.3 10^3/uL (1.0-4.0); LYMPHOCYTES % (AUTO) 11 % (12-44); MEAN CORPUSCULAR HEMOGLOBIN 29 pg (25-34); MEAN CORPUSCULAR HGB CONC 31 g/dL (32-36); MEAN CORPUSCULAR VOLUME 93 fL (80-99); MONOCYTES # (AUTO) 0.9 10^3/uL (0.0-1.0); MONOCYTES % (AUTO) 7 % (0-12); NEUTROPHILS # (AUTO) 9.5 10^3/uL (1.8-7.8); NEUTROPHILS % (AUTO) 75 % (42-75); PLATELET COUNT 250 10^3/uL (130-400); WHITE BLOOD COUNT 12.7 10^3/uL (4.3-11.0)
[2021-03-10 04:47] LABS: ALBUMIN 3.2 GM/DL (3.2-4.5); POTASSIUM 4.5 MMOL/L (3.6-5.0)
[2021-03-10 04:49] LABS: CALCIUM 8.7 MG/DL (8.5-10.1)
[2021-03-10 04:50] LABS: TOTAL PROTEIN 6.2 GM/DL (6.4-8.2)
[2021-03-10 04:52] LABS: BILIRUBIN,TOTAL 0.2 MG/DL (0.1-1.0)
[2021-03-10 04:53] LABS: CREATININE SERUM 0.67 MG/DL (0.60-1.30)
[2021-03-10 04:57] LABS: MAGNESIUM 2.1 MG/DL (1.6-2.4)
[2021-03-10] MEDS: inSUlin ASPART (NovoLOG) 1 UNIT/0.01 ML (CHARGE PER UNIT) SC SCH (04:59)
[2021-03-10] MEDS: methylPREDNISolone 40 MG/ML (Solu-MEDROL) VIAL IV SCH ×3 (05:35→22:15)
[2021-03-10] MEDS: RT-ALBUTEROL/IPRATROPIUM 3 ML (DUONEB) VIAL INH SCH ×3 (07:33→21:37)
[2021-03-10] MEDS: UMECLIDINIUM BROMIDE (INCRUSE ELLIPTA) 7'S IH SCH (07:42)
[2021-03-10] MEDS: amLODIPine 5 MG (NORVASC) TAB PO SCH (09:23)
[2021-03-10] MEDS: meTOprolol TARTRATE 25 MG (LOPRESSOR) TABLET PO SCH ×2 (09:23→17:08)
[2021-03-10] MEDS: FAMOTIDINE 20 MG (PEPCID) TABLET PO SCH ×2 (09:23→20:38)
[2021-03-10] MEDS: SENNOSIDES 8.6 MG (SENOKOT) TAB PO SCH ×2 (09:23→20:19)
[2021-03-10] MEDS: DOCUSATE SODIUM 100 MG (COLACE) CAP PO SCH ×2 (09:23→20:19)
[2021-03-10] MEDS: ENOXAPARIN 60 MG/0.6 ML (LOVENOX) SYR SC SCH ×2 (09:23→20:19)
[2021-03-10] MEDS: NYSTATIN CREAM (MYCOSTATIN) 30 GM TUBE TP SCH ×2 (09:26→20:20)
[2021-03-10] MEDS: TRIAMCINOLONE 0.1% CR (KENALOG) 15 GM TUBE TOP SCH ×2 (09:26→20:20)
[2021-03-10] MEDS ORDERED: FLU QUADRIvalent (3YOA+) 60 mcg/0.5 ml 2021-22(AFLURIA) IM ONE (12:00)
--- NOTE | 2021-03-10 15:11 | Progress Note - Hospitalist ---
INA BUTT 03/10/21 1511: Subjective HPI/CC On Admission Date Seen by Provider: Mar 10, 2021 Time Seen by Provider: 09:40 Chief complaint: Acute on chronic hypoxic hypercapnic respiratory failure History of present illness: This is a 65-year-old white female who has a past medical history of super morbid obesity with BMI 51 and obesity hypoventilation syndrome who presented to the ER with shortness of breath and altered mental status. Patient was on the verge of intubation but stabilized and was on BiPAP and now is currently on nasal cannula oxygen. Bacterial bronchitis is being treated due to high risk for Pseudomonas with cefepime. Patient is stable enough to go to the floor. Subjective/Events-last exam Patient reports feeling pretty good today. Her leg doesn't look much improved from yesterday, will keep in hospital atleast another day to monitor. Patient states leg has a weird texture, stating it feels like "an orange peel". Patient states that her blood pressure medication is helping her feeling of wooziness. Patient again requesting nebulizer. Ordered one for her on discharge. She is also requesting a flu shot. 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 Review of Systems HEENT: No Head Aches Pulmonary: No Dyspnea Cardiovascular: No: Chest Pain, Palpitations Gastrointestinal: No: Nausea, Vomiting Objective Exam Vital Signs Vital Signs Date Time Temp Pulse Resp B/P (MAP) Pulse Ox O2 Delivery O2 Flow Rate FiO2 03/10/21 14:55 95 High Flow N/C 3.00 03/10/21 11:01 36.2 69 20 134/66 (88) Capillary Refill : Less Than 3 Seconds General Appearance: No Apparent Distress, Obese Respiratory: Chest Non Tender, Lungs Clear, Normal Breath Sounds, No Accessory Muscle Use, No Respiratory Distress Cardiovascular: Regular Rate, Rhythm, Normal Peripheral Pulses Rectal: Deferred Extremity: Inflammation, Pedal Edema, Swelling Neurologic/Psychiatric: Alert, Oriented x3, Normal Mood/Affect Results/Procedures Lab Laboratory Tests 03/10/21 04:15 Patient resulted labs reviewed. Assessment/Plan Assessment and Plan Assess & Plan/Chief Complaint Assessment: Acute on chronic hypoxic hypercapnic respiratory failure Obesity hypoventilation syndrome Super morbid obesity BMI 51 Hypertension COPD Left leg cellulitis complicated with lymphedema Plan: Transfer to floor Needs BiPAP long-term Restart home meds 03/06/2021: Add vancomycin Maintain cefepime Obtain left lower extremity ultrasound tomorrow 03/07/2021: Continue Abx Continue nystatin/triamcinolone cream to L lower extremity Monitor closely PT and OT 03/08/2021: Restart home meds Continue abx and nystatin/triamcinolone for L lower extremity Monitor BP Continue breathing treatments PT and OT 03/09/2021: Abx and nystatin/triamcinolone for L lower extremity Continue BP meds Monitor BP Breathing treatments PT and OT 03/10/2021: Continue monitoring cellulitis Home meds Breathing treatments Flu shot PT/OT Nebulizer on discharge TONYA SALDIVAR DO 03/11/21 0557: Subjective Subjective/Events-last exam Pt doing a lot better Left leg much improved No SOB Wants her flu shot so I did order that She will need several more days of IV antibiotics Nebulizer treatments ordered and initiated Review of Systems General: Fatigue, Malaise Musculoskeletal: leg pain Objective Exam General Appearance: No Apparent Distress, WD/WN, Chronically ill, Obese Respiratory: Lungs Clear, Normal Breath Sounds Cardiovascular: Regular Rate, Rhythm Assessment/Plan Assessment and Plan Assess & Plan/Chief Complaint Continue IV antibiotics Supervisory-Addendum Brief Verification & Attestation Participated in pt care: history, MDM, physical Personally performed: exam, history, MDM, supervision of care Care discussed with: Medical Student Procedures: n/a Results interpretation: Verified all documentation Verification and Attestation of Medical Student E/M Service A medical student performed and documented this service in my presence. I reviewed and verified all information documented by the medical student and made modifications to such information, when appropriate. I personally performed the physical exam and medical decision making. Tonya Saldivar Mar 11, 2021,05:56 INA BUTT Mar 10, 2021 15:11 TONYA SALDIVAR DO Mar 11, 2021 05:57
[2021-03-11] MEDS: VANCOMYCIN INJECTION 1,000 MG in NS (IVPB) 250 ML IV SCH ×3 (06:16→21:46)
[2021-03-11] MEDS: predniSONE 20 MG TAB PO SCH (06:17)
[2021-03-11 06:38] LABS: BASOPHILS # (AUTO) 0.1 10^3/uL (0.0-0.1); BASOPHILS % (AUTO) 1 % (0-10); EOSINOPHILS % (AUTO) 0 % (0-10); HEMATOCRIT 42 % (35-52); HEMOGLOBIN 12.8 g/dL (11.5-16.0); LYMPHOCYTES # (AUTO) 1.5 10^3/uL (1.0-4.0); LYMPHOCYTES % (AUTO) 10 % (12-44); MEAN CORPUSCULAR HEMOGLOBIN 29 pg (25-34); MEAN CORPUSCULAR HGB CONC 31 g/dL (32-36); MEAN CORPUSCULAR VOLUME 94 fL (80-99); MEAN PLATELET VOLUME 10.6 fL (9.0-12.2); MONOCYTES # (AUTO) 0.8 10^3/uL (0.0-1.0); MONOCYTES % (AUTO) 5 % (0-12); NEUTROPHILS # (AUTO) 11.1 10^3/uL (1.8-7.8); NEUTROPHILS % (AUTO) 75 % (42-75); PLATELET COUNT 255 10^3/uL (130-400); WHITE BLOOD COUNT 14.7 10^3/uL (4.3-11.0)
[2021-03-11 07:05] LABS: ALBUMIN 3.2 GM/DL (3.2-4.5)
[2021-03-11 07:06] LABS: POTASSIUM 4.7 MMOL/L (3.6-5.0)
[2021-03-11 07:07] LABS: CALCIUM 8.7 MG/DL (8.5-10.1)
[2021-03-11 07:08] LABS: TOTAL PROTEIN 6.2 GM/DL (6.4-8.2)
[2021-03-11 07:10] LABS: BILIRUBIN,TOTAL 0.3 MG/DL (0.1-1.0)
[2021-03-11 07:12] LABS: CREATININE SERUM 0.61 MG/DL (0.60-1.30)
[2021-03-11 07:14] LABS: MAGNESIUM 2.3 MG/DL (1.6-2.4)
[2021-03-11 07:19] LABS: BAND NEUTROPHILS 6 %; BASOPHILS % (MANUAL) 0 %; EOSINOPHILS % (MANUAL) 0 %; LYMPHOCYTES % (MANUAL) 13 %; MONOCYTES % (MANUAL) 5 %; MYELOCYTES % 4 %; NEUTROPHILS % (MANUAL) 72 %
[2021-03-11 07:20] LABS: RBC MORPH NORMAL
[2021-03-11] MEDS: RT-ALBUTEROL/IPRATROPIUM 3 ML (DUONEB) VIAL INH SCH ×3 (07:34→21:32)
[2021-03-11] MEDS: UMECLIDINIUM BROMIDE (INCRUSE ELLIPTA) 7'S IH SCH (07:34)
[2021-03-11 08:22] VITALS: BP 131/74
[2021-03-11] MEDS: meTOprolol TARTRATE 25 MG (LOPRESSOR) TABLET PO SCH ×2 (08:36→17:45)
[2021-03-11] MEDS: amLODIPine 5 MG (NORVASC) TAB PO SCH (08:37)
[2021-03-11] MEDS: FAMOTIDINE 20 MG (PEPCID) TABLET PO SCH ×2 (08:37→20:34)
[2021-03-11] MEDS: ENOXAPARIN 60 MG/0.6 ML (LOVENOX) SYR SC SCH ×2 (08:38→20:29)
[2021-03-11] MEDS: DOCUSATE SODIUM 100 MG (COLACE) CAP PO SCH ×2 (08:38→20:34)
[2021-03-11] MEDS: SENNOSIDES 8.6 MG (SENOKOT) TAB PO SCH ×2 (08:38→20:34)
[2021-03-11] MEDS: TRIAMCINOLONE 0.1% CR (KENALOG) 15 GM TUBE TOP SCH ×2 (08:39→20:33)
[2021-03-11] MEDS: NYSTATIN CREAM (MYCOSTATIN) 30 GM TUBE TP SCH ×2 (08:39→20:34)
[2021-03-11] MEDS ORDERED: CATHETER FLUSH 10 ML SYR IV PRN (09:15)
--- NOTE | 2021-03-11 12:33 | Progress Note - Hospitalist ---
INA BUTT 03/11/21 1233: Subjective HPI/CC On Admission Date Seen by Provider: Mar 11, 2021 Time Seen by Provider: 08:30 Chief complaint: Acute on chronic hypoxic hypercapnic respiratory failure History of present illness: This is a 65-year-old white female who has a past medical history of super morbid obesity with BMI 51 and obesity hypoventilation syndrome who presented to the ER with shortness of breath and altered mental status. Patient was on the verge of intubation but stabilized and was on BiPAP and now is currently on nasal cannula oxygen. Bacterial bronchitis is being treated due to high risk for Pseudomonas with cefepime. Patient is stable enough to go to the floor. Subjective/Events-last exam Patient feeling better today. States her leg was having a lot of fluid exudate last night. Feels like the swelling has went down. Appears to be about the same as yesterday. Will continue abx and monitoring. Patient refused PT. Review of Systems General: No Chills HEENT: No Head Aches Pulmonary: No Dyspnea Cardiovascular: No: Chest Pain, Palpitations Gastrointestinal: No: Nausea, Vomiting Genitourinary: No Dysuria, No Frequency Objective Exam Vital Signs Vital Signs Date Time Temp Pulse Resp B/P (MAP) Pulse Ox O2 Delivery O2 Flow Rate FiO2 03/11/21 08:22 36.0 58 20 131/74 (93) 94 High Flow N/C 3.00 Capillary Refill : Less Than 3 Seconds General Appearance: No Apparent Distress, Obese Respiratory: Chest Non Tender, Lungs Clear, No Accessory Muscle Use, No Respiratory Distress, Decreased Breath Sounds Cardiovascular: Regular Rate, Rhythm, Normal Peripheral Pulses Rectal: Deferred Extremity: Inflammation, Pedal Edema, Swelling Neurologic/Psychiatric: Alert, Oriented x3, Normal Mood/Affect Results/Procedures Lab Laboratory Tests 03/11/21 06:23 Patient resulted labs reviewed. Assessment/Plan Assessment and Plan Assess & Plan/Chief Complaint Assessment: Acute on chronic hypoxic hypercapnic respiratory failure Obesity hypoventilation syndrome Super morbid obesity BMI 51 Hypertension COPD Left leg cellulitis complicated with lymphedema Plan: Transfer to floor Needs BiPAP long-term Restart home meds 03/06/2021: Add vancomycin Maintain cefepime Obtain left lower extremity ultrasound tomorrow 03/07/2021: Continue Abx Continue nystatin/triamcinolone cream to L lower extremity Monitor closely PT and OT 03/08/2021: Restart home meds Continue abx and nystatin/triamcinolone for L lower extremity Monitor BP Continue breathing treatments PT and OT 03/09/2021: Abx and nystatin/triamcinolone for L lower extremity Continue BP meds Monitor BP Breathing treatments PT and OT 03/10/2021: Continue monitoring cellulitis Home meds Breathing treatments Flu shot PT/OT Nebulizer on discharge 03/11/2021: Continue Medical management Monitor cellulitis Refused PT TONYA SALDIVAR DO 03/11/21 1609: Subjective Subjective/Events-last exam Patient's leg is much better Tissue is weeping now Checked meds and labs Oxygen maintained Review of Systems Musculoskeletal: leg pain Objective Exam General Appearance: No Apparent Distress, WD/WN, Chronically ill, Obese Respiratory: Lungs Clear, Decreased Breath Sounds Cardiovascular: Regular Rate, Rhythm Extremity: Inflammation, Pedal Edema, Swelling Neurologic/Psychiatric: Alert, Oriented x3 Assessment/Plan Assessment and Plan Assess & Plan/Chief Complaint Supportive care Pharmacy dosing vancomycin Supervisory-Addendum Brief Verification & Attestation Participated in pt care: history, MDM, physical Personally performed: exam, history, MDM, supervision of care Care discussed with: Medical Student Procedures: n/a Results interpretation: Verified all documentation Verification and Attestation of Medical Student E/M Service A medical student performed and documented this service in my presence. I reviewed and verified all information documented by the medical student and made modifications to such information, when appropriate. I personally performed the physical exam and medical decision making. Tonya Saldivar Mar 11, 2021,16:08 INA BUTT Mar 11, 2021 12:33 TONYA SALDIVAR DO Mar 11, 2021 16:09
[2021-03-11] MEDS: CATHETER FLUSH 10 ML SYR IV SCH ×2 (13:57→20:29)
[2021-03-11 15:19] VITALS: BP 122/80
[2021-03-11] MEDS ORDERED: ANTACID SUSP 30 ML UDC (MYLANTA) PO PRN (16:00)
[2021-03-11] MEDS ORDERED: CALCIUM CARBONATE 500 MG (TUMS) TAB.CHEW PO PRN (16:15)
[2021-03-11 23:32] VITALS: BP 125/64
[2021-03-12] MEDS: CATHETER FLUSH 10 ML SYR IV SCH ×3 (05:13→20:34)
[2021-03-12] MEDS: predniSONE 20 MG TAB PO SCH (05:13)
[2021-03-12 05:32] LABS: BASOPHILS # (AUTO) 0.1 10^3/uL (0.0-0.1); BASOPHILS % (AUTO) 1 % (0-10); EOSINOPHILS # (AUTO) 0.2 10^3/uL (0.0-0.3); EOSINOPHILS % (AUTO) 1 % (0-10); HEMATOCRIT 41 % (35-52); HEMOGLOBIN 12.6 g/dL (11.5-16.0); LYMPHOCYTES # (AUTO) 3.3 10^3/uL (1.0-4.0); LYMPHOCYTES % (AUTO) 26 % (12-44); MEAN CORPUSCULAR HEMOGLOBIN 29 pg (25-34); MEAN CORPUSCULAR HGB CONC 31 g/dL (32-36); MEAN CORPUSCULAR VOLUME 94 fL (80-99); MEAN PLATELET VOLUME 10.3 fL (9.0-12.2); MONOCYTES # (AUTO) 0.7 10^3/uL (0.0-1.0); MONOCYTES % (AUTO) 6 % (0-12); NEUTROPHILS # (AUTO) 7.2 10^3/uL (1.8-7.8); NEUTROPHILS % (AUTO) 56 % (42-75); PLATELET COUNT 236 10^3/uL (130-400); WHITE BLOOD COUNT 12.8 10^3/uL (4.3-11.0)
[2021-03-12 05:44] LABS: ALBUMIN 2.9 GM/DL (3.2-4.5); POTASSIUM 3.9 MMOL/L (3.6-5.0)
[2021-03-12 05:45] LABS: CALCIUM 8.3 MG/DL (8.5-10.1)
[2021-03-12 05:47] LABS: TOTAL PROTEIN 5.4 GM/DL (6.4-8.2)
[2021-03-12 05:48] LABS: BILIRUBIN,TOTAL 0.3 MG/DL (0.1-1.0)
[2021-03-12 05:50] LABS: CREATININE SERUM 0.61 MG/DL (0.60-1.30)
--- NOTE | 2021-03-12 05:56 | Progress Note - Hospitalist ---
Subjective HPI/CC On Admission Date Seen by Provider: Mar 12, 2021 Time Seen by Provider: 10:30 Chief complaint: Acute on chronic hypoxic hypercapnic respiratory failure History of present illness: This is a 65-year-old white female who has a past medical history of super morbid obesity with BMI 51 and obesity hypoventilation syndrome who presented to the ER with shortness of breath and altered mental status. Patient was on the verge of intubation but stabilized and was on BiPAP and now is currently on nasal cannula oxygen. Bacterial bronchitis is being treated due to high risk for Pseudomonas with cefepime. Patient is stable enough to go to the floor. Subjective/Events-last exam Patient doing better Checked meds and labs Vancomycin maintain Left leg much improved Review of Systems General: Fatigue Musculoskeletal: leg pain Objective Exam Vital Signs Vital Signs Date Time Temp Pulse Resp B/P (MAP) Pulse Ox O2 Delivery O2 Flow Rate FiO2 03/12/21 15:48 36.4 76 22 125/66 (85) 92 High Flow N/C 2.00 Capillary Refill : Less Than 3 Seconds General Appearance: No Apparent Distress, WD/WN, Chronically ill, Obese Extremity: Other (Left leg much improved erythema) Results/Procedures Lab Laboratory Tests 03/12/21 05:18 Patient resulted labs reviewed. Assessment/Plan Assessment and Plan Assess & Plan/Chief Complaint Assessment: Acute on chronic respiratory failure Left leg cellulitis severe in nature Lymphedema Morbid obesity BMI 53 Plan: Nebulizers Vancomycin Diagnosis/Problems Diagnosis/Problems (1) Obesity hypoventilation syndrome (2) Respiratory failure with hypoxia and hypercapnia Status: Acute (3) COPD exacerbation Status: Acute (4) Respiratory acidosis Status: Acute (5) COPD (chronic obstructive pulmonary disease) Status: Chronic (6) Morbid obesity Status: Chronic (7) KANU (obstructive sleep apnea) Status: Chronic MARIS SALDIVAR DO Mar 12, 2021 05:56
[2021-03-12] MEDS ORDERED: VANCOMYCIN INJECTION 0.1 MG in NS (IVPB) 250 ML IV SCH (06:00)
[2021-03-12 07:43] VITALS: BP 125/75
[2021-03-12] MEDS: RT-ALBUTEROL/IPRATROPIUM 3 ML (DUONEB) VIAL INH SCH ×3 (08:09→19:20)
[2021-03-12] MEDS: FAMOTIDINE 20 MG (PEPCID) TABLET PO SCH ×2 (08:28→20:31)
[2021-03-12] MEDS: meTOprolol TARTRATE 25 MG (LOPRESSOR) TABLET PO SCH ×2 (08:28→17:45)
[2021-03-12] MEDS: VANCOMYCIN INJECTION 1,000 MG in NS (IVPB) 250 ML IV SCH ×2 (08:28→16:07)
[2021-03-12] MEDS: amLODIPine 5 MG (NORVASC) TAB PO SCH (08:28)
[2021-03-12] MEDS: NYSTATIN CREAM (MYCOSTATIN) 30 GM TUBE TP SCH ×2 (08:29→20:31)
[2021-03-12] MEDS: TRIAMCINOLONE 0.1% CR (KENALOG) 15 GM TUBE TOP SCH ×2 (08:29→20:31)
[2021-03-12] MEDS: ENOXAPARIN 60 MG/0.6 ML (LOVENOX) SYR SC SCH ×2 (08:29→20:31)
[2021-03-12] MEDS: SENNOSIDES 8.6 MG (SENOKOT) TAB PO SCH ×2 (08:30→19:32)
[2021-03-12] MEDS: DOCUSATE SODIUM 100 MG (COLACE) CAP PO SCH ×2 (08:30→19:32)
[2021-03-12] MEDS: UMECLIDINIUM BROMIDE (INCRUSE ELLIPTA) 7'S IH SCH (14:59)
[2021-03-12 15:48] VITALS: BP 125/66
[2021-03-13] VITALS: BP 123/61
[2021-03-13] MEDS: VANCOMYCIN INJECTION 1,000 MG in NS (IVPB) 250 ML IV SCH ×3 (00:23→17:29)
[2021-03-13] MEDS: predniSONE 20 MG TAB PO SCH (05:32)
[2021-03-13] MEDS: CATHETER FLUSH 10 ML SYR IV SCH ×3 (05:32→20:11)
[2021-03-13 05:44] LABS: BASOPHILS % (AUTO) 0 % (0-10); EOSINOPHILS # (AUTO) 0.1 10^3/uL (0.0-0.3); EOSINOPHILS % (AUTO) 1 % (0-10); HEMATOCRIT 39 % (35-52); HEMOGLOBIN 12.2 g/dL (11.5-16.0); LYMPHOCYTES % (AUTO) 30 % (12-44); MEAN CORPUSCULAR HEMOGLOBIN 29 pg (25-34); MEAN CORPUSCULAR HGB CONC 31 g/dL (32-36); MEAN CORPUSCULAR VOLUME 94 fL (80-99); MEAN PLATELET VOLUME 10.4 fL (9.0-12.2); MONOCYTES # (AUTO) 0.6 10^3/uL (0.0-1.0); MONOCYTES % (AUTO) 6 % (0-12); NEUTROPHILS # (AUTO) 5.3 10^3/uL (1.8-7.8); NEUTROPHILS % (AUTO) 54 % (42-75); PLATELET COUNT 218 10^3/uL (130-400); WHITE BLOOD COUNT 9.9 10^3/uL (4.3-11.0)
[2021-03-13 05:57] LABS: ALBUMIN 2.9 GM/DL (3.2-4.5); POTASSIUM 3.9 MMOL/L (3.6-5.0)
[2021-03-13 05:58] LABS: CALCIUM 8.3 MG/DL (8.5-10.1)
[2021-03-13 05:59] LABS: TOTAL PROTEIN 5.5 GM/DL (6.4-8.2)
[2021-03-13 06:01] LABS: BILIRUBIN,TOTAL 0.3 MG/DL (0.1-1.0)
[2021-03-13 06:03] LABS: CREATININE SERUM 0.59 MG/DL (0.60-1.30)
[2021-03-13] MEDS: RT-ALBUTEROL/IPRATROPIUM 3 ML (DUONEB) VIAL INH SCH ×3 (07:09→18:37)
[2021-03-13] MEDS: UMECLIDINIUM BROMIDE (INCRUSE ELLIPTA) 7'S IH SCH (07:09)
--- NOTE | 2021-03-13 07:20 | Progress Note - Hospitalist ---
Subjective HPI/CC On Admission Date Seen by Provider: Mar 13, 2021 Time Seen by Provider: 11:45 Chief complaint: Acute on chronic hypoxic hypercapnic respiratory failure History of present illness: This is a 65-year-old white female who has a past medical history of super morbid obesity with BMI 51 and obesity hypoventilation syndrome who presented to the ER with shortness of breath and altered mental status. Patient was on the verge of intubation but stabilized and was on BiPAP and now is currently on nasal cannula oxygen. Bacterial bronchitis is being treated due to high risk for Pseudomonas with cefepime. Patient is stable enough to go to the floor. Subjective/Events-last exam Patient much improved Left leg much improved Vancomycin maintain Drainage from the leg is improved Review of Systems General: Fatigue, Malaise Objective Exam Vital Signs Vital Signs Date Time Temp Pulse Resp B/P (MAP) Pulse Ox O2 Delivery O2 Flow Rate FiO2 03/14/21 00:22 36.5 69 17 132/62 (85) 95 High Flow N/C 2.00 Capillary Refill : Less Than 3 Seconds General Appearance: No Apparent Distress, WD/WN, Chronically ill Respiratory: Lungs Clear, Normal Breath Sounds Cardiovascular: Regular Rate, Rhythm Neurologic/Psychiatric: Alert, Oriented x3, No Motor/Sensory Deficits, Normal Mood/Affect Results/Procedures Lab Laboratory Tests 03/13/21 05:38 Patient resulted labs reviewed. Assessment/Plan Assessment and Plan Assess & Plan/Chief Complaint Assessment: Acute on chronic respiratory failure Left leg cellulitis severe in nature Lymphedema Morbid obesity BMI 53 Plan: Nebulizers Vancomycin 03/13/2021: Supportive care Diagnosis/Problems Diagnosis/Problems (1) Obesity hypoventilation syndrome (2) Respiratory failure with hypoxia and hypercapnia Status: Acute (3) COPD exacerbation Status: Acute (4) Respiratory acidosis Status: Acute (5) COPD (chronic obstructive pulmonary disease) Status: Chronic (6) Morbid obesity Status: Chronic (7) KANU (obstructive sleep apnea) Status: Chronic MARIS SALDIVAR DO Mar 13, 2021 07:20
[2021-03-13 07:33] VITALS: BP 114/64
[2021-03-13] MEDS: amLODIPine 5 MG (NORVASC) TAB PO SCH (09:31)
[2021-03-13] MEDS: meTOprolol TARTRATE 25 MG (LOPRESSOR) TABLET PO SCH ×2 (09:31→17:29)
[2021-03-13] MEDS: NYSTATIN CREAM (MYCOSTATIN) 30 GM TUBE TP SCH ×2 (09:32→20:11)
[2021-03-13] MEDS: TRIAMCINOLONE 0.1% CR (KENALOG) 15 GM TUBE TOP SCH ×2 (09:32→20:11)
[2021-03-13] MEDS: DOCUSATE SODIUM 100 MG (COLACE) CAP PO SCH ×2 (09:32→20:06)
[2021-03-13] MEDS: SENNOSIDES 8.6 MG (SENOKOT) TAB PO SCH ×2 (09:32→20:06)
[2021-03-13] MEDS: FAMOTIDINE 20 MG (PEPCID) TABLET PO SCH ×2 (09:32→20:12)
[2021-03-13] MEDS: ENOXAPARIN 60 MG/0.6 ML (LOVENOX) SYR SC SCH ×2 (09:32→20:11)
[2021-03-13 16:00] VITALS: BP 124/59
[2021-03-14 00:22] VITALS: BP 132/62
[2021-03-14] MEDS: VANCOMYCIN INJECTION 1,000 MG in NS (IVPB) 250 ML IV SCH ×2 (00:58→08:56)
[2021-03-14] MEDS: CATHETER FLUSH 10 ML SYR IV SCH ×2 (04:56→13:13)
[2021-03-14] MEDS: predniSONE 20 MG TAB PO SCH (05:15)
[2021-03-14 06:20] LABS: BASOPHILS # (AUTO) 0.1 10^3/uL (0.0-0.1); BASOPHILS % (AUTO) 1 % (0-10); EOSINOPHILS # (AUTO) 0.2 10^3/uL (0.0-0.3); EOSINOPHILS % (AUTO) 2 % (0-10); HEMATOCRIT 42 % (35-52); HEMOGLOBIN 12.7 g/dL (11.5-16.0); LYMPHOCYTES # (AUTO) 2.9 10^3/uL (1.0-4.0); LYMPHOCYTES % (AUTO) 26 % (12-44); MEAN CORPUSCULAR HEMOGLOBIN 28 pg (25-34); MEAN CORPUSCULAR HGB CONC 30 g/dL (32-36); MEAN CORPUSCULAR VOLUME 94 fL (80-99); MEAN PLATELET VOLUME 10.3 fL (9.0-12.2); MONOCYTES # (AUTO) 0.6 10^3/uL (0.0-1.0); MONOCYTES % (AUTO) 5 % (0-12); NEUTROPHILS # (AUTO) 6.6 10^3/uL (1.8-7.8); NEUTROPHILS % (AUTO) 60 % (42-75); PLATELET COUNT 234 10^3/uL (130-400); WHITE BLOOD COUNT 10.9 10^3/uL (4.3-11.0)
[2021-03-14 06:45] LABS: ALBUMIN 3.2 GM/DL (3.2-4.5); BILIRUBIN,TOTAL 0.4 MG/DL (0.1-1.0); CALCIUM 9.1 MG/DL (8.5-10.1); CREATININE SERUM 0.61 MG/DL (0.60-1.30); MAGNESIUM 2.1 MG/DL (1.6-2.4); POTASSIUM 4.2 MMOL/L (3.6-5.0); TOTAL PROTEIN 5.8 GM/DL (6.4-8.2)
[2021-03-14 07:18] VITALS: BP 127/74
[2021-03-14] MEDS: RT-ALBUTEROL/IPRATROPIUM 3 ML (DUONEB) VIAL INH SCH (07:23)
[2021-03-14] MEDS: UMECLIDINIUM BROMIDE (INCRUSE ELLIPTA) 7'S IH SCH (07:25)
[2021-03-14] MEDS: SENNOSIDES 8.6 MG (SENOKOT) TAB PO SCH (08:40)
[2021-03-14] MEDS: DOCUSATE SODIUM 100 MG (COLACE) CAP PO SCH (08:40)
[2021-03-14] MEDS: meTOprolol TARTRATE 25 MG (LOPRESSOR) TABLET PO SCH (08:42)
[2021-03-14] MEDS: TRIAMCINOLONE 0.1% CR (KENALOG) 15 GM TUBE TOP SCH (08:42)
[2021-03-14] MEDS: NYSTATIN CREAM (MYCOSTATIN) 30 GM TUBE TP SCH (08:42)
[2021-03-14] MEDS: ENOXAPARIN 60 MG/0.6 ML (LOVENOX) SYR SC SCH (08:43)
[2021-03-14] MEDS: amLODIPine 5 MG (NORVASC) TAB PO SCH (08:43)
[2021-03-14] MEDS: FAMOTIDINE 20 MG (PEPCID) TABLET PO SCH (08:43)
[2021-03-14] MEDS ORDERED: IPRA3AMP31 INH (14:15)
--- NOTE | 2021-03-14 14:15 | Discharge Summary ---
Discharge Summary Hospital Course Hospital Course Date of Admission: Mar 04, 2021 at 16:56 Admission Diagnosis : Acute on chronic respiratory failure Cellulitis COPD [facility] Date of Discharge: 03/14/21 Discharge Diagnosis: Acute on chronic respiratory failure Leg cellulitis COPD Hospital Course: Per H&P by Dr. Ahn "This is a 65-year-old white female who has a past medical history of super morbid obesity with BMI 51 and obesity hypoventilation syndrome who presented to the ER with shortness of breath and altered mental status. Patient was on the verge of intubation but stabilized and was on BiPAP and now is currently on nasal cannula oxygen. Bacterial bronchitis is being treated due to high risk for Pseudomonas with cefepime. Patient is stable enough to go to the floor." She was found to also have cellulitis of her left leg and was treated with vancomycin with marked improvement. Her respiratory status improved to baseline. She requested nebulized ipr/albuterol as she felt it helps her more than her inhalers and this was prescribed on d/c. Labs and Pending Lab Test: Laboratory Tests 03/14/21 05:51: White Blood Count 10.9, Red Blood Count 4.47, Hemoglobin 12.7, Hematocrit 42, Mean Corpuscular Volume 94, Mean Corpuscular Hemoglobin 28, Mean Corpuscular Hemoglobin Concent 30L, Red Cell Distribution Width 13.5, Platelet Count 234, Mean Platelet Volume 10.3, Immature Granulocyte % (Auto) 6, Neutrophils (%) (Aut o) 60, Lymphocytes (%) (Auto) 26, Monocytes (%) (Auto) 5, Eosinophils (%) (Auto) 2, Basophils (%) (Auto) 1, Neutrophils # (Auto) 6.6, Lymphocytes # (Auto) 2.9, Monocytes # (Auto) 0.6, Eosinophils # (Auto) 0.2, Basophils # (Auto) 0.1, Immature Granulocyte # (Auto) 0.7H, Sodium Level 140, Potassium Level 4.2, Chloride Level 102, Carbon Dioxide Level 28, Anion Gap 10, Blood Urea Nitrogen 12, Creatinine 0.61, Estimat Glomerular Filtration Rate 98, BUN/Creatinine Ratio 20, Glucose Level 88, Calcium Level 9.1, Corrected Calcium 9.7, Magnesium Level 2.1, Total Bilirubin 0.4, Aspartate Amino Transf (AST/SGOT) 13, Alanine Aminotransferase (ALT/SGPT) 25, Alkaline Phosphatase 39L, Total Protein 5.8L, Albumin 3.2 Microbiology 03/04/21 MRSA Screen - Final, Complete MRSA not isolated 03/04/21 Blood Culture - Final, Complete No growth Home Meds Active Reported Incruse Ellipta (Umeclidinium [place]) 62.5 Mcg Blst.w.dev 1 Puff IH DAILY Cetirizine HCl 10 Mg Tablet 10 Mg PO DAILY PRN Antacid Extra Strength Chw Tab (Magnesium Carbonate/Al Hydrox) 1 Each Tab.chew 2 Each PO DAILY PRN Ibuprofen 200 Mg Capsule 400 Mg PO Q6H PRN Ventolin Hfa (Albuterol Sulfate) 18 Gm Hfa.aer.ad 2 Puff INH Q6H PRN Metoprolol Tartrate 25 Mg Tablet 25 Mg PO BID WITH MEALS Assessment/Pt DC Instructions Follow up with primary doctor within a few days of discharge. Discharge Diet: No Restrictions Activity as Tolerated: Yes Discharge Physical Examination Allergies: Coded Allergies: No Known Drug Allergies (Unverified , 07/09/18) General Appearance: No Apparent Distress Respiratory: Lungs Clear, Normal Breath Sounds Cardiovascular: Regular Rate, Rhythm Extremity: Other (left calf with erythema, peeling, skin wrinkling consistent with significant decrease in edema) Neurologic/Psychiatric: Alert, Normal Mood/Affect STEPHANIE ÁLVAREZ MD Mar 14, 2021 14:15
== END 2021-03-14 14:55 | disposition home or self-care (01) | DRG 189 ==
LOC: EDUNIT# 14:28 → ER 14:30 → ICU 16:56 → 4TH 03-05 11:44
PROVIDERS: ADMIT Internal Medicine; ATTEND Family Medicine
PROC: 5A09357 Assistance with Respiratory Ventilation, Less than 24 Consecutive Hours, Continuous Positive Airway Pressure (ICD-10-PCS; principal; 2021-03-04)
PROC: 5A0955A Assistance with Respiratory Ventilation, Greater than 96 Consecutive Hours, High Flow/Velocity Cannula (ICD-10-PCS; 2021-03-04)
DX: J96.21 Acute and chronic respiratory failure with hypoxia (principal); J44.1 Chronic obstructive pulmonary disease with (acute) exacerbation; E66.2 Morbid (severe) obesity with alveolar hypoventilation; Z68.43 Body mass index [BMI] 50.0-59.9, adult; L03.116 Cellulitis of left lower limb; E87.2 Acidosis; J44.0 Chronic obstructive pulmonary disease with (acute) lower respiratory infection; J96.22 Acute and chronic respiratory failure with hypercapnia; Z20.822 Contact with and (suspected) exposure to COVID-19; J20.9 Acute bronchitis, unspecified; I10 Essential (primary) hypertension; I89.0 Lymphedema, not elsewhere classified; H54.7 Unspecified visual loss; Z99.81 Dependence on supplemental oxygen; Z79.52 Long term (current) use of systemic steroids; Z23 Encounter for immunization
CPT/HCPCS: 36410; 36415; 71045; 71275; 76937; 80053; 80202; 82805; 82947; 83605; 83735; 84100; 84145; 85007; 85025; 85027; 85379; 85610; 85730; 87040; 87077; 87081; 87186; 87636; 94640; 94760; 96365; 96375; 99291

== ENCOUNTER 2021-07-26 11:10 | Inpatient (IN) | payer MEDICARE, MEDICAID ==
[~2021-07-26] VITALS: Ht 167.7 cm; Wt 149.8 kg
[~2021-07-26 11:10] MED LIST changes: +CETI10TA17 PO; +IPRA3AMP31 INH; +UMEC62.5 IH
[2021-07-26] MEDS ORDERED: RT-ALBUTEROL SULF 2.5 MG/3 ML PRE-MIX VIAL INH STA (11:23)
[2021-07-26] MEDS ORDERED: RT-ALBUTEROL/IPRATROPIUM 3 ML (DUONEB) VIAL INH ONE (11:30)
[2021-07-26] MEDS ORDERED: methylPREDNISolone 125 MG (Solu-MEDROL) VIAL IVP ONE (11:30)
[2021-07-26 11:34] LABS: BASOPHILS % (AUTO) 0 % (0-10); EOSINOPHILS # (AUTO) 0.5 10^3/uL (0.0-0.3); EOSINOPHILS % (AUTO) 5 % (0-10); HEMATOCRIT 45 % (35-52); HEMOGLOBIN 13.2 g/dL (11.5-16.0); LYMPHOCYTES % (AUTO) 10 % (12-44); MEAN CORPUSCULAR HEMOGLOBIN 28 pg (25-34); MEAN CORPUSCULAR HGB CONC 30 g/dL (32-36); MEAN CORPUSCULAR VOLUME 95 fL (80-99); MEAN PLATELET VOLUME 11.1 fL (9.0-12.2); MONOCYTES # (AUTO) 0.6 10^3/uL (0.0-1.0); MONOCYTES % (AUTO) 6 % (0-12); NEUTROPHILS # (AUTO) 8.1 10^3/uL (1.8-7.8); NEUTROPHILS % (AUTO) 79 % (42-75); PLATELET COUNT 226 10^3/uL (130-400); WHITE BLOOD COUNT 10.3 10^3/uL (4.3-11.0)
[2021-07-26 11:44] LABS: POTASSIUM 4.6 MMOL/L (3.6-5.0)
[2021-07-26 11:45] LABS: CALCIUM 10.2 MG/DL (8.5-10.1)
[2021-07-26 11:46] LABS: TOTAL PROTEIN 7.6 GM/DL (6.4-8.2)
[2021-07-26 11:48] LABS: BILIRUBIN,TOTAL 0.2 MG/DL (0.1-1.0)
[2021-07-26 11:50] LABS: CREATININE SERUM 0.63 MG/DL (0.60-1.30)
--- NOTE | 2021-07-26 12:03 | Diagnostic Imaging Report ---
INDICATION: Respiratory distress COMPARISON: 03/04/2021 FINDINGS: Heart size normal at follow-up. No focal consolidation, effusion or pneumothorax. IMPRESSION: No focal infiltrate. Normal heart size. No pleural pathology. Dictated by: Dictated on workstation # [id number]
--- NOTE | 2021-07-26 12:45 | ED Respiratory ---
General Chief Complaint: Respiratory Problems Stated Complaint: SOB Nursing Triage Note: co sob that started today, chronic o2 at home at 3 liters, breathing treatment en route by ems. hx of copd. Source: patient Exam Limitations: no limitations History of Present Illness Date Seen by Provider: July 26, 2021 Time Seen by Provider: 11:11 Initial Comments This is 66-year-old woman with known COPD presents to the emergency room via EMS with increasing shortness of breath and hypoxia. She arrives from home where she typically cares for her COPD with maintenance medications and nebulized treatments. She also uses supplemental oxygen at 3 L continuously. She denies any fever, chills, worsening cough, or other symptoms of acute infectious illness. She denies chest pain. EMS reports her oxygen saturation was 78% on h er usual 3 L until a DuoNeb treatment was administered. Allergies and Home Medications Allergies Coded Allergies: No Known Drug Allergies (Unverified , 07/09/18) Patient Home Medication List Home Medication List Reviewed: Yes Albuterol Sulfate (Ventolin Hfa) 18 Gm Hfa.aer.ad, 2 PUFF INH Q6H PRN for SHORTNESS OF BREATH, (Reported) Entered as Reported by: JAYNA LARA on 11/24/19 113 Last Action: Held Ibuprofen (Ibuprofen) 200 Mg Capsule, 400 MG PO Q6H PRN for PAIN-MILD (1-4), (Reported) Entered as Reported by: JAYNA LARA on 11/24/19 113 Last Action: Converted Ipratropium/Albuterol Sulfate (Iprat-Albut 0.5-3(2.5) mg/3 ml) 0.5 Mg-3 Mg (2.5 Mg Base)/3 Ml Ampul.neb, 3 ML IH Q4H, (Reported) Entered as Reported by: JAYNA LARA on 07/26/21 1509 Last Action: Held Magnesium Carbonate/Al Hydrox (Antacid Extra Strength Chw Tab) 1 Each Tab.chew, 2 EACH PO Q6H PRN for HEARTBURN/INDIGESTION, (Reported) Entered as Reported by: JANYA LARA on 11/24/19 1131 Last Action: Continued Metoprolol Tartrate (Metoprolol Tartrate) 25 Mg Tablet, 25 MG PO BID WITH MEALS, (Reported) Entered as Reported by: JAYNA LARA on 11/24/19 1131 Last Action: Continued Umeclidinium [place] (Incruse Ellipta) 62.5 Mcg Blst.w.dev, 1 PUFF IH DAILY, (Reported) Entered as Reported by: DEV SHAW on 03/07/21 1021 Last Action: Continued Discontinued Medications Cetirizine HCl (Cetirizine HCl) 10 Mg Tablet, 10 MG PO DAILY PRN for ALLERGIES, (Reported) Discontinued Reason: No Longer Taking Entered as Reported by: DEV SHAW on 03/07/21 1019 Last Action: Discontinued Ipratropium/Albuterol Sulfate (Iprat-Albut 0.5-3(2.5) mg/3 ml) 3 Ml Ampul.neb, 3 ML INH Q4H PRN for shortness of breath Discontinued Reason: Duplicate Order Prescribed by: STEPHANIE ÁLVAREZ on 03/14/21 1415 Last Action: Discontinued Review of Systems Review of Systems Constitutional: no symptoms reported EENTM: no symptoms reported Respiratory: see HPI Cardiovascular: no symptoms reported Gastrointestinal: no symptoms reported Genitourinary: no symptoms reported : No Musculoskeletal: no symptoms reported Skin: no symptoms reported Psychiatric/Neurological: No Symptoms Reported Hematologic/Lymphatic: No Symptoms Reported Past Rahbqti-Ssgaob-Ejabpm Hx Patient Social History Tobacco Use?: No Smoking Status: Former Smoker (Prior heavy use) Use of E-Cig and/or Vaping dev: No Substance use?: No Alcohol Use?: No Pt feels they are or have been: No Immunizations Up To Date Influenza Vaccine Up-to-Date: Yes; Up-to-Date First/Initial COVID19 Vaccinat: spring 2020- Second COVID19 Vaccination Jairon: spring 2020- a COVID19 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 6.0oz. 133.967547eq; 53.00 BMI Method:Actual General Appearance: WD/WN, mild distress, obese HEENT: PERRL/EOMI, normal ENT inspection Neck: full range of motion, normal inspection Respiratory: no respiratory distress, decreased breath sounds, accessory muscle use, wheezing (Very tight wheezes with significantly decreased air movement) Cardiovascular: regular rate, rhythm, no edema, no murmur Gastrointestinal: non tender, soft; No distended Extremities: no calf tenderness, swelling (Slightly increased edema of the left leg stated as chronic and unchanged from history of cellulitis) Neurologic/Psychiatric: hosiery pairer II-XII nml as tested, no motor/sensory deficits, alert, normal mood/affect, oriented x 3 Skin: normal color, warm/dry Progress/Results/Core Measures Suspected Sepsis SIRS Temperature: Pulse: 93 Respiratory Rate: 19 Laboratory Tests 07/26/21 11:22: White Blood Count 10.3 Blood Pressure 174 /95 Mean: 121 Laboratory Tests 07/26/21 11:22: Creatinine 0.63, Platelet Count 226, Total Bilirubin 0.2 Results/Orders Lab Results Laboratory Tests Test 07/26/21 11:22 Range/Units White Blood Count 10.3 4.3-11.0 10^3/uL Red Blood Count 4.70 3.80-5.11 10^6/uL Hemoglobin 13.2 11.5-16.0 g/dL Hematocrit 45 35-52 % Mean Corpuscular Volume 95 80-99 fL Mean Corpuscular Hemoglobin 28 25-34 pg Mean Corpuscular Hemoglobin Concent 30 L 32-36 g/dL Red Cell Distribution Width 13.9 10.0-14.5 % Platelet Count 226 130-400 10^3/uL Mean Platelet Volume 11.1 9.0-12.2 fL Immature Granulocyte % (Auto) 0 % Neutrophils (%) (Auto) 79 H 42-75 % Lymphocytes (%) (Auto) 10 L 12-44 % Monocytes (%) (Auto) 6 0-12 % Eosinophils (%) (Auto) 5 0-10 % Basophils (%) (Auto) 0 0-10 % Neutrophils # (Auto) 8.1 H 1.8-7.8 10^3/uL Lymphocytes # (Auto) 1.0 1.0-4.0 10^3/uL Monocytes # (Auto) 0.6 0.0-1.0 10^3/uL Eosinophils # (Auto) 0.5 H 0.0-0.3 10^3/uL Basophils # (Auto) 0.0 0.0-0.1 10^3/uL Immature Granulocyte # (Auto) 0.0 0.0-0.1 10^3/uL Sodium Level 141 135-145 MMOL/L Potassium Level 4.6 3.6-5.0 MMOL/L Chloride Level 97 L 98-107 MMOL/L Carbon Dioxide Level 35 H 21-32 MMOL/L Anion Gap 9 5-14 MMOL/L Blood Urea Nitrogen 15 7-18 MG/DL Creatinine 0.63 0.60-1.30 MG/DL Estimat Glomerular Filtration Rate 98 BUN/Creatinine Ratio 24 Glucose Level 118 H 70-105 MG/DL Calcium Level 10.2 H 8.5-10.1 MG/DL Corrected Calcium 10.2 H 8.5-10.1 MG/DL Total Bilirubin 0.2 0.1-1.0 MG/DL Aspartate Amino Transf (AST/SGOT) 10 5-34 U/L Alanine Aminotransferase (ALT/SGPT) 12 0-55 U/L Alkaline Phosphatase 54 40-136 U/L C-Reactive Protein High Sensitivity 4.04 H 0.00-0.50 MG/DL B-Type Natriuretic Peptide 39.5 <100.0 PG/ML Total Protein 7.6 6.4-8.2 GM/DL Albumin 4.0 3.2-4.5 GM/DL My Orders Orders - ALLYN STEVENS MD [facility] [place] (07/26/21 11:23) Cbc With Automated Diff (07/26/21 11:23) Comprehensive Metabolic Panel (07/26/21 11:23) Hs C Reactive Protein (07/26/21 11:23) Chest 1 View, Ap/Pa Only (07/26/21 11:23) Ed Iv/Invasive Line Start (07/26/21 11:23) Methylprednisolone Sod Succ (Solu-Medrol (07/26/21 11:30) Albuterol Pre-Mix Nebs (Rt) (Proventil (07/26/21 11:23) Albuterol/Ipra Inhalation Soln (Duoneb I (07/26/21 11:30) Svn Small Volume Nebulizer (07/26/21 11:23) Svn Small Volume Nebulizer (07/26/21 11:23) Ed Admission (Communication) (07/26/21 13:03) Medications Given in ED Vital Signs/I&O 07/26/21 07/26/21 07/26/21 11:13 11:20 11:41 Temp 36.1 Pulse 97 93 Resp 20 19 B/P (MAP) 174/95 (121) Pulse Ox 95 O2 Flow Rate 8.00 100.00 Capillary Refill : Less Than 3 Seconds Blood Pressure Mean: 121 Progress Note #1: Time: 12:44 Progress Note Patient was seen and examined upon arrival. She received an hour-long nebulizer treatment with BiPAP therapy as well as Solu-Medrol 125 mg IV. This resulted in significant improvement. Because of her significant hypoxia and worsening condition despite home maintenance therapy, admission to the hospital is warranted. I discussed CODE STATUS with the patient. She desires no cardiac code, but does desire intubation if necessary. Her CODE STATUS is therefore a modified DNR. Progress Note #2: Time: 13:[address] Ahn has presented to the ER to evaluate the patient. She requested an ABG. She has cued admission orders. Diagnostic Imaging Diagonstic Imaging: Xray Plain Films/CT/US/NM/MRI: chest Comments Chest x-ray viewed by me and draft report reviewed. See report below: NAME: NORMA HASSAN [facility] REC#: [id number] PT STATUS: REG ER : 1955 PHYSICIAN: ALLYN STEVENS MD ADMIT DATE: 07/26/21/ER Draft Date of Exam:07/26/21 CHEST 1 VIEW, AP/PA ONLY INDICATION: Respiratory distress COMPARISON: 03/04/2021 FINDINGS: Heart size normal at follow-up. No focal consolidation, effusion or pneumothorax. IMPRESSION: No focal infiltrate. Normal heart size. No pleural pathology. Dictated on workstation # [id number] Dict: 07/26/21 1157 Trans: 07/26/21 1203 [facility] [id number] Interpreted by: REINALDO NASSAR Departure Communication (Admissions) Time/Spoke to Admitting Phy: 12:48 Dr. Ahn Impression Primary Impression: COPD exacerbation Additional Impression: Respiratory failure with hypoxia and hypercapnia Qualified Codes: J96.21 - Acute and chronic respiratory failure with hypoxia; J96.22 - Acute and chronic respiratory failure with hypercapnia Disposition: ADMITTED INPATIENT Condition: Improved Admissions Decision to Admit Reason: Admit from ER (General) Decision to Admit/Date: July 26, 2021 Time/Decision to Admit Time: 12:48 Departure-Patient Inst. Referrals: [facility]/[place] (PCP/Family) Primary Care Physician Copy Copies To 1: [facility]/ALLYN DINERO MD July 26, 2021 12:45
--- NOTE | 2021-07-26 12:51 | History & Physical-Hospitalist ---
History of Present Illness HPI/Chief Complaint Chief complaint: Shortness of breath History of present illness: This is a 66-year-old white female clinic patient of [facility] with history of COPD who presented with increased shortness of breath unrelieved with nebulizer treatments and increased oxygen at home. She was placed on BiPAP. No evidence of any pneumonia or sepsis. Patient will be replaced on medical floor with BiPAP. Denies any fever or chills. Source: patient Exam Limitations: clinical condition (biPAP) Date Seen 07/26/21 Time Seen by a Provider: 13:00 Attending Physician [facility]/[place],On License Of [facility] Referring Physician Date of Admission Home Medications & Allergies Home Medications Reviewed patient Home Medication Reconciliation performed by pharmacy medication reconciliations broadcast operations technician and/or nursing. Patients Allergies have been reviewed. Allergies Allergies Coded Allergies No Known Drug Allergies (Unverified07/09/18) Past Pefgrzk-Ziannm-Eolhhk Hx Patient Social History Marrital Status: single Employed/Student: retired Tobacco Use?: No Smoking Status: Former Smoker (Prior heavy use) Use of E-Cig and/or Vaping dev: No Substance use?: No Alcohol Use?: No Pt feels they are or have been: No Immunizations Up To Date Date of Influenza Vaccine: Mar 10, 2021 First/Initial COVID19 Vaccinat: spring 2020- Second COVID19 Vaccination Jairon: spring 2020- Tetanus Booster (TDap): Unknown Hepatitis A: Yes Hepatitis B: Yes Seasonal Allergies Seasonal Allergies: No Current Status Advance Directives: Yes Advance Directive Location: Home Communicates: Verbally Primary Language: Brazilian Preferred Spoken Language: Brazilian Sensory deficits: Vision impairment Implanted or Applied Medical D: None Past Medical History Surgeries: Section, Orthopedic, Tonsillectomy Sleep Apnea, COPD Currently Using CPAP: No Currently Using BIPAP: No 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 Blood Disorders: No PMHx: COPD HTN SurgHx: Knee surgery Tonsillectomy Exlap for endometriosis Family Medical History Cardiovascular disease 19 FATHER 19 MOTHER Diabetes mellitus 19 FATHER Review of Systems Constitutional: see HPI, malaise, weakness EENTM: no symptoms reported Respiratory: dyspnea on exertion, short of breath, wheezing Cardiovascular: no symptoms reported Gastrointestinal: no symptoms reported Genitourinary: no symptoms reported Musculoskeletal: no symptoms reported Skin: no symptoms reported Psychiatric/Neurological: No Symptoms Reported All Other Systems Reviewed Negative Unless Noted: Yes Physical Exam Physical Exam Vital Signs Vital Signs - First Documented 07/26/21 07/26/21 07/26/21 07/27/21 11:13 11:20 13:37 02:30 Temp 36.1 Pulse 97 Resp 20 B/P (MAP) 174/95 (121) Pulse Ox 95 O2 Delivery Room Air O2 Flow Rate 8.00 FiO2 36 Capillary Refill : Less Than 3 Seconds Height, Weight, BMI Height: 5'6.00" Weight: 297lbs. 6.0oz. 133.483768gm; 53.00 BMI Method:Actual General Appearance: No Apparent Distress, Chronically ill, Obese Eyes: Right Eye Normal Inspection, Right Eye PERRL HEENT: PERRL/EOMI, Normal ENT Inspection, Pharynx Normal, Moist Mucous Membranes Neck: Full Range of Motion, Normal Inspection, Non Tender Respiratory: Chest Non Tender, Lungs Clear, No Respiratory Distress, Accessory Muscle Use, Decreased Breath Sounds, Wheezing Cardiovascular: Regular Rate, Rhythm, No Edema, No Gallop, No JVD, No Murmur, Normal Peripheral Pulses Gastrointestinal: Normal Bowel Sounds, No Organomegaly, No Pulsatile Mass, Non Tender, Soft Back: Normal Inspection, No CVA Tenderness, No Vertebral Tenderness Extremity: Normal Capillary Refill, Normal Inspection, Normal Range of Motion, Non Tender, No Calf Tenderness, No Pedal Edema Neurologic/Psychiatric: Alert, Oriented x3, No Motor/Sensory Deficits, Normal Mood/Affect Skin: Normal Color, Warm/Dry Lymphatic: No Adenopathy Results Results/Procedures Labs Laboratory Tests 07/26/21 11:22 07/27/21 05:18 Patient resulted labs reviewed. Assessment/Plan Admission Diagnosis Assessment: Acute on chronic respiratory failure BiPAP dependence Exacerbation of COPD Obesity BMI 53 Plan: Supportive care BiPAP Admission Status: Observation Diagnosis/Problems Diagnosis/Problems (1) Respiratory failure with hypoxia and hypercapnia Status: Acute Qualifiers: Chronicity: acute on chronic Qualified Codes: J96.21 - Acute and chronic respiratory failure with hypoxia; J96.22 - Acute and chronic respiratory failure with hypercapnia (2) COPD exacerbation Status: Acute MARIS SALDIVAR DO July 26, 2021 12:50
[2021-07-26 13:13] LABS: ABG BASE EXCESS 10.5 MMOL/L (-2.5-2.5); ABG OXYGEN SATURATION 100 % (94-100); ABG PO2 462 MMHG (79-93)
[2021-07-26 13:15] LABS: ABG PCO2 82 MMHG (35-45); ABG PH 7.28 (7.37-7.43)
[2021-07-26 13:16] LABS: ABG TCO2 40.1 MMOL/L (21.0-31.0); ALLENS TEST YES-POS; INSPIRED O2 100%; PATIENT TEMP 36.1; VENTILATOR NO
[2021-07-26] MEDS ORDERED: morphine INJ 4 MG/ML 1 ML (VIAL/SYRINGE) IV PRN (14:15)
[2021-07-26] MEDS ORDERED: ONDANSETRON 4 MG (ZOFRAN) ORAL DISSOLVE TAB PO PRN (14:15)
[2021-07-26] MEDS ORDERED: BISACODYL 10 MG SUPP (DULCOLAX) PR PRN (14:15)
[2021-07-26] MEDS ORDERED: diphenhydrAMINE 25 MG TAB (BENADRYL) PO PRN (14:15)
[2021-07-26] MEDS ORDERED: LACTULOSE SYRUP 10GM/15ML (ENULOSE) 30ML UDC PO PRN (14:15)
[2021-07-26] MEDS ORDERED: CALCIUM CARBONATE 500 MG (TUMS) TAB.CHEW PO PRN (14:15)
[2021-07-26] MEDS ORDERED: polyethylene glycoL POWDER 17 GM (MIRALAX) PACK PO PRN (14:15)
[2021-07-26] MEDS ORDERED: ALPRAZolam 0.25 MG (XANAX) TAB PO PRN (14:15)
[2021-07-26] MEDS ORDERED: NALOXONE 0.4 MG/ML 1 ML (NARCAN) VIAL IV PRN (14:15)
[2021-07-26] MEDS ORDERED: MELATONIN 3 MG TABLET PO PRN (14:15)
[2021-07-26] MEDS ORDERED: ACETAMINOPHEN 325 MG TABLET PO PRN (14:15)
[2021-07-26] MEDS ORDERED: ANTACID SUSP 30 ML UDC (MYLANTA) PO PRN (14:15)
[2021-07-26] MEDS ORDERED: MILK OF MAGNESIA 400 MG/5 ML 30 ML UDC PO PRN (14:15)
[2021-07-26] MEDS ORDERED: ONDANSETRON 4 MG/2 ML (SDV) Z0FRAN IV PRN (14:15)
[2021-07-26] MEDS ORDERED: diphenhydrAMINE 50 MG/ML INJ (BENADRYL) IVP PRN (14:15)
[2021-07-26] MEDS ORDERED: IPRA3AMP31 IH (15:09)
[2021-07-26 15:37] VITALS: BP 151/87
[2021-07-26] MEDS ORDERED: RT-ALBUTEROL/IPRATROPIUM 3 ML (DUONEB) VIAL INH PRN (15:45)
[2021-07-26 16:00] VITALS: BP 133/76
[2021-07-26] MEDS: inSUlin ASPART (NovoLOG) 1 UNIT/0.01 ML (CHARGE PER UNIT) SC SCH ×2 (17:56→21:14)
[2021-07-26] MEDS: methylPREDNISolone 40 MG/ML (Solu-MEDROL) VIAL IV SCH (17:57)
[2021-07-26] MEDS: ENOXAPARIN 60 MG/0.6 ML (LOVENOX) SYR SC SCH (17:57)
[2021-07-26] MEDS: RT-ALBUTEROL/IPRATROPIUM 3 ML (DUONEB) VIAL INH SCH ×2 (18:41→22:20)
[2021-07-26] MEDS: DOCUSATE SODIUM 100 MG (COLACE) CAP PO SCH (19:55)
[2021-07-26] MEDS: SENNOSIDES 8.6 MG (SENOKOT) TAB PO SCH (19:55)
[2021-07-26 20:00] VITALS: BP 156/79
[2021-07-26] MEDS ORDERED: MAG CARB/AL HYDROX EXTRA STRENGTH TAB (GAVISCON ES) PO PRN (20:45)
[2021-07-26] MEDS ORDERED: meTOprolol TARTRATE 25 MG (LOPRESSOR) TABLET ONE (21:07)
[2021-07-26] MEDS: meTOprolol TARTRATE 25 MG (LOPRESSOR) TABLET PO SCH (21:12)
[2021-07-27] VITALS (7 sets, daily range): BP systolic 125–165; BP diastolic 71–96
[2021-07-27] MEDS: methylPREDNISolone 40 MG/ML (Solu-MEDROL) VIAL IV SCH ×5 (00:02→23:47)
[2021-07-27] MEDS: RT-ALBUTEROL/IPRATROPIUM 3 ML (DUONEB) VIAL INH SCH ×6 (02:27→22:45)
[2021-07-27 05:35] LABS: BASOPHILS % (AUTO) 0 % (0-10); EOSINOPHILS % (AUTO) 0 % (0-10); HEMATOCRIT 43 % (35-52); HEMOGLOBIN 13.1 g/dL (11.5-16.0); LYMPHOCYTES % (AUTO) 4 % (12-44); MEAN CORPUSCULAR HEMOGLOBIN 28 pg (25-34); MEAN CORPUSCULAR HGB CONC 30 g/dL (32-36); MEAN CORPUSCULAR VOLUME 92 fL (80-99); MEAN PLATELET VOLUME 11.2 fL (9.0-12.2); MONOCYTES % (AUTO) 1 % (0-12); NEUTROPHILS # (AUTO) 10.6 X 10^3 (1.8-7.8); NEUTROPHILS % (AUTO) 94 % (42-75); PLATELET COUNT 225 10^3/uL (130-400); WHITE BLOOD COUNT 11.3 10^3/uL (4.3-11.0)
[2021-07-27 05:36] LABS: LYMPHOCYTES # (AUTO) 0.5 X 10^3 (1.0-4.0); MONOCYTES # (AUTO) 0.1 X 10^3 (0.0-1.0)
[2021-07-27] MEDS: ENOXAPARIN 60 MG/0.6 ML (LOVENOX) SYR SC SCH ×2 (05:57→16:32)
[2021-07-27 06:07] LABS: LYMPHOCYTES % (MANUAL) 6 %; NEUTROPHILS % (MANUAL) 94 %; RBC MORPH NORMAL
[2021-07-27 06:09] LABS: ALBUMIN 3.9 GM/DL (3.2-4.5); POTASSIUM 4.6 MMOL/L (3.6-5.0)
[2021-07-27 06:11] LABS: CALCIUM 9.9 MG/DL (8.5-10.1)
[2021-07-27 06:12] LABS: TOTAL PROTEIN 7.4 GM/DL (6.4-8.2)
[2021-07-27 06:14] LABS: BILIRUBIN,TOTAL 0.2 MG/DL (0.1-1.0)
[2021-07-27 06:15] LABS: CREATININE SERUM 0.58 MG/DL (0.60-1.30)
[2021-07-27] MEDS: inSUlin ASPART (NovoLOG) 1 UNIT/0.01 ML (CHARGE PER UNIT) SC SCH ×4 (06:15→20:51)
--- NOTE | 2021-07-27 06:37 | Progress Note - Hospitalist ---
Subjective HPI/CC On Admission Date Seen by Provider: July 27, 2021 Time Seen by Provider: 10:30 Chief complaint: Shortness of breath History of present illness: This is a 66-year-old white female clinic patient of [facility] with history of COPD who presented with increased shortness of breath unrelieved with nebulizer treatments and increased oxygen at home. She was placed on BiPAP. No evidence of any pneumonia or sepsis. Patient will be replaced on medical floor with BiPAP. Denies any fever or chills. Subjective/Events-last exam Pt is doing really well ABG showed evidence of acidosis at 7.28 and CO2 of 83, meeting criteria for a home BiPAP machine so that will be started as far as approval process. Ready for discharge tomorrow Review of Systems General: Fatigue, Malaise Objective Exam Vital Signs Vital Signs Date Time Temp Pulse Resp B/P (MAP) Pulse Ox O2 Delivery O2 Flow Rate FiO2 07/28/21 04:18 66 16 137/65 (89) 95 NIV Bilevel 07/27/21 23:52 36.1 07/27/21 21:00 5.00 07/27/21 02:30 36 Capillary Refill : Less Than 3 Seconds General Appearance: No Apparent Distress, WD/WN, Chronically ill, Obese Respiratory: Lungs Clear, Normal Breath Sounds Cardiovascular: Regular Rate, Rhythm Neurologic/Psychiatric: Alert, Oriented x3 Results/Procedures Lab Patient resulted labs reviewed. Assessment/Plan Assessment and Plan Assess & Plan/Chief Complaint Assessment: Acute on chronic respiratory failure BiPAP dependence Exacerbation of COPD Obesity BMI 53 Plan: Supportive care BiPAP 07/27/2021: BiPAP Discharge home tomorrow BiPAP at home Diagnosis/Problems Diagnosis/Problems (1) Respiratory failure with hypoxia and hypercapnia Status: Acute Qualifiers: Chronicity: acute on chronic Qualified Codes: J96.21 - Acute and chronic respiratory failure with hypoxia; J96.22 - Acute and chronic respiratory failure with hypercapnia (2) COPD exacerbation Status: Acute MARIS SALDIVAR DO July 27, 2021 06:37
[2021-07-27] MEDS: UMECLIDINIUM BROMIDE (INCRUSE ELLIPTA) 7'S IH SCH (07:26)
[2021-07-27] MEDS: DOCUSATE SODIUM 100 MG (COLACE) CAP PO SCH ×2 (07:58→20:50)
[2021-07-27] MEDS: SENNOSIDES 8.6 MG (SENOKOT) TAB PO SCH ×2 (07:59→20:50)
[2021-07-27] MEDS ORDERED: UMECLIDINIUM BROMIDE (INCRUSE ELLIPTA) 7'S IH SCH (09:00)
[2021-07-27] MEDS: meTOprolol TARTRATE 25 MG (LOPRESSOR) TABLET PO SCH ×2 (09:09→16:32)
[2021-07-27] MEDS: IBUPROFEN TABLET 200 MG TAB PO PRN (09:22)
[2021-07-28] MEDS: RT-ALBUTEROL/IPRATROPIUM 3 ML (DUONEB) VIAL INH SCH ×3 (01:43→10:18)
[2021-07-28 04:18] VITALS: BP 137/65
[2021-07-28] MEDS: inSUlin ASPART (NovoLOG) 1 UNIT/0.01 ML (CHARGE PER UNIT) SC SCH ×2 (05:18→10:57)
[2021-07-28] MEDS: methylPREDNISolone 40 MG/ML (Solu-MEDROL) VIAL IV SCH (05:20)
[2021-07-28] MEDS: ENOXAPARIN 60 MG/0.6 ML (LOVENOX) SYR SC SCH (05:25)
[2021-07-28 06:21] LABS: ALBUMIN 3.9 GM/DL (3.2-4.5); BASOPHILS % (AUTO) 0 % (0-10); EOSINOPHILS % (AUTO) 0 % (0-10); HEMATOCRIT 44 % (35-52); HEMOGLOBIN 13.3 g/dL (11.5-16.0); LYMPHOCYTES # (AUTO) 0.6 10^3/uL (1.0-4.0); LYMPHOCYTES % (AUTO) 5 % (12-44); MEAN CORPUSCULAR HEMOGLOBIN 28 pg (25-34); MEAN CORPUSCULAR HGB CONC 30 g/dL (32-36); MEAN CORPUSCULAR VOLUME 92 fL (80-99); MEAN PLATELET VOLUME 11.2 fL (9.0-12.2); MONOCYTES # (AUTO) 0.3 10^3/uL (0.0-1.0); MONOCYTES % (AUTO) 2 % (0-12); NEUTROPHILS # (AUTO) 12.1 10^3/uL (1.8-7.8); NEUTROPHILS % (AUTO) 92 % (42-75); PLATELET COUNT 243 10^3/uL (130-400); POTASSIUM 4.7 MMOL/L (3.6-5.0); WHITE BLOOD COUNT 13.1 10^3/uL (4.3-11.0)
[2021-07-28 06:22] LABS: CALCIUM 9.7 MG/DL (8.5-10.1)
[2021-07-28 06:24] LABS: TOTAL PROTEIN 7.3 GM/DL (6.4-8.2)
[2021-07-28 06:25] LABS: BILIRUBIN,TOTAL 0.2 MG/DL (0.1-1.0)
[2021-07-28 06:27] LABS: CREATININE SERUM 0.62 MG/DL (0.60-1.30)
[2021-07-28 07:55] VITALS: BP 152/79
[2021-07-28] MEDS: meTOprolol TARTRATE 25 MG (LOPRESSOR) TABLET PO SCH (08:31)
[2021-07-28] MEDS: IBUPROFEN TABLET 200 MG TAB PO PRN (08:32)
[2021-07-28] MEDS: SENNOSIDES 8.6 MG (SENOKOT) TAB PO SCH (08:32)
[2021-07-28] MEDS: DOCUSATE SODIUM 100 MG (COLACE) CAP PO SCH (08:32)
[2021-07-28] MEDS: UMECLIDINIUM BROMIDE (INCRUSE ELLIPTA) 7'S IH SCH (10:18)
[2021-07-28] MEDS ORDERED: PRED10TA22 PO (10:48)
--- NOTE | 2021-07-28 10:48 | Discharge Summary ---
Discharge Summary Hospital Course Was the Problem List Reviewed?: Yes Problems/Dx: (1) Respiratory failure with hypoxia and hypercapnia Status: Acute Qualifiers: Qualified Codes: J96.21 - Acute and chronic respiratory failure with hypoxia; J96.22 - Acute and chronic respiratory failure with hypercapnia (2) COPD exacerbation Status: Acute Hospital Course Date of Admission: July 26, 2021 at 14:05 Admission Diagnosis : Family Physician/Provider: [place] Date of Discharge: 07/28/21 Discharge Diagnosis: Acute on chronic respiratory failure, obesity hypoventilation syndrome, CO2 retention severe, exacerbation of COPD Hospital Course: Pt had a brief hospital course. She was admitted for COPD exacerbation. ABG showed 7.28/83. Consistent with CO2 retention meeting criteria for a BiPAP. That was ordered at discharge. Pt was placed on a steroid taper dose. She was deemed stable for discharge. Labs and Pending Lab Test: Laboratory Tests 07/27/21 11:03: Glucometer 205H 07/27/21 15:54: Glucometer 165H 07/27/21 18:55: Glucometer 199H 07/27/21 20:45: Glucometer 235H 07/28/21 05:13: Glucometer 159H 07/28/21 06:02: White Blood Count 13.1H, Red Blood Count 4.84, Hemoglobin 13.3, Hematocrit 44, Mean Corpuscular Volume 92, Mean Corpuscular Hemoglobin 28, Mean Corpuscular Hemoglobin Concent 30L, Red Cell Distribution Width 14.1, Platelet Count 243, Mean Platelet Volume 11.2, Immature Granulocyte % (Auto) 1, Neutrophils (%) (Auto) 92H, Lymphocytes (%) (Auto) 5L, Monocytes (%) (Auto) 2, Eosinophils (%) (Auto) 0, Basophils (%) (Auto) 0, Neutrophils # (Auto) 12.1H, Lymphocytes # (Auto) 0.6L, Monocytes # (Auto) 0.3, Eosinophils # (Auto) 0.0, Basophils # (Auto) 0.0, Immature Granulocyte # (Auto) 0.1, Sodium Level 138, Potassium Level 4.7, Chloride Level 98, Carbon Dioxide Level 27, Anion Gap 13, Blood Urea Nitrogen 21H, Creatinine 0.62, Estimat Glomerular Filtration Rate 98, B UN/Creatinine Ratio 34, Glucose Level 167H, Calcium Level 9.7, Corrected Calcium 9.8, Total Bilirubin 0.2, Aspartate Amino Transf (AST/SGOT) 10, Alanine Aminotransferase (ALT/SGPT) 14, Alkaline Phosphatase 53, Total Protein 7.3, Albumin 3.9 Home Meds Active Prednisone 10 Mg Tab.ds.pk 10 Mg PO DAILY Take 4 tabs(40mg)daily,decrease by 1 tab(10MG)daily. Reported Iprat-Albut 0.5-3(2.5) mg/3 ml (Ipratropium/Albuterol Sulfate) 0.5 Mg-3 Mg (2.5 Mg Base)/3 Ml Ampul.neb 3 Ml IH Q4H Incruse Ellipta (Umeclidinium [place]) 62.5 Mcg Blst.w.dev 1 Puff IH DAILY Antacid Extra Strength Chw Tab (Magnesium Carbonate/Al Hydrox) 1 Each Tab.chew 2 Each PO Q6H PRN Ibuprofen 200 Mg Capsule 400 Mg PO Q6H PRN Ventolin Hfa (Albuterol Sulfate) 18 Gm Hfa.aer.ad 2 Puff INH Q6H PRN Metoprolol Tartrate 25 Mg Tablet 25 Mg PO BID WITH MEALS Assessment/Pt Instructions PCP in 1 week Discharge Planning: <30 minutes discharge planning Discharge Instructions Discharge Diet: No Restrictions Discharge Physical Examination Vital Signs Vital Signs Date Time Temp Pulse Resp B/P (MAP) Pulse Ox O2 Delivery O2 Flow Rate FiO2 07/28/21 10:18 92 Nasal Cannula 3.00 07/28/21 07:55 36.6 84 20 152/79 (103) 07/27/21 02:30 36 General Appearance: No Apparent Distress, WD/WN, Chronically ill, Obese Respiratory: Lungs Clear, Normal Breath Sounds Allergies: Coded Allergies: No Known Drug Allergies (Unverified , 07/09/18) Discharge Summary Date of Admission July 26, 2021 at 14:05 Date of Discharge Discharge Date: July 28, 2021 Admission Diagnosis Assessment: Acute on chronic respiratory failure BiPAP dependence Exacerbation of COPD Obesity BMI 53 Plan: Supportive care BiPAP Discharge Diagnosis Assessment: Acute on chronic respiratory failure BiPAP dependence Exacerbation of COPD Obesity BMI 53 Plan: Supportive care BiPAP 07/27/2021: BiPAP Discharge home tomorrow BiPAP at home (1) Respiratory failure with hypoxia and hypercapnia Status: Acute Qualifiers: Qualified Codes: J96.21 - Acute and chronic respiratory failure with hypoxia; J96.22 - Acute and chronic respiratory failure with hypercapnia (2) COPD exacerbation Status: Acute MARIS SALDIVAR DO July 28, 2021 10:48
[2021-07-28 10:55] VITALS: BP 152/79
== END 2021-07-28 11:10 | disposition home health service (06) | DRG 189 ==
LOC: EDUNIT# 11:10 → ER 11:11 → 4TH 13:04 → OBSVTOIN 14:05 → 4TH 07-27 15:01
PROVIDERS: ADMIT Internal Medicine; ATTEND Internal Medicine
PROC: 5A09357 Assistance with Respiratory Ventilation, Less than 24 Consecutive Hours, Continuous Positive Airway Pressure (ICD-10-PCS; principal; 2021-07-27)
DX: J96.21 Acute and chronic respiratory failure with hypoxia (principal); J44.1 Chronic obstructive pulmonary disease with (acute) exacerbation; E66.2 Morbid (severe) obesity with alveolar hypoventilation; Z68.43 Body mass index [BMI] 50.0-59.9, adult; J96.22 Acute and chronic respiratory failure with hypercapnia; Z87.891 Personal history of nicotine dependence; I10 Essential (primary) hypertension; Z99.81 Dependence on supplemental oxygen
CPT/HCPCS: 36415; 71045; 80053; 82805; 82947; 83880; 85007; 85025; 85027; 86141; 94640; 94660; 94760

== ENCOUNTER 2021-08-04 07:27 | Inpatient (IN) | payer MEDICARE, MEDICAID ==
[~2021-08-04] VITALS: Ht 172 cm; Wt 150.0 kg
[~2021-08-04 07:27] MED LIST changes: +IPRA3AMP31 IH
[2021-08-04] MEDS ORDERED: PROPOFOL DRIP (ICU) 100 ML IV ONE (08:06)
[2021-08-04] MEDS ORDERED: PROPOFOL INJECTION 50 ML IV SCH (08:15)
[2021-08-04] MEDS: PROPOFOL DRIP (ICU) 100 ML IV SCH ×5 (08:19→22:08)
[2021-08-04] MEDS ORDERED: MIDAZOLAM 5 MG/5 ML (VERSED) VIAL ONE (08:27)
[2021-08-04 08:29] LABS: BASOPHILS # (AUTO) 0.1 10^3/uL (0.0-0.1); BASOPHILS % (AUTO) 1 % (0-10); EOSINOPHILS # (AUTO) 0.3 10^3/uL (0.0-0.3); EOSINOPHILS % (AUTO) 2 % (0-10); HEMATOCRIT 48 % (35-52); HEMOGLOBIN 13.6 g/dL (11.5-16.0); LYMPHOCYTES # (AUTO) 3.8 10^3/uL (1.0-4.0); LYMPHOCYTES % (AUTO) 22 % (12-44); MEAN CORPUSCULAR HEMOGLOBIN 28 pg (25-34); MEAN CORPUSCULAR HGB CONC 28 g/dL (32-36); MEAN CORPUSCULAR VOLUME 99 fL (80-99); MEAN PLATELET VOLUME 11.4 fL (9.0-12.2); MONOCYTES % (AUTO) 6 % (0-12); NEUTROPHILS % (AUTO) 63 % (42-75); PLATELET COUNT 247 10^3/uL (130-400); WHITE BLOOD COUNT 17.3 10^3/uL (4.3-11.0)
--- NOTE | 2021-08-04 08:29 | Diagnostic Imaging Report ---
EXAMINATION: Chest 1 view HISTORY: Chest pain COMPARISON: 07/26/2021 FINDINGS: There is mild edema. Heart size is accentuated by portable technique. No pleural effusion or pneumothorax. No pneumonia. Endotracheal tube tip terminates 4 cm above the chet. IMPRESSION: 1. Mild edema Dictated by: Dictated on workstation # [id number]
[2021-08-04] MEDS ORDERED: PIPERACILLIN SODIUM/TAZOBACTAM 4.5 GM in NS (IVPB) 100 ML IV ONE ×4 (08:30)
[2021-08-04] MEDS ORDERED: methylPREDNISolone 125 MG (Solu-MEDROL) VIAL IVP ONE (08:30)
[2021-08-04] MEDS ORDERED: MIDAZOLAM 5 MG/5 ML (VERSED) VIAL IVP ONE (08:30)
[2021-08-04 08:41] LABS: INR 1.1 (0.8-1.4); PROTHROMBIN TIME PATIENT 14.7 SEC (12.2-14.7)
[2021-08-04 08:48] LABS: ALBUMIN 3.8 GM/DL (3.2-4.5)
[2021-08-04 08:49] LABS: POTASSIUM 4.8 MMOL/L (3.6-5.0)
[2021-08-04 08:50] LABS: CALCIUM 8.7 MG/DL (8.5-10.1)
[2021-08-04 08:51] LABS: TOTAL PROTEIN 6.9 GM/DL (6.4-8.2)
[2021-08-04 08:53] LABS: BILIRUBIN,TOTAL 0.2 MG/DL (0.1-1.0)
[2021-08-04 08:55] LABS: CREATININE SERUM 1.02 MG/DL (0.60-1.30)
[2021-08-04 08:57] LABS: MAGNESIUM 2.7 MG/DL (1.6-2.4)
[2021-08-04 09:03] LABS: ABG BASE EXCESS -1.2 MMOL/L (-2.5-2.5); ABG OXYGEN SATURATION 99 % (94-100); ABG PO2 340 MMHG (79-93); ABG TCO2 34.2 MMOL/L (21.0-31.0)
[2021-08-04 09:04] LABS: ABG PCO2 126 MMHG (35-45); ABG PH 6.99 (7.37-7.43); ALLENS TEST YES-POS
[2021-08-04 09:05] LABS: INSPIRED O2 100; PATIENT TEMP 96; VENTILATOR YES
[2021-08-04 09:11] LABS: BAND NEUTROPHILS 6 %; BASOPHILS % (MANUAL) 0 %; EOSINOPHILS % (MANUAL) 3 %; LYMPHOCYTES % (MANUAL) 24 %; MONOCYTES % (MANUAL) 3 %; NEUTROPHILS % (MANUAL) 64 %; RBC MORPH NORMAL
--- NOTE | 2021-08-04 09:11 | ED CPR ---
HPI-CPR General Chief Complaint: Code Blue Stated Complaint: CODE Nursing Triage Note: Pt to ED via [facility]. EMS reports pt called for SOA. Initial o2 saturation was 64% for fire upon arrival on scene. Pt tripoding and o2 sats dropping for fire/EMS. Pt became unresponsive with pulse. Respirations given via BVM. Pt arrived to ER and moved to ER bed, no pulse felt, CPR started. Pt still being bagged via BVM at this time, o2 saturation not registering on monitor. 0.5mg atropine given via IO in LLE per EMS PET SITTING. Source of Information: EMS, Family, Old Records Exam Limitations: Physical Impairments History of Present Illness Date Seen by Provider: August 04, 2021 Time Seen by Provider: 07:30 Initial Comments This 66-year-old woman with known COPD and chronic hypoxia presents to the emergency room via EMS after contacting EMS for respiratory distress. EMS reports she was hypoxic even on high flow oxygen and tripoding in distress upon their arrival. Shortly thereafter she became unresponsive. They were attempting ventilation by BVM. She had a pulse at that time. On arrival she appeared cyanotic and unresponsive. Upon moving over to the ER bed she was found to be pulseless. CPR was immediately initiated. Patient had a recent admission July 26 through for COPD exacerbation and required BiPAP at that time. Per EMS patient is a full CODE STATUS. Allergies and Home Medications Allergies Coded Allergies: No Known Drug Allergies (Unverified , 07/09/18) Patient Home Medication List Home Medication List Reviewed: Yes Albuterol Sulfate (Ventolin Hfa) 18 Gm Hfa.aer.ad, 2 PUFF INH Q6H PRN for SHORTNESS OF BREATH, (Reported) Entered as Reported by: JAYNA LARA on 11/24/19 1131 Last Action: Reviewed Ibuprofen (Ibuprofen) 200 Mg Capsule, 400 MG PO Q6H PRN for PAIN-MILD (1-4), (Reported) Entered as Reported by: JAYNA LARA on 11/24/19 113 Last Action: Reviewed Ipratropium/Albuterol Sulfate (Iprat-Albut 0.5-3(2.5) mg/3 ml) 0.5 Mg-3 Mg (2.5 Mg Base)/3 Ml Ampul.neb, 3 ML IH Q4H, (Reported) Entered as Reported by: JAYNA LARA on 07/26/21 1509 Last Action: Reviewed Magnesium Carbonate/Al Hydrox (Antacid Extra Strength Chw Tab) 1 Each Tab.chew, 2 EACH PO Q6H PRN for HEARTBURN/INDIGESTION, (Reported) Entered as Reported by: JAYNA LARA on 11/24/19 1131 Last Action: Reviewed Metoprolol Tartrate (Metoprolol Tartrate) 25 Mg Tablet, 25 MG PO BID WITH MEALS, (Reported) Entered as Reported by: JAYNA LARA on 11/24/19 1131 Last Action: Reviewed Umeclidinium [place] (Incruse Ellipta) 62.5 Mcg Blst.w.dev, 1 PUFF IH DAILY, (Reported) Entered as Reported by: DEV SHAW on 03/07/21 1021 Last Action: Reviewed Discontinued Medications Prednisone (Prednisone) 10 Mg Tab.ds.pk, 10 MG PO DAILY Discontinued Reason: No Longer Taking Prescribed by: MARIS SALDIVAR on 07/28/21 1048 Last Action: Discontinued Review of Systems Review of Systems Constitutional: see HPI EENTM: No Symptoms Reported Respiratory: See HPI Cardiovascular: See HPI Gastrointestinal: No Symptoms Reported Genitourinary: No Symptoms Reported Musculoskeletal: no symptoms reported Skin: no symptoms reported Psychiatric/Neurological: See HPI Endocrine: No Symptoms Reported Hematologic/Lymphatic: No Symptoms Reported Past Wzdnbis-Lffxyf-Lnfvcl Hx Patient Social History Smoking Status: Unknown if Ever Smoked Smokeless Tobacco Frequency: Unknown if Ever Used Use of E-Cig and/or Vaping dev: Unable to obtain Use of E-Cig and/or Vaping [place]: Unknown if Ever Used Substance use?: Unable to obtain Alcohol Use?: Unable to obtain Pt feels they are or have been: Unable to obtain Immunizations Up To Date First/Initial COVID19 Vaccinat: spring 2020- Second COVID19 Vaccination Jairon: spring 2020- Third COVID19 Vaccination Date: recently 2021 Seasonal Allergies Seasonal Allergies: No Past Medical History Surgery/Hospitalization HX: pt not responsive during ED stay, PMH recalled from previous visits Surgeries: Yes ( X 1; LEFT KNEE SURGERY; TONSILLECTOMY) Section, Orthopedic, Tonsillectomy Respiratory: Yes (O2 DEPENDENT at 3 L/min) Sleep Apnea, COPD Currently Using CPAP: No Currently Using BIPAP: No Cardiac: Yes Hypertension Neurological: No Reproductive Disorders: Yes Female Reproductive Disorders: Endometriosis, Ovarian Cyst [employer] History: Menopausal Genitourinary: No Gastrointestinal: No Musculoskeletal: Yes (LEFT KNEE SURGERY) Endocrine: Yes (MORBIDLY OBESE) HEENT: No Cancer: No Psychosocial: No Integumentary: No Blood Disorders: No Family Medical History Cardiovascular disease 19 FATHER 19 MOTHER Diabetes mellitus 19 FATHER Physical Exam Vital Signs Vital Signs - First Documented 08/04/21 07:30 Temp 36.7 Pulse 0 Resp 12 B/P (MAP) 0/0 (0) O2 Delivery Ambu Bag Capillary Refill : Height, Weight, BMI Height: 5'6.00" Weight: 297lbs. 6.0oz. 133.584347wd; 49.00 BMI Method:Actual General Appearance: Other (Unresponsive) HEENT: Other (Head cyanotic, mucous membranes moist) Neck: Other (Body habitus obscures meaningful exam) Respiratory: Other (No respiratory effort, breath sounds heard with ventilation after intubation) Cardiovascular: Other (Pulseless, cyanotic) Gastrointestinal: Soft; No Distended Extremity: Other (Mild lower extremity edema and chronic skin changes. Mild cyanosis) Neurologic/Psychiatric: Other (Completely unresponsive initially. Some spontaneous movement and breathing after ROSC) Skin: Warm/Dry, Cyanosis Focused Exam Lactate Level 08/04/21 08:15: Lactic Acid Level 6.72*H Lactic Acid Level Laboratory Tests Test 08/04/21 08:15 Lactic Acid Level 6.72 MMOL/L (0.50-2.00) *H Procedures/Interventions Date of ETT Placement: August 04, 2021 Time of ETT Placement: 0737 Tube Size: 7.50 Progress/Results/Core Measures Results/Orders Lab Results Laboratory Tests Test 08/04/21 08:10 08/04/21 08:15 Range/Units Influenza Type A (RT-PCR) Not Detected Not Detecte Influenza Type B (RT-PCR) Not Detected Not Detecte SARS-CoV-2 RNA (RT-PCR) Not Detected Not Detecte White Blood Count 17.3 H 4.3-11.0 10^3/uL Red Blood Count 4.89 3.80-5.11 10^6/uL Hemoglobin 13.6 11.5-16.0 g/dL Hematocrit 48 35-52 % Mean Corpuscular Volume 99 80-99 fL Mean Corpuscular Hemoglobin 28 25-34 pg Mean Corpuscular Hemoglobin Concent 28 L 32-36 g/dL Red Cell Distribution Width 14.3 10.0-14.5 % Platelet Count 247 130-400 10^3/uL Mean Platelet Volume 11.4 9.0-12.2 fL Immature Granulocyte % (Auto) 7 % Neutrophils (%) (Auto) 63 42-75 % Lymphocytes (%) (Auto) 22 12-44 % Monocytes (%) (Auto) 6 0-12 % Eosinophils (%) (Auto) 2 0-10 % Basophils (%) (Auto) 1 0-10 % Neutrophils # (Auto) 11.0 H 1.8-7.8 10^3/uL Lymphocytes # (Auto) 3.8 1.0-4.0 10^3/uL Monocytes # (Auto) 1.0 0.0-1.0 10^3/uL Eosinophils # (Auto) 0.3 0.0-0.3 10^3/uL Basophils # (Auto) 0.1 0.0-0.1 10^3/uL Immature Granulocyte # (Auto) 1.1 H 0.0-0.1 10^3/uL Neutrophils % (Manual) 64 % Lymphocytes % (Manual) 24 % Monocytes % (Manual) 3 % Eosinophils % (Manual) 3 % Basophils % (Manual) 0 % Band Neutrophils 6 % Blood Morphology Comment NORMAL Prothrombin Time 14.7 12.2-14.7 SEC INR Comment 1.1 0.8-1.4 Activated Partial Thromboplast Time 29 24-35 SEC D-Dimer 17.66 H 0.00-0.49 UG/ML Sodium Level 139 135-145 MMOL/L Potassium Level 4.8 3.6-5.0 MMOL/L Chloride Level 97 L 98-107 MMOL/L Carbon Dioxide Level 20 L 21-32 MMOL/L Anion Gap 22 H 5-14 MMOL/L Blood Urea Nitrogen 15 7-18 MG/DL Creatinine 1.02 0.60-1.30 MG/DL Estimat Glomerular Filtration Rate 61 BUN/Creatinine Ratio 15 Glucose Level 350 H 70-105 MG/DL Lactic Acid Level 6.72 *H 0.50-2.00 MMOL/L Calcium Level 8.7 8.5-10.1 MG/DL Corrected Calcium 8.9 8.5-10.1 MG/DL Magnesium Level 2.7 H 1.6-2.4 MG/DL Total Bilirubin 0.2 0.1-1.0 MG/DL Aspartate Amino Transf (AST/SGOT) 27 5-34 U/L Alanine Aminotransferase (ALT/SGPT) 41 0-55 U/L Alkaline Phosphatase 60 40-136 U/L Myoglobin 55.5 10.0-92.0 NG/ML Troponin I < 0.028 <0.028 NG/ML C-Reactive Protein High Sensitivity 4.47 H 0.00-0.50 MG/DL B-Type Natriuretic Peptide 69.1 <100.0 PG/ML Total Protein 6.9 6.4-8.2 GM/DL Albumin 3.8 3.2-4.5 GM/DL Triglycerides Level 127 <150 MG/DL Procalcitonin 0.02 <0.10 NG/ML My Orders Orders - ALLYN STEVENS MD Ekg Tracing (08/04/21 07:43) Cbc With Automated Diff (08/04/21 07:44) Magnesium (08/04/21 07:44) Chest 1 View, Ap/Pa Only (08/04/21 07:44) Comprehensive Metabolic Panel (08/04/21 07:44) Myoglobin Serum (08/04/21 07:44) Protime With Inr (08/04/21 07:44) Partial Thromboplastin Time (08/04/21 07:44) O2 (08/04/21 07:44) Monitor-Rhythm Ecg Trace Only (08/04/21 07:44) Lipid Panel (08/05/21 06:00) Ed Iv/Invasive Line Start (08/04/21 07:44) Troponin I [place] (08/04/21 07:44) Bnp [place] (08/04/21 07:45) Hs C Reactive Protein (08/04/21 07:45) Procalcitonin (Pct) (08/04/21 07:45) Covid 19 Inhouse Test (08/04/21 07:45) Influenza A And B By Pcr (08/04/21 07:45) Blood Culture (08/04/21 07:45) Urinalysis (08/04/21 07:45) Urine Culture (08/04/21 07:45) Vital Signs Adult Sepsis Patie Q15M (08/04/21 07:45) Remove Rings In Anticipation O (08/04/21 07:45) Lactic Acid Analyzer (08/04/21 07:45) Propofol Drip (Icu) (Diprivan Drip (Icu) (08/04/21 08:06) Propofol Injection (Diprivan Injection) (08/04/21 08:15) Propofol Drip (Icu) (Diprivan Drip (Icu) (08/04/21 08:15) Piperacillin Sodium/Tazobactam (Zosyn Vi (08/04/21 08:30) Piperacillin Sodium/Tazobactam (Zosyn Vi (08/04/21 08:30) Midazolam Injection (Versed Injection) (08/04/21 08:30) Methylprednisolone Sod Succ (Solu-Medrol (08/04/21 08:30) Midazolam Injection (Versed Injection) (08/04/21 08:27) Ed Admission (Communication) (08/04/21 08:29) Manual Differential (08/04/21 08:15) Medications Given in ED Vital Signs/I&O 08/04/21 08/04/21 08/04/21 07:30 08:19 08:25 Temp 36.7 Pulse 0 107 112 Resp 12 B/P (MAP) 0/0 (0) 206/134 206/134 O2 Delivery Ambu Bag Blood Pressure Mean: 148 Progress Progress Note : Time: 09:24 Progress Note Patient was immediately transferred to the ER bed upon arrival and found to be pulseless. CPR ensued. A [employer] Anibal chest compression device was used to assist with CPR. Intubation was performed by this provider. Etomidate and succinylcholine were used during intubation to ensure appropriate induction and sedation. Sedation was continued and maintained it with a propofol drip. After intubation she did have some improvement in neurologic status and did begin to bite the tube. At that time Versed 5 mg was administered. Details of the critical care are documented in the critical care section of this note. A beige-colored thick fluid was noted in the ET tube and suctioned out. It is unclear if this could be aspirated as there was no significant material found in the pharynx to suggest emesis was aspirated. However, material suctioned from the OG tube had a similar appearance which may suggest there was some aspiration. Respirations are being maintained on ventilator at this time with rate of 18, tidal volume 400, FiO2 100%, and PEEP of 10. Patient remains hypertensive. Antibiotic therapy with Zosyn is being administered. Due to body habitus of the neck, we are trying to avoid a central line at this time and will attempt a PICC line in the lieu of an IJ. If the PICC line is not successful, Dr. Lindsay will place a central line. Currently the patient has a functional IO in the left tibia and a functional 20-gauge IV in the right AC. I have discussed care with the patient's son, Darrick. He verbally consented by phone for PICC line and/or central line if needed. In expletive terms he expressed concern about his mother being admitted to this facility as they had a bad experience with his grandmother. I expressed my concern that transferring her in her current state would incur undue risk and that we are presently able to manage her care with resources and staff available. After discussing risks of transfer, both medical and financial, he consents to admission at this facility. I have discussed the case with Dr. Menezes, Dr. Lindsay, Dr. Wagner, and eICU. Due to lack of clear evidence of benefit, therapeutic hypothermia is not being pursued at this time as it is consistent with [facility] standards. We will passively try to maintain temperatures at or below 36 C. Initial ECG Impression Date: August 04, 2021 Initial ECG Impression Time: 07:46 Initial ECG Rate: 139 Initial ECG Rhythm: S.Tach Comment Sinus tachycardia with no ST elevation or depression. No abnormal intervals or axis deviation. Diagnostic Imaging Diagonstic Imaging: Xray Plain Films/CT/US/NM/MRI: chest Comments Chest x-ray viewed by me and report reviewed. See report below: NAME: NORMA HASSAN [facility] REC#: [id number] PT STATUS: ADM IN : 1955 PHYSICIAN: ALLYN STEVENS MD ADMIT DATE: 08/04/21/ICU Signed Date of Exam:08/04/21 CHEST 1 VIEW, AP/PA ONLY EXAMINATION: Chest 1 view HISTORY: Chest pain COMPARISON: 07/26/2021 FINDINGS: There is mild edema. Heart size is accentuated by portable technique. No pleural effusion or pneumothorax. No pneumonia. Endotracheal tube tip terminates 4 cm above the chet. IMPRESSION: 1. Mild edema Dictated by: Dictated on workstation # [id number] Dict: 08/04/[id number] Trans: [id number]/[id number] [id number] Interpreted by: CHANDLER HERNANDEZ MD Electronically signed by: CHANDLER HERNANDEZ MD 08/04/21 1653 Critical Care Note Critical Care Start Time: 07:30 Stop Time: :26 Progress Patient became unresponsive secondary to respiratory distress and hypoxia in route. Ventilation was being provided with BVM by fire and EMS staff. Upon transferring to the ER bed she was noted to be pulseless. CPR was initiated. Epinephrine 1 mg was administered at 0733. Pulse check at 0734 revealed no pulse. Patient was in asystole. CPR continued and the Anibal automated chest compression device was applied. The second dose of epinephrine was administered at 0736. Patient was prepped for intubation. 20 mg of etomidate and 50 mg of succinylcholine were administered and patient was intubated by this provider at 0737. A 7.5 ET tube was used ET tube was initially at 23 cm and was advanced by respiratory therapy to 25 cm. Positioning was confirmed with color change capnography and bilateral breath sounds. CPR continued and patient was found to be in pulseless asystole again at 0738. A third dose of epinephrine was administered. Pulse check at 0739 revealed positive carotid and radial pulses. Vascular access had been achieved with a left IO. After successful ROSC, IV was placed by this provider in the right forearm under ultrasound guidance. PICC line for more definitive access was being pursued thereafter. Aspiration was presumed and antibiotic therapy was initiated for possible pneumonia and/or aspiration. Departure Communication (Admissions) Time/Spoke to Admitting Phy: 08:21 Dr. Wagner 07:50 - Dr. Lindsay 07:50 - Dr. Menezes 08:00 - eICU Impression Primary Impression: Cardiopulmonary arrest Additional Impression: COPD exacerbation Disposition: ADMITTED INPATIENT Condition: Critical Admissions Decision to Admit Reason: Admit from ER (General) Decision to Admit/Date: August 04, 2021 Time/Decision to Admit Time: 07:50 Departure-Patient Inst. Referrals: [facility] [place] (PCP/Family) Primary Care Physician ALLYN STEVENS MD August 04, 2021 09:11
[2021-08-04] MEDS ORDERED: ETOMIDATE IV SOLN 20 MG/10 ML VIAL IV ONE (10:16)
[2021-08-04] MEDS ORDERED: SUCCINYLCHOLINE INJ 20 MG/1 ML 10 ML VIAL INJ ONE (10:16)
[2021-08-04] MEDS ORDERED: EPINEPHrine 0.1 MG/ML 10 ML (HOSPIRA) SYR IJ ONE (10:16)
[2021-08-04 10:22] LABS: BILIRUBIN,URINE NEGATIVE (NEGATIVE); CLARITY,URINE CLEAR; COLOR,URINE YELLOW; GLUCOSE, URINE (UA) TRACE (NEGATIVE); KETONES,URINE NEGATIVE (NEGATIVE); LEUKOCYTE ESTERASE ,URINE NEGATIVE (NEGATIVE); NITRITE,URINE NEGATIVE (NEGATIVE); PROTEIN,URINE 3+ (NEGATIVE)
[2021-08-04 10:32] LABS: BACTERIA,URINE FEW /HPF; GRANULAR CASTS,URINE RARE /LPF; RBC,URINE 25-50 /HPF
--- NOTE | 2021-08-04 10:44 | Physical Therapy Progress Note ---
Therapy Progress Note Patient currently sedated and intubated. PT will continue to monitor patients status. ARSALAN MANCILLA PT August 04, 2021 10:44
[2021-08-04] MEDS ORDERED: PROPOFOL DRIP (ICU) 100 ML IV SCH (10:45)
[2021-08-04 11:21] LABS: ABG BASE EXCESS -0.3 MMOL/L (-2.5-2.5); ABG OXYGEN SATURATION 98 % (94-100); ABG PO2 161 MMHG (79-93); ABG TCO2 32.3 MMOL/L (21.0-31.0)
--- NOTE | 2021-08-04 11:22 | History & Physical ---
HPI History of Present Illness: Per ER notes, EMS was called to patient due to shortness of breath, and found to have oxygen saturation in the 60s, she became unresponsive but with pulse and was given breaths via BVM, on arrival to ER she was found to be pulseless and code ensued, with ROSC. She was recently admitted with COPD exacerbation and had home bipap set up at that time. Date seen by provider: August 04, 2021 Time Seen by Provider: 11:15 Attending Physician [facility] PCP Admitting Physician: Stephanie Wagner MD Attending Physician: Stephanie Wagner MD Consult Date of Admission August 04, 2021 at 08:30 Home Medications Home Medications Reviewed patient Home Medication Reconciliation performed by pharmacy medication reconciliations groundwater monitoring technician and/or nursing. Patients Allergies have been reviewed. Allergies Coded Allergies: No Known Drug Allergies (Unverified , 07/09/18) [id number]-[id number]-[id number] Hx Patient Social History Smoking Status: Unknown if Ever Smoked Recent Hopitalizations: Yes Alcohol Use?: Unable to obtain Immunizations Up To Date First/Initial COVID19 Vaccinat: spring 2020- Second COVID19 Vaccination Jairon: spring 2020- a Third COVID19 Vaccination Date: recently 2021 Past Medical History PMHx: COPD HTN SurgHx: Knee surgery Tonsillectomy Exlap for endometriosis Family Medical History Family History: Cardiovascular disease 19 FATHER 19 MOTHER Diabetes mellitus 19 FATHER Review of Systems ([facility]) Constitutional: other (unable to obtain) Reviewed Test Results Reviewed Test Results Lab Laboratory Tests Test 08/04/21 08:10 08/04/21 08:15 08/04/21 08:55 08/04/21 10:12 Range/Units Influenza Type A (RT-PCR) Not Detected Not Detecte Influenza Type B (RT-PCR) Not Detected Not Detecte SARS-CoV-2 RNA (RT-PCR) Not Detected Not Detecte White Blood Count 17.3 H 4.3-11.0 10^3/uL Red Blood Count 4.89 3.80-5.11 10^6/uL Hemoglobin 13.6 11.5-16.0 g/dL Hematocrit 48 35-52 % Mean Corpuscular Volume 99 80-99 fL Mean Corpuscular Hemoglobin 28 25-34 pg Mean Corpuscular Hemoglobin Concent 28 L 32-36 g/dL Red Cell Distribution Width 14.3 10.0-14.5 % Platelet Count 247 130-400 10^3/uL Mean Platelet Volume 11.4 9.0-12.2 fL Immature Granulocyte % (Auto) 7 % Neutrophils (%) (Auto) 63 42-75 % Lymphocytes (%) (Auto) 22 12-44 % Monocytes (%) (Auto) 6 0-12 % Eosinophils (%) (Auto) 2 0-10 % Basophils (%) (Auto) 1 0-10 % Neutrophils # (Auto) 11.0 H 1.8-7.8 10^3/uL Lymphocytes # (Auto) 3.8 1.0-4.0 10^3/uL Monocytes # (Auto) 1.0 0.0-1.0 10^3/uL Eosinophils # (Auto) 0.3 0.0-0.3 10^3/uL Basophils # (Auto) 0.1 0.0-0.1 10^3/uL Immature Granulocyte # (Auto) 1.1 H 0.0-0.1 10^3/uL Neutrophils % (Manual) 64 % Lymphocytes % (Manual) 24 % Monocytes % (Manual) 3 % Eosinophils % (Manual) 3 % Basophils % (Manual) 0 % Band Neutrophils 6 % Blood Morphology Comment NORMAL Prothrombin Time 14.7 12.2-14.7 SEC INR Comment 1.1 0.8-1.4 Activated Partial Thromboplast Time 29 24-35 SEC D-Dimer 17.66 H 0.00-0.49 UG/ML Sodium Level 139 135-145 MMOL/L Potassium Level 4.8 3.6-5.0 MMOL/L Chloride Level 97 L 98-107 MMOL/L Carbon Dioxide Level 20 L 21-32 MMOL/L Anion Gap 22 H 5-14 MMOL/L Blood Urea Nitrogen 15 7-18 MG/DL Creatinine 1.02 0.60-1.30 MG/DL Estimat Glomerular Filtration Rate 61 BUN/Creatinine Ratio 15 Glucose Level 350 H 70-105 MG/DL Lactic Acid Level 6.72 *H 0.50-2.00 MMOL/L Calcium Level 8.7 8.5-10.1 MG/DL Corrected Calcium 8.9 8.5-10.1 MG/DL Magnesium Level 2.7 H 1.6-2.4 MG/DL Total Bilirubin 0.2 0.1-1.0 MG/DL Aspartate Amino Transf (AST/SGOT) 27 5-34 U/L Alanine Aminotransferase (ALT/SGPT) 41 0-55 U/L Alkaline Phosphatase 60 40-136 U/L Myoglobin 55.5 10.0-92.0 NG/ML Troponin I < 0.028 <0.028 NG/ML C-Reactive Protein High Sensitivity 4.47 H 0.00-0.50 MG/DL B-Type Natriuretic Peptide 69.1 <100.0 PG/ML Total Protein 6.9 6.4-8.2 GM/DL Albumin 3.8 3.2-4.5 GM/DL Triglycerides Level 127 <150 MG/DL Procalcitonin 0.02 <0.10 NG/ML Blood Gas Puncture Site LT RADIAL Blood Gas Patient Temperature 96 Arterial Blood pH 6.99 *L 7.37-7.43 Arterial Blood Partial Pressure CO2 126 *H 35-45 MMHG Arterial Blood Partial Pressure O2 340 H 79-93 MMHG Arterial Blood HCO3 30 H 23-27 MMOL/L Arterial Blood Total CO2 34.2 H 21.0-31.0 MMOL/L Arterial Blood Oxygen Saturation 99 94-100 % Arterial Blood Base Excess -1.2 -2.5-2.5 MMOL/L Jaxson Test YES-POS Blood Gas Ventilator Setting YES Blood Gas Inspired Oxygen 100 Urine Color YELLOW Urine Clarity CLEAR Urine pH 6.0 5-9 Urine Specific Ingalls >=1.030 1.016-1.022 Urine Protein 3+ H NEGATIVE Urine Glucose (UA) TRACE H NEGATIVE Urine Ketones NEGATIVE NEGATIVE Urine Nitrite NEGATIVE NEGATIVE Urine Bilirubin NEGATIVE NEGATIVE Urine Urobilinogen 0.2 < = 1.0 MG/DL Urine Leukocyte Esterase NEGATIVE NEGATIVE Urine RBC (Auto) 2+ H NEGATIVE Urine RBC 25-50 H /HPF Urine WBC 10-25 H /HPF Urine Squamous Epithelial Cells 2-5 /HPF Urine Crystals NONE /LPF Urine Bacteria FEW H /HPF Urine Casts PRESENT /LPF Urine Granular Casts RARE /LPF Urine Mucus NEGATIVE /LPF Urine Culture Indicated YES Test 08/04/21 11:05 08/04/21 11:20 08/04/21 12:01 Range/Units Blood Gas Puncture Site RR Blood Gas Patient Temperature 36.1 Arterial Blood pH 7.08 *L 7.37-7.43 Arterial Blood Partial Pressure CO2 100 *H 35-45 MMHG Arterial Blood Partial Pressure O2 161 H 79-93 MMHG Arterial Blood HCO3 29 H 23-27 MMOL/L Arterial Blood Total CO2 32.3 H 21.0-31.0 MMOL/L Arterial Blood Oxygen Saturation 98 94-100 % Arterial Blood Base Excess -0.3 -2.5-2.5 MMOL/L Jaxson Test YES-POS Blood Gas Ventilator Setting YES Blood Gas Inspired Oxygen 80% Lactic Acid Level 1.45 0.50-2.00 MMOL/L Glucometer 258 H 70-110 MG/DL Radiology CXR 08/04/21: FINDINGS: There is mild edema. Heart size is accentuated by portable technique. No pleural effusion or pneumothorax. No pneumonia. Endotracheal tube tip terminates 4 cm above the chet. Physical Exam-([facility]) Physical Exam Vital Signs VS - Last 72 Hours, by Label 08/04/21 08/04/21 08/04/21 08/04/21 07:30 08:19 08:25 08:33 Temp 36.7 Pulse 0 107 112 116 Resp 12 B/P (MAP) 0/0 (0) 206/134 206/134 196/124 O2 Delivery Ambu Bag 08/04/21 08/04/21 08/04/21 08/04/21 08:57 09:51 10:30 11:42 Temp 36.7 Pulse 70 102 106 106 Resp 18 B/P (MAP) 88/74 103/55 99/67 99/67 Pulse Ox 82 O2 Delivery Mechanical Ventilator Capillary Refill : General Appearance: other (intubated, appears in mild distress, jerks slightly when touched) Respiratory: wheezing Cardiovascular: regular rate, rhythm, no murmur Gastrointestinal: normal bowel sounds, distended Extremities: other (trace edema) Neurologic/Psychiatric: other (intubated, appears mildly agitated) Skin: normal color, warm/dry Assessment/Plan Assessment/Plan Admission Status: Inpatient Order (span 2 midnights) Reason for Inpatient Admission: Cardiorespiratory failure requiring mechanical ventilation (1) Cardiopulmonary arrest Status: Acute Assessment & Plan: With ROSC in ER. Target normothermia. Suspect cardiac arrest secondary to respiratory arrest with severe COPD exacerbation. Consider PE, pneumonia, see below. (2) COPD exacerbation Status: Acute Assessment & Plan: Solumedrol 125 mg q6, zosyn given recent hospitalization and purulent mucous although no clear CXR findings. (3) Elevated d-dimer Status: Acute Assessment & Plan: Markedly elevated, unclear if related to code, but given code and current status, hesitant to obtain CTA at this time, will treat empirically with full dose enoxaparin. (4) Leukocytosis Status: Acute Assessment & Plan: Uncertain whether code related versus underlying infection, Zosyn started empirically. (5) Lactic acidosis Status: Acute Assessment & Plan: Suspect secondary to hypoxia from code, resolved on repeat. (6) Respiratory acidosis Status: Acute Assessment & Plan: Has baseline hypercapnia, but with severe hypercapnia on admit. Intubated and mechanically ventilated, appreciate [facility] ICU recommendations. (7) Hypercapnia Status: Chronic Assessment & Plan: Acute on chronic, recently started on home bipap. (8) KANU (obstructive sleep apnea) Status: Chronic (9) Morbid obesity Status: Chronic (10) COPD (chronic obstructive pulmonary disease) Status: Chronic (11) Hypertension Status: Chronic (12) Obesity hypoventilation syndrome Status: Chronic (13) DVT prophylaxis Status: Acute Assessment & Plan: Treatment dose enoxaparin due to high D dimer. STEPHANIE WAGNER MD August 04, 2021 11:22
[2021-08-04 11:24] LABS: ALLENS TEST YES-POS; INSPIRED O2 80%
[2021-08-04 11:25] LABS: PATIENT TEMP 36.1; VENTILATOR YES
[2021-08-04 11:26] LABS: ABG PCO2 100 MMHG (35-45); ABG PH 7.08 (7.37-7.43)
[2021-08-04] MEDS ORDERED: ENOXAPARIN 100 MG/1 ML (LOVENOX) SYR SC SCH (11:30)
[2021-08-04] MEDS ORDERED: ENOXAPARIN 150 MG/ML (LOVENOX) SYR SQ SCH (11:30)
--- NOTE | 2021-08-04 11:33 | Tele-ICU Consult ---
History of Present Illness History of Present Illness Date Seen by Provider: August 04, 2021 Time Seen by Provider: 11:33 Date of Admission (Tele-ICU Physician , consultation) Available chart/ vitals / labs / Images reviewed H&P is from ER notes Patient's information available about PMH, Shx, Fhx allergy reviewed in EMR. ROS as per chart and RN report Now in ICU, hemodynamically stable Video assessment done using teleICU camera, rest of exam as per RN Discussed with RN. Sedation gtt: propofol 65 ( RASS ) VENT SETTINGS and ABG reviewed Not candidate for SBT today REVIEWED Cardiovascular Stability / Sedation Score / FI02/PEEP / ABG / CXR Consultants: Hospital course: 08/04 - arrived to ER with severe resp distress, code blue in ER for 10 min , ROSC A/P Cardiac arrest - most likey secondary to resp arrest - ROSC after 10 min - normothermia to maintain - can not assess mental status post arrest - given paralitycs for intubation an need heavy sedation now wiuth difficulties ventilating Acute resp failure , suspected AECOPD - intubated in ER 08/04 - full vent support , PAP > 50s - will give jumbo neb and add ketamine gtt , might need paralitics if not helpful ( 6 cc/kg TV will be 380 cc - will await abg and adjust - elevated ddimer to 17 - will start empiric lovenox and follow closely , consider CTchest / head tomorrow if stable to go to CT Chronic hypercapneic and hypoxic resp failure -home settings NIPPV and compliance unknown now , recentr d/c from hospitral with AECOPD AECOPD - steroids , nebs Leukocytosis , low PCT ( - neg for covid , flu -UA pending - cont abx for now given reported purulent sputum upon intibation elev lact acid post arrest - mild - with WOB , hypoxia LIYA - chronic as per patient report to RN = ? lymphedema vs edema ( ? chronic nocturnal hypoxia Obesity BMI 53 Lines : right PICC (Central Line Necessity Reviewed) Goldberg: + OG: + Nutrition: Analgesia: Anxiety/ delirium VTE Prophylaxis: katie full dose Stress Ulcer Prophylaxis: ppi Plans in collaboration with bedside consultants and IM MDs.- discussed with Dr Rodríguez Discussed with RN to reach out if any questions or concerns A total of 45 minutes of critical care time was devoted to this patient today, required to treat and/or prevent further deterioration of critical care condition ( as above ) . Allergies and Home Medications Allergies Coded Allergies: No Known Drug Allergies (Unverified , 07/09/18) Home Medications Albuterol Sulfate 18 Gm Hfa.aer.ad, 2 PUFF INH Q6H PRN for SHORTNESS OF BREATH, (Reported) Ibuprofen 200 Mg Capsule, 400 MG PO Q6H PRN for PAIN-MILD (1-4), (Reported) Ipratropium/Albuterol Sulfate 0.5 Mg-3 Mg (2.5 Mg Base)/3 Ml Ampul.neb, 3 ML IH Q4H, (Reported) Magnesium Carbonate/Al Hydrox 1 Each Tab.chew, 2 EACH PO Q6H PRN for HEARTBURN/INDIGESTION, (Reported) Metoprolol Tartrate 25 Mg Tablet, 25 MG PO BID WITH MEALS, (Reported) Prednisone 10 Mg Tab.ds.pk, 10 MG PO DAILY Take 4 tabs(40mg)daily,decrease by 1 tab(10MG)daily. Prescribed by: MARIS SALDIVAR on 07/28/21 1048 Umeclidinium Terreton 62.5 Mcg Blst.w.dev, 1 PUFF IH DAILY, (Reported) Past Medical/Social/Family Hx Patient Social History Smoking Status: Unknown if Ever Smoked Smokeless Tobacco Frequency: Unknown if Ever Used Use of E-Cig and/or Vaping dev: Unable to obtain E-Cig and/or Vaping Freq: Unknown if Ever Used Substance use?: Unable to obtain Alcohol Use?: Unable to obtain Pt stated abuse/neglect: Unable to obtain Immunizations Up To Date First/Initial COVID19 Vaccinat: spring 2020- Second COVID19 Vaccination Jairon: spring 2020- Tetanus Booster (TDap): Unknown Hepatitis A: Yes Hepatitis B: Yes Current Status Communicates: Unable To Communicate Primary Language: Croatian Past Medical History PMHx: COPD HTN SurgHx: Knee surgery Tonsillectomy Exlap for endometriosis Review of Systems Constitutional: see HPI Focused Exam Lactate Level 08/04/21 08:15: Lactic Acid Level 6.72*H Height, Weight, BMI Height: 5'6.00" Weight: 297lbs. 6.0oz. 133.633509ft; 49.00 BMI Method:Actual Lactic Acid Level Laboratory Tests Test 08/04/21 08:15 Lactic Acid Level 6.72 MMOL/L (0.50-2.00) *H Exam Exam Patient acknowledged, consented, and participated in this virtual visit which was conducted using real time audio/video Vital Signs Date Time Temp Pulse Resp B/P (MAP) Pulse Ox O2 Delivery O2 Flow Rate FiO2 08/04/21 10:30 36.7 106 18 99/67 82 Mechanical Ventilator 08/04/21 09:51 102 103/55 08/04/21 08:57 70 88/74 08/04/21 08:33 116 196/124 08/04/21 08:25 112 206/134 08/04/21 08:19 107 206/134 08/04/21 07:30 36.7 0 12 0/0 (0) Ambu Bag Height & Weight Height: 5'6.00" Weight: 297lbs. 6.0oz. 133.111467wl; 49.00 BMI Method:Actual General Appearance: No Apparent Distress, Other (Unresponsive) HEENT: Other (Head cyanotic, mucous membranes moist) Neck: Other (Body habitus obscures meaningful exam) Respiratory: Other (No respiratory effort, breath sounds heard with ventilation after intubation) Cardiovascular: Other (Pulseless, cyanotic) Extremity: Other (Mild lower extremity edema and chronic skin changes. Mild cyanosis) Neurologic/Psychiatric: Other (Completely unresponsive initially. Some spontaneous movement and breathing after ROSC) Skin: Warm/Dry, Cyanosis Results Lab Laboratory Tests 08/04/21 08:15 Assessment/Plan Assessment/Plan ` ALEX WIGGINS MD August 04, 2021 11:33
--- NOTE | 2021-08-04 11:39 | Diagnostic Imaging Report ---
EXAMINATION: Chest 1 view HISTORY: Intubated. Evaluate line placement. Chest pain. COMPARISON: Chest radiograph performed earlier the same date. FINDINGS: Please note the exam is limited due to patient body habitus and technique. The enteric tube is not well visualized below the diaphragm and likely terminates within the esophagus. Endotracheal tube appears to descend below the thoracic inlet and is above the chet. There is continued cardiomegaly with central pulmonary vascular congestion and pulmonary edema. No large pleural effusion or pneumothorax. IMPRESSION: 1. The enteric tube is not seen descending below the diaphragm and most likely terminates within the esophagus. However, evaluation of the line is suboptimal due to patient body habitus and technique. 2. Endotracheal tube below the thoracic inlet and above the chet. 3. Stable cardiomegaly with central pulmonary vascular congestion and mild pulmonary edema. Dictated by: Dictated on workstation # [id number]
[2021-08-04] MEDS ORDERED: PIPERACILLIN SODIUM/TAZOBACTAM 4.5 GM in NS (IVPB) 100 ML IV NR (11:44)
[2021-08-04] MEDS ORDERED: RT-ALBUTEROL/IPRATROPIUM 3 ML (DUONEB) VIAL INH ONE (11:45)
--- NOTE | 2021-08-04 11:51 | Occ Therapy Progress Note ---
Therapy Progress Note Patient currently sedated and intubated. OT will continue to monitor patients status. Catarina Corona OT August 04, 2021 11:51
[2021-08-04] MEDS ORDERED: RT-ALBUTEROL/IPRATROPIUM 3 ML (DUONEB) VIAL ONE (11:54)
[2021-08-04 11:57] VITALS: BP 112/73
[2021-08-04] MEDS ORDERED: methylPREDNISolone 125 MG (Solu-MEDROL) VIAL IVP SCH (12:00)
[2021-08-04] MEDS ORDERED: inSUlin ASPART (NovoLOG) 1 UNIT/0.01 ML (CHARGE PER UNIT) SC PRN (12:15)
[2021-08-04] MEDS: KETAMINE INJECTION 500 MG in NS IV 500 ML 500 ML IV SCH ×2 (12:35→22:10)
[2021-08-04] MEDS: methylPREDNISolone 40 MG/ML (Solu-MEDROL) VIAL IV SCH ×4 (12:56→23:28)
[2021-08-04] MEDS ORDERED: NS IV 1000 ML 1,000 ML ONE (14:03)
[2021-08-04] MEDS: HEParin 1000 UNIT/ML (10ML VIAL) FOR BOLUS IV SCH ×2 (14:24→19:41)
[2021-08-04] MEDS: HEParin DRIP 25000 UNIT/500ML 500 ML IV SCH (14:34)
[2021-08-04 15:17] LABS: POTASSIUM 5.6 MMOL/L (3.6-5.0)
[2021-08-04 15:18] LABS: CALCIUM 8.2 MG/DL (8.5-10.1)
[2021-08-04 15:22] LABS: CREATININE SERUM 1.29 MG/DL (0.60-1.30)
[2021-08-04 15:24] LABS: HEMATOCRIT 47 % (35-52); HEMOGLOBIN 13.5 g/dL (11.5-16.0); MEAN CORPUSCULAR HEMOGLOBIN 28 pg (25-34); MEAN CORPUSCULAR HGB CONC 29 g/dL (32-36); MEAN CORPUSCULAR VOLUME 97 fL (80-99); MEAN PLATELET VOLUME 10.7 fL (9.0-12.2); PLATELET COUNT 248 10^3/uL (130-400)
[2021-08-04 15:27] LABS: WHITE BLOOD COUNT 30.5 10^3/uL (4.3-11.0)
[2021-08-04] MEDS ORDERED: CALC GLUC 1 GM/100 ML IVPB 100 ML IV ONE (15:45)
[2021-08-04] MEDS ORDERED: DEXTROSE 50% 50 ML (IMS) SYR IV ONE (15:45)
[2021-08-04] MEDS ORDERED: SODIUM BICARB 8.4% 50 MEQ/50 ML (ABBOTT) SYR IV ONE (15:45)
[2021-08-04] MEDS ORDERED: inSUlin (REGULAR) HUMAN 1 UNIT/0.01 ML (CHARGE PER UNIT) IV ONE (15:45)
[2021-08-04] MEDS: RT-ALBUTEROL/IPRATROPIUM 3 ML (DUONEB) VIAL INH SCH ×3 (15:52→22:19)
--- NOTE | 2021-08-04 15:53 | Anesthesia-Procedure Note ---
Procedures/Interventions Procedure Start/Stop/Diagnosis Date of Procedure: August 04, 2021 Start Time: 15:30 Referring Physician: Dr Wagner Preprocedural Diagnosis: S/P Respiratory Failure/Code Blue Brief History Called for arterial line placement. Pt is S/P respiratory failure and code blue, currently intubated and sedated in ICU. U/S used for in plane view of needle and catheter threaded with ease. Secured with good waveform. Stop Time: 15:40 Postprocedural Diagnosis: Same Arterial Line Arterial Line Catheter: 20G Type: Radial Location: Right Procedure: prepped, draped in sterile fashion (ChloraPrep), good wave-form was obtained, patient tolerated procedure well, no immediate complications, post procedure area cleaned, post procedure dressing applied AHSAN GUERRERO DO August 04, 2021 15:53
[2021-08-04 15:57] VITALS: BP 143/71
[2021-08-04 16:16] LABS: ABG BASE EXCESS -1.2 MMOL/L (-2.5-2.5); ABG OXYGEN SATURATION 96 % (94-100); ABG PO2 84 MMHG (79-93); ABG TCO2 29.3 MMOL/L (21.0-31.0); ALLENS TEST ART LINE
[2021-08-04 16:17] LABS: INSPIRED O2 70%; PATIENT TEMP 36.2; VENTILATOR YES
[2021-08-04 16:18] LABS: ABG PCO2 78 MMHG (35-45); ABG PH 7.16 (7.37-7.43)
[2021-08-04] MEDS: fentaNYL INJ 100 MCG/2 ML AMP IVP PRN (17:07)
[2021-08-04] MEDS ORDERED: NS IV 1000 ML 500 ML IV ONE (19:00)
[2021-08-04] MEDS ORDERED: NS IV 1000 ML 500 ML IV SCH (19:00)
--- NOTE | 2021-08-04 19:04 | Consultation-Cardiology ---
HPI-Cardiology Cardiology Consultation: Date of Consultation 08/04/21 Date of Admission 08/04/21 Attending Physician [place] Admitting Physician Admitting Physician: Arelis Wagner MD Attending Physician: Arelis Wagner MD Consulting Physician DEWAYNE MCDONALD JR, MD HPI: Time Seen by a Provider: 18:59 Chief Complaint: REASON FOR CONSULTATION: Status postcardiac arrest. At the pleasure of seeing Evelyn in the intensive care unit at [facility] in [place], [place] today. I had actually seen her in the emergency room earlier today after she presented by ambulance and acute respiratory distress. Shortly after arriving in the emergency room, she became pulseless and ACLS was instituted. After about 15 minutes of ACLS protocol, she had ROSC. An electrocardiogram at that time did not show any evidence of an acute myocardial injury pattern. When she was stabilized in the emergency room, she has been transferred to the intensive care unit. She is currently intubated and sedated. I could not obtain any history from the patient and no family members are in the hospital. The nurse tells me that the patient is not on any vasoactive drugs. She did not receive any intravenous fluids in the intensive care unit. Her urine output has been scant and the eICU is asking about giving her intravenous fluids. I reviewed the previous hospital medical records and I do not see any entries within the past few years from cardiology. Certain portions of this document may have been dictated utilizing voice recognition technology. Inherent to this technology, typographical and grammatical errors may exist. As much as I am diligent to identify and correct these mistakes, some errors may remain in the document. Review of Systems-Cardiology Review of Systems Other comments Not obtainable due to clinical status. PNO-Ojixoo-Dhxjai Hx Patient Social History Smoking Status: Unknown if Ever Smoked Alcohol Use?: Unable to obtain Pt feels they are or have been: Unable to obtain Immunizations Up To Date Date of Influenza Vaccine: Mar 10, 2021 Past Medical History PMH As described under Assessment. Family Medical History Family History: Cardiovascular disease 19 FATHER 19 MOTHER Diabetes mellitus 19 FATHER Allergies and Home Medications Allergies Coded Allergies: No Known Drug Allergies (Unverified , 07/09/18) Patient Home Medication List Home Medication List Reviewed: Yes Albuterol Sulfate (Ventolin Hfa) 18 Gm Hfa.aer.ad, 2 PUFF INH Q6H PRN for SHORTNESS OF BREATH, (Reported) Entered as Reported by: JAYNA LARA on 11/24/19 113 Last Action: Reviewed Ibuprofen (Ibuprofen) 200 Mg Capsule, 400 MG PO Q6H PRN for PAIN-MILD (1-4), (Reported) Entered as Reported by: JAYNA LARA on 11/24/19 113 Last Action: Reviewed Ipratropium/Albuterol Sulfate (Iprat-Albut 0.5-3(2.5) mg/3 ml) 0.5 Mg-3 Mg (2.5 Mg Base)/3 Ml Ampul.neb, 3 ML IH Q4H, (Reported) Entered as Reported by: JAYNA LARA on 07/26/21 1509 Last Action: Reviewed Magnesium Carbonate/Al Hydrox (Antacid Extra Strength Chw Tab) 1 Each Tab.chew, 2 EACH PO Q6H PRN for HEARTBURN/INDIGESTION, (Reported) Entered as Reported by: JAYNA LARA on 11/24/19 113 Last Action: Reviewed Metoprolol Tartrate (Metoprolol Tartrate) 25 Mg Tablet, 25 MG PO BID WITH MEALS, (Reported) Entered as Reported by: JAYNA LARA on 11/24/19 113 Last Action: Reviewed Umeclidinium Isle (Incruse Ellipta) 62.5 Mcg Blst.w.dev, 1 PUFF IH DAILY, (Reported) Entered as Reported by: DEV SHAW on 03/07/21 1021 Last Action: Reviewed Discontinued Medications Prednisone (Prednisone) 10 Mg Tab.ds.pk, 10 MG PO DAILY Discontinued Reason: No Longer Taking Prescribed by: MARIS SALDIVAR on 07/28/21 1048 Last Action: Discontinued Exam Vital Signs Vital Signs Date Time Temp Pulse Resp B/P (MAP) Pulse Ox O2 Delivery O2 Flow Rate FiO2 08/04/21 18:00 36.0 93 22 145/61 96 Mechanical Ventilator 70.00 08/04/21 16:00 70 Physical Exam General: Intubated and sedated. Well nourished and appears stated age. She is morbidly obese. Eye: Conjunctivae are clear. There are no xanthelasma. HENT: Normocephalic. Atraumatic. Carotid pulsations 2/2 without bruits. Neck: Jugular venous pressure does not appear elevated. No thyromegaly appreciated. Respiratory: Symmetrical expansion bilaterally. Coarse breath sounds due to the ventilator. Cardiovascular: Normal rate. Regular rhythm. Distant S1/S2. No murmur. No gallop. Point of maximal impulse is not appear displaced. Good pulses equal in all extremities. 2+ bilateral pretibial edema. Gastrointestinal: Soft. Normal bowel sounds. Skin: Skin turgor is normal. There is no pallor. Musculoskeletal: No obvious deformities. Neurologic: Intubated and sedated. Psychiatric: Not obtainable due to clinical status. Labs Laboratory Tests Test 08/04/21 08:10 08/04/21 08:15 08/04/21 08:55 08/04/21 10:12 Range/Units Influenza Type A (RT-PCR) Not Detected Not Detecte Influenza Type B (RT-PCR) Not Detected Not Detecte SARS-CoV-2 RNA (RT-PCR) Not Detected Not Detecte White Blood Count 17.3 H 4.3-11.0 10^3/uL Red Blood Count 4.89 3.80-5.11 10^6/uL Hemoglobin 13.6 11.5-16.0 g/dL Hematocrit 48 35-52 % Mean Corpuscular Volume 99 80-99 fL Mean Corpuscular Hemoglobin 28 25-34 pg Mean Corpuscular Hemoglobin Concent 28 L 32-36 g/dL Red Cell Distribution Width 14.3 10.0-14.5 % Platelet Count 247 130-400 10^3/uL Mean Platelet Volume 11.4 9.0-12.2 fL Immature Granulocyte % (Auto) 7 % Neutrophils (%) (Auto) 63 42-75 % Lymphocytes (%) (Auto) 22 12-44 % Monocytes (%) (Auto) 6 0-12 % Eosinophils (%) (Auto) 2 0-10 % Basophils (%) (Auto) 1 0-10 % Neutrophils # (Auto) 11.0 H 1.8-7.8 10^3/uL Lymphocytes # (Auto) 3.8 1.0-4.0 10^3/uL Monocytes # (Auto) 1.0 0.0-1.0 10^3/uL Eosinophils # (Auto) 0.3 0.0-0.3 10^3/uL Basophils # (Auto) 0.1 0.0-0.1 10^3/uL Immature Granulocyte # (Auto) 1.1 H 0.0-0.1 10^3/uL Neutrophils % (Manual) 64 % Lymphocytes % (Manual) 24 % Monocytes % (Manual) 3 % Eosinophils % (Manual) 3 % Basophils % (Manual) 0 % Band Neutrophils 6 % Blood Morphology Comment NORMAL Prothrombin Time 14.7 12.2-14.7 SEC INR Comment 1.1 0.8-1.4 Activated Partial Thromboplast Time 29 24-35 SEC D-Dimer 17.66 H 0.00-0.49 UG/ML Sodium Level 139 135-145 MMOL/L Potassium Level 4.8 3.6-5.0 MMOL/L Chloride Level 97 L 98-107 MMOL/L Carbon Dioxide Level 20 L 21-32 MMOL/L Anion Gap 22 H 5-14 MMOL/L Blood Urea Nitrogen 15 7-18 MG/DL Creatinine 1.02 0.60-1.30 MG/DL Estimat Glomerular Filtration Rate 61 BUN/Creatinine Ratio 15 Glucose Level 350 H 70-105 MG/DL Lactic Acid Level 6.72 *H 0.50-2.00 MMOL/L Calcium Level 8.7 8.5-10.1 MG/DL Corrected Calcium 8.9 8.5-10.1 MG/DL Magnesium Level 2.7 H 1.6-2.4 MG/DL Total Bilirubin 0.2 0.1-1.0 MG/DL Aspartate Amino Transf (AST/SGOT) 27 5-34 U/L Alanine Aminotransferase (ALT/SGPT) 41 0-55 U/L Alkaline Phosphatase 60 40-136 U/L Myoglobin 55.5 10.0-92.0 NG/ML Troponin I < 0.028 <0.028 NG/ML C-Reactive Protein High Sensitivity 4.47 H 0.00-0.50 MG/DL B-Type Natriuretic Peptide 69.1 <100.0 PG/ML Total Protein 6.9 6.4-8.2 GM/DL Albumin 3.8 3.2-4.5 GM/DL Triglycerides Level 127 <150 MG/DL Procalcitonin 0.02 <0.10 NG/ML Blood Gas Puncture Site LT RADIAL Blood Gas Patient Temperature 96 Arterial Blood pH 6.99 *L 7.37-7.43 Arterial Blood Partial Pressure CO2 126 *H 35-45 MMHG Arterial Blood Partial Pressure O2 340 H 79-93 MMHG Arterial Blood HCO3 30 H 23-27 MMOL/L Arterial Blood Total CO2 34.2 H 21.0-31.0 MMOL/L Arterial Blood Oxygen Saturation 99 94-100 % Arterial Blood Base Excess -1.2 -2.5-2.5 MMOL/L Jaxson Test YES-POS Blood Gas Ventilator Setting YES Blood Gas Inspired Oxygen 100 Urine Color YELLOW Urine Clarity CLEAR Urine pH 6.0 5-9 Urine Specific [place] >=1.030 1.016-1.022 Urine Protein 3+ H NEGATIVE Urine Glucose (UA) TRACE H NEGATIVE Urine Ketones NEGATIVE NEGATIVE Urine Nitrite NEGATIVE NEGATIVE Urine Bilirubin NEGATIVE NEGATIVE Urine Urobilinogen 0.2 < = 1.0 MG/DL Urine Leukocyte Esterase NEGATIVE NEGATIVE Urine RBC (Auto) 2+ H NEGATIVE Urine RBC 25-50 H /HPF Urine WBC 10-25 H /HPF Urine Squamous Epithelial Cells 2-5 /HPF Urine Crystals NONE /LPF Urine Bacteria FEW H /HPF Urine Casts PRESENT /LPF Urine Granular Casts RARE /LPF Urine Mucus NEGATIVE /LPF Urine Culture Indicated YES Test 08/04/21 11:05 08/04/21 11:20 08/04/21 12:01 08/04/21 15:00 Range/Units Blood Gas Puncture Site RR Blood Gas Patient Temperature 36.1 Arterial Blood pH 7.08 *L 7.37-7.43 Arterial Blood Partial Pressure CO2 100 *H 35-45 MMHG Arterial Blood Partial Pressure O2 161 H 79-93 MMHG Arterial Blood HCO3 29 H 23-27 MMOL/L Arterial Blood Total CO2 32.3 H 21.0-31.0 MMOL/L Arterial Blood Oxygen Saturation 98 94-100 % Arterial Blood Base Excess -0.3 -2.5-2.5 MMOL/L Jaxson Test YES-POS Blood Gas Ventilator Setting YES Blood Gas Inspired Oxygen 80% Lactic Acid Level 1.45 0.50-2.00 MMOL/L Glucometer 258 H 70-110 MG/DL White Blood Count 30.5 *H 4.3-11.0 10^3/uL Red Blood Count 4.84 3.80-5.11 10^6/uL Hemoglobin 13.5 11.5-16.0 g/dL Hematocrit 47 35-52 % Mean Corpuscular Volume 97 80-99 fL Mean Corpuscular Hemoglobin 28 25-34 pg Mean Corpuscular Hemoglobin Concent 29 L 32-36 g/dL Red Cell Distribution Width 14.4 10.0-14.5 % Platelet Count 248 130-400 10^3/uL Mean Platelet Volume 10.7 9.0-12.2 fL Sodium Level 139 135-145 MMOL/L Potassium Level 5.6 H 3.6-5.0 MMOL/L Chloride Level 100 98-107 MMOL/L Carbon Dioxide Level 23 21-32 MMOL/L Anion Gap 16 H 5-14 MMOL/L Blood Urea Nitrogen 22 H 7-18 MG/DL Creatinine 1.29 0.60-1.30 MG/DL Estimat Glomerular Filtration Rate 46 BUN/Creatinine Ratio 17 Glucose Level 212 H 70-105 MG/DL Calcium Level 8.2 L 8.5-10.1 MG/DL Test 08/04/21 16:10 08/04/21 17:37 Range/Units Blood Gas Puncture Site ART LINE Blood Gas Patient Temperature 36.2 Arterial Blood pH 7.16 *L 7.37-7.43 Arterial Blood Partial Pressure CO2 78 *H 35-45 MMHG Arterial Blood Partial Pressure O2 84 79-93 MMHG Arterial Blood HCO3 27 23-27 MMOL/L Arterial Blood Total CO2 29.3 21.0-31.0 MMOL/L Arterial Blood Oxygen Saturation 96 94-100 % Arterial Blood Base Excess -1.2 -2.5-2.5 MMOL/L Jaxson Test ART LINE Blood Gas Ventilator Setting YES Blood Gas Inspired Oxygen 70% Glucometer 210 H 70-110 MG/DL ECG Impression ECG Comment Electrocardiogram from this morning in the emergency room shows sinus tachycardia at a heart rate of [address]-T wave changes. Diagnosis/Problems Diagnosis/Problems (1) Cardiopulmonary arrest Status: Acute Assessment & Plan: I suspect this may have been primary respiratory arrest which then may have developed into cardiac arrest. She has now been resuscitated. She is not requiring any vasoactive medications. I will obtain an echocardiogram in the morning. Her initial troponin level was undetectable and her electrocardiogram does not show any evidence of ischemic changes. I will obtain a follow-up electrocardiogram and troponin level in the morning. I would suggest we start her on low strength aspirin. The eICU has her on intravenous heparin because they are concerned she could have had massive pulmonary embolism. This is not unreasonable. (2) Acute on chronic respiratory failure with hypoxia and hypercapnia Assessment & Plan: Most likely multifactorial. The eICU and hospitalist are managing the ventilator. (3) Primary hypertension Assessment & Plan: She appears to have been taking metoprolol at home. If her blood pressures remain stable, I will consider restarting low-dose beta-mariya in the morning. (4) Morbid obesity Status: Chronic Assessment & Plan: She will need to be counseled about weight loss. Her morbid obesity is likely contributed to her current critical illness. DEWAYNE MCDONALD JR, MD August 04, 2021 19:04
[2021-08-04 19:08] VITALS: BP 164/68
[2021-08-04] MEDS: PIPERACILLIN SODIUM/TAZOBACTAM 4.5 GM in NS (IVPB) 100 ML IV SCH (19:40)
[2021-08-04 21:35] LABS: POTASSIUM 4.3 MMOL/L (3.6-5.0)
[2021-08-04 21:36] LABS: CALCIUM 8.3 MG/DL (8.5-10.1)
[2021-08-04 21:41] LABS: CREATININE SERUM 1.61 MG/DL (0.60-1.30)
[2021-08-04 22:19] VITALS: BP 156/62
[2021-08-04] MEDS: inSUlin ASPART (NovoLOG) 1 UNIT/0.01 ML (CHARGE PER UNIT) SC SCH (23:36)
[2021-08-05] MEDS: PROPOFOL DRIP (ICU) 100 ML IV SCH ×6 (02:11→20:14)
[2021-08-05 02:19] LABS: ABG OXYGEN SATURATION 96 % (94-100); ABG PCO2 54 MMHG (35-45); ABG PO2 81 MMHG (79-93); ABG TCO2 24.3 MMOL/L (21.0-31.0)
[2021-08-05 02:22] LABS: BASOPHILS % (AUTO) 0 % (0-10); EOSINOPHILS % (AUTO) 0 % (0-10); HEMATOCRIT 45 % (35-52); HEMOGLOBIN 13.3 g/dL (11.5-16.0); LYMPHOCYTES # (AUTO) 0.5 10^3/uL (1.0-4.0); LYMPHOCYTES % (AUTO) 2 % (12-44); MEAN CORPUSCULAR HEMOGLOBIN 28 pg (25-34); MEAN CORPUSCULAR HGB CONC 30 g/dL (32-36); MEAN CORPUSCULAR VOLUME 94 fL (80-99); MONOCYTES # (AUTO) 0.5 10^3/uL (0.0-1.0); MONOCYTES % (AUTO) 2 % (0-12); NEUTROPHILS % (AUTO) 95 % (42-75); PLATELET COUNT 206 10^3/uL (130-400); WHITE BLOOD COUNT 25.3 10^3/uL (4.3-11.0)
[2021-08-05 02:24] LABS: ABG PH 7.24 (7.37-7.43)
[2021-08-05 02:26] LABS: ALBUMIN 3.4 GM/DL (3.2-4.5); ALLENS TEST ART LINE; INSPIRED O2 60%; PATIENT TEMP 35.8; VENTILATOR YES
[2021-08-05 02:27] LABS: CALCIUM 8.3 MG/DL (8.5-10.1)
[2021-08-05 02:29] LABS: TOTAL PROTEIN 6.5 GM/DL (6.4-8.2)
[2021-08-05 02:30] LABS: BILIRUBIN,TOTAL 0.4 MG/DL (0.1-1.0)
[2021-08-05 02:32] LABS: CREATININE SERUM 1.8 MG/DL (0.60-1.30); PHOSPHORUS 4.1 MG/DL (2.3-4.7)
[2021-08-05 02:35] LABS: MAGNESIUM 1.9 MG/DL (1.6-2.4)
[2021-08-05 02:54] VITALS: BP 117/45
[2021-08-05] MEDS: RT-ALBUTEROL/IPRATROPIUM 3 ML (DUONEB) VIAL INH SCH ×6 (02:54→22:44)
[2021-08-05] MEDS: methylPREDNISolone 40 MG/ML (Solu-MEDROL) VIAL IV SCH ×4 (04:01→20:54)
[2021-08-05] MEDS: PIPERACILLIN SODIUM/TAZOBACTAM 4.5 GM in NS (IVPB) 100 ML IV SCH ×3 (04:01→20:55)
[2021-08-05] MEDS: KETAMINE INJECTION 500 MG in NS IV 500 ML 500 ML IV SCH ×2 (04:15→16:00)
[2021-08-05] MEDS: POTASSIUM CL 10MEQ/50ML IVPB 50 ML IV SCH (04:45)
[2021-08-05] MEDS: MAGNESIUM 1 GM/100 ML IVPB 100 ML IV SCH (04:46)
[2021-08-05] MEDS: KCL 20 MEQ TAB (K-DUR) PO SCH (04:46)
[2021-08-05] MEDS: inSUlin ASPART (NovoLOG) 1 UNIT/0.01 ML (CHARGE PER UNIT) SC SCH ×3 (05:57→18:34)
[2021-08-05 06:36] VITALS: BP 125/53
--- NOTE | 2021-08-05 07:11 | Physical Therapy Progress Note ---
Therapy Progress Note Patient currently sedated and intubated. PT will continue to monitor patients status. ARSALAN MANCILLA PT August 05, 2021 07:11
--- NOTE | 2021-08-05 07:38 | Occ Therapy Progress Note ---
Therapy Progress Note Patient currently sedated and intubated. OT will continue to monitor patients status. Catarina Corona OT August 05, 2021 07:38
--- NOTE | 2021-08-05 07:55 | Diagnostic Imaging Report ---
EXAMINATION: Chest 1 view HISTORY: Post code COMPARISON: 08/04/2021 FINDINGS: Endotracheal tube tip terminates 4 cm above the chet. Gastric tube tip terminates below the field of view. Right upper extremity peripherally inserted central venous catheter tip terminates in the superior vena cava. There is moderate edema. No pleural effusion or pneumothorax. Heart size is normal. IMPRESSION: 1. Moderate pulmonary edema. Dictated by: Dictated on workstation # [id number]
--- NOTE | 2021-08-05 08:59 | Tele-ICU Progress Note ---
Subjective Date Seen by a Provider: August 05, 2021 Time Seen by a Provider: 08:59 Subjective/Events-last exam (Tele-ICU Physician , Progress Note ) Available chart/ vitals / labs / Images reviewed Video assessment done using teleICU camera, rest of exam as per RN Discussed with RN , EXAM PER RN Events overnight : Afebrile FiO2 - 55 I/O = even Drips: Pressors: , hemodynamically stable Sedation gtt: propofol 65 ( RASS ) VENT SETTINGS and ABG reviewed Not candidate for SBT today REVIEWED Cardiovascular Stability / Sedation Score / FI02/PEEP / ABG / CXR Consultants: Hospital course: 08/04 - arrived to ER with severe resp distress, code blue in ER for 10 min , ROSC 100 fio2 + 12 , PAP >50 08/05 - 55% + 5 A/P Cardiac arrest - most likey secondary to resp arrest - ROSC after 10 min - normothermia to maintain - can not assess mental status post arrest - given paralitycs for intubation an need heavy sedation with difficulties ventilating - PLAN TO STOP SEDATION TODAY _ IF NOT AWAKEN WILL DO CT HEAD Muscle twitchin activity 08/04 - face and right foot - empiroic Keppra started , will reassess after stoping sedation Acute resp failure , suspected AECOPD - intubated in ER 08/04 - full vent support , PAP > 50s after intubatet, BETTER NOW <30 on ketamine gtt , fio2 55% + 5 Elevated ddimer to 17 - empiric heparin gtt and follow closely , CAN NOT DO CT with woorsenign renal function - AWAIT ECHO RVSP CARLOS A - gentle hydration now , await ECHO Chronic hypercapneic and hypoxic resp failure -home settings NIPPV and compliance unknown now , recentr d/c from hospitral with AECOPD AECOPD - steroids- decrease dose , nebs Leukocytosis , low PCT ( - neg for covid , flu - cont abx for now given reported purulent sputum upon intibation elev lact acid post arrest - mild - with WOB , hypoxia LIYA - chronic as per patient report to RN = ? lymphedema vs edema ( ? chronic nocturnal hypoxia Obesity BMI 53 Lines : right PICC (Central Line Necessity Reviewed) Goldberg: + OG: + Nutrition: to sart TF 08/05 Analgesia: Anxiety/ delirium VTE Prophylaxis: fullheparin gtt Stress Ulcer Prophylaxis: ppi Plans in collaboration with bedside consultants and IM MDs Discussed with RN to reach out if any questions or concerns A total of 45 minutes of critical care time was devoted to this patient today, required to treat and/or prevent further deterioration of critical care condition ( as above ) . Sepsis Event Evaluation Height, Weight, BMI Height: 5'6.00" Weight: 297lbs. 6.0oz. 133.866153lu; 49.01 BMI Method:Actual Focused Exam Lactate Level 08/04/21 08:15: Lactic Acid Level 6.72*H 08/04/21 11:20: Lactic Acid Level 1.45 Exam Exam Patient acknowledged, consented, and participated in this virtual visit which was conducted using real time audio/video Vital Signs Date Time Temp Pulse Resp B/P (MAP) Pulse Ox O2 Delivery O2 Flow Rate FiO2 08/05/21 08:00 36.4 124 20 98 Mechanical Ventilator 55.00 08/05/21 07:30 35.9 08/05/21 07:00 35.8 117 22 97 Mechanical Ventilator 55.00 08/05/21 07:00 120 08/05/21 06:36 111 21 97 55 08/05/21 06:00 35.7 111 22 97 Mechanical Ventilator 55.00 08/05/21 05:40 109 117/45 08/05/21 05:39 109 117/45 08/05/21 05:00 35.8 113 22 97 Mechanical Ventilator 55.00 08/05/21 05:00 120 35 90 08/05/21 04:15 35.7 08/05/21 04:00 Mechanical Ventilator 60 08/05/21 04:00 35.7 117 22 96 Mechanical Ventilator 55.00 08/05/21 03:00 35.7 107 22 97 Mechanical Ventilator 55.00 08/05/21 02:54 109 22 97 55 08/05/21 02:11 100 145/61 08/05/21 02:11 100 145/61 08/05/21 02:00 35.8 112 22 97 Mechanical Ventilator 60.00 08/05/21 01:00 93 08/05/21 01:00 35.9 93 22 96 Mechanical Ventilator 60.00 08/05/21 00:00 100 22 145/61 98 Mechanical Ventilator 60.00 08/05/21 00:00 36.2 08/04/21 23:59 Mechanical Ventilator 60 08/04/21 23:00 102 22 97 Mechanical Ventilator 60.00 08/04/21 23:00 35.9 08/04/21 22:21 35.7 08/04/21 22:19 94 22 97 60 08/04/21 22:08 91 164/68 08/04/21 22:08 91 164/68 08/04/21 22:00 35.7 08/04/21 22:00 87 22 97 Mechanical Ventilator 60.00 08/04/21 21:00 35.8 08/04/21 21:00 91 22 97 Mechanical Ventilator 60.00 08/04/21 20:00 35.9 08/04/21 20:00 Mechanical Ventilator 60 08/04/21 20:00 96 22 94 Mechanical Ventilator 60.00 08/04/21 20:00 91 164/68 08/04/21 19:45 35.9 08/04/21 19:30 Mechanical Ventilator 60.00 08/04/21 19:08 91 22 96 60 08/04/21 19:00 89 08/04/21 19:00 34.5 08/04/21 19:00 89 22 97 Mechanical Ventilator 70.00 08/04/21 18:00 36.0 93 22 145/61 96 Mechanical Ventilator 70.00 08/04/21 17:00 36.2 85 22 166/73 99 Mechanical Ventilator 70.00 08/04/21 16:00 Mechanical Ventilator 70 08/04/21 16:00 36.3 85 22 144/73 96 Mechanical Ventilator 70.00 Automatic Cuff 08/04/21 16:00 36.4 08/04/21 15:57 84 22 97 70 08/04/21 15:00 85 22 131/71 95 Mechanical Ventilator 70.00 08/04/21 14:55 89 121/73 08/04/21 14:00 89 22 121/73 99 Mechanical Ventilator 70.00 08/04/21 13:13 35.7 08/04/21 13:00 96 08/04/21 13:00 96 30 122/79 99 08/04/21 12:00 89 23 112/73 98 08/04/21 12:00 Mechanical Ventilator 70 08/04/21 11:57 88 23 97 90 08/04/21 11:42 106 99/67 08/04/21 11:00 98 23 108/68 93 Mechanical Ventilator 70.00 08/04/21 10:40 Mechanical Ventilator 70 08/04/21 10:30 36.7 106 18 99/67 82 Mechanical Ventilator 08/04/21 09:59 80 08/04/21 09:51 102 103/55 I & O 08/05/21 07:00 Intake Total 400 ml Output Total 1975 ml Balance -1575 ml Height & Weight Height: 5'6.00" Weight: 297lbs. 6.0oz. 133.210005ck; 49.01 BMI Method:Actual General Appearance: Other (Unresponsive) HEENT: Other (Head cyanotic, mucous membranes moist) Neck: Other (Body habitus obscures meaningful exam) Respiratory: Other (No respiratory effort, breath sounds heard with ventilation after intubation) Cardiovascular: Other (Pulseless, cyanotic) Gastrointestinal: normal bowel sounds, distended Extremity: Other (Mild lower extremity edema and chronic skin changes. Mild cyanosis) Neurologic/Psychiatric: Other (Completely unresponsive initially. Some spontaneous movement and breathing after ROSC) Skin: Warm/Dry, Cyanosis Results Lab Laboratory Tests 08/04/21 08:15 08/04/21 15:00 08/04/21 21:10 08/05/21 01:50 Assessment/Plan Assessment/Plan 1 ALEX WIGGINS MD August 05, 2021 08:59
--- NOTE | 2021-08-05 09:13 | Cardiology Progress Note ---
Progress Note-Cardiology Events since last exam Date Seen by Provider: August 05, 2021 Time Seen by Provider: 09:12 Events since last exam I am following her due to in-hospital cardiac arrest now status postresuscit ation. She remains in the intensive care unit intubated and sedated. She is not on any vasoactive medications. Renal function has been poor despite receiving 1 L of normal saline. I cannot obtain any history from the patient due to her sedation. I did speak with her nurse. Certain portions of this document may have been dictated utilizing voice recognition technology. Inherent to this technology, typographical and grammatical errors may exist. As much as I am diligent to identify and correct these mistakes, some errors may remain in the document. Vitals Last set of Vitals Signs Vital Signs 08/05/21 08/05/21 14:36 16:00 Temp 36.4 Pulse 112 Resp 22 Pulse Ox 93 O2 Delivery Mechanical Ventilator O2 Flow Rate 40.00 FiO2 50 Labs Labs Laboratory Tests 08/04/21 21:10 08/05/21 01:50 08/05/21 14:25 Exam Vital Signs Vital Signs Date Time Temp Pulse Resp B/P (MAP) Pulse Ox O2 Delivery O2 Flow Rate FiO2 08/05/21 16:00 36.4 112 22 93 Mechanical Ventilator 40.00 08/05/21 14:36 50 Physical Exam General: Intubated and sedated. Well nourished and appears stated age. She is morbidly obese. Eye: Conjunctivae are clear. There are no xanthelasma. HENT: Normocephalic. Atraumatic. Carotid pulsations 2/2 without bruits. Neck: Jugular venous pressure does not appear elevated. No thyromegaly appreciated. Respiratory: Symmetrical expansion bilaterally. Coarse breath sounds due to the ventilator. Cardiovascular: Normal rate. Regular rhythm. Distant S1/S2. No murmur. No gallop. Point of maximal impulse is not appear displaced. Good pulses equal in all extremities. 1+ bilateral pretibial edema with some areas of erythema on both legs. Gastrointestinal: Soft. Normal bowel sounds. Skin: Skin turgor is normal. There is no pallor. Musculoskeletal: No obvious deformities. Neurologic: Intubated and sedated. Psychiatric: Not obtainable due to clinical status. Labs Laboratory Tests Test 08/04/21 17:37 08/04/21 18:55 08/04/21 21:10 08/04/21 23:30 Range/Units Glucometer 210 H 198 H 70-110 MG/DL Activated Partial Thromboplast Time 59 H 24-35 SEC Sodium Level 140 135-145 MMOL/L Potassium Level 4.3 3.6-5.0 MMOL/L Chloride Level 101 98-107 MMOL/L Carbon Dioxide Level 21 21-32 MMOL/L Anion Gap 18 H 5-14 MMOL/L Blood Urea Nitrogen 24 H 7-18 MG/DL Creatinine 1.61 H 0.60-1.30 MG/DL Estimat Glomerular Filtration Rate 35 BUN/Creatinine Ratio 15 Glucose Level 217 H 70-105 MG/DL Calcium Level 8.3 L 8.5-10.1 MG/DL Test 08/05/21 01:50 08/05/21 11:03 08/05/21 14:25 Range/Units White Blood Count 25.3 H 4.3-11.0 10^3/uL Red Blood Count 4.72 3.80-5.11 10^6/uL Hemoglobin 13.3 11.5-16.0 g/dL Hematocrit 45 35-52 % Mean Corpuscular Volume 94 80-99 fL Mean Corpuscular Hemoglobin 28 25-34 pg Mean Corpuscular Hemoglobin Concent 30 L 32-36 g/dL Red Cell Distribution Width 14.0 10.0-14.5 % Platelet Count 206 130-400 10^3/uL Mean Platelet Volume 11.0 9.0-12.2 fL Immature Granulocyte % (Auto) 1 % Neutrophils (%) (Auto) 95 H 42-75 % Lymphocytes (%) (Auto) 2 L 12-44 % Monocytes (%) (Auto) 2 0-12 % Eosinophils (%) (Auto) 0 0-10 % Basophils (%) (Auto) 0 0-10 % Neutrophils # (Auto) 24.0 H 1.8-7.8 10^3/uL Lymphocytes # (Auto) 0.5 L 1.0-4.0 10^3/uL Monocytes # (Auto) 0.5 0.0-1.0 10^3/uL Eosinophils # (Auto) 0.0 0.0-0.3 10^3/uL Basophils # (Auto) 0.0 0.0-0.1 10^3/uL Immature Granulocyte # (Auto) 0.3 H 0.0-0.1 10^3/uL Activated Partial Thromboplast Time > 200 *H 37 H 24-35 SEC Blood Gas Puncture Site ARTLINE Blood Gas Patient Temperature 35.8 Arterial Blood pH 7.24 *L 7.37-7.43 Arterial Blood Partial Pressure CO2 54 H 35-45 MMHG Arterial Blood Partial Pressure O2 81 79-93 MMHG Arterial Blood HCO3 23 23-27 MMOL/L Arterial Blood Total CO2 24.3 21.0-31.0 MMOL/L Arterial Blood Oxygen Saturation 96 94-100 % Arterial Blood Base Excess -4.0 L -2.5-2.5 MMOL/L Jaxson Test ART LINE Blood Gas Ventilator Setting YES Blood Gas Inspired Oxygen 60% Sodium Level 140 141 135-145 MMOL/L Potassium Level 4.0 4.1 3.6-5.0 MMOL/L Chloride Level 101 103 98-107 MMOL/L Carbon Dioxide Level 18 L 21 21-32 MMOL/L Anion Gap 21 H 17 H 5-14 MMOL/L Blood Urea Nitrogen 25 H 25 H 7-18 MG/DL Creatinine 1.80 H 1.98 H 0.60-1.30 MG/DL Estimat Glomerular Filtration Rate 31 27 BUN/Creatinine Ratio 14 13 Glucose Level 244 H 144 H 70-105 MG/DL Calcium Level 8.3 L 8.4 L 8.5-10.1 MG/DL Corrected Calcium 8.8 8.5-10.1 MG/DL Phosphorus Level 4.1 2.3-4.7 MG/DL Magnesium Level 1.9 1.6-2.4 MG/DL Total Bilirubin 0.4 0.1-1.0 MG/DL Aspartate Amino Transf (AST/SGOT) 47 H 5-34 U/L Alanine Aminotransferase (ALT/SGPT) 111 H 0-55 U/L Alkaline Phosphatase 55 40-136 U/L Troponin I 0.064 H <0.028 NG/ML Total Protein 6.5 6.4-8.2 GM/DL Albumin 3.4 3.2-4.5 GM/DL Triglycerides Level 106 <150 MG/DL Cholesterol Level 163 < 200 MG/DL LDL Cholesterol Direct 91 1-129 MG/DL VLDL Cholesterol 21 5-40 MG/DL HDL Cholesterol 55 40-60 MG/DL Glucometer 194 H 70-110 MG/DL Radiology ECHOCARDIOGRAM (08/05/2021): 1. This is a technically difficult study due to poor image quality secondary to patient's body habitus and mechanical ventilator. A limited number of measurements could be obtained. 2. Left ventricle: The cavity size appears normal. Wall thickness could not be accurately determined. Systolic function is normal. The estimated ejection fraction is 60-65%. Regional wall motion abnormalities cannot be excluded due to poor endocardial definition. The left ventricular diastolic function is indeterminate. 3. Aortic valve: There appears to be at least mild aortic stenosis with a mean gradient of 14 mmHg, a peak gradient of 25 mmHg, and a peak velocity of 2.5 m/s. The aortic valve area could not be calculated due to poor image quality. 4. Inferior vena cava: The vessel is dilated. The respirophasic diameter changes are blunted (less than 50%). These findings are consistent with markedly elevated right atrial pressure (15 mmHg). 5. Pulmonary arteries: The estimated pulmonary artery systolic pressure is 41 mmHg assuming a right atrial pressure of 15 mmHg. Diagnosis/Problems Diagnosis/Problems (1) Cardiopulmonary arrest Status: Acute Assessment & Plan: I suspect this may have been primary respiratory arrest which then may have developed into cardiac arrest. She remains intubated in the ICU. She is not requiring any vasoactive medications. Her echocardiogram showed a normal ejection fraction. Her initial troponin level was undetectable and her electrocardiogram does not show any evidence of ischemic changes. Her troponin level from 08/03 was marginally elevated. I started her on low strength aspirin. The eICU has her on intravenous heparin because they are concerned she could have had massive pulmonary embolism. This is not unreasonable. (2) Acute on chronic respiratory failure with hypoxia and hypercapnia Assessment & Plan: Most likely multifactorial. The eICU and hospitalist are managing the ventilator. (3) Primary hypertension Assessment & Plan: She appears to have been taking metoprolol at home. Her blood pressures continue to be intermittently elevated. I will resume metoprolol tartrate 25 mg twice daily. This appears to be what she was taking at home. (4) Aortic stenosis Assessment & Plan: Her echocardiogram from 08/05 shows at least mild aortic stenosis. This should not be contributing to the current clinical picture but will need to be followed longitudinally after discharge. (5) Pulmonary hypertension Assessment & Plan: Her echocardiogram showed mild pulmonary hypertension. I suspect this may just be due to her morbid obesity and possibly undiagnosed sleep apnea. If she did in fact have a pulmonary embolism, this could also be contributing to the elevated pulmonary pressure. (6) Morbid obesity Status: Chronic Assessment & Plan: She will need to be counseled about weight loss. Her morbid obesity is likely contributing to her current critical illness. DEWAYNE MCDONALD JR, MD August 05, 2021 09:13
[2021-08-05] MEDS: ASPIRIN 81 MG CHEW (CHILDREN'S ASA) PO SCH (10:26)
[2021-08-05] MEDS: PANTOPRAZOLE 40 MG (PROTONIX) VIAL IV SCH (10:26)
[2021-08-05] MEDS: NS IV 1000 ML 1,000 ML IV SCH ×3 (10:26→22:41)
[2021-08-05 10:28] VITALS: BP 168/64
--- NOTE | 2021-08-05 11:05 | Progress Note ---
Subjective Subjective/Events-last exam Afebrile, remains intubated, when sedation weaned last night had desaturation and tachycardia. Focused Exam Lactate Level 08/04/21 08:15: Lactic Acid Level 6.72*H 08/04/21 11:20: Lactic Acid Level 1.45 Objective Exam Last Set of Vital Signs Vital Signs Date Time Temp Pulse Resp B/P (MAP) Pulse Ox O2 Delivery O2 Flow Rate FiO2 08/05/21 10:47 179/59 08/05/21 10:34 50 08/05/21 10:28 124 30 94 08/05/21 10:00 36.3 Mechanical Ventilator 55.00 Capillary Refill : I&O Intake and Output 08/05/21 00:00 Intake Total 400 ml Output Total 675 ml Balance -275 ml Intake IV Total 400 ml Output Urine Total 675 ml General: Other (intubated, sedated, does pull leg away slightly when touched) Lungs: Other (ronchi) Heart: Regular Rate Abdomen: Normal Bowel Sounds, Soft, Other (purple ecchymosis, no induration) Extremities: Other (left lower leg mildly erythematous, both legs with trace edema) Results/Procedures Lab Laboratory Tests 08/04/21 11:05: Blood Gas Puncture Site RR, Blood Gas Patient Temperature 36.1, Arterial Blood pH 7.08*L, Arterial Blood Partial Pressure CO2 100*H, Arterial Blood Partial Pressure O2 161H, Arterial Blood HCO3 29H, Arterial Blood Total CO2 32.3H, Arterial Blood Oxygen Saturation 98, Arterial Blood Base Excess -0.3, Jaxson Test YES-POS, Blood Gas Ventilator Setting YES, Blood Gas Inspired Oxygen 80% 08/04/21 11:20: Lactic Acid Level 1.45 08/04/21 12:01: Glucometer 258H 08/04/21 15:00: White Blood Count 30.5*H, Red Blood Count 4.84, Hemoglobin 13.5, Hematocrit 47, Mean Corpuscular Volume 97, Mean Corpuscular Hemoglobin 28, Mean Corpuscular Hemoglobin Concent 29L, Red Cell Distribution Width 14.4, Platelet Count 248, Mean Platelet Volume 10.7, Sodium Level 139, Potassium Level 5.6H, Chloride Level 100, Carbon Dioxide Level 23, Anion Gap 16H, Blood Urea Nitrogen 22H, Creatinine 1.29, Estimat Glomerular Filtration Rate 46, BUN/Creatinine Ratio 17, Glucose Level 212H, Calcium Level 8.2L 08/04/21 16:10: Blood Gas Puncture Site ART LINE, Blood Gas Patient Temperature 36.2, Arterial Blood pH 7.16*L, Arterial Blood Partial Pressure CO2 78*H, Arterial Blood Partial Pressure O2 84, Arterial Blood HCO3 27, Arterial Blood Total CO2 29.3, Arterial Blood Oxygen Saturation 96, Arterial Blood Base Excess -1.2, Jaxson Test ART LINE, Blood Gas Ventilator Setting YES, Blood Gas Inspired Oxygen 70% 08/04/21 17:37: Glucometer 210H 08/04/21 18:55: Activated Partial Thromboplast Time 59H 08/04/21 21:10: Sodium Level 140, Potassium Level 4.3, Chloride Level 101, Carbon Dioxide Level 21, Anion Gap 18H, Blood Urea Nitrogen 24H, Creatinine 1.61H, Estimat Glomerular Filtration Rate 35, BUN/Creatinine Ratio 15, Glucose Level 217H, Calcium Level 8.3L 08/04/21 23:30: Glucometer 198H 08/05/21 01:50: White Blood Count 25.3H, Red Blood Count 4.72, Hemoglobin 13.3, Hematocrit 45, Mean Corpuscular Volume 94, Mean Corpuscular Hemoglobin 28, Mean Corpuscular Hemoglobin Concent 30L, Red Cell Distribution Width 14.0, Platelet Count 206, Mean Platelet Volume 11.0, Immature Granulocyte % (Auto) 1, Neutrophils (%) (Auto) 95H, Lymphocytes (%) (Auto) 2L, Monocytes (%) (Auto) 2, Eosinophils (%) (Auto) 0, Basophils (%) (Auto) 0, Neutrophils # (Auto) 24.0H, Lymphocytes # (Auto) 0.5L, Monocytes # (Auto) 0.5, Eosinophils # (Auto) 0.0, Basophils # (Auto) 0.0, Immature Granulocyte # (Auto) 0.3H, Activated Partial Thromboplast Time > 200*H, Blood Gas Puncture Site ARTLINE, Blood Gas Patient Temperature 35.8, Arterial Blood pH 7.24*L, Arterial Blood Partial Pressure CO2 54H, Arterial Blood Partial Pressure O2 81, Arterial Blood HCO3 23, Arterial Blood Total CO2 24.3, Arterial Blood Oxygen Saturation 96, Arterial Blood Base Excess -4.0L, Jaxson Test ART LINE, Blood Gas Ventilator Setting YES, Blood Gas Inspired Oxygen 60%, Sodium Level 140, Potassium Level 4.0, Chloride Level 101, Carbon Dioxide Level 18L, Anion Gap 21H, Blood Urea Nitrogen 25H, Creatinine 1.80H, Estimat Glomerular Filtration Rate 31, BUN/Creatinine Ratio 14, Glucose Level 244H, Calcium Level 8.3L, Corrected Calcium 8.8, Phosphorus Level 4.1, Magnesium Level 1.9, Total Bilirubin 0.4, Aspartate Amino Transf (AST/SGOT) 47H, Alanine Aminotransferase (ALT/SGPT) 111H, Alkaline Phosphatase 55, Troponin I 0.064H, Total Protein 6.5, Albumin 3.4, Triglycerides Level 106, Cholesterol Level 163, LDL Cholesterol Direct 91, VLDL Cholesterol 21, HDL Cholesterol 55 Radiology CXR 08/04/21: FINDINGS: There is mild edema. Heart size is accentuated by portable technique. No pleural effusion or pneumothorax. No pneumonia. Endotracheal tube tip terminates 4 cm above the chet. Assessment/Plan Assessment/Plan (1) Respiratory failure with hypoxia and hypercapnia Status: Acute Assessment & Plan: 08/05 Appreciate [facility] ICU recommendations, trial of weaning sedation for possible SBT later today Qualifiers: Qualified Codes: J96.01 - Acute respiratory failure with hypoxia; J96.02 - Acute respiratory failure with hypercapnia (2) Cardiopulmonary arrest Status: Acute Assessment & Plan: With ROSC in ER. Target normothermia. Suspect cardiac arrest secondary to respiratory arrest with severe COPD exacerbation. Consider PE, pneumonia, see below. (3) COPD exacerbation Status: Acute Assessment & Plan: Solumedrol 125 mg q6, zosyn given recent hospitalization and purulent mucous although no clear CXR findings. 08/05 titrated solumedrol dose, continue zosyn (4) Elevated d-dimer Status: Acute Assessment & Plan: Markedly elevated, unclear if related to code, but given code and current status, hesitant to obtain CTA at this time, will treat empirically with full dose enoxaparin. 08/05 on heparin drip, cannot tolerate CTA due to kidney function (5) Leukocytosis Status: Acute Assessment & Plan: Uncertain whether code related versus underlying infection, Zosyn started empirically. (6) Lactic acidosis Status: Resolved Assessment & Plan: Suspect secondary to hypoxia from code, resolved on repeat. (7) Respiratory acidosis Status: Acute Assessment & Plan: Has baseline hypercapnia, but with severe hypercapnia on admit. Intubated and mechanically ventilated, appreciate [facility] ICU recommendations. 08/05 continuing to improve with mechanical ventilation, pH 7.24 this am. (8) Hypercapnia Status: Chronic Assessment & Plan: Acute on chronic, recently started on home bipap. 08/05 improving with mechanical ventilation, PCO2 decreased to 54 this morning (9) CARLOS A (acute kidney injury) Status: Acute Assessment & Plan: Secondary to ischemia related to cardiac arrest, IVF and monitor closely. (10) KANU (obstructive sleep apnea) Status: Chronic (11) Morbid obesity Status: Chronic (12) COPD (chronic obstructive pulmonary disease) Status: Chronic (13) Hypertension Status: Chronic (14) Obesity hypoventilation syndrome Status: Chronic (15) DVT prophylaxis Status: Acute Assessment & Plan: Treatment dose enoxaparin due to high D dimer. Changed to heparin drip per [facility] ICU STEPHANIE ÁLVAREZ MD August 05, 2021 11:05
--- NOTE | 2021-08-05 13:09 | Diagnostic Imaging Report ---
PROCEDURE: CT head without contrast. TECHNIQUE: Multiple contiguous axial images were obtained through the brain without the use of intravenous contrast. Auto Exposure Controls were utilized during the CT exam to meet ALARA standards for radiation dose reduction. INDICATION: Status post arrest. On a ventilator. EXAMINATION: CT brain 08/05/2021 FINDINGS: There is no hemorrhage or infarct. There is no mass, mass effect or midline shift. No hydrocephalus. ET tube is noted. The paranasal sinuses demonstrate minimal mucosal thickening with a small air-fluid level seen in the left maxillary sinus. The mastoid air cells clear. IMPRESSION: 1. No acute intracranial process. 2. Sinus disease as above. Dictated by: Dictated on workstation # [id number]
[2021-08-05] MEDS: HEParin DRIP 25000 UNIT/500ML 500 ML IV SCH (14:27)
[2021-08-05 14:36] VITALS: BP 152/50
[2021-08-05 14:43] LABS: POTASSIUM 4.1 MMOL/L (3.6-5.0)
[2021-08-05 14:44] LABS: CALCIUM 8.4 MG/DL (8.5-10.1)
[2021-08-05 14:48] LABS: CREATININE SERUM 1.98 MG/DL (0.60-1.30)
[2021-08-05] MEDS: HEParin 1000 UNIT/ML (10ML VIAL) FOR BOLUS IV SCH (15:19)
[2021-08-05] MEDS: fentaNYL INJ 100 MCG/2 ML AMP IVP PRN ×2 (18:28→20:10)
[2021-08-05 18:39] VITALS: BP 167/49
[2021-08-05] MEDS: meTOprolol TARTRATE 25 MG (LOPRESSOR) TABLET PO SCH (20:55)
[2021-08-05 22:38] LABS: POTASSIUM 4.1 MMOL/L (3.6-5.0)
[2021-08-05 22:39] LABS: CALCIUM 8.1 MG/DL (8.5-10.1)
[2021-08-05 22:43] LABS: CREATININE SERUM 2.02 MG/DL (0.60-1.30)
[2021-08-05 22:44] VITALS: BP 143/56
[2021-08-06] MEDS: PROPOFOL DRIP (ICU) 100 ML IV SCH ×7 (00:26→21:19)
[2021-08-06] MEDS: inSUlin ASPART (NovoLOG) 1 UNIT/0.01 ML (CHARGE PER UNIT) SC SCH ×5 (00:27→23:43)
[2021-08-06] MEDS: KETAMINE INJECTION 500 MG in NS IV 500 ML 500 ML IV SCH (00:27)
[2021-08-06 02:22] VITALS: BP 140/56
[2021-08-06] MEDS: RT-ALBUTEROL/IPRATROPIUM 3 ML (DUONEB) VIAL INH SCH ×6 (02:22→22:50)
[2021-08-06] MEDS: methylPREDNISolone 40 MG/ML (Solu-MEDROL) VIAL IV SCH ×4 (03:10→20:18)
[2021-08-06] MEDS: PIPERACILLIN SODIUM/TAZOBACTAM 4.5 GM in NS (IVPB) 100 ML IV SCH ×3 (03:11→21:14)
[2021-08-06 03:56] LABS: BASOPHILS % (AUTO) 0 % (0-10); EOSINOPHILS # (AUTO) 0.1 10^3/uL (0.0-0.3); EOSINOPHILS % (AUTO) 0 % (0-10); HEMATOCRIT 38 % (35-52); HEMOGLOBIN 11.7 g/dL (11.5-16.0); LYMPHOCYTES # (AUTO) 0.3 10^3/uL (1.0-4.0); LYMPHOCYTES % (AUTO) 2 % (12-44); MEAN CORPUSCULAR HEMOGLOBIN 28 pg (25-34); MEAN CORPUSCULAR HGB CONC 31 g/dL (32-36); MEAN CORPUSCULAR VOLUME 91 fL (80-99); MONOCYTES % (AUTO) 5 % (0-12); NEUTROPHILS # (AUTO) 18.7 10^3/uL (1.8-7.8); NEUTROPHILS % (AUTO) 92 % (42-75); PLATELET COUNT 216 10^3/uL (130-400); WHITE BLOOD COUNT 20.3 10^3/uL (4.3-11.0)
[2021-08-06 03:57] LABS: ABG BASE EXCESS -1.8 MMOL/L (-2.5-2.5); ABG OXYGEN SATURATION 95 % (94-100); ABG PCO2 51 MMHG (35-45); ABG PO2 76 MMHG (79-93); ABG TCO2 25.7 MMOL/L (21.0-31.0)
[2021-08-06 03:58] LABS: ABG PH 7.29 (7.37-7.43)
[2021-08-06 03:59] LABS: ALLENS TEST ART LINE; INSPIRED O2 40%; PATIENT TEMP 36.1; VENTILATOR YES
[2021-08-06 04:01] LABS: ALBUMIN 3.1 GM/DL (3.2-4.5); POTASSIUM 4.2 MMOL/L (3.6-5.0)
[2021-08-06 04:04] LABS: TOTAL PROTEIN 5.9 GM/DL (6.4-8.2)
[2021-08-06 04:05] LABS: BILIRUBIN,TOTAL 0.3 MG/DL (0.1-1.0)
[2021-08-06 04:07] LABS: CREATININE SERUM 2.05 MG/DL (0.60-1.30); PHOSPHORUS 4.5 MG/DL (2.3-4.7)
[2021-08-06 04:10] LABS: MAGNESIUM 1.9 MG/DL (1.6-2.4)
[2021-08-06] MEDS: KCL 20 MEQ TAB (K-DUR) PO SCH (04:10)
[2021-08-06] MEDS: POTASSIUM CL 10MEQ/50ML IVPB 50 ML IV SCH (04:10)
[2021-08-06] MEDS: MAGNESIUM 1 GM/100 ML IVPB 100 ML IV SCH (04:10)
[2021-08-06] MEDS: fentaNYL INJ 100 MCG/2 ML AMP IVP PRN ×2 (04:51→18:02)
--- NOTE | 2021-08-06 06:42 | Progress Note - Hospitalist ---
Subjective HPI/CC On Admission Date Seen by Provider: August 06, 2021 Time Seen by Provider: 09:45 Subjective/Events-last exam Patient still intubated Could not tolerate weaning Switched heparin drip to Eliquis per tube Focused Exam Lactate Level 08/04/21 08:15: Lactic Acid Level 6.72*H 08/04/21 11:20: Lactic Acid Level 1.45 Objective Exam Vital Signs Vital Signs Date Time Temp Pulse Resp B/P (MAP) Pulse Ox O2 Delivery O2 Flow Rate FiO2 08/07/21 06:00 36.0 111 26 91 Mechanical Ventilator 40.00 08/07/21 04:00 40 Capillary Refill : General Appearance: No Apparent Distress, Chronically ill, Obese, Other (Sedated and intubated) Respiratory: Lungs Clear, Normal Breath Sounds Cardiovascular: Regular Rate, Rhythm Results/Procedures Lab Laboratory Tests 08/07/21 03:50 Patient resulted labs reviewed. Assessment/Plan Assessment and Plan Assess & Plan/Chief Complaint (1) Respiratory failure with hypoxia and hypercapnia Status: Acute Assessment & Plan: 08/05 Appreciate [facility] ICU recommendations, trial of weaning sedation for possible SBT later today 08/06patient could not tolerate weaning Qualifiers: Qualified Codes: J96.01 - Acute respiratory failure with hypoxia; J96.02 - Acute respiratory failure with hypercapnia (2) Cardiopulmonary arrest Status: Acute Assessment & Plan: With ROSC in ER. Target normothermia. Suspect cardiac arrest secondary to respiratory arrest with severe COPD exacerbation. Consider PE, pneumonia, see below. (3) COPD exacerbation Status: Acute Assessment & Plan: Solumedrol 125 mg q6, zosyn given recent hospitalization and purulent mucous although no clear CXR findings. 08/05 titrated solumedrol dose, continue zosyn (4) Elevated d-dimer Status: Acute Assessment & Plan: Markedly elevated, unclear if related to code, but given code and current status, hesitant to obtain CTA at this time, will treat empirically with full dose enoxaparin. 08/05 on heparin drip, cannot tolerate CTA due to kidney function (5) Leukocytosis Status: Acute Assessment & Plan: Uncertain whether code related versus underlying infection, Zosyn started empirically. (6) Lactic acidosis Status: Resolved Assessment & Plan: Suspect secondary to hypoxia from code, resolved on repeat. (7) Respiratory acidosis Status: Acute Assessment & Plan: Has baseline hypercapnia, but with severe hypercapnia on admit. Intubated and mechanically ventilated, appreciate [facility] ICU recommendations. 08/05 continuing to improve with mechanical ventilation, pH 7.24 this am. (8) Hypercapnia Status: Chronic Assessment & Plan: Acute on chronic, recently started on home bipap. 08/05 improving with mechanical ventilation, PCO2 decreased to 54 this morning (9) CARLOS A (acute kidney injury) Status: Acute Assessment & Plan: Secondary to ischemia related to cardiac arrest, IVF and monitor closely. (10) KANU (obstructive sleep apnea) Status: Chronic (11) Morbid obesity Status: Chronic (12) COPD (chronic obstructive pulmonary disease) Status: Chronic (13) Hypertension Status: Chronic (14) Obesity hypoventilation syndrome Status: Chronic (15) DVT prophylaxis Status: Acute Assessment & Plan: Treatment dose enoxaparin due to high D dimer. Changed to heparin drip per [facility] ICU Plan: Supportive care Support weaning trial MARIS SALDIVAR DO August 06, 2021 06:42
[2021-08-06 07:14] VITALS: BP 135/58
--- NOTE | 2021-08-06 08:12 | Diagnostic Imaging Report ---
INDICATION: Post code, endotracheal tube. COMPARISON: 08/05/2021 TECHNIQUE: Single radiograph of the chest dated 08/06/2021. FINDINGS: Endotracheal tube, enteric catheter, and right-sided PICC line are again identified and similar. The cardiac silhouette is enlarged, though stable. Mild central pulmonary vascular congestion is again identified, appearing similar to the prior examination. Low lung volumes, decreased since the prior examination. This is associated with prominence of the pulmonary interstitium bilaterally, greatest within the lung bases. Small pleural effusions. No pneumothorax. No acute osseous abnormality. IMPRESSION: Unchanged lines and tubes. Decreased lung volumes with slightly worsening interstitial edema versus interstitial infiltrate with tiny pleural effusions. Persistent cardiomegaly with central pulmonary vascular congestion. Dictated by: Dictated on workstation # [id number]
--- NOTE | 2021-08-06 08:43 | Tele-ICU Progress Note ---
Progress Note video rounds completed 66y/o female with COPD and morbid obesity. Presented to ED with respiratory distress and had a cardiac arrest. ROSC after 10 minutes Intubated and sedated Head CT negative Being treated with full anticoagulation with heparin drip for elevated D dimer only Vent settings: AC: 12/420/40%/8 PE: sedated and comfortable on vent HR 106 NSR BP: 135/59 by art line O2 sst: 93% Temp: 36.3 MEDS: propofol/fentanyl for sedation Famotidine Heparin drip Zosyn Steroids PLAN: would withold sedation and let wake up and breathe to evaluate neuro and resp status May need trach and PEG Focused Exam Lactate Level 08/04/21 08:15: Lactic Acid Level 6.72*H 08/04/21 11:20: Lactic Acid Level 1.45 Height, Weight, BMI Height: 5'6.00" Weight: 297lbs. 6.0oz. [id number]; 49.01 BMI Method:Actual Labs Laboratory Tests 08/05/21 14:25 08/05/21 22:10 08/06/21 03:35 Results Labs Labs Laboratory Tests 08/05/21 11:03: Glucometer 194H 08/05/21 14:25: Activated Partial Thromboplast Time 37H, Sodium Level 141, Potassium Level 4.1, Chloride Level 103, Carbon Dioxide Level 21, Anion Gap 17H, Blood Urea Nitrogen 25H, Creatinine 1.98H, Estimat Glomerular Filtration Rate 27, BUN/Creatinine Ratio 13, Glucose Level 144H, Calcium Level 8.4L 08/05/21 20:40: Activated Partial Thromboplast Time > 200*H 08/05/21 22:10: Sodium Level 141, Potassium Level 4.1, Chloride Level 104, Carbon Dioxide Level 21, Anion Gap 16H, Blood Urea Nitrogen 26H, Creatinine 2.02H, Estimat Glomerular Filtration Rate 27, BUN/Creatinine Ratio 13, Glucose Level 178H, Calcium Level 8.1L 08/06/21 03:35: White Blood Count 20.3H, Red Blood Count 4.19, Hemoglobin 11.7, Hematocrit 38, Mean Corpuscular Volume 91, Mean Corpuscular Hemoglobin 28, Mean Corpuscular Hemoglobin Concent 31L, Red Cell Distribution Width 14.9H, Platelet Count 216, Mean Platelet Volume 11.0, Immature Granulocyte % (Auto) 1, Neutrophils (%) (Auto) 92H, Lymphocytes (%) (Auto) 2L, Monocytes (%) (Auto) 5, Eosinophils (%) (Auto) 0, Basophils (%) (Auto) 0, Neutrophils # (Auto) 18.7H, Lymphocytes # (Auto) 0.3L, Monocytes # (Auto) 1.0, Eosinophils # (Auto) 0.1, Basophils # (Auto) 0.0, Immature Granulocyte # (Auto) 0.3H, Activated Partial Thromboplast Time 91H, Blood Gas Puncture Site ART LINE, Blood Gas Patient Temperature 36.1, Arterial Blood pH 7.29*L, Arterial Blood Partial Pressure CO2 51H, Arterial Blood Partial Pressure O2 76L, Arterial Blood HCO3 24, Arterial Blood Total CO2 25.7, Arterial Blood Oxygen Saturation 95, Arterial Blood Base Excess -1.8, Jaxson Test ART LINE, Blood Gas Ventilator Setting YES, Blood Gas Inspired Oxygen 40%, Sodium Level 142, Potassium Level 4.2, Chloride Level 106, Carbon Dioxide Level 19L, Anion Gap 17H, Blood Urea Nitrogen 27H, Creatinine 2.05H, Estimat Glomerular Filtration Rate 26, BUN/Creatinine Ratio 13, Glucose Level 184H, Calcium Level 8.0L, Corrected Calcium 8.7, Phosphorus Level 4.5, Magnesium Level 1.9, Total Bilirubin 0.3, Aspartate Amino Transf (AST/SGOT) 61H, Alanine Aminotransferase (ALT/SGPT) 77H, Alkaline Phosphatase 48, Total Protein 5.9L, Albumin 3.1L, Triglycerides Level 132 Microbiology 08/04/21 MRSA Screen - Final, Complete MRSA not isolated 08/04/21 Urine Culture - Preliminary, Resulted Proteus mirabilis 08/04/21 Blood Culture - Preliminary, Resulted No growth SILVIA FROST MD August 06, 2021 08:43
[2021-08-06] MEDS: NS IV 1000 ML 1,000 ML IV SCH (09:08)
[2021-08-06] MEDS: HEParin DRIP 25000 UNIT/500ML 500 ML IV SCH (09:18)
[2021-08-06] MEDS: PANTOPRAZOLE 40 MG (PROTONIX) VIAL IV SCH (09:20)
[2021-08-06] MEDS: ASPIRIN 81 MG CHEW (CHILDREN'S ASA) PO SCH (09:20)
[2021-08-06] MEDS: meTOprolol TARTRATE 25 MG (LOPRESSOR) TABLET PO SCH (09:20)
--- NOTE | 2021-08-06 10:19 | Cardiology Progress Note ---
Progress Note-Cardiology Events since last exam Date Seen by Provider: August 06, 2021 Time Seen by Provider: 10:19 Events since last exam I am following her due to cardiac arrest. She remains in the intensive care unit intubated and sedated. She is not on any vasoactive medications. When the nurse attempted to wean sedation, the patient develops tachycardia and tachypnea. I am not able to obtain any history from the patient due to the sedation. Certain portions of this document may have been dictated utilizing voice recognition technology. Inherent to this technology, typographical and grammatical errors may exist. As much as I am diligent to identify and correct these mistakes, some errors may remain in the document. Vitals Last set of Vitals Signs Vital Signs 08/06/21 08/06/21 08:00 10:00 Temp 36.3 Pulse 109 Resp 25 Pulse Ox 94 O2 Delivery Mechanical Ventilator O2 Flow Rate 40.00 FiO2 40 Labs Labs Laboratory Tests 08/05/21 14:25 08/05/21 22:10 08/06/21 03:35 Exam Vital Signs Vital Signs Date Time Temp Pulse Resp B/P (MAP) Pulse Ox O2 Delivery O2 Flow Rate FiO2 08/06/21 10:00 36.3 109 94 Mechanical Ventilator 40.00 08/06/21 08:00 25 08/06/21 08:00 40 Physical Exam General: Intubated and sedated. Well nourished and appears stated age. She is morbidly obese. Eye: Conjunctivae are clear. There are no xanthelasma. HENT: Normocephalic. Atraumatic. Carotid pulsations 2/2 without bruits. Neck: Jugular venous pressure does not appear elevated. No thyromegaly appreciated. Respiratory: Symmetrical expansion bilaterally. Coarse breath sounds due to the ventilator. Cardiovascular: Normal rate. Regular rhythm. Distant S1/S2. No murmur. No gallop. Point of maximal impulse is not appear displaced. Good pulses equal in all extremities. 2+ bilateral pretibial edema. Gastrointestinal: Soft. Hypoactive bowel sounds. Skin: Skin turgor is normal. There is no pallor. Musculoskeletal: No obvious deformities. Neurologic: Intubated and sedated. Psychiatric: Not obtainable due to clinical status. Labs Laboratory Tests Test 08/05/21 11:03 08/05/21 14:25 08/05/21 20:40 08/05/21 22:10 Range/Units Glucometer 194 H 70-110 MG/DL Activated Partial Thromboplast Time 37 H > 200 *H 24-35 SEC Sodium Level 141 141 135-145 MMOL/L Potassium Level 4.1 4.1 3.6-5.0 MMOL/L Chloride Level 103 104 98-107 MMOL/L Carbon Dioxide Level 21 21 21-32 MMOL/L Anion Gap 17 H 16 H 5-14 MMOL/L Blood Urea Nitrogen 25 H 26 H 7-18 MG/DL Creatinine 1.98 H 2.02 H 0.60-1.30 MG/DL Estimat Glomerular Filtration Rate 27 27 BUN/Creatinine Ratio 13 13 Glucose Level 144 H 178 H 70-105 MG/DL Calcium Level 8.4 L 8.1 L 8.5-10.1 MG/DL Test 08/06/21 03:35 Range/Units White Blood Count 20.3 H 4.3-11.0 10^3/uL Red Blood Count 4.19 3.80-5.11 10^6/uL Hemoglobin 11.7 11.5-16.0 g/dL Hematocrit 38 35-52 % Mean Corpuscular Volume 91 80-99 fL Mean Corpuscular Hemoglobin 28 25-34 pg Mean Corpuscular Hemoglobin Concent 31 L 32-36 g/dL Red Cell Distribution Width 14.9 H 10.0-14.5 % Platelet Count 216 130-400 10^3/uL Mean Platelet Volume 11.0 9.0-12.2 fL Immature Granulocyte % (Auto) 1 % Neutrophils (%) (Auto) 92 H 42-75 % Lymphocytes (%) (Auto) 2 L 12-44 % Monocytes (%) (Auto) 5 0-12 % Eosinophils (%) (Auto) 0 0-10 % Basophils (%) (Auto) 0 0-10 % Neutrophils # (Auto) 18.7 H 1.8-7.8 10^3/uL Lymphocytes # (Auto) 0.3 L 1.0-4.0 10^3/uL Monocytes # (Auto) 1.0 0.0-1.0 10^3/uL Eosinophils # (Auto) 0.1 0.0-0.3 10^3/uL Basophils # (Auto) 0.0 0.0-0.1 10^3/uL Immature Granulocyte # (Auto) 0.3 H 0.0-0.1 10^3/uL Activated Partial Thromboplast Time 91 H 24-35 SEC Blood Gas Puncture Site ART LINE Blood Gas Patient Temperature 36.1 Arterial Blood pH 7.29 *L 7.37-7.43 Arterial Blood Partial Pressure CO2 51 H 35-45 MMHG Arterial Blood Partial Pressure O2 76 L 79-93 MMHG Arterial Blood HCO3 24 23-27 MMOL/L Arterial Blood Total CO2 25.7 21.0-31.0 MMOL/L Arterial Blood Oxygen Saturation 95 94-100 % Arterial Blood Base Excess -1.8 -2.5-2.5 MMOL/L Jaxson Test ART LINE Blood Gas Ventilator Setting YES Blood Gas Inspired Oxygen 40% Sodium Level 142 135-145 MMOL/L Potassium Level 4.2 3.6-5.0 MMOL/L Chloride Level 106 98-107 MMOL/L Carbon Dioxide Level 19 L 21-32 MMOL/L Anion Gap 17 H 5-14 MMOL/L Blood Urea Nitrogen 27 H 7-18 MG/DL Creatinine 2.05 H 0.60-1.30 MG/DL Estimat Glomerular Filtration Rate 26 BUN/Creatinine Ratio 13 Glucose Level 184 H 70-105 MG/DL Calcium Level 8.0 L 8.5-10.1 MG/DL Corrected Calcium 8.7 8.5-10.1 MG/DL Phosphorus Level 4.5 2.3-4.7 MG/DL Magnesium Level 1.9 1.6-2.4 MG/DL Total Bilirubin 0.3 0.1-1.0 MG/DL Aspartate Amino Transf (AST/SGOT) 61 H 5-34 U/L Alanine Aminotransferase (ALT/SGPT) 77 H 0-55 U/L Alkaline Phosphatase 48 40-136 U/L Total Protein 5.9 L 6.4-8.2 GM/DL Albumin 3.1 L 3.2-4.5 GM/DL Triglycerides Level 132 <150 MG/DL Diagnosis/Problems Diagnosis/Problems (1) Cardiopulmonary arrest Status: Acute Assessment & Plan: I suspect this may have been primary respiratory arrest which then may have developed into cardiac arrest. She remains intubated in the ICU. She is not requiring any vasoactive medications. Her echocardiogram showed a normal ejection fraction. Her initial troponin level was undetectable and her electrocardiogram does not show any evidence of ischemic changes. Her troponin level from 08/03 was marginally elevated. I started her on low strength aspirin and beta-mariya. The eICU has her on intravenous heparin because they are concerned she could have had massive pulmonary embolism. This is not unreasonable. (2) Troponin level elevated Assessment & Plan: She has a marginally elevated troponin level. This is in the setting of having undergone cardiopulmonary resuscitation. I did start her on aspirin and beta-mariya. She is also on intravenous heparin. Her transaminase levels are slightly elevated. As these improve, I will consider starting statin. She had a probable type II non-ST elevation myocardial infarction due to the cardiac arrest. If she recovers from this acute insult, we may need to consider an ischemic evaluation. (3) Acute on chronic respiratory failure with hypoxia and hypercapnia Assessment & Plan: Most likely multifactorial. The eICU and hospitalist are managing the ventilator. (4) Primary hypertension Assessment & Plan: She appears to have been taking metoprolol at home. Her bl ood pressures continue to be intermittently elevated. I restarted metoprolol tartrate. Due to persistently elevated blood pressures, I will increase the dose today. (5) Aortic stenosis Assessment & Plan: Her echocardiogram from 08/05 shows at least mild aortic stenosis. This should not be contributing to the current clinical picture but will need to be followed longitudinally after discharge. (6) Pulmonary hypertension Assessment & Plan: Her echocardiogram showed mild pulmonary hypertension. I suspect this may just be due to her morbid obesity and possibly undiagnosed sleep apnea. If she did in fact have a pulmonary embolism, this could also be contributing to the elevated pulmonary pressure. (7) Morbid obesity Status: Chronic Assessment & Plan: She will need to be counseled about weight loss. Her morbid obesity is likely contributing to her current critical illness. DEWAYNE MCDONALD JR, MD August 06, 2021 10:19
[2021-08-06] MEDS ORDERED: meTOprolol TARTRATE 25 MG (LOPRESSOR) TABLET PO ONE (10:30)
[2021-08-06 10:38] VITALS: BP 152/65
[2021-08-06] MEDS ORDERED: FUROSEMIDE 40 MG/4 ML INJ (LASIX) IVP ONE (10:45)
[2021-08-06] MEDS: DexMEDEtomidine 250 ML DRIP 250 ML IV SCH ×3 (11:33→22:58)
[2021-08-06] MEDS: HEParin 1000 UNIT/ML (10ML VIAL) FOR BOLUS IV SCH ×2 (13:47→20:14)
[2021-08-06 14:32] VITALS: BP 145/63
[2021-08-06] MEDS ORDERED: meTOprolol TARTRATE 25 MG (LOPRESSOR) TABLET ONE (15:19)
[2021-08-06 18:56] VITALS: BP 146/62
[2021-08-06] MEDS: ROSUVASTATIN 10 MG (CRESTOR) TABLET PO SCH (20:18)
[2021-08-06] MEDS: meTOprolol TARTRATE 50 MG (LOPRESSOR) TAB PO SCH (20:18)
[2021-08-06] MEDS: APIXABAN 5 MG (ELIQUIS) TABLET NG SCH (21:19)
[2021-08-06 22:50] VITALS: BP 147/58
[2021-08-07] MEDS: PROPOFOL DRIP (ICU) 100 ML IV SCH ×10 (00:47→20:35)
[2021-08-07] MEDS: NS IV 1000 ML 1,000 ML IV SCH ×2 (02:12→20:36)
[2021-08-07] MEDS: RT-ALBUTEROL/IPRATROPIUM 3 ML (DUONEB) VIAL INH SCH ×6 (03:05→22:23)
[2021-08-07 03:06] VITALS: BP 147/58
[2021-08-07] MEDS: fentaNYL INJ 100 MCG/2 ML AMP IVP PRN (03:37)
[2021-08-07] MEDS: methylPREDNISolone 40 MG/ML (Solu-MEDROL) VIAL IV SCH ×4 (03:37→20:36)
[2021-08-07 03:57] LABS: ABG BASE EXCESS -0.8 MMOL/L (-2.5-2.5); ABG OXYGEN SATURATION 96 % (94-100); ABG PCO2 42 MMHG (35-45); ABG PH 7.37 (7.37-7.43); ABG PO2 76 MMHG (79-93); ABG TCO2 25.3 MMOL/L (21.0-31.0)
[2021-08-07 03:58] LABS: ALLENS TEST YES-POS; INSPIRED O2 40%; PATIENT TEMP 36.1; VENTILATOR YES
[2021-08-07 04:01] LABS: BASOPHILS % (AUTO) 0 % (0-10); EOSINOPHILS % (AUTO) 0 % (0-10); HEMATOCRIT 38 % (35-52); LYMPHOCYTES # (AUTO) 0.3 10^3/uL (1.0-4.0); LYMPHOCYTES % (AUTO) 2 % (12-44); MEAN CORPUSCULAR HEMOGLOBIN 28 pg (25-34); MEAN CORPUSCULAR HGB CONC 32 g/dL (32-36); MEAN CORPUSCULAR VOLUME 89 fL (80-99); MEAN PLATELET VOLUME 11.3 fL (9.0-12.2); MONOCYTES # (AUTO) 0.9 10^3/uL (0.0-1.0); MONOCYTES % (AUTO) 6 % (0-12); NEUTROPHILS # (AUTO) 12.1 10^3/uL (1.8-7.8); NEUTROPHILS % (AUTO) 90 % (42-75); PLATELET COUNT 221 10^3/uL (130-400); WHITE BLOOD COUNT 13.5 10^3/uL (4.3-11.0)
[2021-08-07 04:04] LABS: ALBUMIN 3.3 GM/DL (3.2-4.5)
[2021-08-07 04:05] LABS: CALCIUM 8.3 MG/DL (8.5-10.1)
[2021-08-07] MEDS: PIPERACILLIN SODIUM/TAZOBACTAM 4.5 GM in NS (IVPB) 100 ML IV SCH ×3 (04:06→20:35)
[2021-08-07] MEDS: DexMEDEtomidine 250 ML DRIP 250 ML IV SCH ×5 (04:06→22:15)
[2021-08-07 04:07] LABS: TOTAL PROTEIN 6.2 GM/DL (6.4-8.2)
[2021-08-07 04:09] LABS: BILIRUBIN,TOTAL 0.2 MG/DL (0.1-1.0)
[2021-08-07 04:10] LABS: CREATININE SERUM 2.11 MG/DL (0.60-1.30); PHOSPHORUS 4.7 MG/DL (2.3-4.7)
[2021-08-07] MEDS: MAGNESIUM 1 GM/100 ML IVPB 100 ML IV SCH (04:26)
[2021-08-07] MEDS: POTASSIUM CL 10MEQ/50ML IVPB 50 ML IV SCH (04:26)
[2021-08-07] MEDS: KCL 20 MEQ TAB (K-DUR) PO SCH (04:26)
[2021-08-07] MEDS: inSUlin ASPART (NovoLOG) 1 UNIT/0.01 ML (CHARGE PER UNIT) SC SCH ×4 (05:34→23:50)
--- NOTE | 2021-08-07 06:58 | Diagnostic Imaging Report ---
CLINICAL INDICATIONS: Patient on ventilator. EXAM: Portable chest x-ray semiupright view. COMPARISON: Chest x-ray dated 08/06/2021. FINDINGS: There is cardiomegaly. There is minimal pulmonary vascular congestion noted. There is slight progression of patchy airspace opacities involving both lung bases. There is progression of blunting of left costophrenic angle concerning for small left pleural effusion. There is no pneumothorax. ET tube and feeding tube again noted in good position, as visualized. PICC line seen in stable good position. IMPRESSION: 1: There is cardiomegaly with mild pulmonary vascular congestion which can be seen with congestive heart failure. 2: There is progression of bibasilar patchy airspace opacities which may be related to lung infiltrates or pulmonary congestion. 3: There is concern for development of small left pleural effusion Dictated by: Dictated on workstation # [id number]
--- NOTE | 2021-08-07 07:04 | Progress Note - Hospitalist ---
Subjective HPI/CC On Admission Date Seen by Provider: August 07, 2021 Time Seen by Provider: 11:00 Subjective/Events-last exam Pt still intubated Updated son at bedside Very diff to wean Focused Exam Lactate Level Objective Exam Vital Signs Vital Signs Date Time Temp Pulse Resp B/P (MAP) Pulse Ox O2 Delivery O2 Flow Rate FiO2 08/07/21 20:00 37.1 08/07/21 18:53 105 15 94 40 08/07/21 18:03 140/61 08/07/21 18:00 Mechanical Ventilator 40.00 Capillary Refill : General Appearance: No Apparent Distress, WD/WN, Chronically ill, Obese, Other (sedated and intubated) Respiratory: Lungs Clear, Normal Breath Sounds Cardiovascular: Regular Rate, Rhythm Results/Procedures Lab Laboratory Tests 08/07/21 03:50 Patient resulted labs reviewed. Assessment/Plan Assessment and Plan Assess & Plan/Chief Complaint (1) Respiratory failure with hypoxia and hypercapnia Status: Acute Assessment & Plan: 08/05 Appreciate [facility] ICU recommendations, trial of weaning sedation for possible SBT later today 08/06patient could not tolerate weaning Qualifiers: Qualified Codes: J96.01 - Acute respiratory failure with hypoxia; J96.02 - Acute respiratory failure with hypercapnia (2) Cardiopulmonary arrest Status: Acute Assessment & Plan: With ROSC in ER. Target normothermia. Suspect cardiac arrest secondary to respiratory arrest with severe COPD exacerbation. Consider PE, pneumonia, see below. (3) COPD exacerbation Status: Acute Assessment & Plan: Solumedrol 125 mg q6, zosyn given recent hospitalization and purulent mucous although no clear CXR findings. 08/05 titrated solumedrol dose, continue zosyn (4) Elevated d-dimer Status: Acute Assessment & Plan: Markedly elevated, unclear if related to code, but given code and current status, hesitant to obtain CTA at this time, will treat empirically with full dose enoxaparin. 08/05 on heparin drip, cannot tolerate CTA due to kidney function (5) Leukocytosis Status: Acute Assessment & Plan: Uncertain whether code related versus underlying infection, Zosyn started empirically. (6) Lactic acidosis Status: Resolved Assessment & Plan: Suspect secondary to hypoxia from code, resolved on repeat. (7) Respiratory acidosis Status: Acute Assessment & Plan: Has baseline hypercapnia, but with severe hypercapnia on admit. Intubated and mechanically ventilated, appreciate [facility] ICU recommendations. 08/05 continuing to improve with mechanical ventilation, pH 7.24 this am. (8) Hypercapnia Status: Chronic Assessment & Plan: Acute on chronic, recently started on home bipap. 08/05 improving with mechanical ventilation, PCO2 decreased to 54 this morning (9) CARLOS A (acute kidney injury) Status: Acute Assessment & Plan: Secondary to ischemia related to cardiac arrest, IVF and monitor closely. (10) KANU (obstructive sleep apnea) Status: Chronic (11) Morbid obesity Status: Chronic (12) COPD (chronic obstructive pulmonary disease) Status: Chronic (13) Hypertension Status: Chronic (14) Obesity hypoventilation syndrome Status: Chronic (15) DVT prophylaxis Status: Acute Assessment & Plan: Treatment dose enoxaparin due to high D dimer. Changed to heparin drip per [facility] ICU Plan: Supportive care Support weaning trial 08/07/21: Diff wean MARIS SALDIVAR DO August 07, 2021 07:04
[2021-08-07 07:22] VITALS: BP 166/69
[2021-08-07] MEDS: PANTOPRAZOLE 40 MG (PROTONIX) VIAL IV SCH (08:31)
[2021-08-07] MEDS: meTOprolol TARTRATE 50 MG (LOPRESSOR) TAB PO SCH ×2 (08:32→20:36)
[2021-08-07] MEDS: APIXABAN 5 MG (ELIQUIS) TABLET NG SCH (08:32)
[2021-08-07] MEDS: ASPIRIN 81 MG CHEW (CHILDREN'S ASA) PO SCH (08:32)
--- NOTE | 2021-08-07 08:59 | Tele-ICU Progress Note ---
Progress Note video rounds completed 66 y/o with COPD and cardiac arrest in ED Intubated Vent: AC 12/420/45/6 HR 108 BP: 157/68 T 36.3 O2 sat 03% still on zosyn for PNA ABG this am 7.37/42/76/24 Apixiban 15mg BID, creatinine over 2, will decrease to 5BID CXR: EXAM: Portable chest x-ray semiupright view. COMPARISON: Chest x-ray dated 08/06/2021. FINDINGS: There is cardiomegaly. There is minimal pulmonary vascular congestion noted. There is slight progression of patchy airspace opacities involving both lung bases. There is progression of blunting of left costophrenic angle concerning for small left pleural effusion. There is no pneumothorax. ET tube and feeding tube again noted in good position, as visualized. PICC line seen in stable good position. IMPRESSION: 1: There is cardiomegaly with mild pulmonary vascular congestion which can be seen with congestive heart failure. 2: There is progression of bibasilar patchy airspace opacities which may be related to lung infiltrates or pulmonary congestion. 3: There is concern for development of small left pleural effusion Focused Exam Lactate Level 08/04/21 11:20: Lactic Acid Level 1.45 Height, Weight, BMI Height: 5'6.00" Weight: 297lbs. 6.0oz. [id number]; 49.01 BMI Method:Actual Laboratory Tests 08/07/21 03:50 Results Results/Procedures Lab Laboratory Tests 08/05/21 14:25 08/05/21 22:10 08/06/21 03:35 08/07/21 03:50 Results Labs Labs Laboratory Tests 08/06/21 10:50: Activated Partial Thromboplast Time 55H 08/06/21 11:20: Glucometer 139H 08/06/21 18:21: Glucometer 210H 08/06/21 19:05: Activated Partial Thromboplast Time 32 08/06/21 22:55: Glucometer 219H 08/07/21 03:50: White Blood Count 13.5H, Red Blood Count 4.26, Hemoglobin 12.0, Hematocrit 38, Mean Corpuscular Volume 89, Mean Corpuscular Hemoglobin 28, Mean Corpuscular Hemoglobin Concent 32, Red Cell Distribution Width 15.3H, Platelet Count 221, Mean Platelet Volume 11.3, Immature Granulocyte % (Auto) 2, Neutrophils (%) (Auto) 90H, Lymphocytes (%) (Auto) 2L, Monocytes (%) (Auto) 6, Eosinophils (%) (Auto) 0, Basophils (%) (Auto) 0, Neutrophils # (Auto) 12.1H, Lymphocytes # (Auto) 0.3L, Monocytes # (Auto) 0.9, Eosinophils # (Auto) 0.0, Basophils # (Auto) 0.0, Immature Granulocyte # (Auto) 0.2H, Activated Partial Thromboplast Time 27, Blood Gas Puncture Site RIGHT RADIAL, Blood Gas Patient Temperature 36.1, Arterial Blood pH 7.37, Arterial Blood Partial Pressure CO2 42, Arterial Blood Partial Pressure O2 76L, Arterial Blood HCO3 24, Arterial Blood Total CO2 25.3, Arterial Blood Oxygen Saturation 96, Arterial Blood Base Excess -0.8, Jaxson Test YES-POS, Blood Gas Ventilator Setting YES, Blood Gas Inspired Oxygen 40%, Sodium Level 145, Potassium Level 4.0, Chloride Level 108H, Carbon Dioxide Level 19L, Anion Gap 18H, Blood Urea Nitrogen 36H, Creatinine 2.11H, Estimat Glomerular Filtration Rate 25, BUN/Creatinine Ratio 17, Glucose Level 203H, Calcium Level 8.3L, Corrected Calcium 8.9, Phosphorus Level 4.7, Magnesium Level 2.0, Total Bilirubin 0.2, Aspartate Amino Transf (AST/SGOT) 70H, Alanine Aminotransferase (ALT/SGPT) 60H, Alkaline Phosphatase 50, Total Protein 6.2L, Albumin 3.3 Microbiology 08/04/21 MRSA Screen - Final, Complete MRSA not isolated 08/04/21 Urine Culture - Preliminary, Resulted Proteus mirabilis 08/04/21 Blood Culture - Preliminary, Resulted No growth SILVIA FROST MD August 07, 2021 08:59
[2021-08-07] MEDS ORDERED: FUROSEMIDE 40 MG/4 ML INJ (LASIX) IVP SCH ×2 (09:00→09:10)
[2021-08-07] MEDS: fentaNYL DRIP PRE-MIX 250 ML IV SCH ×4 (09:30→22:15)
--- NOTE | 2021-08-07 09:43 | Diagnostic Imaging Report ---
Clinical Indication: Rule out DVT. Comparison: Ultrasound venous Doppler of the left lower extremity dated 03/07/2021. Procedure: Ultrasound venous ultrasound of the bilateral lower extremities with multiple real-time grayscale images were obtained in various projections. Additional spectral analysis and color Doppler duple images were also obtained. Findings: Limited visualization of the lower extremities due to patient body habitus. The deep venous system is well visualized and is easily compressible. There is no evidence of deep venous thrombosis, valvular incompetence, or significant collateral circulation. There is no fluid collection in the popliteal fossa regions. Impression: There is no ultrasound Doppler evidence of deep venous thrombosis in the bilateral lower extremities. Dictated by: Dictated on workstation # [id number]
[2021-08-07 10:12] VITALS: BP 151/69
--- NOTE | 2021-08-07 10:59 | Cardiology Progress Note ---
Progress Note-Cardiology Events since last exam Date Seen by Provider: August 07, 2021 Time Seen by Provider: 10:54 Events since last exam I am following her due to cardiac arrest. She remains intubated and sedated in the intensive care unit. She is requiring very high doses of sedation. When the sedation is weaned, she develops tachycardia and tachypnea. I am not able to obtain any history from the patient due to the sedation. I did speak with her nurse. Certain portions of this document may have been dictated utilizing voice recognition technology. Inherent to this technology, typographical and gram matical errors may exist. As much as I am diligent to identify and correct these mistakes, some errors may remain in the document. Vitals Last set of Vitals Signs Vital Signs 08/07/21 08/07/21 08/07/21 09:00 09: 10:12 Temp 36.3 Pulse 108 Resp 33 B/P (MAP) 147/59 Pulse Ox 94 O2 Delivery Mechanical Ventilator O2 Flow Rate 45.00 FiO2 45 Labs Labs Laboratory Tests 08/07/21 03:50 Exam Vital Signs Vital Signs Date Time Temp Pulse Resp B/P (MAP) Pulse Ox O2 Delivery O2 Flow Rate FiO2 08/07/21 10:12 108 33 94 45 08/07/21 09:29 147/59 08/07/21 09:00 36.3 Mechanical Ventilator 45.00 Physical Exam General: Intubated and sedated. Well nourished and appears stated age. She is morbidly obese. Eye: Conjunctivae are clear. There are no xanthelasma. HENT: Normocephalic. Atraumatic. Carotid pulsations 2/2 without bruits. Neck: Jugular venous pressure does not appear elevated. No thyromegaly appreciated. Respiratory: Symmetrical expansion bilaterally. Coarse breath sounds due to the ventilator. Cardiovascular: Normal rate. Regular rhythm. Distant S1/S2. No murmur. No gallop. Point of maximal impulse is not appear displaced. Good pulses equal in all extremities. 1+ bilateral pretibial edema. Gastrointestinal: Soft. Normal bowel sounds. Skin: Skin turgor is normal. There is no pallor. Musculoskeletal: No obvious deformities. Neurologic: Intubated and sedated. Psychiatric: Not obtainable due to clinical status. Labs Laboratory Tests Test 08/06/21 11:20 08/06/21 18:21 08/06/21 19:05 08/06/21 22:55 Range/Units Glucometer 139 H 210 H 219 H 70-110 MG/DL Activated Partial Thromboplast Time 32 24-35 SEC Test 08/07/21 03:50 Range/Units White Blood Count 13.5 H 4.3-11.0 10^3/uL Red Blood Count 4.26 3.80-5.11 10^6/uL Hemoglobin 12.0 11.5-16.0 g/dL Hematocrit 38 35-52 % Mean Corpuscular Volume 89 80-99 fL Mean Corpuscular Hemoglobin 28 25-34 pg Mean Corpuscular Hemoglobin Concent 32 32-36 g/dL Red Cell Distribution Width 15.3 H 10.0-14.5 % Platelet Count 221 130-400 10^3/uL Mean Platelet Volume 11.3 9.0-12.2 fL Immature Granulocyte % (Auto) 2 % Neutrophils (%) (Auto) 90 H 42-75 % Lymphocytes (%) (Auto) 2 L 12-44 % Monocytes (%) (Auto) 6 0-12 % Eosinophils (%) (Auto) 0 0-10 % Basophils (%) (Auto) 0 0-10 % Neutrophils # (Auto) 12.1 H 1.8-7.8 10^3/uL Lymphocytes # (Auto) 0.3 L 1.0-4.0 10^3/uL Monocytes # (Auto) 0.9 0.0-1.0 10^3/uL Eosinophils # (Auto) 0.0 0.0-0.3 10^3/uL Basophils # (Auto) 0.0 0.0-0.1 10^3/uL Immature Granulocyte # (Auto) 0.2 H 0.0-0.1 10^3/uL Activated Partial Thromboplast Time 27 24-35 SEC Blood Gas Puncture Site RIGHT RADIAL Blood Gas Patient Temperature 36.1 Arterial Blood pH 7.37 7.37-7.43 Arterial Blood Partial Pressure CO2 42 35-45 MMHG Arterial Blood Partial Pressure O2 76 L 79-93 MMHG Arterial Blood HCO3 24 23-27 MMOL/L Arterial Blood Total CO2 25.3 21.0-31.0 MMOL/L Arterial Blood Oxygen Saturation 96 94-100 % Arterial Blood Base Excess -0.8 -2.5-2.5 MMOL/L Jaxson Test YES-POS Blood Gas Ventilator Setting YES Blood Gas Inspired Oxygen 40% Sodium Level 145 135-145 MMOL/L Potassium Level 4.0 3.6-5.0 MMOL/L Chloride Level 108 H 98-107 MMOL/L Carbon Dioxide Level 19 L 21-32 MMOL/L Anion Gap 18 H 5-14 MMOL/L Blood Urea Nitrogen 36 H 7-18 MG/DL Creatinine 2.11 H 0.60-1.30 MG/DL Estimat Glomerular Filtration Rate 25 BUN/Creatinine Ratio 17 Glucose Level 203 H 70-105 MG/DL Calcium Level 8.3 L 8.5-10.1 MG/DL Corrected Calcium 8.9 8.5-10.1 MG/DL Phosphorus Level 4.7 2.3-4.7 MG/DL Magnesium Level 2.0 1.6-2.4 MG/DL Total Bilirubin 0.2 0.1-1.0 MG/DL Aspartate Amino Transf (AST/SGOT) 70 H 5-34 U/L Alanine Aminotransferase (ALT/SGPT) 60 H 0-55 U/L Alkaline Phosphatase 50 40-136 U/L Total Protein 6.2 L 6.4-8.2 GM/DL Albumin 3.3 3.2-4.5 GM/DL Diagnosis/Problems Diagnosis/Problems (1) Cardiopulmonary arrest Status: Acute Assessment & Plan: I suspect this may have been primary respiratory arrest which then may have developed into cardiac arrest. She remains intubated in the ICU. She is not requiring any vasoactive medications. Her echocardiogram showed a normal ejection fraction. Her initial troponin level was undetectable and her electrocardiogram does not show any evidence of ischemic changes. Her troponin level from 08/03 was marginally elevated. I started her on low strength aspirin and beta-mariya. The eICU has transitioned intravenous heparin over to apixaban due to a question of pulmonary embolism at the time of admission. If she survives this illness, we will need to consider an ischemic evaluation at some point in time. (2) Troponin level elevated Assessment & Plan: She has a marginally elevated troponin level. This is in the setting of having undergone cardiopulmonary resuscitation. I did start her on aspirin and beta-mariya. She had been on heparin due to a concern for possible pulmonary embolism. As above, this has now been changed to apixaban. Her transaminase levels are slightly elevated. As these improve, I will conside r starting statin. She had a probable type II non-ST elevation myocardial infarction due to the cardiac arrest. As above, if she recovers from this acute insult, we may need to consider an ischemic evaluation. (3) Primary hypertension Assessment & Plan: She appears to have been taking metoprolol at home. Her blood pressures continue to be intermittently elevated. I restarted metoprolol tartrate and then increase the dose on 08/06. Her blood pressures remain elevated. I will start her on low-dose amlodipine. She is not a good candidate for NIKKI or ARB due to acute kidney injury. (4) Acute kidney injury superimposed on chronic kidney disease Assessment & Plan: I suspect this is due to her cardiac arrest and possibly from diuretic. The diuretic has been discontinued. (5) Acute on chronic respiratory failure with hypoxia and hypercapnia Assessment & Plan: Most likely multifactorial. The eICU and hospitalist are managing the ventilator. (6) Aortic stenosis Assessment & Plan: Her echocardiogram from 08/05 shows at least mild aortic stenosis. This should not be contributing to the current clinical picture but will need to be followed longitudinally after discharge. (7) Pulmonary hypertension Assessment & Plan: Her echocardiogram showed mild pulmonary hypertension. I suspect this may just be due to her morbid obesity and possibly undiagnosed sleep apnea. If she did in fact have a pulmonary embolism, this could also be contributing to the elevated pulmonary pressure. (8) Morbid obesity Status: Chronic Assessment & Plan: She will need to be counseled about weight loss. Her morbid obesity is likely contributing to her current critical illness. DEWAYNE MCDONALD JR, MD August 07, 2021 10:59
[2021-08-07] MEDS ORDERED: amLODIPine 2.5MG (NORVASC) TAB PO ONE (11:00)
[2021-08-07] MEDS ORDERED: amLODIPine 2.5MG (NORVASC) TAB ONE (13:31)
[2021-08-07 14:34] VITALS: BP 138/59
[2021-08-07 18:53] VITALS: BP 148/64
[2021-08-07] MEDS ORDERED: PIPERACILLIN/TAZO 4.5 GM VIAL (ZOSYN) IV ONE (19:49)
[2021-08-07] MEDS: ROSUVASTATIN 10 MG (CRESTOR) TABLET PO SCH (20:36)
[2021-08-07] MEDS ORDERED: APIXABAN 5 MG (ELIQUIS) TABLET NG SCH (21:00)
[2021-08-07 22:23] VITALS: BP 136/58
[2021-08-08] VITALS (7 sets, daily range): BP systolic 130–194; BP diastolic 53–85
[2021-08-08] MEDS: PROPOFOL DRIP (ICU) 100 ML IV SCH ×8 (00:44→20:05)
[2021-08-08] MEDS: DexMEDEtomidine 250 ML DRIP 250 ML IV SCH ×5 (02:27→21:16)
[2021-08-08] MEDS: fentaNYL DRIP PRE-MIX 250 ML IV SCH ×3 (02:27→13:02)
[2021-08-08] MEDS: methylPREDNISolone 40 MG/ML (Solu-MEDROL) VIAL IV SCH ×4 (02:28→21:15)
[2021-08-08] MEDS: RT-ALBUTEROL/IPRATROPIUM 3 ML (DUONEB) VIAL INH SCH ×6 (02:56→22:01)
[2021-08-08] MEDS: PIPERACILLIN SODIUM/TAZOBACTAM 4.5 GM in NS (IVPB) 100 ML IV SCH ×3 (04:23→20:04)
[2021-08-08 04:28] LABS: ABG BASE EXCESS 0.6 MMOL/L (-2.5-2.5); ABG OXYGEN SATURATION 96 % (94-100); ABG PCO2 65 MMHG (35-45); ABG PO2 88 MMHG (79-93); ABG TCO2 29.2 MMOL/L (21.0-31.0)
[2021-08-08 04:29] LABS: BASOPHILS % (AUTO) 0 % (0-10); EOSINOPHILS % (AUTO) 0 % (0-10); HEMATOCRIT 38 % (35-52); HEMOGLOBIN 11.6 g/dL (11.5-16.0); LYMPHOCYTES # (AUTO) 0.3 10^3/uL (1.0-4.0); LYMPHOCYTES % (AUTO) 2 % (12-44); MEAN CORPUSCULAR HEMOGLOBIN 28 pg (25-34); MEAN CORPUSCULAR HGB CONC 30 g/dL (32-36); MEAN CORPUSCULAR VOLUME 93 fL (80-99); MEAN PLATELET VOLUME 11.3 fL (9.0-12.2); MONOCYTES # (AUTO) 0.7 10^3/uL (0.0-1.0); MONOCYTES % (AUTO) 6 % (0-12); NEUTROPHILS # (AUTO) 11.1 10^3/uL (1.8-7.8); NEUTROPHILS % (AUTO) 90 % (42-75); PLATELET COUNT 180 10^3/uL (130-400); WHITE BLOOD COUNT 12.3 10^3/uL (4.3-11.0)
[2021-08-08 04:32] LABS: ABG PH 7.25 (7.37-7.43); ALLENS TEST ART LINE; INSPIRED O2 40%; PATIENT TEMP 36.8; VENTILATOR YES
[2021-08-08 04:38] LABS: ALBUMIN 3.3 GM/DL (3.2-4.5); POTASSIUM 5.6 MMOL/L (3.6-5.0)
[2021-08-08 04:40] LABS: CALCIUM 7.7 MG/DL (8.5-10.1)
[2021-08-08 04:43] LABS: BILIRUBIN,TOTAL 0.2 MG/DL (0.1-1.0)
[2021-08-08 04:44] LABS: PHOSPHORUS 6.9 MG/DL (2.3-4.7)
[2021-08-08 04:45] LABS: CREATININE SERUM 2.13 MG/DL (0.60-1.30)
[2021-08-08 04:47] LABS: MAGNESIUM 2.3 MG/DL (1.6-2.4)
[2021-08-08] MEDS: POTASSIUM CL 10MEQ/50ML IVPB 50 ML IV SCH (05:02)
[2021-08-08] MEDS: MAGNESIUM 1 GM/100 ML IVPB 100 ML IV SCH (05:03)
[2021-08-08] MEDS: KCL 20 MEQ TAB (K-DUR) PO SCH (05:03)
[2021-08-08] MEDS: inSUlin ASPART (NovoLOG) 1 UNIT/0.01 ML (CHARGE PER UNIT) SC SCH ×3 (05:06→17:09)
[2021-08-08] MEDS ORDERED: RT-ALBUTEROL/IPRATROPIUM 3 ML (DUONEB) VIAL INH ONE (05:30)
--- NOTE | 2021-08-08 05:36 | Tele-ICU Progress Note ---
Progress Note Called by the nurse with ABG 7.25/65/88/27. Pk pr 28 and coffee ground secretions 500 ml via OGT with Hgb drop by 1 gram. Current Hgb 11.6 g/dl. 1. Vent settings changed to TV 450 , and Vent rate to 14 as Pt is breathing at 12 set rate. 2. DUO neb x 1 ordered for coarse wheezing, Receiving q 4 scheduled. 3.Held Eliquis via nurse communication order for GI bleed. f/u H/H in 6 hrs. d/w the bed side nurse in detail. Interventions Minor-Other: ABG review and GI bleed. Repeat ABG at 8 am and CBC at noon ordered. Please f/u. Focused Exam Height, Weight, BMI Height: 5'6.00" Weight: 297lbs. 6.0oz. [id number]; 49.01 BMI Method:Actual HAL SNELL MD August 08, 2021 05:36
[2021-08-08] MEDS: LORazepam INJ 2 MG/ML (ATIVAN) VIAL IVP PRN (06:38)
--- NOTE | 2021-08-08 07:21 | Progress Note - Hospitalist ---
Subjective HPI/CC On Admission Date Seen by Provider: August 08, 2021 Time Seen by Provider: 10:00 Subjective/Events-last exam Still intubated Can't tolerate wean No pain reported BP is slightly low will monitor closely Objective Exam Vital Signs Vital Signs Date Time Temp Pulse Resp B/P (MAP) Pulse Ox O2 Delivery O2 Flow Rate FiO2 08/08/21 13:02 81 154/62 08/08/21 13:00 36.3 18 94 Mechanical Ventilator 36.00 08/08/21 12:10 40 Capillary Refill : General Appearance: No Apparent Distress, WD/WN, Chronically ill, Obese, Other (inubated and sedated) Respiratory: No Accessory Muscle Use, No Respiratory Distress, Decreased Breath Sounds Cardiovascular: Regular Rate, Rhythm Results/Procedures Lab Laboratory Tests 08/08/21 04:17 Patient resulted labs reviewed. Assessment/Plan Assessment and Plan Assess & Plan/Chief Complaint (1) Respiratory failure with hypoxia and hypercapnia Status: Acute Assessment & Plan: 08/05 Appreciate [facility] ICU recommendations, trial of weaning sedation for possible SBT later today 08/06patient could not tolerate weaning Qualifiers: Qualified Codes: J96.01 - Acute respiratory failure with hypoxia; J96.02 - Acute respiratory failure with hypercapnia (2) Cardiopulmonary arrest Status: Acute Assessment & Plan: With ROSC in ER. Target normothermia. Suspect cardiac arrest secondary to respiratory arrest with severe COPD exacerbation. Consider PE, pneumonia, see below. (3) COPD exacerbation Status: Acute Assessment & Plan: Solumedrol 125 mg q6, zosyn given recent hospitalization and purulent mucous although no clear CXR findings. 08/05 titrated solumedrol dose, continue zosyn (4) Elevated d-dimer Status: Acute Assessment & Plan: Markedly elevated, unclear if related to code, but given code and current status, hesitant to obtain CTA at this time, will treat empirically with full dose enoxaparin. 08/05 on heparin drip, cannot tolerate CTA due to kidney function (5) Leukocytosis Status: Acute Assessment & Plan: Uncertain whether code related versus underlying infection, Zosyn started empirically. (6) Lactic acidosis Status: Resolved Assessment & Plan: Suspect secondary to hypoxia from code, resolved on repeat. (7) Respiratory acidosis Status: Acute Assessment & Plan: Has baseline hypercapnia, but with severe hypercapnia on admit. Intubated and mechanically ventilated, appreciate [facility] ICU recommendations. 08/05 continuing to improve with mechanical ventilation, pH 7.24 this am. (8) Hypercapnia Status: Chronic Assessment & Plan: Acute on chronic, recently started on home bipap. 08/05 improving with mechanical ventilation, PCO2 decreased to 54 this morning (9) CARLOS A (acute kidney injury) Status: Acute Assessment & Plan: Secondary to ischemia related to cardiac arrest, IVF and monitor closely. (10) KANU (obstructive sleep apnea) Status: Chronic (11) Morbid obesity Status: Chronic (12) COPD (chronic obstructive pulmonary disease) Status: Chronic (13) Hypertension Status: Chronic (14) Obesity hypoventilation syndrome Status: Chronic (15) DVT prophylaxis Status: Acute Assessment & Plan: Treatment dose enoxaparin due to high D dimer. Changed to heparin drip per [facility] Plan: Supportive care Support weaning trial 08/07/21: Diff wean 08/08: [place]? MARIS SALDIVAR DO August 08, 2021 07:21
--- NOTE | 2021-08-08 07:33 | Diagnostic Imaging Report ---
Indication: Ventilator support. Time of Exam: 4:44 AM Correlation is made with prior chest one day earlier. ET tube has tip in good position above the chet. NG tube passes below the diaphragm. Heart size is stable. There is central congestion. There are bibasilar infiltrates which appear to be increased since yesterday. Upper lung maynard are clear. Right upper extremity PICC line has tip overlying the SVC. There is no effusion or pneumothorax. IMPRESSION: Bibasilar infiltrates, worsening on the left when compared to exam one day earlier. Dictated by: Dictated on workstation # [id number]
[2021-08-08] MEDS: meTOprolol TARTRATE 50 MG (LOPRESSOR) TAB PO SCH (08:01)
[2021-08-08] MEDS: ASPIRIN 81 MG CHEW (CHILDREN'S ASA) PO SCH (08:01)
[2021-08-08] MEDS: PANTOPRAZOLE 40 MG (PROTONIX) VIAL IV SCH (08:01)
[2021-08-08] MEDS: amLODIPine 2.5MG (NORVASC) TAB PO SCH (08:02)
--- NOTE | 2021-08-08 08:02 | Physical Therapy Progress Note ---
Therapy Progress Note Patient currently sedated and intubated. PT will continue to monitor patients status. ELMER THAO PT August 08, 2021 08:02
[2021-08-08 08:26] LABS: ABG BASE EXCESS -0.6 MMOL/L (-2.5-2.5); ABG OXYGEN SATURATION 95 % (94-100); ABG PCO2 55 MMHG (35-45); ABG PO2 74 MMHG (79-93)
[2021-08-08 08:29] LABS: ABG PH 7.28 (7.37-7.43); ALLENS TEST ART LINE; INSPIRED O2 40%; PATIENT TEMP 36.7; VENTILATOR YES
--- NOTE | 2021-08-08 09:02 | Occ Therapy Progress Note ---
Therapy Progress Note Pt. continues on ventilator support. Will hold Occupational therapy at this time. [id number] LANNY CAI OT August 08, 2021 09:02
--- NOTE | 2021-08-08 09:40 | Cardiology Progress Note ---
Progress Note-Cardiology Events since last exam Date Seen by Provider: August 08, 2021 Time Seen by Provider: 09:36 Events since last exam I am following her due to cardiac arrest. She continues to remain intubated and sedated. When the nurses decrease the sedation, she again develops tachypnea and tachycardia. However, she remains unresponsive. Today she had some blood- tinged drainage from the NG tube. eICU has suggested holding any oral medication. I am not able to obtain any history from the patient due to her sedation. I did speak with her nurse today. Certain portions of this document may have been dictated utilizing voice recognition technology. Inherent to this technology, typographical and grammatical errors may exist. As much as I am diligent to identify and correct these mistakes, some errors may remain in the document. Vitals Last set of Vitals Signs Vital Signs 08/08/21 08/08/21 08/08/21 07:55 09:00 09:23 Temp 36.7 Pulse 88 Resp 18 B/P (MAP) 170/70 Pulse Ox 93 O2 Delivery Mechanical Ventilator O2 Flow Rate 40.00 FiO2 40 Labs Labs Laboratory Tests 08/08/21 04:17 Exam Vital Signs Vital Signs Date Time Temp Pulse Resp B/P (MAP) Pulse Ox O2 Delivery O2 Flow Rate FiO2 08/08/21 09:23 170/70 08/08/21 09:00 36.7 88 18 93 Mechanical Ventilator 40.00 08/08/21 07:55 40 Physical Exam General: Intubated and sedated. Well nourished and appears stated age. She is morbidly obese. Eye: Conjunctivae are clear. There are no xanthelasma. HENT: Normocephalic. Atraumatic. Carotid pulsations 2/2 without bruits. Neck: Jugular venous pressure does not appear elevated. No thyromegaly appreciated. Respiratory: Symmetrical expansion bilaterally. Coarse breath sounds due to the ventilator. Cardiovascular: Normal rate. Regular rhythm. Distant S1/S2. No murmur. No gallop. Point of maximal impulse is not appear displaced. Good pulses equal in all extremities. 1+ bilateral pretibial edema. Gastrointestinal: Soft. Normal bowel sounds. Skin: Skin turgor is normal. There is no pallor. Musculoskeletal: No obvious deformities. Neurologic: Intubated and sedated. Psychiatric: Not obtainable due to clinical status. Labs Laboratory Tests Test 08/07/21 11:13 08/07/21 17:38 08/07/21 23:43 08/08/21 04:17 Range/Units Glucometer 180 H 167 H 159 H 70-110 MG/DL White Blood Count 12.3 H 4.3-11.0 10^3/uL Red Blood Count 4.15 3.80-5.11 10^6/uL Hemoglobin 11.6 11.5-16.0 g/dL Hematocrit 38 35-52 % Mean Corpuscular Volume 93 80-99 fL Mean Corpuscular Hemoglobin 28 25-34 pg Mean Corpuscular Hemoglobin Concent 30 L 32-36 g/dL Red Cell Distribution Width 15.9 H 10.0-14.5 % Platelet Count 180 130-400 10^3/uL Mean Platelet Volume 11.3 9.0-12.2 fL Immature Granulocyte % (Auto) 2 % Neutrophils (%) (Auto) 90 H 42-75 % Lymphocytes (%) (Auto) 2 L 12-44 % Monocytes (%) (Auto) 6 0-12 % Eosinophils (%) (Auto) 0 0-10 % Basophils (%) (Auto) 0 0-10 % Neutrophils # (Auto) 11.1 H 1.8-7.8 10^3/uL Lymphocytes # (Auto) 0.3 L 1.0-4.0 10^3/uL Monocytes # (Auto) 0.7 0.0-1.0 10^3/uL Eosinophils # (Auto) 0.0 0.0-0.3 10^3/uL Basophils # (Auto) 0.0 0.0-0.1 10^3/uL Immature Granulocyte # (Auto) 0.3 H 0.0-0.1 10^3/uL Blood Gas Puncture Site ART LINE Blood Gas Patient Temperature 36.8 Arterial Blood pH 7.25 *L 7.37-7.43 Arterial Blood Partial Pressure CO2 65 H 35-45 MMHG Arterial Blood Partial Pressure O2 88 79-93 MMHG Arterial Blood HCO3 27 23-27 MMOL/L Arterial Blood Total CO2 29.2 21.0-31.0 MMOL/L Arterial Blood Oxygen Saturation 96 94-100 % Arterial Blood Base Excess 0.6 -2.5-2.5 MMOL/L Jaxson Test ART LINE Blood Gas Ventilator Setting YES Blood Gas Inspired Oxygen 40% Sodium Level 147 H 135-145 MMOL/L Potassium Level 5.6 H 3.6-5.0 MMOL/L Chloride Level 110 H 98-107 MMOL/L Carbon Dioxide Level 23 21-32 MMOL/L Anion Gap 14 5-14 MMOL/L Blood Urea Nitrogen 45 H 7-18 MG/DL Creatinine 2.13 H 0.60-1.30 MG/DL Estimat Glomerular Filtration Rate 25 BUN/Creatinine Ratio 21 Glucose Level 183 H 70-105 MG/DL Calcium Level 7.7 L 8.5-10.1 MG/DL Corrected Calcium 8.3 L 8.5-10.1 MG/DL Phosphorus Level 6.9 H 2.3-4.7 MG/DL Magnesium Level 2.3 1.6-2.4 MG/DL Total Bilirubin 0.2 0.1-1.0 MG/DL Aspartate Amino Transf (AST/SGOT) 60 H 5-34 U/L Alanine Aminotransferase (ALT/SGPT) 57 H 0-55 U/L Alkaline Phosphatase 42 40-136 U/L Total Protein 6.0 L 6.4-8.2 GM/DL Albumin 3.3 3.2-4.5 GM/DL Triglycerides Level 97 <150 MG/DL Test 08/08/21 08:20 Range/Units Blood Gas Puncture Site ART LINE Blood Gas Patient Temperature 36.7 Arterial Blood pH 7.28 *L 7.37-7.43 Arterial Blood Partial Pressure CO2 55 H 35-45 MMHG Arterial Blood Partial Pressure O2 74 L 79-93 MMHG Arterial Blood HCO3 25 23-27 MMOL/L Arterial Blood Total CO2 27.0 21.0-31.0 MMOL/L Arterial Blood Oxygen Saturation 95 94-100 % Arterial Blood Base Excess -0.6 -2.5-2.5 MMOL/L Jaxson Test ART LINE Blood Gas Ventilator Setting YES Blood Gas Inspired Oxygen 40% Diagnosis/Problems Diagnosis/Problems (1) Cardiopulmonary arrest Status: Acute Assessment & Plan: I suspect this may have been primary respiratory arrest which then may have developed into cardiac arrest. She remains intubated in the ICU. She is not requiring any vasoactive medications. Her echocardiogram showed a normal ejection fraction. Her initial troponin level was undetectable and her electrocardiogram does not show any evidence of ischemic changes. Her troponin level from 08/03 was marginally elevated. I started her on low strength aspirin and beta-mariya. The eICU has transitioned intravenous heparin over to apixaban due to a question of pulmonary embolism at the time of admission. However, the apixaban has been discontinued due to questionable bleeding. I will change the oral metoprolol over to intravenous. If she survives this illness, we will need to consider an ischemic evaluation at some point in time. (2) Troponin level elevated Assessment & Plan: She has a marginally elevated troponin level. This is in the setting of having undergone cardiopulmonary resuscitation. I did start her on aspirin and beta-mariya. She had been on heparin due to a concern for possible pulmonary embolism. As above, this has now been changed to apixaban. Her transaminase levels are slightly elevated. As these improve, I will consider starting statin. She had a probable type II non-ST elevation myocar dial infarction due to the cardiac arrest. As above, if she recovers from this acute insult, we may need to consider an ischemic evaluation. (3) Primary hypertension Assessment & Plan: She appears to have been taking metoprolol at home. Her blood pressures continue to be intermittently elevated. I restarted metoprolol tartrate and then increased the dose on 08/06. I started her on low amlodipine on 08/07 but the eICU has discontinued this due to the bloody gastric secretions. As above, I will change her metoprolol over to intravenous. (4) Acute kidney injury superimposed on chronic kidney disease Assessment & Plan: I suspect this is due to her cardiac arrest and possibly from diuretic which I had started earlier during the hospitalization. This has now been discontinued. Her creatinine seems to be stabilized but still abnormal. (5) Aortic stenosis Assessment & Plan: Her echocardiogram from 08/05 shows at least mild aortic stenosis. This should not be contributing to the current clinical picture but will need to be followed longitudinally after discharge. (6) Acute on chronic respiratory failure with hypoxia and hypercapnia Assessment & Plan: Most likely multifactorial. The eICU and hospitalist are m anaging the ventilator. (7) Pulmonary hypertension Assessment & Plan: Her echocardiogram showed mild pulmonary hypertension. I suspect this may just be due to her morbid obesity and possibly undiagnosed sleep apnea. If she did in fact have a pulmonary embolism, this could also be contributing to the elevated pulmonary pressure. (8) Morbid obesity Status: Chronic Assessment & Plan: She will need to be counseled about weight loss. Her morbid obesity is likely contributing to her current critical illness. DEWAYNE MCDONALD JR, MD August 08, 2021 09:40
[2021-08-08] MEDS: meTOprolol 5 MG/5 ML (LOPRESSOR) VIAL IV SCH ×2 (11:02→17:08)
[2021-08-08 15:42] LABS: BASOPHILS % (AUTO) 0 % (0-10); EOSINOPHILS % (AUTO) 0 % (0-10); HEMATOCRIT 39 % (35-52); LYMPHOCYTES # (AUTO) 0.5 10^3/uL (1.0-4.0); LYMPHOCYTES % (AUTO) 5 % (12-44); MEAN CORPUSCULAR HEMOGLOBIN 28 pg (25-34); MEAN CORPUSCULAR HGB CONC 31 g/dL (32-36); MEAN CORPUSCULAR VOLUME 91 fL (80-99); MEAN PLATELET VOLUME 11.2 fL (9.0-12.2); MONOCYTES # (AUTO) 0.8 10^3/uL (0.0-1.0); MONOCYTES % (AUTO) 7 % (0-12); NEUTROPHILS # (AUTO) 9.7 10^3/uL (1.8-7.8); NEUTROPHILS % (AUTO) 86 % (42-75); PLATELET COUNT 161 10^3/uL (130-400); WHITE BLOOD COUNT 11.2 10^3/uL (4.3-11.0)
[2021-08-08] MEDS: NS IV 1000 ML 1,000 ML IV SCH (17:08)
[2021-08-08] MEDS ORDERED: meTOprolol 5 MG/5 ML (LOPRESSOR) VIAL IV ONE (18:45)
[2021-08-08] MEDS ORDERED: meTOprolol 5 MG/5 ML (LOPRESSOR) VIAL ONE (19:10)
[2021-08-08] MEDS: ROSUVASTATIN 10 MG (CRESTOR) TABLET PO SCH (20:04)
[2021-08-09] MEDS: meTOprolol 5 MG/5 ML (LOPRESSOR) VIAL IV SCH ×3 (00:30→11:49)
[2021-08-09] MEDS: DexMEDEtomidine 250 ML DRIP 250 ML IV SCH ×4 (01:18→22:47)
[2021-08-09 02:09] VITALS: BP 159/67
[2021-08-09] MEDS: RT-ALBUTEROL/IPRATROPIUM 3 ML (DUONEB) VIAL INH SCH ×6 (02:09→23:01)
[2021-08-09] MEDS: methylPREDNISolone 40 MG/ML (Solu-MEDROL) VIAL IV SCH ×3 (02:15→18:08)
[2021-08-09] MEDS: fentaNYL DRIP PRE-MIX 250 ML IV SCH ×4 (02:15→21:55)
[2021-08-09] MEDS: PIPERACILLIN SODIUM/TAZOBACTAM 4.5 GM in NS (IVPB) 100 ML IV SCH ×2 (02:16→11:48)
[2021-08-09] MEDS: inSUlin ASPART (NovoLOG) 1 UNIT/0.01 ML (CHARGE PER UNIT) SC SCH ×4 (02:16→18:33)
[2021-08-09 03:21] LABS: BASOPHILS % (AUTO) 0 % (0-10); EOSINOPHILS % (AUTO) 0 % (0-10); HEMATOCRIT 38 % (35-52); HEMOGLOBIN 11.8 g/dL (11.5-16.0); LYMPHOCYTES % (AUTO) 8 % (12-44); MEAN CORPUSCULAR HEMOGLOBIN 28 pg (25-34); MEAN CORPUSCULAR HGB CONC 31 g/dL (32-36); MEAN CORPUSCULAR VOLUME 90 fL (80-99); MEAN PLATELET VOLUME 11.4 fL (9.0-12.2); MONOCYTES # (AUTO) 0.8 10^3/uL (0.0-1.0); MONOCYTES % (AUTO) 7 % (0-12); NEUTROPHILS # (AUTO) 9.8 10^3/uL (1.8-7.8); NEUTROPHILS % (AUTO) 84 % (42-75); PLATELET COUNT 161 10^3/uL (130-400); WHITE BLOOD COUNT 11.6 10^3/uL (4.3-11.0)
[2021-08-09 03:26] LABS: ALBUMIN 3.2 GM/DL (3.2-4.5); POTASSIUM 5.2 MMOL/L (3.6-5.0)
[2021-08-09 03:27] LABS: CALCIUM 8.1 MG/DL (8.5-10.1)
[2021-08-09 03:29] LABS: TOTAL PROTEIN 5.7 GM/DL (6.4-8.2)
[2021-08-09 03:30] LABS: BILIRUBIN,TOTAL 0.3 MG/DL (0.1-1.0)
[2021-08-09 03:32] LABS: CREATININE SERUM 1.67 MG/DL (0.60-1.30)
[2021-08-09 03:35] LABS: MAGNESIUM 2.4 MG/DL (1.6-2.4)
[2021-08-09 03:42] LABS: ABG OXYGEN SATURATION 95 % (94-100); ABG PCO2 48 MMHG (35-45); ABG PO2 74 MMHG (79-93); ABG TCO2 25.9 MMOL/L (21.0-31.0)
[2021-08-09 03:43] LABS: ABG PH 7.32 (7.37-7.43)
[2021-08-09 03:45] LABS: ALLENS TEST YES-POS; PATIENT TEMP 36.2; VENTILATOR YES
[2021-08-09] MEDS: NS IV 1000 ML 1,000 ML IV SCH ×2 (03:49→21:57)
[2021-08-09] MEDS: PROPOFOL DRIP (ICU) 100 ML IV SCH ×2 (03:49→05:42)
--- NOTE | 2021-08-09 06:18 | Progress Note - Hospitalist ---
Subjective HPI/CC On Admission Date Seen by Provider: August 09, 2021 Time Seen by Provider: 10:00 Subjective/Events-last exam Pt is about the same Evaluating [place] for transfer Not really having any neurological reflexes but will continue to support her Overall prognosis guarded Objective Exam Vital Signs Vital Signs Date Time Temp Pulse Resp B/P (MAP) Pulse Ox O2 Delivery O2 Flow Rate FiO2 08/10/21 06:00 36.5 82 15 94 Mechanical Ventilator 35.00 08/10/21 04:00 35 Capillary Refill : General Appearance: No Apparent Distress, WD/WN, Chronically ill, Obese, Other (sedated intubated) Respiratory: Decreased Breath Sounds Cardiovascular: Regular Rate, Rhythm Results/Procedures Lab Laboratory Tests 08/10/21 05:15 Patient resulted labs reviewed. Assessment/Plan Assessment and Plan Assess & Plan/Chief Complaint (1) Respiratory failure with hypoxia and hypercapnia Status: Acute Assessment & Plan: 08/05 Appreciate [facility] ICU recommendations, trial of weaning sedation for possible SBT later today 08/06patient could not tolerate weaning Qualifiers: Qualified Codes: J96.01 - Acute respiratory failure with hypoxia; J96.02 - Acute respiratory failure with hypercapnia (2) Cardiopulmonary arrest Status: Acute Assessment & Plan: With ROSC in ER. Target normothermia. Suspect cardiac arrest secondary to respiratory arrest with severe COPD exacerbation. Consider PE, pn [place], see below. (3) COPD exacerbation Status: Acute Assessment & Plan: Solumedrol 125 mg q6, zosyn given recent hospitalization and purulent mucous although no clear CXR findings. 08/05 titrated solumedrol dose, continue zosyn (4) Elevated d-dimer Status: Acute Assessment & Plan: Markedly elevated, unclear if related to code, but given code and current status, hesitant to obtain CTA at this time, will treat empirically with full dose enoxaparin. 08/05 on heparin drip, cannot tolerate CTA due to kidney function (5) Leukocytosis Status: Acute Assessment & Plan: Uncertain whether code related versus underlying infection, Zosyn started empirically. (6) Lactic acidosis Status: Resolved Assessment & Plan: Suspect secondary to hypoxia from code, resolved on repeat. (7) Respiratory acidosis Status: Acute Assessment & Plan: Has baseline hypercapnia, but with severe hypercapnia on admit. Intubated and mechanically ventilated, appreciate [facility] ICU recommendations. 08/05 continuing to improve with mechanical ventilation, pH 7.24 this am. (8) Hypercapnia Status: Chronic Assessment & Plan: Acute on chronic, recently started on home bipap. 08/05 improving with mechanical ventilation, PCO2 decreased to 54 this morning (9) CARLOS A (acute kidney injury) Status: Acute Assessment & Plan: Secondary to ischemia related to cardiac arrest, IVF and monitor closely. (10) KANU (obstructive sleep apnea) Status: Chronic (11) Morbid obesity Status: Chronic (12) COPD (chronic obstructive pulmonary disease) Status: Chronic (13) Hypertension Status: Chronic (14) Obesity hypoventilation syndrome Status: Chronic (15) DVT prophylaxis Status: Acute Assessment & Plan: Treatment dose enoxaparin due to high D dimer. Changed to heparin drip per [facility] Plan: Supportive care Support weaning trial 08/07/21: Diff wean 08/08: [place]? 08/09: [place]? MARIS SALDIVAR DO August 09, 2021 06:18
[2021-08-09] MEDS: KCL 20 MEQ TAB (K-DUR) PO SCH (06:46)
[2021-08-09] MEDS: POTASSIUM CL 10MEQ/50ML IVPB 50 ML IV SCH (06:46)
[2021-08-09] MEDS: MAGNESIUM 1 GM/100 ML IVPB 100 ML IV SCH (06:46)
[2021-08-09 06:52] VITALS: BP 159/92
--- NOTE | 2021-08-09 06:53 | Occ Therapy Progress Note ---
Therapy Progress Note Pt. continues on ventilator support. Will hold Occupational Therapy at this time. HIRAM PRO August 09, 2021 06:53
--- NOTE | 2021-08-09 07:25 | Physical Therapy Progress Note ---
Therapy Progress Note Patient currently sedated and intubated. PT will continue to monitor patients status. ARSALAN MANCILLA PT August 09, 2021 07:25
--- NOTE | 2021-08-09 07:56 | Diagnostic Imaging Report ---
INDICATION: 66-year-old female post code COMPARISONS: 08/08/2021 FINDINGS: Single view of the chest shows the cardiac contour to be borderline enlarged. There is moderate central venous congestion. There is scattered infiltrates in the left upper lobe with more confluent consolidations in both lower lobes. Overall, this pattern is similar to the previous study. ET tube tip overlies the trachea about 3 cm above the chet. Right-sided PICC line is stable. NG tube is also unchanged. Soft tissues and bony thorax are normal. IMPRESSION: 1. Slight improvement in the central venous congestion. 2. There is scattered 5 lobe alveolar infiltrates more prominent in the left lung with more confluent consolidations in the lower lobes. This is slightly improved since the prior exam. 3. Stable support lines. Dictated by: Dictated on workstation # [id number]
[2021-08-09] MEDS: PANTOPRAZOLE 40 MG (PROTONIX) VIAL IV SCH (08:04)
[2021-08-09] MEDS: amLODIPine 2.5MG (NORVASC) TAB PO SCH (08:05)
[2021-08-09] MEDS: ASPIRIN 81 MG CHEW (CHILDREN'S ASA) PO SCH (08:05)
[2021-08-09 09:17] VITALS: BP 167/66
[2021-08-09] MEDS ORDERED: fentaNYL INJ 100 MCG/2 ML AMP IVP PRN (09:45)
--- NOTE | 2021-08-09 10:08 | Tele-ICU Consult ---
History of Present Illness History of Present Illness Date Seen by Provider: August 09, 2021 Time Seen by Provider: 10:07 Date of Admission (Tele-ICU Physician , Progress Note ) Available chart/ vitals / labs / Images reviewed Video assessment done using teleICU camera, rest of exam as per RN Discussed with RN , EXAM PER RN Events overnight : Afebrile FiO2 - 55 I/O = even Drips: ns Pressors: , hemodynamically stable Sedation gtt: propofol 30 fent 250 precedex 1 ( RASS -2 ) VENT SETTINGS and ABG reviewed Not candidate for SBT today REVIEWED Cardiovascular Stability / Sedation Score / FI02/PEEP / ABG / CXR Consultants: Hospital course: 08/04 - arrived to ER with severe resp distress, code blue in ER for 10 min , ROSC 100 fio2 + 12 , PAP >50 08/05 - 55% + 5 , CT head negative , US LE neg 08/09 - 35% peep 6 A/P Cardiac arrest - most likey secondary to resp arrest - ROSC after 10 min - can not assess mental status post arrest - given paralitycs for intubation an need heavy sedation with difficulties ventilating -CT HEAD 08/05 - negative PLAN TO STOP SEDATION Muscle twitchin activity 08/04 - face and right foot - empiric Keppra started , will reassess after stoping sedation Acute resp failure , suspected AECOPD - intubated in ER 08/04 - full vent support , PAP > 50s after intubatet, BETTER NOW <30 off ketamine gtt - DECREASE STEROIDS DOSE Elevated ddimer to 17 - empiric heparin gtt --> changed to eliquis - ECHO RVSP 41 -US LE - negative CARLOS A - gentle hydration GIB ? - Hb stable despite some coffee grownd -PPI 40 qd - start TF , decrease steroids AECOPD - steroids- decrease dose , nebs Leukocytosis , low PCT ( - neg for covid , flu - UTI with proteus -purulent sputum upon intibation - Zosyn - to finish 08/09 LIYA - chronic as per patient report to RN = ? lymphedema vs edema ( ? chronic nocturnal hypoxia - US LE neg Chronic hypercapneic and hypoxic resp failure -home settings NIPPV and compliance unknown now , recentr d/c from hospitral with AECOPD Obesity BMI 53 Lines : right PICC (Central Line Necessity Reviewed) Goldberg: + OG: + Nutrition: to sart TF 08/05 Analgesia: Anxiety/ delirium VTE Prophylaxis: fullheparin gtt Stress Ulcer Prophylaxis: ppi Plans in collaboration with bedside consultants and IM MDs Discussed with RN to reach out if any questions or concerns A total of 38 minutes of critical care time was devoted to this patient today, required to treat and/or prevent further deterioration of critical care condition ( as above ) . Allergies and Home Medications Allergies Coded Allergies: No Known Drug Allergies (Unverified , 07/09/18) Home Medications Albuterol Sulfate 18 Gm Hfa.aer.ad, 2 PUFF INH Q6H PRN for SHORTNESS OF BREATH, (Reported) Ibuprofen 200 Mg Capsule, 400 MG PO Q6H PRN for PAIN-MILD (1-4), (Reported) Ipratropium/Albuterol Sulfate 0.5 Mg-3 Mg (2.5 Mg Base)/3 Ml Ampul.neb, 3 ML IH Q4H, (Reported) Magnesium Carbonate/Al Hydrox 1 Each Tab.chew, 2 EACH PO Q6H PRN for HEARTBURN/INDIGESTION, (Reported) Metoprolol Tartrate 25 Mg Tablet, 25 MG PO BID WITH MEALS, (Reported) Umeclidinium [place] 62.5 Mcg Blst.w.dev, 1 PUFF IH DAILY, (Reported) Past Medical/Social/Family Hx Patient Social History Smoking Status: Unknown if Ever Smoked Smokeless Tobacco Frequency: Unknown if Ever Used Use of E-Cig and/or Vaping dev: Unable to obtain E-Cig and/or Vaping Freq: Unknown if Ever Used Substance use?: Unable to obtain Alcohol Use?: Unable to obtain Pt stated abuse/neglect: Unable to obtain Immunizations Up To Date First/Initial COVID19 Vaccinat: spring 2020- Second COVID19 Vaccination Jairon: spring 2020- Tetanus Booster (TDap): Unknown Hepatitis A: Yes Hepatitis B: Yes Current Status Communicates: Does Not Communicate Primary Language: Romanian Past Medical History PMHx: COPD HTN SurgHx: Knee surgery Tonsillectomy Exlap for endometriosis Review of Systems Constitutional: see HPI Focused Exam Height, Weight, BMI Height: 5'6.00" Weight: 297lbs. 6.0oz. 133.010010nh; 49.01 BMI Method:Actual Exam Exam Patient acknowledged, consented, and participated in this virtual visit which was conducted using real time audio/video Vital Signs Date Time Temp Pulse Resp B/P (MAP) Pulse Ox O2 Delivery O2 Flow Rate FiO2 08/09/21 09:17 96 18 95 35 08/09/21 09:00 73 18 94 Mechanical Ventilator 35.00 08/09/21 08:00 75 18 94 Mechanical Ventilator 35.00 08/09/21 07:42 36.1 71 18 95 Mechanical Ventilator 35.00 08/09/21 07:00 71 18 95 Mechanical Ventilator 36.00 08/09/21 07:00 71 08/09/21 06:52 70 18 95 35 08/09/21 06:52 71 159/67 08/09/21 06:00 36.4 71 18 95 Mechanical Ventilator 36.00 08/09/21 05:42 71 159/67 08/09/21 05:00 36.3 71 18 94 Mechanical Ventilator 36.00 08/09/21 04:02 36.2 08/09/21 04:00 Mechanical Ventilator 36 08/09/21 04:00 36.3 74 18 95 Mechanical Ventilator 36.00 08/09/21 03:49 75 159/67 08/09/21 03:00 36.3 75 18 95 Mechanical Ventilator 36.00 08/09/21 02:09 72 18 96 35 08/09/21 02:00 36.2 71 18 96 Mechanical Ventilator 36.00 08/09/21 01:18 70 177/72 08/09/21 01:00 70 08/09/21 01:00 36.2 70 18 95 Mechanical Ventilator 36.00 08/09/21 00:02 Mechanical Ventilator 36 08/09/21 00:00 36.0 76 18 94 Mechanical Ventilator 36.00 08/09/21 00:00 36.1 76 18 94 Mechanical Ventilator 36.00 08/08/21 23:59 36.1 08/08/21 23:00 36.1 79 18 93 Mechanical Ventilator 36.00 08/08/21 22:01 75 18 95 35 08/08/21 22:00 36.1 74 18 95 Mechanical Ventilator 36.00 08/08/21 21:16 79 194/85 08/08/21 21:00 36.1 76 18 95 Mechanical Ventilator 36.00 08/08/21 20:05 79 194/85 5/30/22 20:05 79 194/85 08/08/21 20:00 Mechanical Ventilator 36 08/08/21 20:00 36.0 75 18 95 Mechanical Ventilator 36.00 08/08/21 19:00 83 08/08/21 19:00 36.0 83 18 94 Mechanical Ventilator 36.00 08/08/21 18:07 79 18 94 35 08/08/21 18:00 36.0 76 18 94 Mechanical Ventilator 36.00 08/08/21 17:08 190/77 08/08/21 17:08 192/79 08/08/21 17:00 36.0 80 18 95 Mechanical Ventilator 36.00 08/08/21 16:00 36.0 80 19 95 Mechanical Ventilator 36.00 08/08/21 15:49 Mechanical Ventilator 36 08/08/21 15:00 36.2 84 18 94 Mechanical Ventilator 36.00 08/08/21 14:37 80 18 94 36 08/08/21 14:00 36.3 80 18 95 Mechanical Ventilator 36.00 08/08/21 13:02 81 154/62 08/08/21 13:00 36.3 81 18 94 Mechanical Ventilator 36.00 08/08/21 12:30 85 08/08/21 12:10 Mechanical Ventilator 40 08/08/21 12:00 36.4 92 18 94 Mechanical Ventilator 36.00 08/08/21 11:00 36.4 90 18 94 Mechanical Ventilator 36.00 08/08/21 10:30 Mechanical Ventilator 36.00 08/08/21 10:23 89 18 95 36 I & O 08/09/21 07:00 Intake Total 0 ml Output Total 4100 ml Balance -4100 ml Height & Weight Height: 5'6.00" Weight: 297lbs. 6.0oz. [id number]; 49.01 BMI Method:Actual General Appearance: No Apparent Distress, WD/WN, Chronically ill, Obese, Other (inubated and sedated) HEENT: Other (Head cyanotic, mucous membranes moist) Neck: Other (Body habitus obscures meaningful exam) Respiratory: No Accessory Muscle Use, No Respiratory Distress, Decreased Breath Sounds Cardiovascular: Regular Rate, Rhythm Gastrointestinal: normal bowel sounds, distended Extremity: Other (Mild lower extremity edema and chronic skin changes. Mild cyanosis) Neurologic/Psychiatric: Other (Completely unresponsive initially. Some spontan eous movement and breathing after ROSC) Skin: Warm/Dry, Cyanosis Results Lab Laboratory Tests 08/08/21 04:17 08/08/21 15:29 08/09/21 03:10 Assessment/Plan Assessment/Plan ` ALEX WIGGINS MD August 09, 2021 10:08
[2021-08-09] MEDS: fentaNYL INJ 100 MCG/2 ML AMP IVP PRN ×2 (10:50→13:52)
[2021-08-09] MEDS: hydrALAZINE (APESOLINE) 20 MG/ML VIAL IV SCH ×3 (11:05→20:53)
[2021-08-09] MEDS ORDERED: meTOprolol 5 MG/5 ML (LOPRESSOR) VIAL IV PRN (11:30)
[2021-08-09] MEDS ORDERED: meTOprolol 5 MG/5 ML (LOPRESSOR) VIAL IV SCH (12:00)
[2021-08-09 14:28] VITALS: BP 184/73
--- NOTE | 2021-08-09 17:23 | Cardiology Progress Note ---
Progress Note-Cardiology Events since last exam Date Seen by Provider: August 09, 2021 Time Seen by Provider: 17:19 Events since last exam I am following her due to cardiac arrest. She remains in the intensive care unit intubated and sedated. The nurse has wean down sedation today but the patient has remained unresponsive. She then became hypertensive and the sedation was increased. She will apparently be transferred to [facility] and [place], [place] for ongoing support. I am not able to obtain any history from the patient due to her clinical status and sedation. Certain portions of this document may have been dictated utilizing voice recognition technology. Inherent to this technology, typographical and grammatical errors may exist. As much as I am diligent to identify and correct these mistakes, some errors may remain in the document. Vitals Last set of Vitals Signs Vital Signs 08/09/21 08/09/21 08/09/21 08/09/21 06:52 15:49 16:00 16:02 Temp 36.0 Pulse 82 Resp 19 B/P (MAP) 159/67 Pulse Ox 93 O2 Delivery Mechanical Ventilator O2 Flow Rate 35.00 FiO2 36 Labs Labs Laboratory Tests 08/09/21 03:10 Exam Vital Signs Vital Signs Date Time Temp Pulse Resp B/P (MAP) Pulse Ox O2 Delivery O2 Flow Rate FiO2 08/09/21 16:02 Mechanical Ventilator 36 08/09/21 16:00 82 19 93 35.00 08/09/21 15:49 36.0 Physical Exam General: Intubated and sedated. Well nourished and appears stated age. She is morbidly obese. Eye: Conjunctivae are clear. There are no xanthelasma. HENT: Normocephalic. Atraumatic. Carotid pulsations 2/2 without bruits. Neck: Jugular venous pressure does not appear elevated. No thyromegaly appreciated. Respiratory: Symmetrical expansion bilaterally. Coarse breath sounds due to the ventilator. Cardiovascular: Normal rate. Regular rhythm. No murmur. No gallop. Point of maximal impulse is not appear displaced. Good pulses equal in all extremities. No edema. Gastrointestinal: Soft. Hypoactive bowel sounds. Skin: Skin turgor is normal. There is no pallor. Musculoskeletal: No obvious deformities. Neurologic: Intubated and sedated. Psychiatric: Not obtainable due to clinical status. Labs Laboratory Tests Test 08/08/21 23:43 08/09/21 03:00 08/09/21 03:10 08/09/21 12:03 Range/Units Glucometer 152 H 145 H 70-110 MG/DL Blood Gas Puncture Site NOT INDICATED Blood Gas Patient Temperature 36.2 Arterial Blood pH 7.32 *L 7.37-7.43 Arterial Blood Partial Pressure CO2 48 H 35-45 MMHG Arterial Blood Partial Pressure O2 74 L 79-93 MMHG Arterial Blood HCO3 24 23-27 MMOL/L Arterial Blood Total CO2 25.9 21.0-31.0 MMOL/L Arterial Blood Oxygen Saturation 95 94-100 % Arterial Blood Base Excess -1.0 -2.5-2.5 MMOL/L Jaxson Test YES-POS Blood Gas Ventilator Setting YES Blood Gas Inspired Oxygen 37% White Blood Count 11.6 H 4.3-11.0 10^3/uL Red Blood Count 4.24 3.80-5.11 10^6/uL Hemoglobin 11.8 11.5-16.0 g/dL Hematocrit 38 35-52 % Mean Corpuscular Volume 90 80-99 fL Mean Corpuscular Hemoglobin 28 25-34 pg Mean Corpuscular Hemoglobin Concent 31 L 32-36 g/dL Red Cell Distribution Width 15.8 H 10.0-14.5 % Platelet Count 161 130-400 10^3/uL Mean Platelet Volume 11.4 9.0-12.2 fL Immature Granulocyte % (Auto) 1 % Neutrophils (%) (Auto) 84 H 42-75 % Lymphocytes (%) (Auto) 8 L 12-44 % Monocytes (%) (Auto) 7 0-12 % Eosinophils (%) (Auto) 0 0-10 % Basophils (%) (Auto) 0 0-10 % Neutrophils # (Auto) 9.8 H 1.8-7.8 10^3/uL Lymphocytes # (Auto) 1.0 1.0-4.0 10^3/uL Monocytes # (Auto) 0.8 0.0-1.0 10^3/uL Eosinophils # (Auto) 0.0 0.0-0.3 10^3/uL Basophils # (Auto) 0.0 0.0-0.1 10^3/uL Immature Granulocyte # (Auto) 0.2 H 0.0-0.1 10^3/uL Sodium Level 147 H 135-145 MMOL/L Potassium Level 5.2 H 3.6-5.0 MMOL/L Chloride Level 113 H 98-107 MMOL/L Carbon Dioxide Level 20 L 21-32 MMOL/L Anion Gap 14 5-14 MMOL/L Blood Urea Nitrogen 51 H 7-18 MG/DL Creatinine 1.67 H 0.60-1.30 MG/DL Estimat Glomerular Filtration Rate 34 BUN/Creatinine Ratio 31 Glucose Level 148 H 70-105 MG/DL Calcium Level 8.1 L 8.5-10.1 MG/DL Corrected Calcium 8.7 8.5-10.1 MG/DL Phosphorus Level 5.0 H 2.3-4.7 MG/DL Magnesium Level 2.4 1.6-2.4 MG/DL Total Bilirubin 0.3 0.1-1.0 MG/DL Aspartate Amino Transf (AST/SGOT) 59 H 5-34 U/L Alanine Aminotransferase (ALT/SGPT) 69 H 0-55 U/L Alkaline Phosphatase 37 L 40-136 U/L Total Protein 5.7 L 6.4-8.2 GM/DL Albumin 3.2 3.2-4.5 GM/DL Diagnosis/Problems Diagnosis/Problems (1) Cardiopulmonary arrest Status: Acute Assessment & Plan: I suspect this may have been primary respiratory arrest which then may have developed into cardiac arrest. She remains intubated in the ICU. She is not requiring any vasoactive medications. Her echocardiogram showed a normal ejection fraction. Her initial troponin level was undetectable and her electrocardiogram does not show any evidence of ischemic changes. Her troponin level from 08/03 was marginally elevated. I started her on low strength aspirin and beta-mariya. If she survives this illness, we will need to consider an ischemic evaluation at some point in time. (2) Troponin level elevated Assessment & Plan: She has a marginally elevated troponin level. This is in the setting of having undergone cardiopulmonary resuscitation. I did start her on aspirin and beta-mariya. She had been on heparin due to a concern for possible pulmonary embolism. As above, this has now been changed to apixaban. Her transaminase levels are slightly elevated. As these improve, I will consid er starting statin. She had a probable type II non-ST elevation myocardial infarction due to the cardiac arrest. As above, if she recovers from this acute insult, we may need to consider an ischemic evaluation. (3) Primary hypertension Assessment & Plan: She appears to have been taking metoprolol at home. Her blood pressures continue to be intermittently elevated. I restarted metoprolol tartrate and then increased the dose on 08/06. I had then started her on low- dose amlodipine but her oral medications were put on hold by eICU due to some bloody secretions from her NG tube. Today she received oral amlodipine. I had changed the beta-mariya over to IV. I will change this back to oral. (4) Acute kidney injury superimposed on chronic kidney disease Assessment & Plan: I suspect this is due to her cardiac arrest and possibly from diuretic which I had started earlier during the hospitalization. The has now been discontinued. Her creatinine has been improving. (5) Aortic stenosis Assessment & Plan: Her echocardiogram from 08/05 shows at least mild aortic stenosis. This should not be contributing to the current clinical picture but will need to be followed longitudinally after discharge. (6) Acute on chronic respiratory failure with hypoxia and hypercapnia Assessment & Plan: Most likely multifactorial. The eICU and hospitalist are managing the ventilator. (7) Pulmonary hypertension Assessment & Plan: Her echocardiogram showed mild pulmonary hypertension. I suspect this may just be due to her morbid obesity and possibly undiagnosed sleep apnea. If she did in fact have a pulmonary embolism, this could also be contributing to the elevated pulmonary pressure. (8) Morbid obesity Status: Chronic Assessment & Plan: She will need to be counseled about weight loss. Her morbid obesity is likely contributing to her current critical illness. DEWAYNE MCDONALD JR, MD August 09, 2021 17:23
[2021-08-09 19:00] VITALS: BP 159/92
[2021-08-09] MEDS: ROSUVASTATIN 10 MG (CRESTOR) TABLET PO SCH (20:53)
[2021-08-09 23:01] VITALS: BP 169/68
[2021-08-10] MEDS: hydrALAZINE (APESOLINE) 20 MG/ML VIAL IV SCH ×3 (00:33→08:35)
[2021-08-10] MEDS: methylPREDNISolone 40 MG/ML (Solu-MEDROL) VIAL IV SCH ×2 (00:33→08:42)
[2021-08-10] MEDS: inSUlin ASPART (NovoLOG) 1 UNIT/0.01 ML (CHARGE PER UNIT) SC SCH ×2 (00:38→05:50)
[2021-08-10] MEDS: RT-ALBUTEROL/IPRATROPIUM 3 ML (DUONEB) VIAL INH SCH ×2 (02:26→06:54)
[2021-08-10 02:27] VITALS: BP 172/76
[2021-08-10] MEDS: DexMEDEtomidine 250 ML DRIP 250 ML IV SCH ×2 (02:52→06:45)
[2021-08-10] MEDS: fentaNYL DRIP PRE-MIX 250 ML IV SCH ×2 (02:52→07:40)
[2021-08-10 05:26] LABS: ABG OXYGEN SATURATION 93 % (94-100); ABG PCO2 41 MMHG (35-45); ABG PH 7.35 (7.37-7.43); ABG PO2 70 MMHG (79-93); ABG TCO2 23.1 MMOL/L (21.0-31.0)
[2021-08-10 05:27] LABS: ALLENS TEST ART LINE; BASOPHILS % (AUTO) 0 % (0-10); EOSINOPHILS % (AUTO) 0 % (0-10); HEMATOCRIT 38 % (35-52); HEMOGLOBIN 11.8 g/dL (11.5-16.0); INSPIRED O2 35%; LYMPHOCYTES # (AUTO) 0.5 10^3/uL (1.0-4.0); LYMPHOCYTES % (AUTO) 4 % (12-44); MEAN CORPUSCULAR HEMOGLOBIN 28 pg (25-34); MEAN CORPUSCULAR HGB CONC 31 g/dL (32-36); MEAN CORPUSCULAR VOLUME 89 fL (80-99); MONOCYTES # (AUTO) 0.5 10^3/uL (0.0-1.0); MONOCYTES % (AUTO) 4 % (0-12); NEUTROPHILS # (AUTO) 11.3 10^3/uL (1.8-7.8); NEUTROPHILS % (AUTO) 91 % (42-75); PATIENT TEMP 36.5; PLATELET COUNT 143 10^3/uL (130-400); VENTILATOR YES; WHITE BLOOD COUNT 12.4 10^3/uL (4.3-11.0)
[2021-08-10 05:35] LABS: ALBUMIN 3.2 GM/DL (3.2-4.5); POTASSIUM 5.7 MMOL/L (3.6-5.0)
[2021-08-10 05:36] LABS: CALCIUM 8.2 MG/DL (8.5-10.1)
[2021-08-10 05:38] LABS: TOTAL PROTEIN 5.7 GM/DL (6.4-8.2)
[2021-08-10 05:39] LABS: BILIRUBIN,TOTAL 0.3 MG/DL (0.1-1.0)
[2021-08-10 05:41] LABS: CREATININE SERUM 1.44 MG/DL (0.60-1.30); PHOSPHORUS 4.9 MG/DL (2.3-4.7)
[2021-08-10 05:44] LABS: MAGNESIUM 2.4 MG/DL (1.6-2.4)
[2021-08-10] MEDS: MAGNESIUM 1 GM/100 ML IVPB 100 ML IV SCH (05:50)
[2021-08-10] MEDS: POTASSIUM CL 10MEQ/50ML IVPB 50 ML IV SCH (05:50)
[2021-08-10] MEDS: KCL 20 MEQ TAB (K-DUR) PO SCH (05:50)
[2021-08-10] MEDS ORDERED: PANT40VI IV (06:39)
[2021-08-10] MEDS ORDERED: APIX5TAB NG (06:39)
[2021-08-10] MEDS ORDERED: HYDR20VI17 IV (06:39)
[2021-08-10] MEDS ORDERED: INSU100V16 SC (06:39)
[2021-08-10] MEDS ORDERED: AMLO2.5T4 PO (06:39)
[2021-08-10] MEDS ORDERED: ASPI81TA64 PO (06:39)
[2021-08-10] MEDS ORDERED: ROSU10TA28 PO (06:39)
[2021-08-10] MEDS ORDERED: METH40VI2 IV (06:39)
[2021-08-10] MEDS ORDERED: [UNRECOGNIZED DRUG - CODE] IV (06:39)
[2021-08-10] MEDS ORDERED: CARV12.53 PO (06:39)
--- NOTE | 2021-08-10 06:39 | Discharge Summary ---
Discharge Summary Hospital Course Was the Problem List Reviewed?: Yes Problems/Dx: (1) Cardiopulmonary arrest Status: Acute (2) Troponin level elevated (3) Primary hypertension (4) Acute kidney injury superimposed on chronic kidney disease (5) Aortic stenosis (6) Acute on chronic respiratory failure with hypoxia and hypercapnia (7) Pulmonary hypertension (8) Morbid obesity Status: Chronic Hospital Course Date of Admission: August 04, 2021 at 08:30 Admission Diagnosis : Family Physician/Provider: [facility] Date of Discharge: 08/10/21 Discharge Diagnosis: Respiratory arrest, KANU, OHA, chronic kidney disease Hospital Course: Pt had an uneventful hospital course for 7 days. Although lengthy after she went into respiratory arrest in the ER. Cardiology was consulted. No evidence of any cardiac cause of the arrest. She remained intubated. Required heavy sedation due to fighting the vent. PPI initiated for some dark OGT contents. Creatinine remained stable at 1.44 but BUN of 60 could represent blood in the gut. White count remains stable at 12.4. Overall she remained stable, unsure of the recoverability. She was assessed to be a [facility] candidate to evaluate the p ossibility of extubation under their expertise. Labs and Pending Lab Test: Laboratory Tests 08/09/21 12:03: Glucometer 145H 08/09/21 17:28: Glucometer 116H 08/10/21 00:37: Glucometer 124H 08/10/21 05:15: White Blood Count 12.4H, Red Blood Count 4.21, Hemoglobin 11.8, Hematocrit 38, Mean Corpuscular Volume 89, Mean Corpuscular Hemoglobin 28, Mean Corpuscular Hemoglobin Concent 31L, Red Cell Distribution Width 15.9H, Platelet Count 143, Mean Platelet Volume 11.0, Immature Granulocyte % (Auto) 1, Neutrophils (%) (Auto) 91H, Lymphocytes (%) (Auto) 4L, Monocytes (%) (Auto) 4, Eosinophils (%) (Auto) 0, Basophils (%) (Auto) 0, Neutrophils # (Auto) 11.3H, Lymphocytes # (Auto) 0.5L, Monocytes # (Auto) 0.5, Eosinophils # (Auto) 0.0, Basophils # (Auto) 0.0, Immature Granulocyte # (Auto) 0.2H, Blood Gas Puncture Site RIGHT RADIAL, Blood Gas Patient Temperature 36.5, Arterial Blood pH 7.35L, Arterial Blood Partial Pressure CO2 41, Arterial Blood Partial Pressure O2 70L, Arterial Blood HCO3 22L, Arterial Blood Total CO2 23.1, Arterial Blood Oxygen Saturation 93L, Arterial Blood Base Excess -3.0L, Jaxson Test ART LINE, Blood Gas Ventilator Setting YES, Blood Gas Inspired Oxygen 35%, Sodium Level 147H, Potassium Level 5.7H, Chloride Level 115H, Carbon Dioxide Level 19L, Anion Gap 13, Blood Urea Nitrogen 60H, Creatinine 1.44H, Estimat Glomerular Filtration Rate 40, BUN/Creatinine Ratio 42, Glucose Level 170H, Calcium Level 8.2L, Corrected Calcium 8.8, Phosphorus Level 4.9H, Magnesium Level 2.4, Total Bilirubin 0.3, Aspartate Amino Transf (AST/SGOT) 49H, Alanine Aminotransferase (ALT/SGPT) 68H, Alkaline Phosphatase 39L, Total Protein 5.7L, Albumin 3.2, Triglycerides Level 152H Microbiology 08/04/21 MRSA Screen - Final, Complete MRSA not isolated 08/04/21 Urine Culture - Final, Complete Proteus mirabilis 08/04/21 Blood Culture - Preliminary, Resulted No growth Home Meds Active Novolog (Insulin Aspart) 100 Unit/Ml Susp 0 Unit SC Q6HR 3 Days Solu-Medrol 40 mg Vial (Methylprednisolone Sod Succ/Pf) 40 Mg/Ml Vial 40 Mg IV Q8H 3 Days Protonix IV (Pantoprazole Sodium) 40 Mg Vial 40 Mg IV DAILY 30 Days Keppra IV (Levetiracetam) 500 Mg/5 Ml Vial 500 Mg IV BID 30 Days Children's Aspirin (Aspirin) 81 Mg Tab.chew 81 Mg PO DAILY 30 Days Amlodipine Besylate 2.5 Mg Tablet 2.5 Mg PO DAILY 30 Days Carvedilol 12.5 Mg Tablet 12.5 Mg PO BID 30 Days Hydralazine HCl 20 Mg/Ml Vial 10 Mg IV Q4HR 30 Days Rosuvastatin Calcium 10 Mg Tablet 10 Mg PO HS 30 Days Eliquis (Apixaban) 5 Mg Tablet 5 Mg NG BID 7 Days on hold due to blood in OGT Reported Iprat-Albut 0.5-3(2.5) mg/3 ml (Ipratropium/Albuterol Sulfate) 0.5 Mg-3 Mg (2.5 Mg Base)/3 Ml Ampul.neb 3 Ml IH Q4H Incruse Ellipta (Umeclidinium Jackson) 62.5 Mcg Blst.w.dev 1 Puff IH DAILY Antacid Extra Strength Chw Tab (Magnesium Carbonate/Al Hydrox) 1 Each Tab.chew 2 Each PO Q6H PRN Ibuprofen 200 Mg Capsule 400 Mg PO Q6H PRN Ventolin Hfa (Albuterol Sulfate) 18 Gm Hfa.aer.ad 2 Puff INH Q6H PRN Metoprolol Tartrate 25 Mg Tablet 25 Mg PO BID WITH MEALS Assessment/Pt Instructions [facility] Discharge Planning: <30 minutes discharge planning Discharge Instructions Discharge Diet: Tube Feeding Activity as Tolerated: Yes Discharge Physical Examination Vital Signs Vital Signs Date Time Temp Pulse Resp B/P (MAP) Pulse Ox O2 Delivery O2 Flow Rate FiO2 08/10/21 06:00 36.5 82 15 94 Mechanical Ventilator 35.00 08/10/21 04:00 35 General Appearance: No Apparent Distress, WD/WN, Chronically ill Respiratory: Lungs Clear, Normal Breath Sounds Allergies: Coded Allergies: No Known Drug Allergies (Unverified , 07/09/18) Discharge Summary Date of Admission August 04, 2021 at 08:30 Date of Discharge Discharge Date: Aug 10, 2021 Discharge Diagnosis (1) Respiratory failure with hypoxia and hypercapnia Status: Acute Assessment & Plan: 08/05 Appreciate [facility] ICU recommendations, trial of weaning sedation for possible SBT later today 08/06patient could not tolerate weaning Qualifiers: Qualified Codes: J96.01 - Acute respiratory failure with hypoxia; J96.02 - Acute respiratory failure with hypercapnia (2) Cardiopulmonary arrest Status: Acute Assessment & Plan: With ROSC in ER. Target normothermia. Suspect cardiac arrest secondary to respiratory arrest with severe COPD exacerbation. Consider PE, pneumonia, see below. (3) COPD exacerbation Status: Acute Assessment & Plan: Solumedrol 125 mg q6, zosyn given recent hospitalization and purulent mucous although no clear CXR findings. 08/05 titrated solumedrol dose, continue zosyn (4) Elevated d-dimer Status: Acute Assessment & Plan: Markedly elevated, unclear if related to code, but given code and current status, hesitant to obtain CTA at this time, will treat empirically with full dose enoxaparin. 08/05 on heparin drip, cannot tolerate CTA due to kidney function (5) Leukocytosis Status: Acute Assessment & Plan: Uncertain whether code related versus underlying infection, Zosyn started empirically. (6) Lactic acidosis Status: Resolved Assessment & Plan: Suspect secondary to hypoxia from code, resolved on repeat. (7) Respiratory acidosis Status: Acute Assessment & Plan: Has baseline hypercapnia, but with severe hypercapnia on admit. Intubated and mechanically ventilated, appreciate [facility] ICU recommendations. 08/05 continuing to improve with mechanical ventilation, pH 7.24 this am. (8) Hypercapnia Status: Chronic Assessment & Plan: Acute on chronic, recently started on home bipap. 08/05 improving with mechanical ventilation, PCO2 decreased to 54 this morning (9) CARLOS A (acute kidney injury) Status: Acute Assessment & Plan: Secondary to ischemia related to cardiac arrest, IVF and monitor closely. (10) KANU (obstructive sleep apnea) Status: Chronic (11) Morbid obesity Status: Chronic (12) COPD (chronic obstructive pulmonary disease) Status: Chronic (13) Hypertension Status: Chronic (14) Obesity hypoventilation syndrome Status: Chronic (15) DVT prophylaxis Status: Acute Assessment & Plan: Treatment dose enoxaparin due to high D dimer. Changed to heparin drip per [facility] ICU Plan: Supportive care Support weaning trial 08/07/21: Diff wean 08/08: [place]? 08/09: [facility]? (1) Cardiopulmonary arrest Status: Acute Assessment & Plan: I suspect this may have been primary respiratory arrest which then may have developed into cardiac arrest. She remains intubated in the ICU. She is not requiring any vasoactive medications. Her echocardiogram showed a normal ejection fraction. Her initial troponin level was undetectable and her electrocardiogram does not show any evidence of ischemic changes. Her troponin level from 08/03 was marginally elevated. I started her on low strength aspirin and beta-mariya. If she survives this illness, we will need to consider an ischemic evaluation at some point in time. (2) Troponin level elevated Assessment & Plan: She has a marginally elevated troponin level. This is in the setting of having undergone cardiopulmonary resuscitation. I did start her on aspirin and beta-mariya. She had been on heparin due to a concern for possible pulmonary embolism. As above, this has now been changed to apixaban. Her transaminase levels are slightly elevated. As these improve, I will consider starting statin. She had a probable type II non-ST elevation myocardial infarction due to the cardiac arrest. As above, if she recovers from this acute insult, we may need to consider an ischemic evaluation. (3) Primary hypertension Assessment & Plan: She appears to have been taking metoprolol at home. Her blood pressures continue to be intermittently elevated. I restarted metoprolol tartrate and then increased the dose on 08/06. I had then started her on low- dose amlodipine but her oral medications were put on hold by eICU due to some bloody secretions from her NG tube. Today she received oral amlodipine. I had changed the beta-mariya over to IV. I will change this back to oral. (4) Acute kidney injury superimposed on chronic kidney disease Assessment & Plan: I suspect this is due to her cardiac arrest and possibly from diuretic which I had started earlier during the hospitalization. The has now been discontinued. Her creatinine has been improving. (5) Aortic stenosis Assessment & Plan: Her echocardiogram from 08/05 shows at least mild aortic stenosis. This should not be contributing to the current clinical picture but will need to be followed longitudinally after discharge. (6) Acute on chronic respiratory failure with hypoxia and hypercapnia Assessment & Plan: Most likely multifactorial. The eICU and hospitalist are managing the ventilator. (7) Pulmonary hypertension Assessment & Plan: Her echocardiogram showed mild pulmonary hypertension. I suspect this may just be due to her morbid obesity and possibly undiagnosed sleep apnea. If she did in fact have a pulmonary embolism, this could also be contributing to the elevated pulmonary pressure. (8) Morbid obesity Status: Chronic Assessment & Plan: She will need to be counseled about weight loss. Her morbid obesity is likely contributing to her current critical illness. MARIS SALDIVAR DO Aug 10, 2021 06:39
--- NOTE | 2021-08-10 06:53 | Occ Therapy Progress Note ---
Therapy Progress Note Pt. continues on ventilator support. Will hold Occupational Therapy at this time. HIRAM PRO Aug 10, 2021 06:53
[2021-08-10 06:54] VITALS: BP 148/62
--- NOTE | 2021-08-10 07:55 | Diagnostic Imaging Report ---
INDICATION: Ventilator dependent. Comparison with 08/09/2021. FINDINGS: ET tube, NG tube and right PICC line remain in good position. There continues to be mild cardiomegaly. There has been clearing of pulmonary venous congestive changes. Minimal basilar effusion on the left remains. IMPRESSION: Satisfactory tube and line position. Clearing of infiltrates with persistent left basilar effusion. Dictated by: Dictated on workstation # [id number]
--- NOTE | 2021-08-10 08:02 | Physical Therapy Progress Note ---
Therapy Progress Note Patient currently sedated and intubated. PT will continue to monitor patients status. ELMER TAHO PT Aug 10, 2021 08:02
[2021-08-10] MEDS: amLODIPine 2.5MG (NORVASC) TAB PO SCH (08:35)
[2021-08-10] MEDS: ASPIRIN 81 MG CHEW (CHILDREN'S ASA) PO SCH (08:35)
[2021-08-10] MEDS: PANTOPRAZOLE 40 MG (PROTONIX) VIAL IV SCH (08:42)
[2021-08-10] MEDS: LORazepam INJ 2 MG/ML (ATIVAN) VIAL IVP PRN (09:20)
[2021-08-10 10:44] VITALS: BP 148/62
[2021-08-13] MEDS ORDERED: APIXABAN 5 MG (ELIQUIS) TABLET NG SCH (21:00)
== END 2021-08-10 09:24 | DRG 207 ==
LOC: EDUNIT# 07:27 → ER 07:28 → ICU 08:30
PROVIDERS: ADMIT Family Medicine; ATTEND Internal Medicine
PROC: 5A1955Z Respiratory Ventilation, Greater than 96 Consecutive Hours (ICD-10-PCS; principal; 2021-08-04)
PROC: 0BH17EZ Insertion of Endotracheal Airway into Trachea, Via Natural or Artificial Opening (ICD-10-PCS; 2021-08-04)
PROC: 5A1221J Performance of Cardiac Output, Continuous, Automated (ICD-10-PCS; 2021-08-04)
DX: J96.21 Acute and chronic respiratory failure with hypoxia (principal); I46.9 Cardiac arrest, cause unspecified; I21.A1 Myocardial infarction type 2; J44.1 Chronic obstructive pulmonary disease with (acute) exacerbation; E87.2 Acidosis; N17.9 Acute kidney failure, unspecified; E66.2 Morbid (severe) obesity with alveolar hypoventilation; Z68.43 Body mass index [BMI] 50.0-59.9, adult; J96.22 Acute and chronic respiratory failure with hypercapnia; I12.9 Hypertensive chronic kidney disease with stage 1 through stage 4 chronic kidney disease, or unspecified chronic kidney disease; N18.9 Chronic kidney disease, unspecified; I35.0 Nonrheumatic aortic (valve) stenosis; I27.20 Pulmonary hypertension, unspecified; Z20.822 Contact with and (suspected) exposure to COVID-19; Z99.81 Dependence on supplemental oxygen; Z82.49 Family history of ischemic heart disease and other diseases of the circulatory system; Z79.52 Long term (current) use of systemic steroids
CPT/HCPCS: 31500; 36415; 36569; 36600; 36680; 51702; 70450; 71045; 76937; 80048; 80053; 80061; 81000; 82805; 82947; 83036; 83605; 83735; 83874; 83880; 84100; 84145; 84478; 84484; 85007; 85025; 85027; 85379; 85610; 85730; 86141; 87040; 87070; 87077; 87081; 87088; 87186; 87205; 87636; 93005; 93041; 93306; 93970; 94002; 94003; 94640; 94799; 96365; 96375; 99291